=== PATIENT | female | born 1980 | race African-American/Black ===

== ENCOUNTER 2016-11-26 11:48 | Observation (INO) | payer MEDICARE, OTHER ==
[2016-11-26] VITALS (10 sets, daily range): BP systolic 144–174; BP diastolic 73–110; PULSE 78–94; RESP 15–18; TEMP 96.1–98.8; O2SAT 95–100
[~2016-11-26] VITALS: Ht 175.3 cm; Wt 90.0 kg
[~2016-11-26 11:48] MED LIST: AMLO10TA2 PO; BUTA1TAB30 PO; CARV12.52 PO; HYDR25TA35 PO; LISI40TA PO; ZOFR4TAB3 SL
--- NOTE | 2016-11-26 12:22 | PD ---
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 Patient's blood pressure was elevated in triage at 175 systolic. She does not appear to be in any significant distress currently. She is on a transplant list for renal transplant. She takes aspirin and took 1 baby aspirin this morning. [facility] Past Medical History Narrative Medical List of her past medical history as reviewed from the nursing note. Dialysis: Yes (PERITONEAL DIALYSIS) Headaches: Yes Hypertension: Yes Thyroid Disease: Yes (PARATHYROID REMOVAL) Influenza Vaccination: Yes ?: Not : 3 Para: 3 Miscarriage: 0 : 0 Past Surgical History Abdominal Surgery: Yes (PERITONEAL DIALYSIS) Hysterectomy: Yes (2009) Other Surgery: Yes (PARATHYROID REMOVAL APRIL 2016) Social History Alcohol Use: No Tobacco Use: No Substance Use: No Allergies-Medications (Allergen,Severity, Reaction): Coded Allergies: Ultram (Verified Allergy, Intermediate, itching, 11/09/16) Bactrim (Verified Adverse Reaction, Unknown, due to kidney failure, ) Contrast Media (Verified Adverse Reaction, Unknown, due to renal failure, 11/09/16) Comments List of her allergies reviewed from the nursing note. Reported Meds & Prescriptions Reported Meds & Active Scripts Active Zofran Odt (Ondansetron Odt) 4 Mg Tab 4 Mg SL Q8HR PRN Reported Omeprazole 40 Mg Cap 40 Mg PO DAILY Allopurinol 100 Mg Tab 100 Mg PO DAILY Aspirin 81 Mg Chew 81 Mg CHEW DAILY Hydralazine (Hydralazine HCl) 25 Mg Tab 25 Mg PO TID Take with a meal Carvedilol 12.5 Mg Tab 12.5 Mg PO BID Lisinopril 40 Mg Tab 40 Mg PO DAILY Amlodipine (Amlodipine Besylate) 10 Mg Tab 10 Mg PO DAILY Narrative Medication List of home medications reviewed from the nursing note. Review of Systems Except as stated in HPI: all other systems reviewed are Neg Physical Exam Narrative GENERAL: Awake, alert, anxious, no obvious distress SKIN: Warm and dry. HEAD: Atraumatic. Normocephalic. EYES: Pupils equal and round. No scleral icterus. No injection or drainage. ENT: No nasal bleeding or discharge. Mucous membranes pink and moist. NECK: Trachea midline. No JVD. CARDIOVASCULAR: Regular rate and rhythm. No murmur appreciated. RESPIRATORY: No accessory muscle use. Clear to auscultation. Breath sounds equal bilaterally. GASTROINTESTINAL: Abdomen soft, non-tender, nondistended. Hepatic and splenic margins not palpable. MUSCULOSKELETAL: No obvious deformities. No clubbing. No cyanosis. No edema. NEUROLOGICAL: Awake and alert. No obvious cranial nerve deficits. Motor grossly within normal limits. Normal speech. NIH stroke score of 0 PSYCHIATRIC: Appropriate mood and affect; insight and judgment normal. Data Data Last Documented VS Vital Signs Date Time Temp Pulse Resp B/P Pulse Ox O2 Delivery O2 Flow Rate FiO2 11/26/16 13:28 16 97 Nasal Cannula 2 11/26/16 13:00 88 144/73 11/26/16 11:52 97.9 Orders Electrocardiogram (11/26/16 ) Basic Metabolic Panel (Bmp) (11/26/16 12:22) Ckmb (Isoenzyme) Profile (11/26/16 12:22) Complete Blood Count With Diff (11/26/16 12:22) Magnesium (Mg) (11/26/16 12:22) Prothrombin Time / Inr (Pt) (11/26/16 12:22) Act Partial Throm Time (Ptt) (11/26/16 12:22) Troponin I (11/26/16 12:22) Chest, Single Ap (11/26/16 12:22) Ecg Monitoring (11/26/16 12:22) Bilateral Bp Monitoring (11/26/16 12:22) Iv Access Insert/Monitor (11/26/16 12:22) Oximetry (11/26/16 12:22) Oxygen Administration (11/26/16 12:22) Sodium Chloride 0.9% Flush (Ns Flush) (11/26/16 12:30) Nitroglycerin Sl (Nitrostat Sl) (11/26/16 12:30) Ct Brain W/O Iv Contrast(Rout) (11/26/16 ) CKMB (11/26/16 12:20) CKMB% (11/26/16 12:20) Protein Corrected Calcium(Pcc) (11/26/16 12:20) Potassium Chloride (Kcl) (11/26/16 13:45) Calcium Gluconate Inj (Calcium Gluconate (11/26/16 13:45) Calcium Gluconate (Calcium Gluconate) (11/26/16 13:45) Potassium Chloride (Kcl) (11/26/16 21:00) Epoetin Anmol Inj (Epogen Inj) (11/27/16 09:00) ^ Dialysis Permit (11/26/16 13:37) ^ Notify Dr: Other (11/26/16 13:37) ^ Dialysis Catheter Care (11/26/16 13:37) ^ Dialysis Dressing ASHANTI.Q2D (11/26/16 13:37) ^ Dialysis Orders (11/26/16 13:37) Heparin Inj (Heparin Inj) (11/26/16 13:45) Sodium Chloride 0.9% Flush (Ns Flush) (11/26/16 13:45) Admit Order (Ed Use Only) (11/26/16 14:06) Labs Laboratory Tests Test 11/26/16 12:20 White Blood Count 9.9 TH/MM3 Red Blood Count 3.54 MIL/MM3 Hemoglobin 9.2 GM/DL Hematocrit 28.0 % Mean Corpuscular Volume 79.2 FL Mean Corpuscular Hemoglobin 25.9 PG Mean Corpuscular Hemoglobin 32.7 % Concent Red Cell Distribution Width 15.8 % Platelet Count 202 TH/MM3 Mean Platelet Volume 8.6 FL Neutrophils (%) (Auto) 66.9 % Lymphocytes (%) (Auto) 23.7 % Monocytes (%) (Auto) 6.8 % Eosinophils (%) (Auto) 2.0 % Basophils (%) (Auto) 0.6 % Neutrophils # (Auto) 6.7 TH/MM3 Lymphocytes # (Auto) 2.4 TH/MM3 Monocytes # (Auto) 0.7 TH/MM3 Eosinophils # (Auto) 0.2 TH/MM3 Basophils # (Auto) 0.1 TH/MM3 CBC Comment DIFF FINAL Differential Comment Prothrombin Time 10.7 SEC Prothromb Time International 1.0 RATIO Ratio Activated Partial 29.6 SEC Thromboplast Time Sodium Level 141 MEQ/L Potassium Level 3.0 MEQ/L Chloride Level 103 MEQ/L Carbon Dioxide Level 25.7 MEQ/L Anion Gap 12 MEQ/L Blood Urea Nitrogen 38 MG/DL Creatinine 9.01 MG/DL Estimat Glomerular Filtration 6 ML/MIN Rate Random Glucose 90 MG/DL Calcium Level 5.5 MG/DL Protein Corrected Calcium 5.6 MG/DL Magnesium Level 1.5 MG/DL Total Creatine Kinase 617 U/L Creatine Kinase MB 1.0 NG/ML Creatine Kinase MB % 0.2 % Troponin I 0.02 NG/ML Total Protein 7.0 GM/DL MDM Medical Decision Making Medical Screen Exam Complete: Yes Emergency Medical Condition: Yes Medical Record Reviewed: Yes Interpretation(s) Twelve-lead EKG was reviewed by me. Normal sinus rhythm, normal axis, poor R- wave progression, nonspecific ST-T wave changes. Heart rate of 84 bpm. Differential Diagnosis ACS, non-STEMI, nonspecific chest pain Narrative Course 2 PM blood test results of back and the troponin is within normal limit. Patient has hypokalemia and hypocalcemia. I've ordered for placement. In my opinion her paresthesia is secondary to the hypocalcemia. I would like to admit this patient since she does have risk factors for acute coronary syndrome. I spoke with Dr. Francisco for arranging peritoneal dialysis for tonight for her. I spoke with the hospitalist as well as excepted for the observation. Patient was given nitroglycerin for her blood pressure and chest pain. Critical Care Narrative Aggregate critical care time was 30 minutes. Time to perform other separately billable procedures was not included in the critical care time. My time did not include minutes spent treating any other patients simultaneously or on activities that did not directly contribute to the patient's treatment. The services I provided to this patient were to treat and/or prevent clinically significant deterioration that could result in: severe hypocalcemia correction I provided critical care services requiring my management, as noted below: Chart data review, documentation time, medication orders and management, vital sign assessments/reviewing monitor data, ordering and reviewing lab tests, ordering and interpreting/reviewing x-rays and diagnostic studies, care of the patient and discussion of the patient with the admitting physicians. Procedures EKG Prior to Arrival: Yes Physician Communication Physician Communication Dr. Francisco Diagnosis Primary Impression: Chest pain Qualified Code: R07.9 - Chest pain, unspecified type Additional Impressions: ESRD (end stage renal disease) Dependence on peritoneal dialysis Hypocalcemia Hypokalemia Admitting Information Admitting Physician Requests: Observation Scripts Calcium Carbonate (Antacid) 500 Mg [id number] Mg CHEW Q12HR #60 EA Prov:Dionna Simon DO 11/28/16 Calcitriol (Rocaltrol)0.25 Mcg Cap1 Mcg PO DAILY #30 CAP Prov:Dionna Simon DO 11/28/16 Oyster Shell (Oyster Shell Calcium)500 Mg Tab1,500 Mg PO Q6HR 30 Days Prov:Dionna Simon DO 11/28/16 Gisela Kowalski MD Nov 26, 2016 12:22
[2016-11-26] MEDS ORDERED: SODIUM CHLORIDE 0.9% FLUSH 5 ML FLUSH IVF PRN ×2 (12:30→13:45)
[2016-11-26] MEDS ORDERED: OMEP40CA2 PO (12:32)
[2016-11-26] MEDS ORDERED: ASPI81CH CHEW (12:32)
[2016-11-26] MEDS ORDERED: ALLO100T PO (12:32)
[2016-11-26] MEDS: NITROGLYCERIN 0.4 MG SL 25 TABS/BTL SL SCH ×3 (12:35→12:41)
[2016-11-26 12:37] LABS: AUTOMATED NEUTROPHIL # 6.7 TH/MM3 (1.8-7.7); BASOPHIL # 0.1 TH/MM3 (0-0.2); BASOPHIL % 0.6 % (0.0-2.0); EOSINOPHIL # 0.2 TH/MM3 (0-0.4); HEMO FLAGS DIFF FINAL; LYMPH % 23.7 % (9.0-44.0); LYMPHOCYTE # 2.4 TH/MM3 (1.0-4.8); MEAN CELL VOLUME 79.2 FL (80.0-100.0); MEAN CORPUSCULAR HEMOGLOBIN 25.9 PG (27.0-34.0); MEAN CORPUSCULAR HGB CONC 32.7 % (32.0-36.0); MONO % 6.8 % (0.0-8.0); NEUT % 66.9 % (16.0-70.0); PLATELET COUNT 202 TH/MM3 (150-450); RED BLOOD COUNT 3.54 MIL/MM3 (4.00-5.30); RED CELL DISTRIBUTION WIDTH 15.8 % (11.6-17.2); WHITE BLOOD COUNT 9.9 TH/MM3 (4.0-11.0)
[2016-11-26 12:46] LABS: APTT (PATIENT) 29.6 SEC (24.3-30.1); PROTHROMBIN TIME - PATIENT 10.7 SEC (9.8-11.6)
--- NOTE | 2016-11-26 12:56 | RADRPT ---
EXAM DATE/TIME: 11/26/2016 12:43 [facility] COMPARISON: CHEST SINGLE AP, November 09, 2016, 11:39. INDICATIONS : Right sided chest pain with facial and bilateral arm numbness. MEDICAL HISTORY : None. SURGICAL HISTORY : None. ENCOUNTER: Initial ACUITY: 1 day PAIN SCORE: 5/10 LOCATION: Right chest FINDINGS: A single view of the chest demonstrates the lungs to be symmetrically aerated without evidence of mas s, infiltrate or effusion. The cardiomediastinal contours are unremarkable. Osseous structures are intact.CONCLUSION: Normal examination. Cruz Krishna MD on November 26, 2016 at 12:54 Board Certified Radiologist. This report was verified electronically.
[2016-11-26 12:58] LABS: BICARBONATE 25.7 MEQ/L (21.0-32.0); MAGNESIUM 1.5 MG/DL (1.5-2.5)
--- NOTE | 2016-11-26 13:13 | RADRPT ---
EXAM DATE/TIME: 11/26/2016 13:03 [facility] COMPARISON: CT BRAIN W/O CONTRAST, November 09, 2016, 12:08. INDICATIONS : Chest pain with numbness and tingling in face and bilateral upper and lower extremities. RADIATION DOSE: 56.35 CTDIvol (mGy) MEDICAL HISTORY : Hypertension. SURGICAL HISTORY : Hysterectomy. Parathyroid reoval. ENCOUNTER: Initial ACUITY: 2 days PAIN SCALE: 0/10 LOCATION: cranial TECHNIQUE: Multiple contiguous axial images were obtained of the head. Using automated exposure control and adj ustment of the mA and/or kV according to patient size, radiation dose was kept as low as reasonably a chievable to obtain optimal diagnostic quality images. FINDINGS: CEREBRUM: The ventricles are normal for age. No evidence of midline shift, mass lesion, hemorrhage or acute in farction. No extra-axial fluid collections are seen. POSTERIOR FOSSA: The cerebellum and brainstem are intact. The 4th ventricle is midline. The cerebellopontine angle i s unremarkable. EXTRACRANIAL: The visualized portion of the orbits is intact. SKULL: The calvaria is intact. No evidence of skull fracture. CONCLUSION: Normal examination. Cruz Krishna MD on November 26, 2016 at 13:12 Board Certified Radiologist. This report was verified electronically.
[2016-11-26 13:28] LABS: CALCIUM-PROTEIN CORRECTED 5.6 MG/DL (8.5-10.1)
[2016-11-26] MEDS ORDERED: CALCIUM GLUCONATE 500 MG TAB PO ONE (13:45)
[2016-11-26] MEDS ORDERED: HEPARIN SODIUM - IV 10,000 UNITS/10 ML VIAL XX PRN (13:45)
[2016-11-26] MEDS ORDERED: POTASSIUM CHLORIDE 20 MEQ CONTROLLED RELEASE TAB PO ONE (13:45)
[2016-11-26] MEDS ORDERED: CALCIUM GLUCONATE INJ 1 GM in SODIUM CHLORIDE 0.9% INJ 90 ML IV ONE (13:45)
[2016-11-26] MEDS ORDERED: ACETAMINOPHEN 325 MG TAB PO ONE (14:15)
[2016-11-26] MEDS ORDERED: NALOXONE HCL 0.4 MG/ML AMP IV PRN (14:45)
[2016-11-26] MEDS ORDERED: ONDANSETRON HCL 4 MG/2 ML VIAL IVP PRN (14:45)
[2016-11-26] MEDS ORDERED: SODIUM CHLORIDE 0.9% FLUSH 5 ML FLUSH FLUSH PRN (14:45)
[2016-11-26] MEDS ORDERED: ACETAMINOPHEN 325 MG TAB PO PRN (14:45)
--- NOTE | 2016-11-26 15:16 | PD.CONS ---
HPI Service Nephrology Consult Requested By Dr. Kowalski Reason for Consult ESRD on peritoneal dialysis Primary Care Physician Unknown History of Present Illness Patient is a 35-year-old Afro-[place] female with history of Alport syndrome, hypertension with end-stage renal disease on hemodialysis, she has a parathyroidectomy last year and since then she has hypocalcemia, she came in with increasing numbness over the chest shoulder back care and she has had some chest pain, she is doing better and received calcium while in the emergency she does peritoneal dialysis using 1.5% 4 cycles with 2 L fill volume and I last fill of 500 cc as well using 1.5% Review of Systems Constitutional: COMPLAINS OF: Fatigue Cardiovascular: COMPLAINS OF: Chest pain Neurologic: COMPLAINS OF: Paresthesias Psychiatric: COMPLAINS OF: Anxiety Past Family Social History Allergies: Coded Allergies: Ultram (Verified Allergy, Intermediate, itching, 11/09/16) Bactrim (Verified Adverse Reaction, Unknown, due to kidney failure, ) Contrast Media (Verified Adverse Reaction, Unknown, due to renal failure, 11/09/16) Past Medical History Alport syndrome Hypertension ESRD Anemia Hyperparathyroidism status post parathyroidectomy Past Surgical History Tenckhoff catheter Hysterectomy status post parathyroidectomy Reported Medications Reported Meds & Active Scripts Active Zofran Odt (Ondansetron Odt) 4 Mg Tab 4 Mg SL Q8HR PRN Reported Omeprazole 40 Mg Cap 40 Mg PO DAILY Allopurinol 100 Mg Tab 100 Mg PO DAILY Aspirin 81 Mg Chew 81 Mg CHEW DAILY Hydralazine (Hydralazine HCl) 25 Mg Tab 25 Mg PO TID Take with a meal Carvedilol 12.5 Mg Tab 12.5 Mg PO BID Lisinopril 40 Mg Tab 40 Mg PO DAILY Amlodipine (Amlodipine Besylate) 10 Mg Tab 10 Mg PO DAILY Family History Alport syndrome Social History Denies smoking or alcohol use Physical Exam Vital Signs Vital Signs Date Time Temp Pulse Resp B/P Pulse Ox O2 Delivery O2 Flow Rate FiO2 11/26/16 13:28 16 97 Nasal Cannula 2 11/26/16 13:28 97 Nasal Cannula 2 11/26/16 13:00 88 18 144/73 97 Nasal Cannula 2 11/26/16 12:30 90 16 165/85 97 Nasal Cannula 2 11/26/16 12:00 92 16 174/110 95 Room Air 11/26/16 11:52 97.9 94 15 161/110 98 Physical Exam GENERAL: Well-nourished, well-developed patient. SKIN: Warm and dry. HEAD: Normocephalic. EYES: No scleral icterus. No injection or drainage. NECK: Supple, trachea midline. No JVD or lymphadenopathy. CARDIOVASCULAR: Regular rate and rhythm without murmurs, gallops, or rubs. RESPIRATORY: Breath sounds equal bilaterally. No accessory muscle use. GASTROINTESTINAL: Abdomen soft, non-tender, nondistended. Tenckhoff catheter in place EXTREMITIES: No cyanosis, or edema. NEUROLOGICAL: Awake, alert, and oriented x 3. Non-focal. Laboratory Laboratory Tests Test 11/26/16 12:20 White Blood Count 9.9 Red Blood Count 3.54 Hemoglobin 9.2 Hematocrit 28.0 Mean Corpuscular Volume 79.2 Mean Corpuscular Hemoglobin 25.9 Mean Corpuscular Hemoglobin 32.7 Concent Red Cell Distribution Width 15.8 Platelet Count 202 Mean Platelet Volume 8.6 Neutrophils (%) (Auto) 66.9 Lymphocytes (%) (Auto) 23.7 Monocytes (%) (Auto) 6.8 Eosinophils (%) (Auto) 2.0 Basophils (%) (Auto) 0.6 Neutrophils # (Auto) 6.7 Lymphocytes # (Auto) 2.4 Monocytes # (Auto) 0.7 Eosinophils # (Auto) 0.2 Basophils # (Auto) 0.1 CBC Comment DIFF FINAL Differential Comment Prothrombin Time 10.7 Prothromb Time International 1.0 Ratio Activated Partial 29.6 Thromboplast Time Sodium Level 141 Potassium Level 3.0 Chloride Level 103 Carbon Dioxide Level 25.7 Anion Gap 12 Blood Urea Nitrogen 38 Creatinine 9.01 Estimat Glomerular Filtration 6 Rate Random Glucose 90 Calcium Level 5.5 Protein Corrected Calcium 5.6 Magnesium Level 1.5 Total Creatine Kinase 617 Creatine Kinase MB 1.0 Creatine Kinase MB % 0.2 Troponin I 0.02 Total Protein 7.0 Result Diagram: 11/26/16 1220 11/26/16 1220 Assessment and Plan Problem List: (1) ESRD (end stage renal disease) Plan: Patient is on peritoneal dialysis and she will be started. Tonight at the hospital continued supportive care monitor her progress her calcium is low and we will start her on calcium carbonate she was given calcium gluconate in the emergency as well (2) Hypocalcemia Plan: Continue calcium carbonate has been ordered (3) Hypokalemia Plan: Replace potassium (4) Chest pain Plan: Continue to observe (5) Hypertensive urgency Plan: Control blood pressure Problem Qualifiers (1) Chest pain: Qualified Code: R07.9 - Chest pain, unspecified type Vanessa Lee MD Nov 26, 2016 15:16
--- NOTE | 2016-11-26 16:18 | HHI.HP ---
[facility] Unknown Admission Diagnosis chest pain, rule out ACS, ESRD, PD dependent, hypocalcemia Diagnoses: Chief Complaint: Numbness and chest pain Travel History International Travel<30 Days: No Contact w/Intl Traveler <30 Da: No Traveled to Known Affected Are: No History of Present Illness This is a 35-year-old female with past medical history which includes Alport syndrome, end-stage renal disease on peritoneal dialysis, hypertension, gout and hyperparathyroidism status post parathyroidectomy April 2016. Patient reports that she has numbness on both sides of her face her back bilateral lower extremities and bilateral upper extremities which started yesterday and seems to be getting worse. Patient reports numbness and tingling getting worse with time. Patient denies weakness. Patient also complains of chest pain located on the left side of her chest does not radiate there with chest pain started this morning between 9 and 10 AM woke her up from sleep she reports the pain is aching in nature and is 7 out of 10 in severity. Patient denies radiation of pain or associated symptoms such as nausea vomiting diaphoresis. Patient also denies shortness of breath diarrhea constipation fevers or chills. Review of Systems Other All other systems reviewed and negative except as mentioned in history of present illness Past Family Social History Past Medical History Alport syndrome, end-stage renal disease on peritoneal dialysis, hypertension, gout and hyperparathyroidism status post parathyroidectomy April 2016 Past Surgical History Parathyroidectomy April 2016 Hysterectomy Tenckhoff catheter placed Reported Medications Zofran Odt (Ondansetron Odt) 4 Mg Tab 4 Mg SL Q8HR PRN Omeprazole 40 Mg Cap 40 Mg PO DAILY Allopurinol 100 Mg Tab 100 Mg PO DAILY Aspirin 81 Mg Chew 81 Mg CHEW DAILY Hydralazine (Hydralazine HCl) 25 Mg Tab 25 Mg PO TID Take with a meal Carvedilol 12.5 Mg Tab 12.5 Mg PO BID Lisinopril 40 Mg Tab 40 Mg PO DAILY Amlodipine (Amlodipine Besylate) 10 Mg Tab 10 Mg PO DAILY Allergies: Coded Allergies: Ultram (Verified Allergy, Intermediate, itching, 11/09/16) Bactrim (Verified Adverse Reaction, Unknown, due to kidney failure, ) Contrast Media (Verified Adverse Reaction, Unknown, due to renal failure, 11/09/16) Active Ordered Medications Current Medications Medications (Trade) Dose Ordered Sig/Catherine Route Start Time Stop Time Status Last Admin (KCl) 20 meq Q12HR PO 11/26/16 21:00 (Epogen Inj) 20,000 units ONCE ONCE SQ 11/27/16 09:00 11/27/16 09:01 (Zyloprim) 100 mg DAILY PO 11/27/16 09:00 (Norvasc) 10 mg DAILY PO 11/27/16 09:00 (Aspirin Chew) 81 mg DAILY CHEW 11/27/16 09:00 (Coreg) 12.5 mg BID PO 11/26/16 21:00 (Apresoline) 25 mg Q12H PO 11/26/16 18:00 (Prinivil) 40 mg DAILY PO 11/27/16 09:00 (Protonix) 40 mg DAILY PO 11/27/16 09:00 (NS Flush) 2 ml UNSCH PRN FLUSH 11/26/16 14:45 (NS Flush) 2 ml BID FLUSH 11/26/16 21:00 (Tylenol) 650 mg Q4H PRN PO 11/26/16 14:45 (Zofran Inj) 4 mg Q6H PRN IVP 11/26/16 14:45 (Narcan Inj) 0.4 mg UNSCH PRN IV 11/26/16 14:45 (Oscal) 1,500 mg Q6HR PO 11/26/16 18:00 Family History Mother and father both have hypertension, mother had history of CVA and father has history of, "kidney problems" Social History Patient denies tobacco use illicit drug use or EtOH use Physical Exam Vital Signs Vital Signs Date Time Temp Pulse Resp B/P Pulse Ox O2 Delivery O2 Flow Rate FiO2 11/26/16 13:28 16 97 Nasal Cannula 2 11/26/16 13:28 97 Nasal Cannula 2 11/26/16 13:00 88 18 144/73 97 Nasal Cannula 2 11/26/16 12:30 90 16 165/85 97 Nasal Cannula 2 11/26/16 12:00 92 16 174/110 95 Room Air 11/26/16 11:52 97.9 94 15 161/110 98 Physical Exam GENERAL: This is an obese, well-developed patient, in no apparent distress. HEAD: Atraumatic. Normocephalic. No temporal or scalp tenderness. EYES: Extraocular motions intact. No scleral icterus. No injection or drainage. ENT: Nose without bleeding, purulent drainage or septal hematoma. Throat without erythema, tonsillar hypertrophy or exudate. Uvula midline. Airway patent. NECK: Trachea midline. No JVD or lymphadenopathy. Supple, nontender, no meningeal signs. CARDIOVASCULAR: Regular rate and rhythm without murmurs, gallops, or rubs. RESPIRATORY: Clear to auscultation. Breath sounds equal bilaterally. No wheezes , rales, or rhonchi. GASTROINTESTINAL: Abdomen soft, non-tender, nondistended. No guarding. MUSCULOSKELETAL: Trace bilateral lower extremity edema No calf tenderness. Negative Homans sign bilaterally. NEUROLOGICAL: Awake and alert. No focal deficits appreciated. Motor grossly within normal limits. Five out of 5 muscle strength in all muscle groups. Normal speech. Laboratory Laboratory Tests Test 11/26/16 12:20 White Blood Count 9.9 Red Blood Count 3.54 Hemoglobin 9.2 Hematocrit 28.0 Mean Corpuscular Volume 79.2 Mean Corpuscular Hemoglobin 25.9 Mean Corpuscular Hemoglobin 32.7 Concent Red Cell Distribution Width 15.8 Platelet Count 202 Mean Platelet Volume 8.6 Neutrophils (%) (Auto) 66.9 Lymphocytes (%) (Auto) 23.7 Monocytes (%) (Auto) 6.8 Eosinophils (%) (Auto) 2.0 Basophils (%) (Auto) 0.6 Neutrophils # (Auto) 6.7 Lymphocytes # (Auto) 2.4 Monocytes # (Auto) 0.7 Eosinophils # (Auto) 0.2 Basophils # (Auto) 0.1 CBC Comment DIFF FINAL Differential Comment Prothrombin Time 10.7 Prothromb Time International 1.0 Ratio Activated Partial 29.6 Thromboplast Time Sodium Level 141 Potassium Level 3.0 Chloride Level 103 Carbon Dioxide Level 25.7 Anion Gap 12 Blood Urea Nitrogen 38 Creatinine 9.01 Estimat Glomerular Filtration 6 Rate Random Glucose 90 Calcium Level 5.5 Protein Corrected Calcium 5.6 Magnesium Level 1.5 Total Creatine Kinase 617 Creatine Kinase MB 1.0 Creatine Kinase MB % 0.2 Troponin I 0.02 Total Protein 7.0 Result Diagram: 11/26/16 1220 11/26/16 1220 Assessment and Plan Assessment and Plan This is a 35-year-old female with past medical history which includes Alport syndrome, end-stage renal disease on peritoneal dialysis, hypertension, gout and hyperparathyroidism status post parathyroidectomy April 2016. Patient presents to the emergency department with complaints of paresthesia 2 days and chest pain 1 day. Chest pain, rule out acute coronary syndrome Serial troponin serial EKGs Morphine IV as needed for chest pain 8-10 Gardner as needed for pain 4-7 Paresthesia, likely related to hypocalcemia Hypocalcemia Calcium replaced Consultation to nephrology Dr. Lee, appreciate input End-stage renal dialysis on peritoneal dialysis Followed by Dr. Lee, plan peritoneal dialysis nightly Hypokalemia Replaced Also followed by Dr. Lee DVT prophylaxis with SCDs Plan of care discussed with ER provider, RN and patient Written by Sally Rojas, acting as scribe for Dr. Flores on 11/26/16 at 16:18. The documentation accurately reflects the work performed [id number] by me on 11/26/16 at 1618. Discussed Condition With Sally Mo Nov 26, 2016 16:18 Yosi Flores MD Nov 26, 2016 18:17
[2016-11-26] MEDS: hydrALAZINE HCL 25 MG TAB PO SCH (16:26)
[2016-11-26] MEDS: MORPHINE SULFATE 4 MG/ML INJ IV PUSH PRN ×2 (16:27→20:21)
[2016-11-26] MEDS: CALCIUM CARBONATE 1.25 GM (CA 500 MG) TAB PO SCH (16:27)
[2016-11-26 19:33] LABS: CREATINE KINASE 579 U/L (26-192)
[2016-11-26 19:45] LABS: CKMB 1.1 NG/ML (0.5-3.6)
[2016-11-26] MEDS: POTASSIUM CHLORIDE 20 MEQ CONTROLLED RELEASE TAB PO SCH (20:19)
[2016-11-26] MEDS: CARVEDILOL 12.5 MG TAB PO SCH (20:19)
[2016-11-26] MEDS: SODIUM CHLORIDE 0.9% FLUSH 5 ML FLUSH FLUSH SCH (20:20)
[2016-11-27] MEDS: CALCIUM CARBONATE 1.25 GM (CA 500 MG) TAB PO SCH ×4 (00:35→17:41)
[2016-11-27] MEDS: ACETAMINOPHEN/HYDROcodone 325 MG/5 MG TAB PO PRN ×3 (00:35→20:28)
[2016-11-27 00:55] LABS: CKMB 0.5 NG/ML (0.5-3.6)
[2016-11-27 04:48] VITALS: BP 137/81; PULSE 87; RESP 18; TEMP 97.8; O2SAT 97
[2016-11-27] MEDS: hydrALAZINE HCL 25 MG TAB PO SCH ×2 (05:24→17:41)
[2016-11-27 05:25] LABS: BASOPHIL # 0.1 TH/MM3 (0-0.2); EOSINOPHIL # 0.2 TH/MM3 (0-0.4); EOSINOPHIL % 3.4 % (0.0-4.0); HEMATOCRIT 27.6 % (35.0-46.0); HEMO FLAGS DIFF FINAL; LYMPH % 27.1 % (9.0-44.0); LYMPHOCYTE # 1.8 TH/MM3 (1.0-4.8); MEAN CELL VOLUME 79.7 FL (80.0-100.0); MEAN CORPUSCULAR HEMOGLOBIN 26.1 PG (27.0-34.0); MEAN CORPUSCULAR HGB CONC 32.8 % (32.0-36.0); NEUT % 59.5 % (16.0-70.0); PLATELET COUNT 190 TH/MM3 (150-450); RED BLOOD COUNT 3.47 MIL/MM3 (4.00-5.30); WHITE BLOOD COUNT 6.6 TH/MM3 (4.0-11.0)
[2016-11-27] MEDS: MORPHINE SULFATE 4 MG/ML INJ IV PUSH PRN ×3 (05:25→17:42)
[2016-11-27 05:39] LABS: BICARBONATE 26.8 MEQ/L (21.0-32.0)
[2016-11-27 06:20] LABS: CALCIUM-PROTEIN CORRECTED 6.3 MG/DL (8.5-10.1)
[2016-11-27 07:53] VITALS: BP 126/70; PULSE 84; RESP 18; TEMP 97.7; O2SAT 98
[2016-11-27] MEDS ORDERED: EPOETIN ALFA 20,000 UNITS/ML VIAL SQ ONE (09:00)
[2016-11-27] MEDS: SODIUM CHLORIDE 0.9% FLUSH 5 ML FLUSH FLUSH SCH ×2 (09:00→20:29)
[2016-11-27 09:28] VITALS: PULSE 89
--- NOTE | 2016-11-27 09:28 | HHI.PR ---
Subjective Remarks Patient seen in follow-up for chest pain, end-stage renal disease on peritoneal dialysis, hypocalcemia, paresthesia. She reports that she is feeling much better this morning. Chest pain resolved with the pain medication. Paresthesia also resolving. She feels good to go home. Objective Vitals Vital Signs Date Time Temp Pulse Resp B/P Pulse Ox O2 Delivery O2 Flow Rate FiO2 11/27/16 07:53 97.7 84 18 126/70 98 11/27/16 04:48 97.8 87 18 137/81 97 11/26/16 23:44 98.7 84 18 162/87 95 11/26/16 20:34 98.8 78 18 171/96 98 11/26/16 20:00 88 11/26/16 16:30 83 11/26/16 16:00 96.1 79 18 158/98 100 11/26/16 13:28 16 97 Nasal Cannula 2 11/26/16 13:28 97 Nasal Cannula 2 11/26/16 13:00 88 18 144/73 97 Nasal Cannula 2 11/26/16 12:30 90 16 165/85 97 Nasal Cannula 2 11/26/16 12:00 92 16 174/110 95 Room Air 11/26/16 11:52 97.9 94 15 161/110 98 I/O 11/26/16 11/26/16 11/26/16 11/27/16 11/27/16 11/27/16 06:59 14:59 22:59 06:59 14:59 22:59 Intake Total 360 ml 240 ml Output Total 378 ml Balance 360 ml -138 ml Intake Oral 360 ml 240 ml Output Peritoneal Fluid 378 ml # Voids 2 # Bowel Movements 0 Result Diagram: 11/27/16 0443 11/27/16 0443 Imaging Last Impressions Chest X-Ray 11/26/16 1222 Signed Impressions: Service Date/Time: Saturday, November 26, 2016 12:43 - CONCLUSION: Normal examination. Cruz Krishna MD Head CT 11/26/16 0000 Signed Impressions: Service Date/Time: Saturday, November 26, 2016 13:03 - CONCLUSION: Normal examination. Cruz Krishna MD Objective Remarks GENERAL: This is a well-nourished, well-developed patient, in no apparent distress. CARDIOVASCULAR: Normal rate and regular rhythm without murmurs, gallops, or rubs. RESPIRATORY: Good respiratory efforts. Breath sounds equal and clear to auscultation bilaterally. GASTROINTESTINAL: Abdomen soft, non-tender, non-distended. Normal active bowel sounds MUSCULOSKELETAL: Extremities without cyanosis, or edema. NEURO: Alert & Oriented x4 to person, place, time, situation. Moves all ext x4 PSYCH: Appropriate mood and affect. A/P Assessment and Plan 35-year-old female with past medical history which includes Alport syndrome, end-stage renal disease on peritoneal dialysis, hypertension, gout and hyperparathyroidism status post parathyroidectomy April 2016. Patient presents to the emergency department with complaints of paresthesia 2 days and chest pain 1 day. Chest pain, rule out acute coronary syndrome: Chest pain resolved. Serial EKGs and cardiac enzymes negative. Hypocalcemia - Appreciate nephrology following. Continue calcium replacement. - Check magnesium. Add calcitriol 1 g daily which the patient takes at home. Paresthesia, likely related to hypocalcemia: Resolving. End-stage renal dialysis on peritoneal dialysis Followed by Dr. Lee, peritoneal dialysis nightly Hypokalemia Replaced. Check mag DVT prophylaxis with SCDs Discharge Planning If okay with nephrology, can potentially be discharged later today or tomorrow Yosi Flores MD Nov 27, 2016 09:28
[2016-11-27] MEDS: ASPIRIN 81 MG CHEW TAB CHEW SCH (09:33)
[2016-11-27] MEDS: POTASSIUM CHLORIDE 20 MEQ CONTROLLED RELEASE TAB PO SCH ×2 (09:34→20:28)
[2016-11-27] MEDS: CARVEDILOL 12.5 MG TAB PO SCH ×2 (09:34→20:28)
[2016-11-27] MEDS: LISINOPRIL 20 MG TAB PO SCH (09:35)
[2016-11-27] MEDS: PANTOPRAZOLE SOD 40 MG DELAYED RELEASE TAB PO SCH (09:35)
[2016-11-27] MEDS: ALLOPURINOL 100 MG TAB PO SCH (09:35)
[2016-11-27] MEDS: CALCITRIOL 0.25 MCG CAP PO SCH (10:58)
[2016-11-27 11:38] VITALS: BP 120/75; PULSE 90; RESP 20; TEMP 97.8; O2SAT 96
[2016-11-27 15:55] VITALS: BP 120/64; PULSE 80; RESP 18; TEMP 97.9; O2SAT 96
--- NOTE | 2016-11-27 18:04 | HHI.NPPN ---
Subjective History of Present Illness 35 year old with Hypocalcemia s/p parathyroidectomy ESRD on PD Review of Systems General Constitutional: Fatigue Objective Data Data 11/26/16 11/27/16 19:00 07:00 Intake Total 360 ml Balance 360 ml Intake Oral 360 ml Vital Signs Date Time Temp Pulse Resp B/P Pulse Ox O2 Delivery O2 Flow Rate FiO2 11/27/16 15:55 97.9 80 18 120/64 96 11/27/16 11:38 97.8 90 20 120/75 96 11/27/16 09:28 89 11/27/16 07:53 97.7 84 18 126/70 98 11/27/16 04:48 97.8 87 18 137/81 97 11/26/16 23:44 98.7 84 18 162/87 95 11/26/16 20:34 98.8 78 18 171/96 98 11/26/16 20:00 88 -: 11/27/16 0443 11/27/16 0443 Physical Exam General Appearance: Well Developed, Well Nourished Neck Neck Exam: Neck Supple Pulmonary Resp Exam: Clear Bilaterally, Breath Sounds Equal Cardiology CV Exam: Regular, Normal Sinus Rhythm Gastrointestinal/Abdomen GI Exam: Soft, Non-Tender, Bowel Sounds Present Extremeties Extremities Exam: No Edema Assessment/Plan Problem List: (1) ESRD (end stage renal disease) Plan: Patient is on peritoneal dialysis on calcium replacement improving Rocaltrol added Tums added if improved by am then dc home fu with Dr. Montiel her Lead Mobile Developer (2) Hypocalcemia Plan: Continue calcium carbonate added Tums if continue to improve then dc (3) Hypokalemia Plan: Replace potassium (4) Chest pain Plan: Continue to observe (5) Hypertensive urgency Plan: improved Problem Qualifiers (1) Chest pain: Qualified Code: R07.9 - Chest pain, unspecified type Vanessa Lee MD Nov 27, 2016 18:04
--- NOTE | 2016-11-27 19:27 | EKG ---
Date Performed: 11/26/2016 Time Performed: 23:04:33 PTAGE: 35 years EKG: Sinus rhythm PROLONGED QT INTERVAL ABNORMAL ECG PREVIOUS TRACING : 11/26/2016 19.20 DOCTOR: John Hendrickson Interpretating Date/Time 11/27/2016 19:23:10
--- NOTE | 2016-11-27 19:33 | EKG ---
Date Performed: 11/26/2016 Time Performed: 19:20:54 PTAGE: 35 years EKG: Sinus rhythm PROLONGED QT INTERVAL ABNORMAL ECG NO PREVIOUS TRACING DOCTOR: John Hendrickson Interpretating Date/Time 11/27/2016 19:30:17
--- NOTE | 2016-11-27 19:43 | EKG ---
Date Performed: 11/26/2016 Time Performed: 12:11:04 PTAGE: 35 years EKG: Sinus rhythm PROLONGED QT INTERVAL ABNORMAL ECG PREVIOUS TRACING : 11/09/2016 11.44 DOCTOR: John Hendrickson Interpretating Date/Time 11/27/2016 19:36:57
[2016-11-27] MEDS: CALCIUM CARBONATE 500 MG CHEWABLE TAB CHEW SCH (20:28)
[2016-11-27] MEDS ORDERED: diphenhydrAMINE HCL 25 MG CAP PO PRN (21:00)
[2016-11-27 21:19] VITALS: BP 142/85; PULSE 87; RESP 18; TEMP 98.4; O2SAT 97
[2016-11-28 00:11] VITALS: BP 137/69; PULSE 87; RESP 18; TEMP 98.2; O2SAT 98
[2016-11-28] MEDS: CALCIUM CARBONATE 1.25 GM (CA 500 MG) TAB PO SCH ×3 (00:48→12:12)
[2016-11-28] MEDS: MORPHINE SULFATE 4 MG/ML INJ IV PUSH PRN ×2 (02:47→13:59)
[2016-11-28 04:46] VITALS: BP 140/78; PULSE 64; RESP 18; TEMP 98.9; O2SAT 98
[2016-11-28] MEDS: hydrALAZINE HCL 25 MG TAB PO SCH (06:34)
[2016-11-28 07:49] LABS: POTASSIUM 3.2 MEQ/L (3.5-5.1)
[2016-11-28 08:03] VITALS: BP 120/63; PULSE 90; RESP 18; TEMP 98.2; O2SAT 96
[2016-11-28] MEDS ORDERED: POTASSIUM CHLORIDE 20 MEQ CONTROLLED RELEASE TAB PO ONE (09:00)
--- NOTE | 2016-11-28 09:01 | HHI.PR ---
Subjective Remarks Follow-up for chest pain, ESRD, hypomagnesemia, hypocalcemia. Patient is currently doing well. Denies any chest pain, shortness of breath, fever or chills. Objective Vitals Vital Signs Date Time Temp Pulse Resp B/P Pulse Ox O2 Delivery O2 Flow Rate FiO2 11/28/16 08:03 98.2 90 18 120/63 96 11/28/16 04:46 98.9 64 18 140/78 98 11/28/16 02:52 18 11/28/16 00:11 98.2 87 18 137/69 98 11/27/16 21:28 18 11/27/16 21:19 98.4 87 18 142/85 97 11/27/16 15:55 97.9 80 18 120/64 96 11/27/16 11:38 97.8 90 20 120/75 96 11/27/16 09:28 89 I/O 11/27/16 11/27/16 11/27/16 11/28/16 11/28/16 11/28/16 07:00 15:00 23:00 07:00 15:00 23:00 Intake Total 360 ml 240 ml 240 ml Output Total 378 ml 446 ml Balance 360 ml -138 ml 240 ml -446 ml Intake Oral 360 ml 240 ml 240 ml Output Peritoneal Fluid 378 ml 446 ml # Voids 2 2 # Bowel Movements 0 Result Diagram: 11/27/16 0443 11/28/16 0642 Imaging Last Impressions Chest X-Ray 11/26/16 1222 Signed Impressions: Service Date/Time: Saturday, November 26, 2016 12:43 - CONCLUSION: Normal examination. Cruz Krishna MD Head CT 11/26/16 0000 Signed Impressions: Service Date/Time: Saturday, November 26, 2016 13:03 - CONCLUSION: Normal examination. Cruz Krishna MD Objective Remarks GENERAL: AOX3, NAD. SKIN: Warm and dry. HEAD: Normocephalic. EYES: No scleral icterus. No injection or drainage. NECK: Supple, trachea midline. No JVD or lymphadenopathy. CARDIOVASCULAR: Regular rate and rhythm without murmurs, gallops, or rubs. RESPIRATORY: Breath sounds equal bilaterally. No accessory muscle use. GASTROINTESTINAL: Abdomen soft, non-tender, nondistended. MUSCULOSKELETAL: No cyanosis, or edema. BACK: Nontender without obvious deformity. No CVA tenderness. Procedures None. A/P Problem List: (1) ESRD (end stage renal disease) ICD Code: N18.6 Status: Acute (2) Hypocalcemia ICD Code: E83.51 Status: Acute (3) Hypokalemia ICD Code: E87.6 Status: Acute (4) Hypomagnesemia ICD Code: E83.42 Status: Acute Assessment and Plan Ms. Patel is a pleasant 35-year-old female with past medical history which includes Alport syndrome, end-stage renal disease on peritoneal dialysis, hypertension, gout and hyperparathyroidism status post parathyroidectomy April 2016. Patient presents to the emergency department with complaints of paresthesia 2 days and chest pain 1 day. - Chest pain - resolved. Negative troponins. - ESRD - Dr. Lee (Nephrology) following with regards to Peritoneal dialysis. - Hypomagnesemia - Mg 1.5. - Hypocalcemia - Ca 6.3 --> 7.0 (Corrected). - Hypokalemia - K 3.2 - Will replace Mg with 2 g of Magnesium sulfate IV, 1 g of Calcium gluconate IV and 20meq of KCL PO. - Will repeat BMP stat after all these electrolytes are replaced. - If improved,we can discharge patient home today. Advised patient to follow up with her PCP. - Hypertension - continue hydralazine 25 mg by mouth every 12 hours, lisinopril 40 mg daily by mouth daily, amlodipine 10 mg by mouth daily. Full code. MANs. Dionna Simon DO Nov 28, 2016 9:01 am
[2016-11-28] MEDS: CALCIUM CARBONATE 500 MG CHEWABLE TAB CHEW SCH (09:34)
[2016-11-28] MEDS: POTASSIUM CHLORIDE 20 MEQ CONTROLLED RELEASE TAB PO SCH (09:34)
[2016-11-28] MEDS: ASPIRIN 81 MG CHEW TAB CHEW SCH (09:34)
[2016-11-28] MEDS: CARVEDILOL 12.5 MG TAB PO SCH (09:34)
[2016-11-28] MEDS: ALLOPURINOL 100 MG TAB PO SCH (09:35)
[2016-11-28] MEDS: PANTOPRAZOLE SOD 40 MG DELAYED RELEASE TAB PO SCH (09:35)
[2016-11-28] MEDS: LISINOPRIL 20 MG TAB PO SCH (09:35)
[2016-11-28] MEDS: SODIUM CHLORIDE 0.9% FLUSH 5 ML FLUSH FLUSH SCH (09:35)
[2016-11-28] MEDS: CALCITRIOL 0.25 MCG CAP PO SCH (09:35)
[2016-11-28] MEDS: MAGNESIUM SULFATE 1 GM PREMIX 100 ML IV SCH ×2 (09:36→10:36)
[2016-11-28 10:00] VITALS: PULSE 79
[2016-11-28] MEDS: ACETAMINOPHEN/HYDROcodone 325 MG/5 MG TAB PO PRN (10:36)
[2016-11-28] MEDS ORDERED: CALCIUM GLUCONATE INJ 1 GM in DEXTROSE 5% IN WATER 100ML INJ 100 ML IV ONE ×2 (11:00)
--- NOTE | 2016-11-28 11:56 | HHI.NPPN ---
Subjective History of Present Illness 35 year old with Hypocalcemia s/p parathyroidectomy ESRD on PD Review of Systems General Constitutional: Fatigue Objective Data Data 11/27/16 11/28/16 19:00 07:00 Intake Total 240 ml 240 ml Output Total 378 ml Balance -138 ml 240 ml Intake Oral 240 ml 240 ml Output Peritoneal Fluid 378 ml # Voids 2 2 # Bowel Movements 0 Vital Signs Date Time Temp Pulse Resp B/P Pulse Ox O2 Delivery O2 Flow Rate FiO2 11/28/16 08:03 98.2 90 18 120/63 96 11/28/16 04:46 98.9 64 18 140/78 98 11/28/16 02:52 18 11/28/16 00:11 98.2 87 18 137/69 98 11/27/16 21:28 18 11/27/16 21:19 98.4 87 18 142/85 97 11/27/16 15:55 97.9 80 18 120/64 96 -: 11/27/16 0443 11/28/16 0642 Physical Exam General Appearance: Well Developed, Well Nourished Neck Neck Exam: Neck Supple Pulmonary Resp Exam: Clear Bilaterally, Breath Sounds Equal Cardiology CV Exam: Regular, Normal Sinus Rhythm Gastrointestinal/Abdomen GI Exam: Soft, Non-Tender, Bowel Sounds Present Extremeties Extremities Exam: No Edema Assessment/Plan Problem List: (1) ESRD (end stage renal disease) Plan: Patient is on peritoneal dialysis Hypocalcemia has improved She can be discharged from nephrology point of view (2) Hypocalcemia Plan: Continue calcium carbonate it has been ordered (3) Hypokalemia Plan: Replace potassium (4) Chest pain Plan: Continue to observe (5) Hypertensive urgency Plan: Control blood pressure Problem Qualifiers (1) Chest pain: Qualified Code: R07.9 - Chest pain, unspecified type Vanessa Lee MD Nov 28, 2016 11:56
[2016-11-28 12:46] VITALS: BP 137/88; PULSE 80; RESP 18; TEMP 97.8; O2SAT 95
[2016-11-28] MEDS ORDERED: MAGNESIUM SULFATE 1 GM PREMIX 100 ML IV SCH (14:00)
[2016-11-28 16:10] LABS: BICARBONATE 27.6 MEQ/L (21.0-32.0); POTASSIUM 3.8 MEQ/L (3.5-5.1)
[2016-11-28 16:38] LABS: CALCIUM-PROTEIN CORRECTED 7.4 MG/DL (8.5-10.1)
[2016-11-28] MEDS ORDERED: OYST500T11 PO (17:08)
[2016-11-28] MEDS ORDERED: CALC.25 PO (17:08)
[2016-11-28] MEDS ORDERED: CALC500C16 CHEW (17:08)
--- NOTE | 2016-11-28 17:17 | HHI.DS ---
Discharge Summary Admission Date Nov 26, 2016 at 14:07 Discharge Date: Nov 28, 2016 Admitting Diagnosis chest pain, rule out ACS, ESRD, PD dependent, hypocalcemia (1) ESRD (end stage renal disease) ICD Code: N18.6 (2) Hypocalcemia ICD Code: E83.51 Diagnosis: Principal (3) Hypokalemia ICD Code: E87.6 Diagnosis: Principal (4) Hypomagnesemia ICD Code: E83.42 Diagnosis: Principal Procedures None. Brief History - From Admission This is a 35-year-old female with past medical history which includes Alport syndrome, end-stage renal disease on peritoneal dialysis, hypertension, gout and hyperparathyroidism status post parathyroidectomy April 2016. Patient reports that she has numbness on both sides of her face her back bilateral lower extremities and bilateral upper extremities which started yesterday and seems to be getting worse. Patient reports numbness and tingling getting worse with time. Patient denies weakness. Patient also complains of chest pain located on the left side of her chest does not radiate there with chest pain started this morning between 9 and 10 AM woke her up from sleep she reports the pain is aching in nature and is 7 out of 10 in severity. Patient denies radiation of pain or associated symptoms such as nausea vomiting diaphoresis. Patient also denies shortness of breath diarrhea constipation fevers or chills. CBC/BMP: 11/27/16 0443 11/28/16 1511 Significant Findings Laboratory Tests Test 11/26/16 11/26/16 11/27/16 11/27/16 12:20 18:29 00:12 04:43 Red Blood Count 3.54 MIL/MM3 3.47 MIL/MM3 (4.00-5.30) (4.00-5.30) Hemoglobin 9.2 GM/DL 9.1 GM/DL (11.6-15.3) (11.6-15.3) Hematocrit 28.0 % 27.6 % (35.0-46.0) (35.0-46.0) Mean Corpuscular Volume 79.2 FL 79.7 FL (80.0-100.0) (80.0-100.0) Mean Corpuscular Hemoglobin 25.9 PG 26.1 PG (27.0-34.0) (27.0-34.0) Potassium Level 3.0 MEQ/L 3.0 MEQ/L (3.5-5.1) (3.5-5.1) Blood Urea Nitrogen 38 MG/DL (7-18) 34 MG/DL (7-18) Creatinine 9.01 MG/DL 8.42 MG/DL (0.50-1.00) (0.50-1.00) Estimat Glomerular Filtration 6 ML/MIN (>89) 7 ML/MIN (>89) Rate Calcium Level 5.5 MG/DL 6.1 MG/DL (8.5-10.1) (8.5-10.1) Protein Corrected Calcium 5.6 MG/DL 6.3 MG/DL (8.5-10.1) (8.5-10.1) Total Creatine Kinase 617 U/L 579 U/L 512 U/L (26-192) (26-192) (26-192) Troponin I LESS THAN 0.02 NG/ML (0.02-0.05) Monocytes (%) (Auto) 9.0 % (0.0-8.0) Test 11/28/16 11/28/16 06:42 15:11 Potassium Level 3.2 MEQ/L (3.5-5.1) Blood Urea Nitrogen 31 MG/DL (7-18) 32 MG/DL (7-18) Creatinine 8.18 MG/DL 8.14 MG/DL (0.50-1.00) (0.50-1.00) Estimat Glomerular Filtration 7 ML/MIN (>89) 7 ML/MIN (>89) Rate Calcium Level 6.9 MG/DL 7.0 MG/DL (8.5-10.1) (8.5-10.1) Protein Corrected Calcium 7.0 MG/DL 7.4 MG/DL (8.5-10.1) (8.5-10.1) PE at Discharge GENERAL: AOX3, NAD. SKIN: Warm and dry. HEAD: Normocephalic. EYES: No scleral icterus. No injection or drainage. NECK: Supple, trachea midline. No JVD or lymphadenopathy. CARDIOVASCULAR: Regular rate and rhythm without murmurs, gallops, or rubs. RESPIRATORY: Breath sounds equal bilaterally. No accessory muscle use. GASTROINTESTINAL: Abdomen soft, non-tender, nondistended. MUSCULOSKELETAL: No cyanosis, or edema. BACK: Nontender without obvious deformity. No CVA tenderness. Hospital Course Ms. Patel is a pleasant 35-year-old female with past medical history which includes Alport syndrome, end-stage renal disease on peritoneal dialysis, hypertension, gout and hyperparathyroidism status post parathyroidectomy April 2016. Patient presents to the emergency department with complaints of paresthesia 2 days and chest pain 1 day. - Chest pain - resolved. Negative troponins. - ESRD - Dr. Lee (Nephrology) following with regards to Peritoneal dialysis. - Hypomagnesemia - Mg 1.5. - Hypocalcemia - Ca 6.3 --> 7.0 (Corrected). - Hypokalemia - K 3.2 - Will replace Mg with 2 g of Magnesium sulfate IV, 1 g of Calcium gluconate IV and 20meq of KCL PO. - Will repeat BMP stat after all these electrolytes are replaced. - If improved,we can discharge patient home today. Advised patient to follow up with her PCP. - Hypertension - continue hydralazine 25 mg by mouth every 12 hours, lisinopril 40 mg daily by mouth daily, amlodipine 10 mg by mouth daily. After replacing electrolytes, repeat BMP shows improvement. Nephrology cleared for discharge. Patient was subsequently discharged home. Pt Condition on Discharge: Good Discharge Disposition: Discharge Home Discharge Time: > 30 minutes Discharge Instructions DIET: Follow Instructions for: Renal Failure Diet Activities you can perform: Regular-No Restrictions Follow up Referrals: PCP Follow-up - 1 Week New Medications: Calcitriol (Rocaltrol) 0.25 Mcg Cap 1 MCG PO DAILY vitamin #30 CAP Calcium Carbonate (Antacid) (Calcium Carbonate (Antacid)) 500 Mg Chew 500 MG CHEW Q12HR calcium #60 EA Oyster Shell (Oyster Shell Calcium) 500 Mg Tab 1500 MG PO Q6HR calcium Days 30 TAB Continued Medications: Allopurinol (Allopurinol) 100 Mg Tab 100 MG PO DAILY Gout #30 Ref 0 TAB Amlodipine (Amlodipine) 10 Mg Tab 10 MG PO DAILY Blood Pressure Management #30 Ref 0 TAB Aspirin (Aspirin) 81 Mg Chew 81 MG CHEW DAILY Ref 0 TAB Carvedilol (Carvedilol) 12.5 Mg Tab 12.5 MG PO BID #60 Ref 0 TAB Hydralazine (Hydralazine) 25 Mg Tab 25 MG PO TID Take with a meal Blood Pressure Management #90 Ref 0 TAB Lisinopril (Lisinopril) 40 Mg Tab 40 MG PO DAILY Blood Pressure Management #30 Ref 0 TAB Omeprazole (Omeprazole) 40 Mg Cap 40 MG PO DAILY #30 Ref 0 CAP Ondansetron Odt (Zofran Odt) 4 Mg Tab 4 MG SL Q8HR PRN Nausea/Vomiting #12 TAB Dionna Simon DO Nov 28, 2016 17:17
[2017-04-16] MEDS ORDERED: HYDR-3799 PO (12:33)
[2017-04-16] MEDS ORDERED: MACR100C2 PO (14:16)
[2017-04-16] MEDS ORDERED: ZOFR4TAB3 SL (14:16)
== END 2016-11-28 18:31 | disposition home or self-care (01) ==
LOC: NEPE 11:48 → NEDA 14:07 → NEPGCP 15:38
PROVIDERS: ADMIT Internal Medicine; ATTEND Internal Medicine
DX: R07.9 Chest pain, unspecified (principal); N18.6 End stage renal disease; Z99.2 Dependence on renal dialysis; E83.51 Hypocalcemia; E87.6 Hypokalemia; R20.2 Paresthesia of skin; Q87.81 Alport syndrome; Z79.82 Long term (current) use of aspirin; R51 Headache; Z79.899 Other long term (current) drug therapy; R53.83 Other fatigue; I16.0 Hypertensive urgency; E21.3 Hyperparathyroidism, unspecified; E83.42 Hypomagnesemia
CPT/HCPCS: 70450; 71010; 80048; 82550; 82552; 83735; 84155; 84484; 85025; 85610; 85730; 93005; 99291; G0257; G0378; J0610; J2270; J3475; Q4081; 90945

== ENCOUNTER 2016-12-19 07:08 | Inpatient (IN) | payer MEDICARE, OTHER ==
[2016-12-19] VITALS (10 sets, daily range): BP systolic 150–211; BP diastolic 89–128; PULSE 77–108; RESP 16–20; TEMP 97.9–98.5; O2SAT 95–100
[~2016-12-19] VITALS: Ht 175.3 cm; Wt 96.9 kg
[~2016-12-19 07:08] MED LIST changes: +ALLO100T PO; +ASPI81CH CHEW; -BUTA1TAB30 PO; +CALC.25 PO; +CALC500C16 CHEW; +OMEP40CA2 PO; +OYST500T11 PO
[2016-12-19] MEDS ORDERED: SODIUM CHLORIDE 0.9% FLUSH 5 ML FLUSH IVF PRN ×2 (07:45→12:45)
--- NOTE | 2016-12-19 07:46 | PD ---
HPI Chief Complaint: Chest Pain Time Seen by Provider: 07:38 Travel History International Travel<30 days: No Contact w/Intl Traveler<30days: No Traveled to known affect area: No History of Present Illness HPI 36-year-old female with history of parathyroidectomy, chronic renal failure currently on peritoneal dialysis, presents to the ER today for 2 days history of 9 out of 10 substernal chest pains and paresthesias in her hands and lips. She denies any shortness of breath, abdominal pains, nausea, vomiting, or other symptoms. She states that the last time she had paresthesias in her hands and lips, she had problems with her calcium. However, she denies any previous history of chest pains. She does not know any exacerbating or alleviating factors. Modifying Factors: None Associated Signs & Symptoms: Paresthesias in the hand lips, chest pain Risk Factors: Parathyroidectomy PFSH Past Medical History Blood Disorders: No Heart Rhythm Problems: No Cancer: No Cardiovascular Problems: Yes High Cholesterol: No Chest Pain: Yes Congestive Heart Failure: No Diabetes: No Dialysis: Yes (PERITONEAL DIALYSIS) Diminished Hearing: No Endocrine: Yes Genitourinary: No Headaches: Yes Hypertension: Yes Immune Disorder: No Musculoskeletal: No Neurologic: No Psychiatric: No Respiratory: No Thyroid Disease: Yes Tetanus Vaccination: < 5 Years Influenza Vaccination: Yes ?: Not : 3 Para: 3 Miscarriage: 0 : 0 Past Surgical History Abdominal Surgery: Yes (PERITONEAL DIALYSIS) Hysterectomy: Yes Other Surgery: Yes (PARATHYROID REMOVAL APRIL 2016) Social History Alcohol Use: No Tobacco Use: No Substance Use: No Allergies-Medications (Allergen,Severity, Reaction): Coded Allergies: Gentamicin (Verified Allergy, Severe, RASH, 12/19/16) Levaquin (Verified Allergy, Severe, ITCHING, 12/19/16) Rocephin (Verified Allergy, Severe, RASH, 12/19/16) Ultram (Verified Allergy, Intermediate, itching, 12/19/16) Bactrim (Verified Adverse Reaction, Unknown, due to kidney failure, 12/19/16 ) Contrast Media (Verified Adverse Reaction, Unknown, due to renal failure, 12/19/16) Reported Meds & Prescriptions Reported Meds & Active Scripts Active Calcium Carbonate (Antacid) 500 Mg Chew 500 Mg CHEW Q12HR Rocaltrol (Calcitriol) 0.25 Mcg Cap 1 Mcg PO DAILY Oyster Shell Calcium (Oyster Shell) 500 Mg Tab 1,500 Mg PO Q6HR 30 Days Zofran Odt (Ondansetron Odt) 4 Mg Tab 4 Mg SL Q8HR PRN Reported Omeprazole 40 Mg Cap 40 Mg PO DAILY Allopurinol 100 Mg Tab 100 Mg PO DAILY Aspirin 81 Mg Chew 81 Mg CHEW DAILY Hydralazine (Hydralazine HCl) 25 Mg Tab 25 Mg PO TID Take with a meal Carvedilol 12.5 Mg Tab 12.5 Mg PO BID Lisinopril 40 Mg Tab 40 Mg PO DAILY Amlodipine (Amlodipine Besylate) 10 Mg Tab 10 Mg PO DAILY Review of Systems Except as stated in HPI: all other systems reviewed are Neg Physical Exam Narrative GENERAL: Well-nourished, well-developed young -[place] female patient in no acute distress. SKIN: Warm and dry. HEAD: Normocephalic. EYES: No scleral icterus. No injection or drainage. NECK: Supple, trachea midline. CARDIOVASCULAR: Regular rate and rhythm without murmurs, gallops, or rubs. Pulses are present and equal bilaterally. RESPIRATORY: Breath sounds equal bilaterally. No accessory muscle use. GASTROINTESTINAL: Abdomen soft, non-tender, nondistended. MUSCULOSKELETAL: No cyanosis, or edema. BACK: Nontender without obvious deformity. No CVA tenderness. NEUROLOGICAL: Awake and alert. Cranial nerves II through XII intact. Motor and sensory grossly within normal limits. Five out of 5 muscle strength in all muscle groups. Normal speech. Positive Chvostek sign. Data Data Last Documented VS Vital Signs Date Time Temp Pulse Resp B/P Pulse Ox O2 Delivery O2 Flow Rate FiO2 12/19/16 07:42 86 18 169/100 Room Air 162/100 12/19/16 07:40 98 12/19/16 07:09 98.5 Orders Electrocardiogram (12/19/16 ) Ckmb (Isoenzyme) Profile (12/19/16 07:38) Complete Blood Count With Diff (12/19/16 07:38) Comprehensive Metabolic Panel (12/19/16 07:38) Magnesium (Mg) (12/19/16 07:38) Prothrombin Time / Inr (Pt) (12/19/16 07:38) Act Partial Throm Time (Ptt) (12/19/16 07:38) Troponin I (12/19/16 07:38) Chest, Single Ap (12/19/16 07:38) Ecg Monitoring (12/19/16 07:38) Bilateral Bp Monitoring (12/19/16 07:38) Iv Access Insert/Monitor (12/19/16 07:38) Oximetry (12/19/16 07:38) Oxygen Administration (12/19/16 07:38) Sodium Chloride 0.9% Flush (Ns Flush) (12/19/16 07:45) Ed Urine Pregnancytest Poc (12/19/16 07:38) CKMB (12/19/16 07:41) CKMB% (12/19/16 07:41) Calcium Gluconate Inj (Calcium Gluconate (12/19/16 09:00) Potassium Chloride Eff (K-Lyte Cl Eff) (12/19/16 09:00) Labs Laboratory Tests Test 12/19/16 07:41 White Blood Count 7.5 TH/MM3 Red Blood Count 3.92 MIL/MM3 Hemoglobin 10.4 GM/DL Hematocrit 31.9 % Mean Corpuscular Volume 81.4 FL Mean Corpuscular Hemoglobin 26.6 PG Mean Corpuscular Hemoglobin 32.7 % Concent Red Cell Distribution Width 16.0 % Platelet Count 234 TH/MM3 Mean Platelet Volume 9.3 FL Neutrophils (%) (Auto) 63.8 % Lymphocytes (%) (Auto) 27.0 % Monocytes (%) (Auto) 5.7 % Eosinophils (%) (Auto) 2.8 % Basophils (%) (Auto) 0.7 % Neutrophils # (Auto) 4.8 TH/MM3 Lymphocytes # (Auto) 2.0 TH/MM3 Monocytes # (Auto) 0.4 TH/MM3 Eosinophils # (Auto) 0.2 TH/MM3 Basophils # (Auto) 0.1 TH/MM3 CBC Comment DIFF FINAL Differential Comment Prothrombin Time 10.5 SEC Prothromb Time International 1.0 RATIO Ratio Activated Partial 28.9 SEC Thromboplast Time Sodium Level 140 MEQ/L Potassium Level 3.3 MEQ/L Chloride Level 104 MEQ/L Carbon Dioxide Level 23.3 MEQ/L Anion Gap 13 MEQ/L Blood Urea Nitrogen 38 MG/DL Creatinine 9.02 MG/DL Estimat Glomerular Filtration 6 ML/MIN Rate Random Glucose 90 MG/DL Calcium Level 5.9 MG/DL Protein Corrected Calcium 5.8 MG/DL Magnesium Level 1.6 MG/DL Total Bilirubin 0.4 MG/DL Aspartate Amino Transf 15 U/L (AST/SGOT) Alanine Aminotransferase 16 U/L (ALT/SGPT) Alkaline Phosphatase 71 U/L Total Creatine Kinase 464 U/L Creatine Kinase MB LESS THAN 0.5 NG/ML Creatine Kinase MB % 0.1 % Troponin I LESS THAN 0.02 NG/ML Total Protein 7.6 GM/DL Albumin 3.2 GM/DL MDM Medical Decision Making Medical Screen Exam Complete: Yes Emergency Medical Condition: Yes Medical Record Reviewed: Yes Interpretation(s) EKG shows NSR, no ST elevation or depression, and no arrhythmias. No significant T-wave inversions. Laboratory Tests Test 12/19/16 07:41 Red Blood Count 3.92 MIL/MM3 (4.00-5.30) Hemoglobin 10.4 GM/DL (11.6-15.3) Hematocrit 31.9 % (35.0-46.0) Mean Corpuscular Hemoglobin 26.6 PG (27.0-34.0) Potassium Level 3.3 MEQ/L (3.5-5.1) Blood Urea Nitrogen 38 MG/DL (7-18) Creatinine 9.02 MG/DL (0.50-1.00) Estimat Glomerular Filtration 6 ML/MIN (>89) Rate Calcium Level 5.9 MG/DL (8.5-10.1) Protein Corrected Calcium 5.8 MG/DL (8.5-10.1) Total Creatine Kinase 464 U/L (26-192) Troponin I LESS THAN 0.02 NG/ML (0.02-0.05) Albumin 3.2 GM/DL (3.4-5.0) Differential Diagnosis Chest pains, lip and hand paresthesiaselectrolyte abnormalities versus hypocalcemia versus ACS versus dysrhythmias Narrative Course EKG did not show any signs of acute dysrhythmias. Chest x-ray is unremarkable for any signs of acute pulmonary processes. Vital signs are stable in the ER. Her lab work shows significant hypocalcemia and mild hypokalemia. IV calcium and by mouth potassium was given in the ER. Initial cardiac enzymes are negative. At this point, my plan would be to admit the patient for further blood to light replacement and evaluation for chest pain. Case is discussed with family practice resident service for admission. Diagnosis Primary Impression: Chest pain Additional Impressions: Hypocalcemia Hypokalemia Admitting Information Admitting Physician Requests: Admit SoonLobo jon MD Dec 19, 2016 07:46
[2016-12-19 07:55] LABS: AUTOMATED NEUTROPHIL # 4.8 TH/MM3 (1.8-7.7); BASOPHIL # 0.1 TH/MM3 (0-0.2); BASOPHIL % 0.7 % (0.0-2.0); EOSINOPHIL # 0.2 TH/MM3 (0-0.4); EOSINOPHIL % 2.8 % (0.0-4.0); HEMATOCRIT 31.9 % (35.0-46.0); HEMO FLAGS DIFF FINAL; MEAN CELL VOLUME 81.4 FL (80.0-100.0); MEAN CORPUSCULAR HEMOGLOBIN 26.6 PG (27.0-34.0); MEAN CORPUSCULAR HGB CONC 32.7 % (32.0-36.0); MONO % 5.7 % (0.0-8.0); NEUT % 63.8 % (16.0-70.0); PLATELET COUNT 234 TH/MM3 (150-450); RED BLOOD COUNT 3.92 MIL/MM3 (4.00-5.30); WHITE BLOOD COUNT 7.5 TH/MM3 (4.0-11.0)
[2016-12-19 08:03] LABS: APTT (PATIENT) 28.9 SEC (24.3-30.1); PROTHROMBIN TIME - PATIENT 10.5 SEC (9.8-11.6)
[2016-12-19 08:31] LABS: ALKALINE PHOSPHATASE 71 U/L (45-117); ALT (GPT) 16 U/L (10-53); ANION GAP 13 MEQ/L (5-15); AST (GOT) 15 U/L (15-37); BICARBONATE 23.3 MEQ/L (21.0-32.0); BLOOD UREA NITROGEN 38 MG/DL (7-18); CHLORIDE 104 MEQ/L (98-107); CREATINE KINASE 464 U/L (26-192); GLOMERULAR FILTRATION RATE 6 ML/MIN (>89); MAGNESIUM 1.6 MG/DL (1.5-2.5); POTASSIUM 3.3 MEQ/L (3.5-5.1); SODIUM (NA) 140 MEQ/L (136-145); TOTAL BILIRUBIN ADULT 0.4 MG/DL (0.2-1.0)
--- NOTE | 2016-12-19 08:31 | RADRPT ---
EXAM DATE/TIME: 12/19/2016 08:07 [facility] COMPARISON: CHEST SINGLE AP, November 26, 2016, 12:43. INDICATIONS: Chest pain. MEDICAL HISTORY: None. SURGICAL HISTORY: None. ENCOUNTER: Initial ACUITY: 2 days PAIN SCORE: 5/10 LOCATION: Bilateral chest FINDINGS: The heart is enlarged. The pulmonary vascularity pattern is normal. The lungs are clear. CONCLUSION: 1. Cardiomegaly. 2. No acute focal pulmonary infiltrate or pulmonary vascular congestion. Rudy Menjivar MD on December 19, 2016 at 8:16 Board Certified Radiologist. This report was verified electronically.
[2016-12-19 08:40] LABS: CALCIUM-PROTEIN CORRECTED 5.8 MG/DL (8.5-10.1)
[2016-12-19 08:55] LABS: CKMB LESS THAN 0.5 NG/ML (0.5-3.6)
[2016-12-19] MEDS ORDERED: CALCIUM GLUCONATE INJ 2 GM in DEXTROSE 5% IN WATER 100ML INJ 100 ML IV ONE ×4 (09:00→10:00)
[2016-12-19] MEDS ORDERED: POTASSIUM CHLORIDE 25 MEQ EFFERVESCENT TAB PO ONE (09:00)
--- NOTE | 2016-12-19 09:14 | HHI.HP ---
HPI Service Family Medicine Primary Care Physician Non-Staff Admission Diagnosis chest pains/severe hypocalcemia/hypokalemia Diagnoses: Chief Complaint: tingling International Travel<30 Days: No Contact w/Intl Traveler<30days: No Known Affected Area: No History of Present Illness 36 y/o -[place] female presents with tingling in hand and face, lips. Started yesterday evening. Woke up this morning, still having the tingling. She also woke up with the chest pain, describes as achy that shoots down left arm. No burning, pressure pain. Doesn't radiate to back or neck. Nothing makes it better or worse. Not exacerbated by movement or activity. No pain like this before. No history of heart disease, family history of heart disease. Endorses headache. Denies anxiety, sweating. No shortness of breath. Denies fever/chills , cough, GERD. Doesn't smoke or drink alcohol. The pain is the same at rest or when active. States the pain is 9/10. Has had tingling before. Has past medical history of ESRD, been on peritoneal dialysis for 3 years, diagnosed with Alport syndrome. Takes calcium at home. (Trae Leung MD R1) Review of Systems Constitutional: DENIES: Fever, Chills Eyes: DENIES: Blurred vision, Vision loss Ears, nose, mouth, throat: DENIES: Hearing loss, Throat pain, Epistaxis Respiratory: DENIES: Cough, Shortness of breath Cardiovascular: COMPLAINS OF: Chest pain, DENIES: Palpitations, Syncope, Lower Extremity Edema Gastrointestinal: COMPLAINS OF: Nausea, DENIES: Abdominal pain, Black stools, Bloody stools, Constipation, Diarrhea, Vomiting Genitourinary: DENIES: Urinary frequency, Dysuria Musculoskeletal: DENIES: Joint pain, Muscle aches, Back pain, Neck pain Integumentary: DENIES: Abnormal pigmentation, Rash Hematologic/lymphatic: DENIES: Bruising, Lymphadenopathy Immunologic/allergic: DENIES: Eczema, Urticaria Neurologic: COMPLAINS OF: Headache, Paresthesias Psychiatric: DENIES: Anxiety, Confusion Other as per HPI (Trae Leung MD R1) Past Family Social History Past Medical History ESRD, peritoneal dialysis HTN Network Architect Manager is Dr. Nicholson PCP is Dr. Castillo Past Surgical History Peritoneal dialysis Parathyroidectomy, April 2016 Hysterectomy Reported Medications Reported Meds & Active Scripts Active Calcium Carbonate (Antacid) 500 Mg Chew 500 Mg CHEW Q12HR Rocaltrol (Calcitriol) 0.25 Mcg Cap 1 Mcg PO DAILY Oyster Shell Calcium (Oyster Shell) 500 Mg Tab 1,500 Mg PO Q6HR 30 Days Zofran Odt (Ondansetron Odt) 4 Mg Tab 4 Mg SL Q8HR PRN Reported Omeprazole 40 Mg Cap 40 Mg PO DAILY Allopurinol 100 Mg Tab 100 Mg PO DAILY Aspirin 81 Mg Chew 81 Mg CHEW DAILY Hydralazine (Hydralazine HCl) 25 Mg Tab 25 Mg PO TID Take with a meal Carvedilol 12.5 Mg Tab 12.5 Mg PO BID Lisinopril 40 Mg Tab 40 Mg PO DAILY Amlodipine (Amlodipine Besylate) 10 Mg Tab 10 Mg PO DAILY (Trae Leung MD R1) Allergies: Coded Allergies: Gentamicin (Verified Allergy, Severe, RASH, 12/19/16) Levaquin (Verified Allergy, Severe, ITCHING, 12/19/16) Rocephin (Verified Allergy, Severe, RASH, 12/19/16) [place] (Verified Allergy, Intermediate, Nausea/Vomiting, 12/19/16) PT STATES ITCHINESS, NAUSEA, AND VOMITTING Ultram (Verified Allergy, Intermediate, itching, 12/19/16) Bactrim (Verified Adverse Reaction, Unknown, due to kidney failure, 12/19/16 ) Contrast Media (Verified Adverse Reaction, Unknown, due to renal failure, 12/19/16) Active Ordered Medications Active Medications Calcium Gluconate/ Dextrose (Calcium Gluconate Inj/D5W 100 ml Inj) 120 ml @ 120 mls/hr ONCE ONCE IV Last administered on 12/19/16 09:00; Admin Dose 120 MLS /HR; Start 12/19/16 at 09:00; Stop 12/19/16 at 09:59 IV Flush 2 ml 2 ml UNSCH PRN IVF Last administered on 12/19/16 07:40; Admin Dose 2 ML; Start 12/19/16 at 07:45 Potassium Bicarb/ Potassium Chloride (K-Lyte Cl Eff) 25 meq ONCE ONCE PO Last administered on 12/19/16 08:57; Admin Dose 25 MEQ; Start 12/19/16 at 09:00; Stop 12/19/16 at 09:01; Status DC Family History Non-contributory Social History 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 Negative Lavines sign. No acute distress. EYES: PERRLA. EOMI. Lids and conjunctivae reveal no gross abnormality. No scleral icterus. ENT: Hearing adequate. Head NCAT. MMM. OP/OC clear. No cervical or supraclavicular LAD. NECK: No JVD. No carotid bruits. Neck supple, no masses. Trachea midline. No thyromegaly. RESPIRATORY: No evidence of pulmonary edema. Lungs essentially CTAB, no wheezing , crackles, or increased WOB. CARDIOVASCULAR: Regular rate and rhythm, no murmurs or rubs. Radial and DP pulses 2+ and symmetric bilaterally. Brisk capillary refill. ABDOMEN: S/NT/ND. Bowel sounds x 4. No masses or pulsations present. No hepatosplenomegaly. EXTREMITIES: No remarkable dependent edema or varicosities. No clubbing, cyanosis, or erythema. MUSCULOSKELETAL: MAEW without significant joint pain or deformity. Strength 5/5 in upper and lower extremities. No calf tenderness. SKIN: Essentially clear with no significant rash or lesions. Adequate skin turgor. NEUROLOGICAL: NFND. Cranial nerves 2-12 grossly intact. Reflexes +2, symmetric bilaterally in upper and lower extremities. PSYCHIATRIC: Mental status normal for age. Laboratory Laboratory Tests Test 12/19/16 07:41 White Blood Count 7.5 Red Blood Count 3.92 Hemoglobin 10.4 Hematocrit 31.9 Mean Corpuscular Volume 81.4 Mean Corpuscular Hemoglobin 26.6 Mean Corpuscular Hemoglobin 32.7 Concent Red Cell Distribution Width 16.0 Platelet Count 234 Mean Platelet Volume 9.3 Neutrophils (%) (Auto) 63.8 Lymphocytes (%) (Auto) 27.0 Monocytes (%) (Auto) 5.7 Eosinophils (%) (Auto) 2.8 Basophils (%) (Auto) 0.7 Neutrophils # (Auto) 4.8 Lymphocytes # (Auto) 2.0 Monocytes # (Auto) 0.4 Eosinophils # (Auto) 0.2 Basophils # (Auto) 0.1 CBC Comment DIFF FINAL Differential Comment Prothrombin Time 10.5 Prothromb Time International 1.0 Ratio Activated Partial 28.9 Thromboplast Time Sodium Level 140 Potassium Level 3.3 Chloride Level 104 Carbon Dioxide Level 23.3 Anion Gap 13 Blood Urea Nitrogen 38 Creatinine 9.02 Estimat Glomerular Filtration 6 Rate Random Glucose 90 Calcium Level 5.9 Protein Corrected Calcium 5.8 Magnesium Level 1.6 Total Bilirubin 0.4 Aspartate Amino Transf 15 (AST/SGOT) Alanine Aminotransferase 16 (ALT/SGPT) Alkaline Phosphatase 71 Total Creatine Kinase 464 Creatine Kinase MB LESS THAN 0.5 Creatine Kinase MB % 0.1 Troponin I LESS THAN 0.02 Total Protein 7.6 Albumin 3.2 (Trae Leung MD R1) Result Diagram: 12/19/16 0741 12/19/16 0741 Assessment and Plan Assessment and Plan 36 -[place] female with past medical history of ESRD, on peritoneal dialysis presents with tingling and chest pain. Found to have hypocalcemia and hypokalemia. No EKG changes. We'll admit to observation for electrolyte replacement and ACS rule out. Code Status Full Discussed Condition With Dr. Oh (Trae Leung MD R1) Attending Attestation THIS CASE WAS DISCUSSED WITH THE RESIDENT PHYSICIAN. I HAVE REVIEWED THE RECORD AND AGREE WITH THE ABOVE NOTE AND PLAN OF CARE WAS DISCUSSED. I HAVE AUTHORIZED THE ORDER FOR PLACEMENT IN OUT-PATIENT OBSERVATION STATUS. (Enrike Davenport MD) Problem List: (1) Chest pain Status: Acute Plan: DDx includes electrolyte imbalance, ACS, GERD, panic attack, costochondritis No coronary risk factors EKG showed normal sinus rhythm without any dysrhythmias CXR showed negative for acute disease -Initial Trop less than 0.02. Trend Mitchell and EKGs x 2. -Supplemental O2 -Continue home BP meds, including amlodipine and coreg -Daily aspirin. Protonix -Tylenol for pain -Tele. -AM BMP + Mg (2) Hypocalcemia Status: Acute Plan: Protein corrected calcium of 5.8 on admission Takes 3000 mg of calcium daily Calcitriol 0.25 g daily Received 2 g of calcium gluconate IV in ED -Repeat BMP this afternoon -Calcium gluconate 2 g IV in D5 at 20 ml/h (3) Hypokalemia Status: Acute Plan: Potassium of 3.3 on admission Given 25 mEq of KCl in ED -Repeat BMP this afternoon -Monitor and replace as needed (4) Hypertension Status: Acute Plan: BP 211/128 on admission. 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 Her typewriter operator automatic is Dr. Montiel -Consult nephrology, appreciate recs -Continue daily dialysis while admitted (6) FEN Status: Acute Plan: Fluids: NS @ 75 ml/h Electrolytes: Hypokalemia and hypocalcemia, monitor and replace as above Nutrition: Renal diet DVT ppX: Heparin 5000 units SQ every 8 hours and SCDs (Trae Leung MD R1) Problem Qualifiers (1) Chest pain: Qualified Code: R07.9 - Chest pain, unspecified type (2) Hypertension: Qualified Code: I10 - Essential hypertension Trae Leung MD R1 Dec 19, 2016 09:14 Enrike Davenport MD Dec 21, 2016 08:09
[2016-12-19] MEDS ORDERED: BISACODYL 10 MG SUPP PR PRN (09:15)
[2016-12-19] MEDS ORDERED: NALOXONE HCL 0.4 MG/ML AMP IV PRN ×2 (09:15→13:30)
[2016-12-19] MEDS ORDERED: SODIUM CHLORIDE 0.9% FLUSH 5 ML FLUSH FLUSH PRN (09:15)
[2016-12-19] MEDS ORDERED: ACETAMINOPHEN 325 MG TAB PO PRN (09:15)
[2016-12-19] MEDS ORDERED: ONDANSETRON HCL 4 MG/2 ML VIAL IVP PRN (09:15)
[2016-12-19] MEDS ORDERED: SODIUM CHLOR 0.9% 1000 ML INJ 1,000 ML IV SCH (09:30)
[2016-12-19] MEDS: HEPARIN SODIUM - SQ 10,000 UNITS/ML VIAL SQ SCH ×2 (09:32→18:15)
[2016-12-19] MEDS ORDERED: hydrALAZINE HCL 20 MG/ML VIAL IV PUSH PRN (09:45)
[2016-12-19 11:01] LABS: CREATINE KINASE 484 U/L (26-192)
[2016-12-19 11:13] LABS: CKMB 0.6 NG/ML (0.5-3.6)
--- NOTE | 2016-12-19 12:33 | PD.CONS ---
HPI Service Nephrology Consult Requested By Reason for Consult ESRD on PD, hypocalcemia Primary Care Physician Non-Staff History of Present Illness This is a 36 y/o pt with ESRD who presented this am for symptoms of facial and left arm tingling, and later complains of chest pain. On admission her she was severely hypocalcemic with serum calcium 5.9, ionized calcium level 5.8. 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 She follows with Dr. Montiel in [place], [place]. Other PMH of GERD, HTN, anemia, and parathyroidectomy (1/2 of one gland was left in place). She is on daily 8 Tums/day and one dose of KCL daily at home. She is in no distress today , was given oral KCL and IV calcium gluconate in ER. We were consulted for management. (Lianet Squires) Review of Systems Constitutional: DENIES: Fatigue Cardiovascular: COMPLAINS OF: Chest pain, DENIES: Palpitations, Dyspnea on Exertion, Lower Extremity Edema Gastrointestinal: DENIES: Abdominal pain Neurologic: COMPLAINS OF: Headache, Paresthesias, DENIES: Abnormal gait, Localized weakness, Seizures, Speech Problems, Tremor (Lianet Squires) Past Family Social History Allergies: Coded Allergies: Gentamicin (Verified Allergy, Severe, RASH, 12/19/16) Levaquin (Verified Allergy, Severe, ITCHING, 12/19/16) Rocephin (Verified Allergy, Severe, RASH, 12/19/16) [place] (Verified Allergy, Intermediate, Nausea/Vomiting, 12/19/16) PT STATES ITCHINESS, NAUSEA, AND VOMITTING Ultram (Verified Allergy, Intermediate, itching, 12/19/16) Bactrim (Verified Adverse Reaction, Unknown, due to kidney failure, 12/19/16 ) Contrast Media (Verified Adverse Reaction, Unknown, due to renal failure, 12/19/16) Past Medical History ESRD on PD x 3 years for biopsy proven Alport syndrome HTN Anemia of chronic disease GERD Past Surgical History Peritoneal dialysis catheter Parathyroidectomy, April 2016 Hysterectomy Reported Medications Calcium Carbonate (Antacid) 500 Mg Chew 500 Mg CHEW Q12HR Rocaltrol (Calcitriol) 0.25 Mcg Cap 1 Mcg PO DAILY Oyster Shell Calcium (Oyster Shell) 500 Mg Tab 1,500 Mg PO Q6HR 30 Days Zofran Odt (Ondansetron Odt) 4 Mg Tab 4 Mg SL Q8HR PRN Omeprazole 40 Mg Cap 40 Mg PO DAILY Allopurinol 100 Mg Tab 100 Mg PO DAILY Aspirin 81 Mg Chew 81 Mg CHEW DAILY Hydralazine (Hydralazine HCl) 25 Mg Tab 25 Mg PO TID Take with a meal Carvedilol 12.5 Mg Tab 12.5 Mg PO BID Lisinopril 40 Mg Tab 40 Mg PO DAILY Amlodipine (Amlodipine Besylate) 10 Mg Tab 10 Mg PO DAILY Active Ordered Medications Last 72 hours Impressions Chest X-Ray 12/19/16 0738 Signed Impressions: Service Date/Time: Monday, December 19, 2016 08:07 - CONCLUSION: 1. Cardiomegaly. 2. No acute focal pulmonary infiltrate or pulmonary vascular congestion. 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 Montiel full code functionally independent (Lianet Squires) Physical Exam Vital Signs Vital Signs Date Time Temp Pulse Resp B/P Pulse Ox O2 Delivery O2 Flow Rate FiO2 12/19/16 12:08 82 16 167/95 97 Room Air 12/19/16 10:26 99 12/19/16 09:30 81 17 150/100 99 Room Air 12/19/16 07:42 86 18 169/100 Room Air 162/100 12/19/16 07:40 98 Room Air 12/19/16 07:40 18 98 Room Air 12/19/16 07:22 18 98 Room Air 12/19/16 07:09 98.5 97 20 211/128 100 Room Air Physical Exam Young appearing AAF lying right later position, sleeping but arouses to name awake, oriented x 3, complaining of headache and facial/left arm tingling CV: S1/S2 regular rhythm, rate 105 on exam, no murmurs Lungs; clear in all martino Abd: obese, soft, PD catheter mid abdomen, non tender, she has last fill retained at this time Ext: no edema, distal pulses adequate Laboratory Laboratory Tests Test 12/19/16 12/19/16 07:41 09:53 White Blood Count 7.5 Red Blood Count 3.92 Hemoglobin 10.4 Hematocrit 31.9 Mean Corpuscular Volume 81.4 Mean Corpuscular Hemoglobin 26.6 Mean Corpuscular Hemoglobin 32.7 Concent Red Cell Distribution Width 16.0 Platelet Count 234 Mean Platelet Volume 9.3 Neutrophils (%) (Auto) 63.8 Lymphocytes (%) (Auto) 27.0 Monocytes (%) (Auto) 5.7 Eosinophils (%) (Auto) 2.8 Basophils (%) (Auto) 0.7 Neutrophils # (Auto) 4.8 Lymphocytes # (Auto) 2.0 Monocytes # (Auto) 0.4 Eosinophils # (Auto) 0.2 Basophils # (Auto) 0.1 CBC Comment DIFF FINAL Differential Comment Prothrombin Time 10.5 Prothromb Time International 1.0 Ratio Activated Partial 28.9 Thromboplast Time Sodium Level 140 Potassium Level 3.3 Chloride Level 104 Carbon Dioxide Level 23.3 Anion Gap 13 Blood Urea Nitrogen 38 Creatinine 9.02 Estimat Glomerular Filtration 6 Rate Random Glucose 90 Calcium Level 5.9 Protein Corrected Calcium 5.8 Magnesium Level 1.6 Total Bilirubin 0.4 Aspartate Amino Transf 15 (AST/SGOT) Alanine Aminotransferase 16 (ALT/SGPT) Alkaline Phosphatase 71 Total Creatine Kinase 464 484 Creatine Kinase MB LESS THAN 0.5 0.6 Creatine Kinase MB % 0.1 0.1 Troponin I LESS THAN 0.02 LESS THAN 0.02 Total Protein 7.6 Albumin 3.2 (Lianet Squires) Result Diagram: 12/19/1641 12/19/1641 Imaging Last Impressions Chest X-Ray 12/19/16 0738 Signed Impressions: Service Date/Time: Monday, December 19, 2016 08:07 - CONCLUSION: 1. Cardiomegaly. 2. No acute focal pulmonary infiltrate or pulmonary vascular congestion. Rudy Menjivar MD (Lianet Squires) Assessment and Plan Problem List: (1) Hypocalcemia Plan: Likely iatrogenic; Hx of parathyroidectomy in 2016, 1/2 of one gland retained, she was previously hypercalcemic given IV calcium gluconate x 2 doses in ER continue 3 Tums TID between meals increase calcitriol to 2 mcg daily correct magnesium deficiency check PTH in am recheck calcium in am (2) ESRD (end stage renal disease) Plan: on PD, regimen consists of 4 cycles, 2 liter fill volume, 9 hours; she has last fill of 500 ml; uses 1.5% solution monitor electrolytes no IVF required, will discontinue current fluid order check phosphorus in am, she reportedly is not on binder therapy no protein diet restriction she receives Epogen monthly for anemia of chronic disease, was given last dose last week, hemoglobin acceptable, monitor for now (3) Hypokalemia Plan: replace, follow up labs tomorrow (4) Hypomagnesemia Plan: give 1 g magnesium sulfate, follow up metabolic profile tomorrow stop PPI/H2 blockers as this can cause magnesium deficiency and worsen hypocalcemia (5) Hypertension Plan: BP stable, continue medications as ordered (Lianet Squires) Assessment and Plan patient was seen and examined, appears to have iatrogenic hypocalcemia after parathyroidectomy. Increase calcitriol and calcium supplementation. Obtain phosphorus level. She still makes significant amount of urine, unclear if stopping PPI will help in avoiding hypomagnesemia, but will stop it and observe. Discussed with the patient. (Terence Peña MD) Problem Qualifiers (1) Hypertension: Qualified Code: I10 - Essential hypertension Lianet Squires Dec 19, 2016 12:33 Terence Peña MD Dec 19, 2016 19:30
[2016-12-19] MEDS ORDERED: HEPARIN SODIUM - IV 10,000 UNITS/10 ML VIAL XX PRN (12:45)
[2016-12-19] MEDS ORDERED: MAGNESIUM SULFATE 1 GM PREMIX 100 ML IV ONE (13:00)
[2016-12-19] MEDS ORDERED: ACETAMINOPHEN/HYDROcodone 325 MG/5 MG TAB PO PRN (13:30)
[2016-12-19] MEDS ORDERED: ACETAMINOPHEN/HYDROcodone 325 MG/10 MG TAB PO PRN (13:30)
[2016-12-19] MEDS: hydrALAZINE HCL 25 MG TAB PO SCH ×2 (13:34→18:14)
[2016-12-19] MEDS: CALCIUM CARBONATE 500 MG CHEWABLE TAB CHEW SCH ×2 (13:34→18:14)
[2016-12-19] MEDS: CALCITRIOL 0.25 MCG CAP PO SCH (13:34)
[2016-12-19] MEDS ORDERED: cloNIDine HCL 0.1 MG TAB PO PRN (15:00)
[2016-12-19] MEDS ORDERED: IBUPROFEN 400 MG TAB PO PRN (16:00)
[2016-12-19] MEDS: diphenhydrAMINE HCL 25 MG CAP PO PRN (16:17)
[2016-12-19 16:50] LABS: ANION GAP 11 MEQ/L (5-15); BICARBONATE 24.6 MEQ/L (21.0-32.0); BLOOD UREA NITROGEN 38 MG/DL (7-18); CHLORIDE 103 MEQ/L (98-107); CREATINE KINASE 396 U/L (26-192); GLOMERULAR FILTRATION RATE 6 ML/MIN (>89); POTASSIUM 3.3 MEQ/L (3.5-5.1); SODIUM (NA) 139 MEQ/L (136-145)
[2016-12-19] MEDS ORDERED: POTASSIUM CHLORIDE 10 MEQ CAP PO ONE (17:00)
[2016-12-19 17:45] LABS: CKMB LESS THAN 0.5 NG/ML (0.5-3.6)
[2016-12-19 18:05] LABS: CALCIUM-PROTEIN CORRECTED 6.7 MG/DL (8.5-10.1)
[2016-12-19] MEDS: CARVEDILOL 12.5 MG TAB PO SCH (20:44)
[2016-12-19] MEDS: SODIUM CHLORIDE 0.9% FLUSH 5 ML FLUSH FLUSH SCH (20:45)
[2016-12-19] MEDS: MORPHINE SULFATE 4 MG/ML INJ IV PRN (20:45)
[2016-12-19] MEDS ORDERED: CALCIUM CARBONATE 1.25 GM (CA 500 MG) TAB PO SCH (21:00)
[2016-12-20] VITALS (10 sets, daily range): BP systolic 128–166; BP diastolic 81–103; PULSE 82–100; RESP 16–22; TEMP 97.8–98.7; O2SAT 95–99
[2016-12-20] MEDS: diphenhydrAMINE HCL 25 MG CAP PO PRN ×2 (01:15→22:50)
[2016-12-20] MEDS: HEPARIN SODIUM - SQ 10,000 UNITS/ML VIAL SQ SCH ×3 (01:15→17:00)
[2016-12-20] MEDS: MORPHINE SULFATE 4 MG/ML INJ IV PRN ×4 (01:19→21:00)
[2016-12-20] MEDS: CARVEDILOL 12.5 MG TAB PO SCH ×2 (08:31→20:58)
[2016-12-20] MEDS: CALCITRIOL 0.25 MCG CAP PO SCH (08:32)
[2016-12-20] MEDS: CALCIUM CARBONATE 500 MG CHEWABLE TAB CHEW SCH ×3 (08:32→17:00)
[2016-12-20] MEDS: ALLOPURINOL 100 MG TAB PO SCH (08:33)
[2016-12-20] MEDS: hydrALAZINE HCL 25 MG TAB PO SCH ×3 (08:33→17:00)
[2016-12-20] MEDS: ASPIRIN 81 MG CHEW TAB CHEW SCH (08:33)
[2016-12-20] MEDS: SODIUM CHLORIDE 0.9% FLUSH 5 ML FLUSH FLUSH SCH ×2 (08:33→21:01)
[2016-12-20] MEDS ORDERED: PILL SPLITTER OTHER PRN (09:00)
[2016-12-20] MEDS ORDERED: POTASSIUM CHLORIDE 20 MEQ CONTROLLED RELEASE TAB PO ONE (09:00)
[2016-12-20] MEDS ORDERED: PANTOPRAZOLE SOD 40 MG DELAYED RELEASE TAB PO SCH (09:00)
[2016-12-20] MEDS ORDERED: LISINOPRIL 20 MG TAB PO SCH (09:00)
--- NOTE | 2016-12-20 09:24 | HHI.FPPN ---
Subjective Remarks FM Attending Note: Patient seen and examined. S: Chart and all resident physician notes reviewed. In summary this is a 36 year old female who was admitted with an admission diagnosis of Chest Pains, Severe Hypocalcemia,Hypokalemia. This patient has CKD and is on chronic peritoneal dialysis. She had hyperparathyroidism last year for which she underwent a partial parathyroidectomy. Since then she has had difficulty with hypocalcemia despite treatment with calcium supplementation and calcitriol. Noting tingling in arms and lips on admission. Now with pain in muscles primarily in legs. Objective Vitals Vital Signs Date Time Temp Pulse Resp B/P Pulse Ox O2 Delivery O2 Flow Rate FiO2 12/20/16 09:17 Room Air 12/20/16 08:11 98.4 90 22 160/93 99 12/20/16 06:29 90 12/20/16 04:00 98.4 87 18 166/96 95 12/20/16 00:00 97.8 92 18 143/90 96 12/19/16 20:45 Room Air 12/19/16 20:00 97.9 77 18 165/102 95 12/19/16 18:30 97.9 86 18 180/104 98 12/19/16 18:27 Room Air 12/19/16 15:40 18 12/19/16 15:20 89 18 153/89 99 Room Air 12/19/16 14:47 108 18 172/105 98 Room Air 12/19/16 12:08 82 16 167/95 97 Room Air 12/19/16 10:26 99 12/19/16 09:30 81 17 150/100 99 Room Air I/O 12/19/16 12/19/16 12/19/16 12/20/16 12/20/16 12/20/16 07:00 15:00 23:00 07:00 15:00 23:00 Intake Total 480 ml 480 ml Balance 480 ml 480 ml Intake Oral 480 ml 480 ml # Voids 1 2 2 # Bowel Movements 0 0 0 Result Diagram: 12/19/16 0741 12/19/16 1543 Other Results Item Value Date Time Total Creatine Kinase 396 U/L H 12/19/16 1543 Creatine Kinase MB LESS THAN 0.5 NG/ML L 12/19/16 1543 Creatine Kinase MB % 0.1 % 12/19/16 1543 Troponin I LESS THAN 0.02 NG/ML L 12/19/16 1543 Total Protein 6.9 GM/DL 12/20/16 1824 Albumin 2.8 GM/DL L 12/20/16 0900 Parathyroid Hormone (Intact) 1523.6 PG/ML H 12/20/16 0900 Imaging Last 48 hours Impressions Chest X-Ray 12/19/16 0738 Signed Impressions: Service Date/Time: Monday, December 19, 2016 08:07 - CONCLUSION: 1. Cardiomegaly. 2. No acute focal pulmonary infiltrate or pulmonary vascular congestion. Rudy Menjivar MD Objective Remarks O. CONSTITUTIONAL/GEN: normally nourished, in NAD. EYES: conjunctiva normal, PERRLA, EOMI. LUNGS: clear A-P, respiratory effort is normal. CARDIOVASCULAR: RR without murmur or gallop. No significant edema. GI/ABD: soft without masses, without organomegaly. NEURO: No focal deficits. SKIN: color normal, no rashes noted. MUSC: back is normal in appearance. Extremities are normal in appearance. PSYCH/MENTAL STATUS: Alert and oriented x 3. A/P Assessment and Plan 36 -[place] female with past medical history of ESRD, on peritoneal dialysis presents with tingling and chest pain. Found to have hypocalcemia and hypokalemia. No EKG changes. We'll admit to observation for electrolyte replacement and ACS rule out. Problem List: (1) Chest pain Status: Acute Plan: DDx includes electrolyte imbalance, ACS, GERD, panic attack, costochondritis No coronary risk factors EKG showed normal sinus rhythm without any dysrhythmias CXR showed negative for acute disease -Initial Trop less than 0.02. Trend Mitchell and EKGs x 2. -Supplemental O2 -Continue home BP meds, including amlodipine and coreg -Daily aspirin. Protonix -Tylenol for pain -Tele. -AM BMP + Mg 12/20/16 Etiology of chest pain appears to be secondary to hypocalcemia. Continue to replace deficit. Will start on a scheduled dose of diazepam to attempt to decrease muscle pain. (2) Hypocalcemia Status: Acute Plan: Protein corrected calcium of 5.8 on admission Takes 3000 mg of calcium daily Calcitriol 0.25 g daily Received 2 g of calcium gluconate IV in ED -Repeat BMP this afternoon -Calcium gluconate 2 g IV in D5 at 20 ml/h (3) Hypokalemia Status: Acute Plan: Potassium of 3.3 on admission Given 25 mEq of KCl in ED -Repeat BMP this afternoon -Monitor and replace as needed (4) Hypertension Status: Acute Plan: BP 211/128 on admission. 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 Her home economics expert is Dr. Montiel -Consult nephrology, appreciate recs -Continue daily dialysis while admitted (6) FEN Status: Acute Plan: Fluids: NS @ 75 ml/h Electrolytes: Hypokalemia and hypocalcemia, monitor and replace as above Nutrition: Renal diet DVT ppX: Heparin 5000 units SQ every 8 hours and SCDs Problem Qualifiers (1) Chest pain: Qualified Code: R07.9 - Chest pain, unspecified type (2) Hypertension: Qualified Code: I10 - Essential hypertension Enrike Davenport MD Dec 20, 2016 09:24
[2016-12-20 10:16] LABS: AUTOMATED NEUTROPHIL # 3.9 TH/MM3 (1.8-7.7); BASOPHIL # 0.1 TH/MM3 (0-0.2); BASOPHIL % 1.1 % (0.0-2.0); EOSINOPHIL # 0.2 TH/MM3 (0-0.4); HEMATOCRIT 30.1 % (35.0-46.0); HEMO FLAGS DIFF FINAL; LYMPH % 29.5 % (9.0-44.0); LYMPHOCYTE # 1.9 TH/MM3 (1.0-4.8); MEAN CELL VOLUME 80.8 FL (80.0-100.0); MEAN CORPUSCULAR HEMOGLOBIN 26.5 PG (27.0-34.0); MEAN CORPUSCULAR HGB CONC 32.8 % (32.0-36.0); MONO % 5.9 % (0.0-8.0); NEUT % 60.5 % (16.0-70.0); PLATELET COUNT 228 TH/MM3 (150-450); RED BLOOD COUNT 3.72 MIL/MM3 (4.00-5.30); RED CELL DISTRIBUTION WIDTH 16.1 % (11.6-17.2); WHITE BLOOD COUNT 6.5 TH/MM3 (4.0-11.0)
[2016-12-20 10:19] LABS: BICARBONATE 26.9 MEQ/L (21.0-32.0); MAGNESIUM 1.9 MG/DL (1.5-2.5); POTASSIUM 3.7 MEQ/L (3.5-5.1); TOTAL BILIRUBIN ADULT 0.6 MG/DL (0.2-1.0)
[2016-12-20 10:22] LABS: CALCIUM-PROTEIN CORRECTED 6.8 MG/DL (8.5-10.1)
--- NOTE | 2016-12-20 11:21 | HHI.NPPN ---
Subjective Renal Failure: End Stage Renal Disease Interval History PD going well. Calcium slightly improved. Complaining of leg pain, no cramping. Facial tingling improved. (Lianet Squires) Review of Systems Musculoskeletal MS Remarks leg pain (Lianet Squires) Neuro Neuro: Headache (Lianet Squires) Objective Data Data 12/19/16 12/20/16 19:00 07:00 Intake Total 960 ml Balance 960 ml Intake Oral 960 ml # Voids 1 4 # Bowel Movements 0 0 Vital Signs Date Time Temp Pulse Resp B/P Pulse Ox O2 Delivery O2 Flow Rate FiO2 12/20/16 09:17 Room Air 12/20/16 08:11 98.4 90 22 160/93 99 12/20/16 06:29 90 12/20/16 04:00 98.4 87 18 166/96 95 12/20/16 00:00 97.8 92 18 143/90 96 12/19/16 20:45 Room Air 12/19/16 20:00 97.9 77 18 165/102 95 12/19/16 18:30 97.9 86 18 180/104 98 12/19/16 18:27 Room Air 12/19/16 15:40 18 12/19/16 15:20 89 18 153/89 99 Room Air 12/19/16 14:47 108 18 172/105 98 Room Air 12/19/16 12:08 82 16 167/95 97 Room Air (Lianet Squires) -: 12/20/16 0900 12/20/16 0900 Imaging Last 72 hours Impressions Chest X-Ray 12/19/16 0738 Signed Impressions: Service Date/Time: Monday, December 19, 2016 08:07 - CONCLUSION: 1. Cardiomegaly. 2. No acute focal pulmonary infiltrate or pulmonary vascular congestion. Rudy Menjivar MD Tubes & Lines: Tenckhoff Catheter (Lianet Squires) Physical Exam General Appearance: Well Developed, Well Nourished, No Acute Distress (Lianet Squires) Throat Throat Exam: Oral Mucosa [place] & Moist (Lianet Squires) Pulmonary Resp Exam: Clear Bilaterally, Breath Sounds Equal (Lianet Squires) Cardiology CV Exam: Regular, Normal Sinus Rhythm (Lianet Squires) Gastrointestinal/Abdomen GI Exam: Soft, Non-Tender, Bowel Sounds Present (Lianet Squires) Musculoskeletal MS Exam: Joints Intact, Normal Gait, Normal Tone (Lianet Squires) Integumentary Skin Exam: Clear, Warm, Dry (Lianet Squires) Extremeties Extremities Exam: No Edema, Pedal Pulses Palpable (Lianet Squires) Neurologic Neuro Exam: Alert, Awake, Oriented, Speech Clear (Lianet Squires) Assessment/Plan Discussed Condition With: Patient Assessment Summary: Anemia of CKD, Hypertension, End Stage Renal Disease Problem List: (1) Hypocalcemia Plan: Hx of parathyroidectomy in 2015, 1/2 of one gland retained, she was previously hypercalcemic repeat calcium gluconate 1 g today continue 3 Tums TID between meals continue calcitriol at 2 mcg daily PTH pending recheck calcium in am (2) ESRD (end stage renal disease) Plan: on PD, regimen consists of 4 cycles, 2 liter fill volume, 9 hours; she has last fill of 500 ml; uses 1.5% solution monitor electrolytes and replace as needed no IVF required, will discontinue current fluid order phosphorus normal, she is not on binder therapy no protein diet restriction she receives Epogen monthly for anemia of chronic disease, was given last dose last week, hemoglobin acceptable, monitor for now (3) Hypokalemia Plan: replaced orally, may require daily replacement follow up labs tomorrow (4) Hypomagnesemia Plan: corrected with replacement stop PPI/H2 blockers as this can cause magnesium deficiency and worsen hypocalcemia (5) Hypertension Plan: BP stable, continue medications as ordered (Lianet Squires) Problem List: (1) Hypocalcemia Plan: Hx of parathyroidectomy in 2015, 1/2 of one gland retained, she was previously hypercalcemic repeat calcium gluconate 1 g today continue 3 Tums TID between meals continue calcitriol at 2 mcg daily PTH pending recheck calcium in am (2) ESRD (end stage renal disease) Plan: on PD, regimen consists of 4 cycles, 2 liter fill volume, 9 hours; she has last fill of 500 ml; uses 1.5% solution monitor electrolytes and replace as needed no IVF required, will discontinue current fluid order phosphorus normal, she is not on binder therapy no protein diet restriction she receives Epogen monthly for anemia of chronic disease, was given last dose last week, hemoglobin acceptable, monitor for now (3) Hypokalemia Plan: replaced orally, may require daily replacement follow up labs tomorrow (4) Hypomagnesemia Plan: corrected with replacement stop PPI/H2 blockers as this can cause magnesium deficiency and worsen hypocalcemia (5) Hypertension Plan: BP stable, continue medications as ordered Plan patient was seen and examined. Continue to replace Calcium. If improved, can be discharged soon from renal standpoint. (Terence Peña MD) Problem Qualifiers (1) Hypertension: Qualified Code: I10 - Essential hypertension Lianet Squires Dec 20, 2016 11:21 Terence Peña MD Dec 21, 2016 09:12
[2016-12-20] MEDS: DIAZEPAM 5 MG TAB PO SCH ×2 (11:32→20:58)
[2016-12-20] MEDS ORDERED: CALCIUM GLUCONATE INJ 1 GM in SODIUM CHLORIDE 0.9% INJ 100 ML IV ONE (13:00)
[2016-12-20 19:39] LABS: BICARBONATE 28.2 MEQ/L (21.0-32.0); POTASSIUM 4.3 MEQ/L (3.5-5.1)
[2016-12-20 20:01] LABS: CALCIUM-PROTEIN CORRECTED 6.9 MG/DL (8.5-10.1)
--- NOTE | 2016-12-20 22:10 | EKG ---
Date Performed: 12/19/2016 Time Performed: 21:35:42 PTAGE: 36 years EKG: Sinus rhythm Poor R wave progression, possible normal variant PREVIOUS TRACING : 12/19/2016 15.54 Compared to prior tracing no significant change DOCTOR: Celestino Burnette Interpretating Date/Time 12/20/2016 22:08:21
--- NOTE | 2016-12-20 22:43 | EKG ---
Date Performed: 12/19/2016 Time Performed: 15:54:16 PTAGE: 36 years EKG: Sinus rhythm PROLONGED QT INTERVAL ABNORMAL ECG PREVIOUS TRACING : 12/19/2016 07.20 Compared to prior tracing no significant change DOCTOR: Celestino Burnette Interpretating Date/Time 12/20/2016 22:42:18
--- NOTE | 2016-12-20 23:26 | EKG ---
Date Performed: 12/19/2016 Time Performed: 07:20:53 PTAGE: 36 years EKG: Sinus rhythm MINIMAL VOLTAGE CRITERIA FOR LVH, CONSIDER NORMAL VARIANT BORDERLINE ECG Compared to the PREVIOUS TRACING from 11/26/16, no significant changes noted DOCTOR: Celestino Burnette Interpretating Date/Time 12/20/2016 23:26:02
[2016-12-21] MEDS: HEPARIN SODIUM - SQ 10,000 UNITS/ML VIAL SQ SCH ×2 (02:00→09:29)
[2016-12-21 03:38] VITALS: BP 143/90; PULSE 96; RESP 16; TEMP 98.6; O2SAT 99
[2016-12-21] MEDS: MORPHINE SULFATE 4 MG/ML INJ IV PRN ×2 (03:49→09:32)
[2016-12-21 05:43] LABS: AUTOMATED NEUTROPHIL # 4.2 TH/MM3 (1.8-7.7); BASOPHIL # 0.1 TH/MM3 (0-0.2); BASOPHIL % 0.8 % (0.0-2.0); EOSINOPHIL # 0.2 TH/MM3 (0-0.4); EOSINOPHIL % 3.1 % (0.0-4.0); HEMATOCRIT 30.1 % (35.0-46.0); HEMO FLAGS DIFF FINAL; LYMPHOCYTE # 1.9 TH/MM3 (1.0-4.8); MEAN CELL VOLUME 80.7 FL (80.0-100.0); MEAN CORPUSCULAR HEMOGLOBIN 26.5 PG (27.0-34.0); MEAN CORPUSCULAR HGB CONC 32.8 % (32.0-36.0); MONO % 5.4 % (0.0-8.0); NEUT % 61.7 % (16.0-70.0); PLATELET COUNT 217 TH/MM3 (150-450); RED BLOOD COUNT 3.73 MIL/MM3 (4.00-5.30); RED CELL DISTRIBUTION WIDTH 16.1 % (11.6-17.2); WHITE BLOOD COUNT 6.7 TH/MM3 (4.0-11.0)
[2016-12-21 06:36] LABS: BICARBONATE 25.5 MEQ/L (21.0-32.0); POTASSIUM 3.8 MEQ/L (3.5-5.1)
[2016-12-21 06:48] LABS: CALCIUM-PROTEIN CORRECTED 7.5 MG/DL (8.5-10.1)
[2016-12-21 08:00] VITALS: BP 156/85; PULSE 88; RESP 12; TEMP 98.1; O2SAT 97
[2016-12-21 08:23] VITALS: PULSE 79
--- NOTE | 2016-12-21 09:01 | HHI.FPPN ---
Subjective Remarks Patient seen and examined this morning. No acute events overnight. Endorses some leg cramping, but is improved. Otherwise, feels much better. No nausea/ vomiting, chest pain, SOB, abdominal pain. (Trae Leung MD R1) Objective Vitals Vital Signs Date Time Temp Pulse Resp B/P Pulse Ox O2 Delivery O2 Flow Rate FiO2 12/21/16 08:23 79 12/21/16 08:00 98.1 88 12 156/85 97 12/21/16 03:38 98.6 96 16 143/90 99 12/20/16 23:58 98.4 98 16 128/88 97 12/20/16 21:05 98.7 91 16 159/103 99 12/20/16 21:04 Room Air 12/20/16 20:26 100 12/20/16 18:18 98 21 12/20/16 16:08 98.4 82 20 132/81 98 12/20/16 12:11 98.4 94 20 153/98 99 12/20/16 09:17 Room Air I/O 12/20/16 12/20/16 12/20/16 12/21/16 12/21/16 12/21/16 07:00 15:00 23:00 07:00 15:00 23:00 Intake Total 480 ml 360 ml 840 ml 480 ml Balance 480 ml 360 ml 840 ml 480 ml Intake Oral 480 ml 360 ml 840 ml 480 ml # Voids 2 3 1 4 # Bowel Movements 0 0 1 0 (Trae Leung MD R1) Result Diagram: 12/21/1651212/21/16 0513 Objective Remarks O. CONSTITUTIONAL/GEN: normally nourished, in NAD. EYES: conjunctiva normal, PERRLA, EOMI. LUNGS: clear A-P, respiratory effort is normal. CARDIOVASCULAR: RR without murmur or gallop. No significant edema. GI/ABD: soft without masses, without organomegaly. NEURO: No focal deficits. SKIN: color normal, no rashes noted. MUSC: back is normal in appearance. Extremities are normal in appearance. PSYCH/MENTAL STATUS: Alert and oriented x 3. (Trae Leung MD R1) A/P Assessment and Plan 36 -[place] female with past medical history of ESRD, on peritoneal dialysis presents with tingling and chest pain. Found to have hypocalcemia and hypokalemia. Replacing calcium with continued peritoneal dialysis daily. Discharge Planning Pending nephrology recs (Trae Leung MD R1) Attending Attestation Case reviewed and discussed with the resident team. Agree with plan of care as discussed with me and documented in the resident note. (Enrike Davenport MD) Problem List: (1) Chest pain Status: Resolved Plan: Likely due to hypocalcemia No coronary risk factors EKG showed normal sinus rhythm without any dysrhythmias CXR showed negative for acute disease Negative troponin -Supplemental O2 -Continue home BP meds, including amlodipine and coreg -Daily aspirin. Protonix -Tylenol for pain -Tele. (2) Hypocalcemia Status: Acute Plan: Protein corrected calcium of 5.8 on admission Takes 3000 mg of calcium daily Calcitriol 0.25 g daily Received 2 g of calcium gluconate IV in ED -Calcium 7.5 today. Clinically improved -Continue PO, received 1g IV Calcium yesterday (3) Hypokalemia Status: Acute Plan: Potassium of 3.3 on admission Given 25 mEq of KCl in ED -K 3.8 today -Monitor and replace as needed (4) Hypertension Status: Acute Plan: BP 211/128 on admission. 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 Her produce runner is Dr. Montiel -Consult nephrology, appreciate recs -Continue daily dialysis while admitted (6) FEN Status: Acute Plan: Fluids: tolerating PO Electrolytes: Hypokalemia and hypocalcemia, monitor and replace as above Nutrition: Renal diet DVT ppX: Heparin 5000 units SQ every 8 hours and SCDs (Trae Leung MD R1) Problem Qualifiers (1) Chest pain: Qualified Code: R07.9 - Chest pain, unspecified type (2) Hypertension: Qualified Code: I10 - Essential hypertension Trae Leung MD R1 Dec 21, 2016 09:01 Enrike Davenport MD Dec 21, 2016 14:08
[2016-12-21] MEDS ORDERED: CALC.25 PO (09:03)
[2016-12-21] MEDS: SODIUM CHLORIDE 0.9% FLUSH 5 ML FLUSH FLUSH SCH (09:31)
[2016-12-21] MEDS: hydrALAZINE HCL 25 MG TAB PO SCH (09:33)
[2016-12-21] MEDS: CARVEDILOL 12.5 MG TAB PO SCH (09:33)
[2016-12-21] MEDS: ASPIRIN 81 MG CHEW TAB CHEW SCH (09:33)
[2016-12-21] MEDS: CALCIUM CARBONATE 500 MG CHEWABLE TAB CHEW SCH (09:33)
[2016-12-21] MEDS: ALLOPURINOL 100 MG TAB PO SCH (09:33)
[2016-12-21] MEDS: DIAZEPAM 5 MG TAB PO SCH (09:33)
[2016-12-21] MEDS: CALCITRIOL 0.25 MCG CAP PO SCH (09:36)
[2016-12-21 09:40] VITALS: RESP 18
[2016-12-21] MEDS ORDERED: DIAZ5 PO (09:54)
[2016-12-21] MEDS ORDERED: CHOLECALCIFEROL (VIT D3) 1000 UNIT TAB PO SCH (10:00)
--- NOTE | 2016-12-21 10:46 | HHI.NPPN ---
Subjective Renal Failure: Chronic, End Stage Renal Disease Interval History She is sleeping, no acute concerns. Calcium has improved. (Lianet Squires) Review of Systems Musculoskeletal MS Remarks leg pain (Lianet Squires) Objective Data Data 12/20/16 12/21/16 19:00 07:00 Intake Total 360 ml 1320 ml Balance 360 ml 1320 ml Intake Oral 360 ml 1320 ml # Voids 3 5 # Bowel Movements 0 1 Vital Signs Date Time Temp Pulse Resp B/P Pulse Ox O2 Delivery O2 Flow Rate FiO2 12/21/16 09:40 18 12/21/16 08:23 79 12/21/16 08:00 98.1 88 12 156/85 97 12/21/16 03:38 98.6 96 16 143/90 99 12/20/16 23:58 98.4 98 16 128/88 97 12/20/16 21:05 98.7 91 16 159/103 99 12/20/16 21:04 Room Air 12/20/16 20:26 100 12/20/16 18:18 98 21 12/20/16 16:08 98.4 82 20 132/81 98 12/20/16 12:11 98.4 94 20 153/98 99 (Lianet Squires) -: 12/21/16 0513 12/21/16 0513 Tubes & Lines: Tenckhoff Catheter (Lianet Squires) Physical Exam General Appearance: Well Developed, Well Nourished, No Acute Distress, Comfortable, Sleeping (Lianet Squires) Throat Throat Exam: Oral Mucosa [place] & Moist (Lianet Squires) Pulmonary Resp Exam: Clear Bilaterally, Breath Sounds Equal (Lianet Squires) Cardiology CV Exam: Regular, Normal Sinus Rhythm (Lianet Squires) Gastrointestinal/Abdomen GI Exam: Soft, Non-Tender, Bowel Sounds Present (Lianet Squires) Musculoskeletal MS Exam: Joints Intact, Normal Gait, Normal Tone (Lianet Squires) Integumentary Skin Exam: Clear, Warm, Dry (Lianet Squires) Extremeties Extremities Exam: No Edema, Pedal Pulses Palpable (Lianet Squires) Neurologic Neuro Exam: Alert, Awake, Oriented, Speech Clear (Lianet Squires) Assessment/Plan Discussed Condition With: Patient Assessment Summary: Anemia of CKD, Hypertension, End Stage Renal Disease Problem List: (1) Hypocalcemia Plan: Hx of parathyroidectomy in 2016, 1/2 of one gland retained, she was previously hypercalcemic calcium has improved low albumin, ionized calcium level pending, may benefit from protein supplement continue 3 Tums TID between meals continue calcitriol at 2 mcg daily after discharge PTH elevated, ? etiology; one would expect a low PTH; her administrative office assistant has been attempting to determine cause, she denies use of Sensipar recently she does have vitamin D deficiency, suggest 1000 IU once daily at this time she is cleared for discharge, can continue PD regimen, will follow up with Dr. Montiel (2) ESRD (end stage renal disease) Plan: on PD, regimen consists of 4 cycles, 2 liter fill volume, 9 hours; she has last fill of 500 ml; uses 1.5% solution tolerating well electrolytes have improved no IVF required phosphorus normal, she is not on binder therapy no protein diet restriction she receives Epogen monthly for anemia of chronic disease, was given last dose last week, hemoglobin acceptable, monitor for now (3) Hypokalemia Plan: corrected with oral replacement (4) Hypomagnesemia Plan: corrected with replacement avoid PPI as this can cause magnesium deficiency and worsen hypocalcemia (5) Hypertension Plan: BP stable, continue medications as ordered Plan The plan of care was formulated with the assistance of Dr. Peña. (Lianet Squires) Problem List: (1) Hypocalcemia Plan: Hx of parathyroidectomy in 2016, 1/2 of one gland retained, she was previously hypercalcemic calcium has improved low albumin, ionized calcium level pending, may benefit from protein supplement continue 3 Tums TID between meals continue calcitriol at 2 mcg daily after discharge PTH elevated, ? etiology; one would expect a low PTH; her administrative office assistant has been attempting to determine cause, she denies use of Sensipar recently she does have vitamin D deficiency, suggest 1000 IU once daily at this time she is cleared for discharge, can continue PD regimen, will follow up with Dr. Montiel (2) ESRD (end stage renal disease) Plan: on PD, regimen consists of 4 cycles, 2 liter fill volume, 9 hours; she has last fill of 500 ml; uses 1.5% solution tolerating well electrolytes have improved no IVF required phosphorus normal, she is not on binder therapy no protein diet restriction she receives Epogen monthly for anemia of chronic disease, was given last dose last week, hemoglobin acceptable, monitor for now (3) Hypokalemia Plan: corrected with oral replacement (4) Hypomagnesemia Plan: corrected with replacement avoid PPI as this can cause magnesium deficiency and worsen hypocalcemia (5) Hypertension Plan: BP stable, continue medications as ordered Plan patient was seen and examined. Surprisingly PTH is elevated. Serum Calcium level was low on admission. Ionized calcium level is pending. May have severe secondary hyperparathyroidism. Phosphorus is not high. At this time, continue calcium supplements, Calcitriol. Avoid PPI. She can be discharged from renal standpoint. (Terence Peña MD) Problem Qualifiers (1) Hypertension: Qualified Code: I10 - Essential hypertension Lianet Squires Dec 21, 2016 10:46 Terence Peña MD Dec 21, 2016 20:04
[2016-12-21] MEDS ORDERED: VITA100018 PO (11:08)
--- NOTE | 2016-12-21 11:09 | HHI.DCPOC ---
Discharge Care Plan Diagnosis: (1) Alport syndrome (2) Hypertension (3) ESRD (end stage renal disease) (4) Hypocalcemia (5) Hypokalemia Goals to Promote Your Health * To prevent worsening of your condition and complications * To maintain your health at the optimal level Directions to Meet Your Goals Take your medications as prescribed Follow your dietary instruction Follow activity as directed Keep your appointments as scheduled Take your immunizations and boosters as scheduled If your symptoms worsen call your PCP, if no PCP go to Urgent Care Center or Emergency Room Smoking is Dangerous to Your Health. Avoid second hand smoke Call the 24-hour hour crisis hotline for domestic abuse at Trae Leung MD R1 Dec 21, 2016 11:09
--- NOTE | 2016-12-21 11:15 | HHI.DS ---
Discharge Summary Admission Date Dec 19, 2016 at 10:11 Discharge Date: Dec 21, 2016 Admitting Diagnosis chest pains/severe hypocalcemia/hypokalemia (1) Chest pain Diagnosis: Principal Plan: Likely due to hypocalcemia No coronary risk factors EKG showed normal sinus rhythm without any dysrhythmias CXR showed negative for acute disease Negative troponin -Supplemental O2 -Continue home BP meds, including amlodipine and coreg -Daily aspirin. Protonix -Tylenol for pain -Tele. (2) Hypocalcemia Diagnosis: Principal Plan: Protein corrected calcium of 5.8 on admission Takes 3000 mg of calcium daily Calcitriol 0.25 g daily Received 2 g of calcium gluconate IV in ED -Calcium 7.5 today. Clinically improved -Continue PO, received 1g IV Calcium yesterday (3) Hypokalemia Diagnosis: Principal Plan: Potassium of 3.3 on admission Given 25 mEq of KCl in ED -K 3.8 today -Monitor and replace as needed (4) Hypertension Diagnosis: Secondary Plan: BP 211/128 on admission. 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 Her tie in machine operator is Dr. Montiel -Consult nephrology, appreciate recs -Continue daily dialysis while admitted (6) FEN Diagnosis: Secondary Plan: Fluids: tolerating PO Electrolytes: Hypokalemia and hypocalcemia, monitor and replace as above Nutrition: Renal diet DVT ppX: Heparin 5000 units SQ every 8 hours and SCDs [facility] Brief History 36 y/o -[place] female presents with tingling in hand and face, lips. Started yesterday evening. Woke up this morning, still having the tingling. She also woke up with the chest pain, describes as achy that shoots down left arm. No burning, pressure pain. Doesn't radiate to back or neck. Nothing makes it better or worse. Not exacerbated by movement or activity. No pain like this before. No history of heart disease, family history of heart disease. Endorses headache. Denies anxiety, sweating. No shortness of breath. Denies fever/chills , cough, GERD. Doesn't smoke or drink alcohol. The pain is the same at rest or when active. States the pain is 9/10. Has had tingling before. Has past medical history of ESRD, been on peritoneal dialysis for 3 years, diagnosed with Alport syndrome. Takes calcium at home. CBC/BMP: 12/21/16 0513 12/21/16 0513 Significant Findings Laboratory Tests Test 12/19/16 12/19/16 12/19/16 12/20/16 07:41 09:53 15:43 09:00 Red Blood Count 3.92 MIL/MM3 3.72 MIL/MM3 (4.00-5.30) (4.00-5.30) Hemoglobin 10.4 GM/DL 9.9 GM/DL (11.6-15.3) (11.6-15.3) Hematocrit 31.9 % 30.1 % (35.0-46.0) (35.0-46.0) Mean Corpuscular Hemoglobin 26.6 PG 26.5 PG (27.0-34.0) (27.0-34.0) Potassium Level 3.3 MEQ/L 3.3 MEQ/L (3.5-5.1) (3.5-5.1) Blood Urea Nitrogen 38 MG/DL (7-18) 38 MG/DL (7-18) 37 MG/DL (7-18) Creatinine 9.02 MG/DL 8.59 MG/DL 8.94 MG/DL (0.50-1.00) (0.50-1.00) (0.50-1.00) Estimat Glomerular Filtration 6 ML/MIN (>89) 6 ML/MIN (>89) 6 ML/MIN (>89) Rate Calcium Level 5.9 MG/DL 6.7 MG/DL 6.6 MG/DL (8.5-10.1) (8.5-10.1) (8.5-10.1) Protein Corrected Calcium 5.8 MG/DL 6.7 MG/DL 6.8 MG/DL (8.5-10.1) (8.5-10.1) (8.5-10.1) Total Creatine Kinase 464 U/L 484 U/L 396 U/L (26-192) (26-192) (26-192) Creatine Kinase MB LESS THAN 0.5 LESS THAN 0.5 NG/ML (0.5-3.6) NG/ML (0.5-3.6) Troponin I LESS THAN 0.02 LESS THAN 0.02 LESS THAN 0.02 NG/ML NG/ML NG/ML (0.02-0.05) (0.02-0.05) (0.02-0.05) Albumin 3.2 GM/DL 2.8 GM/DL (3.4-5.0) (3.4-5.0) Random Glucose 108 MG/DL (74-106) Aspartate Amino Transf 10 U/L (15-37) (AST/SGOT) Parathyroid Hormone (Intact) 1523.6 PG/ML (12.4-76.8) Test 12/20/16 12/21/16 18:24 05:13 Blood Urea Nitrogen 38 MG/DL (7-18) 35 MG/DL (7-18) Creatinine 8.94 MG/DL 8.57 MG/DL (0.50-1.00) (0.50-1.00) Estimat Glomerular Filtration 6 ML/MIN (>89) 6 ML/MIN (>89) Rate Calcium Level 6.8 MG/DL 7.2 MG/DL (8.5-10.1) (8.5-10.1) Protein Corrected Calcium 6.9 MG/DL 7.5 MG/DL (8.5-10.1) (8.5-10.1) Red Blood Count 3.73 MIL/MM3 (4.00-5.30) Hemoglobin 9.9 GM/DL (11.6-15.3) Hematocrit 30.1 % (35.0-46.0) Mean Corpuscular Hemoglobin 26.5 PG (27.0-34.0) Random Glucose 108 MG/DL (74-106) 25-Hydroxy Vitamin D Total 15.1 ng/ML (30-100) PE at Discharge O. CONSTITUTIONAL/GEN: normally nourished, in NAD. EYES: conjunctiva normal, PERRLA, EOMI. LUNGS: clear A-P, respiratory effort is normal. CARDIOVASCULAR: RR without murmur or gallop. No significant edema. GI/ABD: soft without masses, without organomegaly. NEURO: No focal deficits. SKIN: color normal, no rashes noted. MUSC: back is normal in appearance. Extremities are normal in appearance. PSYCH/MENTAL STATUS: Alert and oriented x 3. Hospital Course 36 y/o female with history of ESRD on daily peritoneal dialysis, presents with headache and chest pain. Found to have hypocalcemia of 5.9 on admission. Pt received several IV doses of Calcium and her home regimen of PO Calcium was continued. Nephrology was consulted and continued her daily peritoneal dialysis while inpatient. Her electrolytes improved along with her pain and leg cramps. Was cleared by nephrology and sent home with PO calcium regimen, vitamin D and increased calcitriol dose. Pt is discharged in stable condition and to follow- up with her tie in machine operator Dr. Montiel. Pt Condition on Discharge: Stable Discharge Disposition: Discharge Home Discharge Instructions DIET: Follow Instructions for: Renal Failure Diet Activities you can perform: Regular-No Restrictions Follow up Referrals: Nephrology - [address] Montiel PCP Follow-up - 1 Week New Medications: Calcitriol (Rocaltrol) 0.25 Mcg Cap 2 MCG PO DAILY #30 CAP Cholecalciferol (Vitamin D3) 1,000 Unit Tab 1000 UNITS PO DAILY #30 TAB Diazepam (Valium) 5 Mg Tab 5 MG PO Q12HR #15 TAB Continued Medications: Allopurinol (Allopurinol) 100 Mg Tab 100 MG PO DAILY Gout #30 Ref 0 TAB Amlodipine (Amlodipine) 10 Mg Tab 10 MG PO DAILY Blood Pressure Management #30 Ref 0 TAB Aspirin (Aspirin) 81 Mg Chew 81 MG CHEW DAILY Ref 0 TAB Calcium Carbonate (Antacid) (Calcium Carbonate (Antacid)) 500 Mg Chew 500 MG CHEW Q12HR calcium #60 EA Carvedilol (Carvedilol) 12.5 Mg Tab 12.5 MG PO BID #60 Ref 0 TAB Hydralazine (Hydralazine) 25 Mg Tab 25 MG PO TID Take with a meal Blood Pressure Management #90 Ref 0 TAB Omeprazole (Omeprazole) 40 Mg Cap 40 MG PO DAILY #30 Ref 0 CAP Ondansetron Odt (Zofran Odt) 4 Mg Tab 4 MG SL Q8HR PRN Nausea/Vomiting #12 TAB Oyster Shell (Oyster Shell Calcium) 500 Mg Tab 1500 MG PO Q6HR calcium Days 30 TAB Discontinued Medications: Calcitriol (Rocaltrol) 0.25 Mcg Cap 1 MCG PO DAILY vitamin #30 CAP Lisinopril (Lisinopril) 40 Mg Tab 40 MG PO DAILY Blood Pressure Management #30 Ref 0 TAB Trae Leung MD R1 Dec 21, 2016 11:15
[2016-12-21 11:17] VITALS: O2SAT 97
[2017-04-16] MEDS ORDERED: HYDR-3799 PO (12:33)
[2017-04-16] MEDS ORDERED: MACR100C2 PO (14:16)
[2017-04-16] MEDS ORDERED: ZOFR4TAB3 SL (14:16)
== END 2016-12-21 11:50 | disposition home or self-care (01) | DRG 640 ==
LOC: NEPC 07:08 → NEDA 09:04 → OBSVTOIN 10:11 → NEDA 14:48 → N04A 17:53
PROVIDERS: ADMIT Family Medicine; ATTEND Family Medicine
PROC: 3E1M39Z Irrigation of Peritoneal Cavity using Dialysate, Percutaneous Approach (ICD-10-PCS; principal; 2016-12-19)
DX: E83.51 Hypocalcemia (principal); N18.6 End stage renal disease; I12.0 Hypertensive chronic kidney disease with stage 5 chronic kidney disease or end stage renal disease; Q87.81 Alport syndrome; E87.6 Hypokalemia; R07.9 Chest pain, unspecified; Z79.82 Long term (current) use of aspirin; K21.9 Gastro-esophageal reflux disease without esophagitis; E66.9 Obesity, unspecified; Z68.31 Body mass index [BMI] 31.0-31.9, adult; D63.1 Anemia in chronic kidney disease; E83.42 Hypomagnesemia; E55.9 Vitamin D deficiency, unspecified
CPT/HCPCS: 71010; 80048; 80053; 82306; 82330; 82550; 82552; 83735; 83970; 84100; 84155; 84484; 85025; 85610; 85730; 90935; 93005; 96374; J0360; J0610; J1644; J2270; J2405; J3475; J7030

== ENCOUNTER 2017-01-01 13:22 | Emergency (ER) | payer MEDICARE, OTHER ==
[~2017-01-01] VITALS: Ht 175.3 cm; Wt 90.0 kg
[~2017-01-01 13:22] MED LIST changes: +DIAZ5 PO; -LISI40TA PO; +VITA100018 PO
[2017-01-01 13:23] VITALS: BP 164/100; PULSE 96; RESP 20; TEMP 97.8; O2SAT 98
--- NOTE | 2017-01-01 14:54 | PD ---
HPI Chief Complaint: Abdominal Pain Time Seen by Provider: 14:47 Travel History International Travel<30 days: No Contact w/Intl Traveler<30days: No Traveled to known affect area: No History of Present Illness HPI Patient's 36-year-old female presenting to emergency department for evaluation of bloody peritoneal fluid. Patient is a PD patient, she states she woke up this morning noticing blood in the line. Patient also is stating her blood pressure was high last night even though she took her normal dose of blood pressure medications. She also reports feeling very dizzy at that time. She took her normal dose of medication and also took a clonidine 0.2 mg tablet. She states the clonidine makes her drowsy so she fell asleep when she woke this morning is when she found the blood in the line. Again her blood pressure was elevated this morning she has taken 2 clonidine 0.2 mg tablets today 1 at 10:00 and one just prior to arrival to the emergency department. Patient reports passing out this morning, she came to the emergency department when her cousin was available to bring her in. Patient denies any shortness of breath, chest pain, fever, chills she does endorse nausea and took Zofran prior to arrival [facility] Past Medical History Anemia: Yes Blood Disorders: No Heart Rhythm Problems: No Cancer: No Cardiovascular Problems: Yes High Cholesterol: No Chest Pain: Yes Congestive Heart Failure: No Diabetes: No Dialysis: Yes (PERITONEAL DIALYSIS) Diminished Hearing: No Genitourinary: No Headaches: Yes Hypertension: Yes Immune Disorder: No Musculoskeletal: No Neurologic: No Psychiatric: No Respiratory: No Thyroid Disease: Yes : 3 Para: 3 Miscarriage: 0 : 0 Past Surgical History Abdominal Surgery: Yes (PERITONEAL DIALYSIS) Hysterectomy: Yes Other Surgery: Yes (PARATHYROID REMOVAL APRIL 2016) Social History Alcohol Use: No Tobacco Use: No Substance Use: No Allergies-Medications (Allergen,Severity, Reaction): Coded Allergies: Gentamicin (Verified Allergy, Severe, RASH, 01/01/17) Levaquin (Verified Allergy, Severe, ITCHING, 01/01/17) Rocephin (Verified Allergy, Severe, RASH, 01/01/17) [place] (Verified Allergy, Intermediate, Nausea/Vomiting, 01/01/17) PT STATES ITCHINESS, NAUSEA, AND VOMITTING Ultram (Verified Allergy, Intermediate, itching, 01/01/17) Bactrim (Verified Adverse Reaction, Unknown, due to kidney failure, ) Contrast Media (Verified Adverse Reaction, Unknown, due to renal failure, 01/01/17) Reported Meds & Prescriptions Reported Meds & Active Scripts Active Vitamin D3 (Cholecalciferol) 1,000 Unit Tab 1,000 Units PO DAILY Valium (Diazepam) 5 Mg Tab 5 Mg PO Q12HR Rocaltrol (Calcitriol) 0.25 Mcg Cap 2 Mcg PO DAILY Calcium Carbonate (Antacid) 500 Mg Chew 500 Mg CHEW Q12HR Oyster Shell Calcium (Oyster Shell) 500 Mg Tab 1,500 Mg PO Q6HR 30 Days Zofran Odt (Ondansetron Odt) 4 Mg Tab 4 Mg SL Q8HR PRN Reported Omeprazole 40 Mg Cap 40 Mg PO DAILY Allopurinol 100 Mg Tab 100 Mg PO DAILY Aspirin 81 Mg Chew 81 Mg CHEW DAILY Hydralazine (Hydralazine HCl) 25 Mg Tab 25 Mg PO TID Take with a meal Carvedilol 12.5 Mg Tab 12.5 Mg PO BID Amlodipine (Amlodipine Besylate) 10 Mg Tab 10 Mg PO DAILY Review of Systems Except as stated in HPI: all other systems reviewed are Neg Cardiovascular: No: Chest Pain or Discomfort Respiratory: No: Shortness of Breath Gastrointestinal: Positive: Nausea, Abdominal Pain, No: Vomiting Genitourinary: No: Dysuria Musculoskeletal: No: Myalgias Neurologic: Positive: Dizziness Physical Exam Narrative GENERAL: Well-developed, well-nourished, alert female. Resting comfortably in no acute distress. SKIN: Warm and dry. HEAD: Atraumatic. Normocephalic. EYES: Pupils equal and round. No scleral icterus. No injection or drainage. ENT: No nasal bleeding or discharge. Mucous membranes pink and moist. NECK: Trachea midline. No JVD. CARDIOVASCULAR: Regular rate and rhythm. No murmur appreciated. RESPIRATORY: No accessory muscle use. Clear to auscultation. Breath sounds equal bilaterally. GASTROINTESTINAL: Abdomen soft, tender to palpation diffusely, positive bowel sounds. PD catheter in the left mid abdomen no erythema noted on her abdomen. MUSCULOSKELETAL: No obvious deformities. No clubbing. No cyanosis. No edema. NEUROLOGICAL: Awake and alert. No obvious cranial nerve deficits. Motor grossly within normal limits. Normal speech. PSYCHIATRIC: Appropriate mood and affect; insight and judgment normal. Data Data Last Documented VS Vital Signs Date Time Temp Pulse Resp B/P Pulse Ox O2 Delivery O2 Flow Rate FiO2 01/01/17 13:23 97.8 96 20 164/100 98 Room Air Orders Electrocardiogram (01/01/17 14:43) Complete Blood Count With Diff (01/01/17 14:43) Comprehensive Metabolic Panel (01/01/17 14:43) Magnesium (Mg) (01/01/17 14:43) Ckmb (Isoenzyme) Profile (01/01/17 14:43) Troponin I (01/01/17 14:43) Act Partial Throm Time (Ptt) (01/01/17 14:43) Prothrombin Time / Inr (Pt) (01/01/17 14:43) Urinalysis - C+S If Indicated (01/01/17 14:43) Lactic Acid (01/01/17 14:43) Labs Laboratory Tests Test 01/01/17 15:00 White Blood Count 8.4 TH/MM3 Red Blood Count 3.58 MIL/MM3 Hemoglobin 9.5 GM/DL Hematocrit 28.5 % Mean Corpuscular Volume 79.8 FL Mean Corpuscular Hemoglobin 26.5 PG Mean Corpuscular Hemoglobin 33.2 % Concent Red Cell Distribution Width 15.9 % Platelet Count 218 TH/MM3 Mean Platelet Volume 8.7 FL Neutrophils (%) (Auto) 69.9 % Lymphocytes (%) (Auto) 20.1 % Monocytes (%) (Auto) 7.0 % Eosinophils (%) (Auto) 2.3 % Basophils (%) (Auto) 0.7 % Neutrophils # (Auto) 5.8 TH/MM3 Lymphocytes # (Auto) 1.7 TH/MM3 Monocytes # (Auto) 0.6 TH/MM3 Eosinophils # (Auto) 0.2 TH/MM3 Basophils # (Auto) 0.1 TH/MM3 CBC Comment DIFF FINAL Differential Comment MDM Medical Decision Making Medical Screen Exam Complete: Yes Emergency Medical Condition: Yes Medical Record Reviewed: Yes Interpretation(s) Vital Signs Date Time Temp Pulse Resp B/P Pulse Ox O2 Delivery O2 Flow Rate FiO2 01/01/17 13:23 97.8 96 20 164/100 98 Room Air Differential Diagnosis Electrolyte abnormality versus peritonitis versus cardiac arrhythmia versus hypertensive urgency versus other Narrative Course 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 Patient's reports dizziness, syncopal episode, elevated blood pressure readings , and bloody appearing peritoneal fluid. Patient had been admitted recently for electrolyte abnormality with a calcium of 5.8 and potassium of 3.3. Labs ordered and pending. EKG ordered. Care of patient will be transferred to provider when medical bed is available. Sobia Liao Jan 01, 2017 14:54
[2017-01-01 15:20] VITALS: BP 149/90; PULSE 86; RESP 14; O2SAT 100
[2017-01-01 15:20] LABS: AUTOMATED NEUTROPHIL # 5.8 TH/MM3 (1.8-7.7); BASOPHIL # 0.1 TH/MM3 (0-0.2); BASOPHIL % 0.7 % (0.0-2.0); EOSINOPHIL # 0.2 TH/MM3 (0-0.4); EOSINOPHIL % 2.3 % (0.0-4.0); HEMATOCRIT 28.5 % (35.0-46.0); HEMO FLAGS DIFF FINAL; LYMPH % 20.1 % (9.0-44.0); LYMPHOCYTE # 1.7 TH/MM3 (1.0-4.8); MEAN CELL VOLUME 79.8 FL (80.0-100.0); MEAN CORPUSCULAR HEMOGLOBIN 26.5 PG (27.0-34.0); MEAN CORPUSCULAR HGB CONC 33.2 % (32.0-36.0); NEUT % 69.9 % (16.0-70.0); PLATELET COUNT 218 TH/MM3 (150-450); RED BLOOD COUNT 3.58 MIL/MM3 (4.00-5.30); RED CELL DISTRIBUTION WIDTH 15.9 % (11.6-17.2); WHITE BLOOD COUNT 8.4 TH/MM3 (4.0-11.0)
[2017-01-01] MEDS ORDERED: CLON0.2T PO (15:32)
[2017-01-01 15:41] LABS: APTT (PATIENT) 27.9 SEC (24.3-30.1); PROTHROMBIN TIME - PATIENT 10.7 SEC (9.8-11.6)
[2017-01-01 15:44] LABS: ALKALINE PHOSPHATASE 67 U/L (45-117); ALT (GPT) 13 U/L (10-53); ANION GAP 10 MEQ/L (5-15); AST (GOT) 11 U/L (15-37); BICARBONATE 25.9 MEQ/L (21.0-32.0); BLOOD UREA NITROGEN 47 MG/DL (7-18); CHLORIDE 104 MEQ/L (98-107); CREATINE KINASE 218 U/L (26-192); GLOMERULAR FILTRATION RATE 5 ML/MIN (>89); MAGNESIUM 1.9 MG/DL (1.5-2.5); POTASSIUM 3.4 MEQ/L (3.5-5.1); SODIUM (NA) 140 MEQ/L (136-145); TOTAL BILIRUBIN ADULT 0.5 MG/DL (0.2-1.0)
[2017-01-01 15:57] LABS: CALCIUM-PROTEIN CORRECTED 6.3 MG/DL (8.5-10.1)
--- NOTE | 2017-01-01 16:08 | PD ---
Physical Exam Time Seen by Provider: 16:01 Narrative Patient was initially seen and assessed in triage by SEEMA Ferreira. See her note for initial assessment. I reassessed the patient and I agree with initial evaluation and history of present illness. Data Data Last Documented VS Vital Signs Date Time Temp Pulse Resp B/P Pulse Ox O2 Delivery O2 Flow Rate FiO2 01/01/17 18:00 66 15 156/108 98 Room Air 01/01/17 13:23 97.8 Orders Electrocardiogram (01/01/17 14:43) Complete Blood Count With Diff (01/01/17 14:43) Comprehensive Metabolic Panel (01/01/17 14:43) Magnesium (Mg) (01/01/17 14:43) Ckmb (Isoenzyme) Profile (01/01/17 14:43) Troponin I (01/01/17 14:43) Act Partial Throm Time (Ptt) (01/01/17 14:43) Prothrombin Time / Inr (Pt) (01/01/17 14:43) Urinalysis - C+S If Indicated (01/01/17 14:43) Lactic Acid (01/01/17 14:43) CKMB (01/01/17 15:00) CKMB% (01/01/17 15:00) Ct Abd/Pel W/O Iv Contrast (01/01/17 16:08) Calcium Gluconate Inj (Calcium Gluconate (01/01/17 16:15) Labs Laboratory Tests Test 01/01/17 15:00 White Blood Count 8.4 TH/MM3 Red Blood Count 3.58 MIL/MM3 Hemoglobin 9.5 GM/DL Hematocrit 28.5 % Mean Corpuscular Volume 79.8 FL Mean Corpuscular Hemoglobin 26.5 PG Mean Corpuscular Hemoglobin 33.2 % Concent Red Cell Distribution Width 15.9 % Platelet Count 218 TH/MM3 Mean Platelet Volume 8.7 FL Neutrophils (%) (Auto) 69.9 % Lymphocytes (%) (Auto) 20.1 % Monocytes (%) (Auto) 7.0 % Eosinophils (%) (Auto) 2.3 % Basophils (%) (Auto) 0.7 % Neutrophils # (Auto) 5.8 TH/MM3 Lymphocytes # (Auto) 1.7 TH/MM3 Monocytes # (Auto) 0.6 TH/MM3 Eosinophils # (Auto) 0.2 TH/MM3 Basophils # (Auto) 0.1 TH/MM3 CBC Comment DIFF FINAL Differential Comment Prothrombin Time 10.7 SEC Prothromb Time International 1.0 RATIO Ratio Activated Partial 27.9 SEC Thromboplast Time Sodium Level 140 MEQ/L Potassium Level 3.4 MEQ/L Chloride Level 104 MEQ/L Carbon Dioxide Level 25.9 MEQ/L Anion Gap 10 MEQ/L Blood Urea Nitrogen 47 MG/DL Creatinine 10.06 MG/DL Estimat Glomerular Filtration 5 ML/MIN Rate Random Glucose 76 MG/DL Lactic Acid Level 0.7 mmol/L Calcium Level 6.3 MG/DL Protein Corrected Calcium 6.3 MG/DL Magnesium Level 1.9 MG/DL Total Bilirubin 0.5 MG/DL Aspartate Amino Transf 11 U/L (AST/SGOT) Alanine Aminotransferase 13 U/L (ALT/SGPT) Alkaline Phosphatase 67 U/L Total Creatine Kinase 218 U/L Creatine Kinase MB LESS THAN 0.5 NG/ML Creatine Kinase MB % 0.2 % Troponin I LESS THAN 0.02 NG/ML Total Protein 7.2 GM/DL Albumin 3.0 GM/DL [facility] Medical Record Reviewed: Yes Supervised Visit with JESSICA: Yes Differential Diagnosis Abdominal pain, GI bleed, gastritis Narrative Course Patient was initially assessed and evaluated in triage by SEEMA Ferreira. See her note for initial assessment. I reassessed the patient and I agree with initial evaluation and history of present illness. This is a 36-year-old female on daily peritoneal dialysis. Patient placed on cardiopulmonary monitor. IV site obtained. CBC unremarkable, other than signs of anemia which are consistent with past findings. Coags unremarkable. Lactic acid 0.7. Creatinine 10.06; patient on PD. Protein corrected calcium 6.3. 1610: Dr. Hughes evaluated the patient and recommended CT/abdomen without IV contrast and 1 g calcium gluconate. Orders entered. 1705: CT abdomen concludes: Abdomen/Pelvis CT 01/01/17 1608 Signed Impressions: Service Date/Time: Sunday, January 01, 2017 16:36 - CONCLUSION: Peritoneal dialysis catheter in place curling in the pelvis. Fluid is noted in the upper abdomen particularly on the right paracolic gutter and extending into the pelvis which may be part of the dialysis. Surgical absence of the gallbladder and uterus. A few scattered diverticuli of the colon No acute intra-abdominal or pelvic process. Tom Moses MD 3257: Patient discussed with Dr. Hughes and he recommended for the patient to follow up with outpatient. Patient provided a report of the CT scan. Patient verbalized understanding agreement with treatment plan. Instructed patient to follow up with portfolio accountant. Patient is medically cleared and stable for discharge. Discussed reasons to return to the emergency department. Instructed patient to follow up with primary care provider. Patient agrees with treatment plan. The patients vital signs are stable and the patient is stable for outpatient follow-up and treatment. Patient discharged home, stable and in no acute distress. Diagnosis Primary Impression: Abdominal pain Qualified Code: R10.30 - Lower abdominal pain Referrals: [employer] Primary Care Physician Patient Instructions: Abdominal Pain (ED), General Instructions Departure Forms: Tests/Procedures Additional Instruction: Follow-up with portfolio accountant Follow-up with primary care provider Return to the emergency department immediately with worsening of symptoms Med/Other Pt SpecificInfo: No Change to Meds, No Meds Exist/No RX given Disposition: DISCHARGE HOME Condition: Stable Aliza Amos Jan 01, 2017 16:08
[2017-01-01 16:11] LABS: CKMB LESS THAN 0.5 NG/ML (0.5-3.6)
[2017-01-01] MEDS ORDERED: CALCIUM GLUCONATE INJ 1 GM in DEXTROSE 5% IN WATER 100ML INJ 100 ML IV ONE ×2 (16:15)
--- NOTE | 2017-01-01 16:50 | RADRPT ---
EXAM DATE/TIME: 01/01/2017 16:36 [facility] COMPARISON: No previous studies available for comparison. INDICATIONS : Abdominal pain. ORAL CONTRAST: No oral contrast ingested. RADIATION DOSE: 13.20 CTDIvol (mGy) MEDICAL HISTORY : Cardiovascular disease. Hypertension. Renal failure, chronic. SURGICAL HISTORY : Hysterectomy. Cholecystectomy.Dialysis catheter. ENCOUNTER: Initial ACUITY: 1 day PAIN SCALE: 6/10 LOCATION: Bilateral lower quadrant TECHNIQUE: Volumetric scanning of the abdomen and pelvis was performed. Using automated exposure control and adjustment of the mA and/or kV according to patient size, radiation dose was kept as low as reasonably achievable to obtain optimal diagnostic quality images. FINDINGS: LOWER LUNGS: Lungs are clear LIVER: Homogeneous density without lesion. There is no dilation of the biliary tree. Clips in pl [facility]es[facility] prior cholecystectomy SPLEEN: Normal size without lesion. PANCREAS: Within normal limits. KIDNEYS: Normal in size and shape. There is no mass, stone, or hydronephrosis. ADRENAL GLANDS: Within normal limits. VASCULAR: There is no aortic aneurysm. BOWEL/MESENTERY: The stomach, small bowel, and colon demonstrate no acute abnormality. There is no free intraperitoneal air or fluid. There is a moderate amount of free fluid in the abdomen adjacen t to the liver and extending down the paracolic gutter as well as in the pelvis with peritoneal dialy sis catheter in place coiling in the pelvis . There are a few scattered uncomplicated diverticuli of the colon ABDOMINAL WALL: Within normal limits. RETROPERITONEUM: There is no lymphadenopathy. BLADDER: No wall thickening or mass. REPRODUCTIVE: Surgical absence of uterus. INGUINAL: There is no lymphadenopathy or hernia. MUSCULOSKELETAL: Within normal limits for patient age. CONCLUSION: Peritoneal dialysis catheter in place curling in the pelvis. Fluid is noted in the up per abdomen particularly on the right paracolic gutter and extending into the pelvis which may be par t of the dialysis. Surgical absence of the gallbladder and uterus. A few scatter ed diverticuli of the colon No acute intra-abdominal or pelvic process. Tom Moses MD on January 01, 2017 at 16:44 Board Certified Radiologist. This report was verified electronically.
[2017-01-01 17:02] VITALS: BP 145/92; PULSE 75; RESP 15; O2SAT 99
[2017-01-01 18:00] VITALS: BP 156/108; PULSE 66; RESP 15; O2SAT 98
--- NOTE | 2017-01-02 16:37 | EKG ---
Date Performed: 01/01/2017 Time Performed: 14:54:29 PTAGE: 36 years EKG: Sinus rhythm Since previous tracing, no significant change noted NORMAL ECG PREVIOUS TRACING : 12/19/2016 21.35 DOCTOR: Lenny Root Interpretating Date/Time 01/02/2017 16:37:30
[2017-04-16] MEDS ORDERED: HYDR-3799 PO (12:33)
[2017-04-16] MEDS ORDERED: MACR100C2 PO (14:16)
[2017-04-16] MEDS ORDERED: ZOFR4TAB3 SL (14:16)
== END 2017-01-01 19:23 | disposition home or self-care (01) ==
LOC: NEPE 13:22
DX: R10.30 Lower abdominal pain, unspecified (principal); I10 Essential (primary) hypertension; R55 Syncope and collapse; E07.9 Disorder of thyroid, unspecified; Z99.2 Dependence on renal dialysis; Z79.899 Other long term (current) drug therapy; Z86.2 Personal history of diseases of the blood and blood-forming organs and certain disorders involving the immune mechanism; Z86.79 Personal history of other diseases of the circulatory system
CPT/HCPCS: 74176; 80053; 82550; 82552; 83605; 83735; 84484; 85025; 85610; 85730; 93005; 96365; 99284; J0610

== ENCOUNTER 2017-01-21 17:29 | Inpatient (IN) | payer MEDICARE, OTHER ==
[~2017-01-21] VITALS: Ht 175.3 cm; Wt 98.5 kg
[~2017-01-21 17:29] MED LIST changes: +CLON0.2T PO; -OMEP40CA2 PO; -OYST500T11 PO
[2017-01-21 17:35] VITALS: BP 181/117; PULSE 80; RESP 20; TEMP 98; O2SAT 100
[2017-01-21 17:40] VITALS: BP 201/116; PULSE 91; RESP 18; O2SAT 99
--- NOTE | 2017-01-21 18:16 | PD ---
HPI Chief Complaint: Numbness/Tingling Time Seen by Provider: 17:57 Travel History International Travel<30 days: No Contact w/Intl Traveler<30days: No Traveled to known affect area: No History of Present Illness HPI 36-year-old female presents to the emergency department with complaint of numbness and tingling to the left side of her body and the left side of her body feeling heavier than the right that someone about 30 minutes ago. She also reports periorbital numbness and tingling. She was hospitalized for 2 days at [facility] and discharged 4 days ago for the same complaint. While she was hospitalized she had CT and an MRI which was normal with the neurologist told her that she could've had a possible TIA and if the symptoms developed again to go to the nearest hospital. The symptoms are still current. She also reports sudden onset of the headache to the posterior aspect of the head. Recent 07/22. Describes it as sharp ache, shooting, throbbing. The headache is constant. Reports blurry vision. Reports right eye is irritable. She denies slurred speech, change in mentation, confusion, disorientation. With ambulation that she can notice the left side feels different. Denies fever , chills, nausea, vomiting. He has not taken any medications other than her blood pressure medications today. History of peritoneal dialysis, Alport syndrome, hypertension. Primary care provider is Dr. Castillo . Dr. Montiel's photographer aerial. No other modifying factors or associated signs and symptoms PFSH Past Medical History Anemia: Yes Blood Disorders: No Heart Rhythm Problems: No Cancer: No Cardiovascular Problems: Yes High Cholesterol: No Chest Pain: Yes Congestive Heart Failure: No Diabetes: No Dialysis: Yes (PERITONEAL DIALYSIS) Diminished Hearing: No Gout: Yes Genitourinary: Yes Headaches: Yes Hypertension: Yes Immune Disorder: No Musculoskeletal: No Neurologic: No Psychiatric: No Respiratory: No Thyroid Disease: Yes : 4 Para: 3 Miscarriage: 1 : 0 Tubal Ligation: Yes Past Surgical History Abdominal Surgery: Yes (PERITONEAL DIALYSIS) Cholecystectomy: Yes Hysterectomy: Yes (2009) Other Surgery: Yes (PARATHYROID REMOVAL APRIL 2016, "VAGINAL ABLATION") Social History Alcohol Use: No Tobacco Use: No Substance Use: No Allergies-Medications (Allergen,Severity, Reaction): Coded Allergies: Gentamicin (Verified Allergy, Severe, RASH, 01/01/17) Levaquin (Verified Allergy, Severe, ITCHING, 01/01/17) Rocephin (Verified Allergy, Severe, RASH, 01/01/17) [place] (Verified Allergy, Intermediate, Nausea/Vomiting, 01/01/17) PT STATES ITCHINESS, NAUSEA, AND VOMITTING Ultram (Verified Allergy, Intermediate, itching, 01/01/17) Bactrim (Verified Adverse Reaction, Unknown, due to kidney failure, ) Contrast Media (Verified Adverse Reaction, Unknown, due to renal failure, 01/01/17) Reported Meds & Prescriptions Reported Meds & Active Scripts Active Vitamin D3 (Cholecalciferol) 1,000 Unit Tab 1,000 Units PO DAILY Valium (Diazepam) 5 Mg Tab 5 Mg PO Q12HR Zofran Odt (Ondansetron Odt) 4 Mg Tab 4 Mg SL Q8HR PRN Reported Zolpidem (Zolpidem Tartrate) 10 Mg Tab 10 Mg PO HS PRN Calcium Carbonate (Antacid) 500 Mg Chew 500 Mg CHEW Q4HR Calcitriol 0.5 Mcg Cap 0.5 Mcg PO BID Carvedilol 25 Mg Tab 25 Mg PO BID Clonidine (Clonidine HCl) 0.2 Mg Tab 0.2 Mg PO BID PRN Allopurinol 100 Mg Tab 100 Mg PO DAILY Aspirin 81 Mg Chew 81 Mg CHEW DAILY Hydralazine (Hydralazine HCl) 25 Mg Tab 25 Mg PO TID Take with a meal Amlodipine (Amlodipine Besylate) 10 Mg Tab 10 Mg PO DAILY Review of Systems Except as stated in HPI: all other systems reviewed are Neg Physical Exam Narrative GENERAL: Well-nourished, well-developed female patient, in no acute distress SKIN: Warm and dry. Patient reports decreased sensation to left-sided light. HEAD: Atraumatic. Normocephalic. No facial droop noted. Tongue midline. EYES: Pupils equal and round at 3 mm with brisk reaction. No scleral icterus. No injection or drainage. PERRLA. EOMI. No horizontal gaze. No Visual loss. ENT: Mucosa pink and moist. Airway patent. NECK: Trachea midline. No lymphadenopathy. CARDIOVASCULAR: Regular rate and rhythm. No murmur appreciated. RESPIRATORY: No accessory muscle use. Clear to auscultation. Breath sounds equal bilaterally. GASTROINTESTINAL: Abdomen soft, non-tender, nondistended. Hepatic and splenic margins not palpable. Bowel sounds are active 4 quadrants. Peritoneal dialysis port noted. MUSCULOSKELETAL: Left-sided upper extremity with decreased unit controller strength as compared to the right; left-sided lower extremity with decreased strength as compared to the right. No obvious deformities. No clubbing. No cyanosis. No edema. NEUROLOGICAL: Awake and alert. Oriented 4. No obvious cranial nerve deficits. Motor grossly within normal limits. Normal speech. No ataxia. No mid -line drift; left upper extremity with downward drift. Normal nose to finger tip. Moves all extremities. 5/5 strength to all extremities. PSYCHIATRIC: Appropriate mood and affect; insight and judgment normal. Data Data Last Documented VS Vital Signs Date Time Temp Pulse Resp B/P Pulse Ox O2 Delivery O2 Flow Rate FiO2 01/21/17 19:11 100 Room Air 01/21/17 17:40 91 18 201/116 01/21/17 17:[address] Brain W/O Iv Contrast(Rout) (01/21/17 ) Iv Access Insert/Monitor (01/21/17 17:55) Ecg Monitoring (01/21/17 17:55) Oximetry (01/21/17 17:55) Basic Metabolic Panel (Bmp) (01/21/17 18:49) Complete Blood Count With Diff (01/21/17 18:49) Prothrombin Time / Inr (Pt) (01/21/17 18:49) Act Partial Throm Time (Ptt) (01/21/17 18:49) Sodium Chloride 0.9% Flush (Ns Flush) (01/21/17 19:00) Ketorolac Inj (Toradol Inj) (01/21/17 19:00) Protein Corrected Calcium(Pcc) (01/21/17 18:50) Admit Order (Ed Use Only) (01/21/17 20:21) Consult Neurology (01/21/17 ) Labs Laboratory Tests Test 01/21/17 18:50 White Blood Count 8.6 TH/MM3 Red Blood Count 3.49 MIL/MM3 Hemoglobin 9.3 GM/DL Hematocrit 28.4 % Mean Corpuscular Volume 81.3 FL Mean Corpuscular Hemoglobin 26.6 PG Mean Corpuscular Hemoglobin 32.7 % Concent Red Cell Distribution Width 16.2 % Platelet Count 257 TH/MM3 Mean Platelet Volume 8.4 FL Neutrophils (%) (Auto) 70.1 % Lymphocytes (%) (Auto) 19.6 % Monocytes (%) (Auto) 6.9 % Eosinophils (%) (Auto) 2.8 % Basophils (%) (Auto) 0.6 % Neutrophils # (Auto) 6.0 TH/MM3 Lymphocytes # (Auto) 1.7 TH/MM3 Monocytes # (Auto) 0.6 TH/MM3 Eosinophils # (Auto) 0.2 TH/MM3 Basophils # (Auto) 0.1 TH/MM3 CBC Comment DIFF FINAL Differential Comment Prothrombin Time 10.6 SEC Prothromb Time International 1.0 RATIO Ratio Activated Partial 30.3 SEC Thromboplast Time Sodium Level 138 MEQ/L Potassium Level 3.4 MEQ/L Chloride Level 100 MEQ/L Carbon Dioxide Level 25.3 MEQ/L Anion Gap 13 MEQ/L Blood Urea Nitrogen 55 MG/DL Creatinine 11.25 MG/DL Estimat Glomerular Filtration 5 ML/MIN Rate Random Glucose 77 MG/DL Calcium Level 6.1 MG/DL MDM Medical Decision Making Medical Screen Exam Complete: Yes Emergency Medical Condition: Yes Medical Record Reviewed: Yes Differential Diagnosis TIA, stroke, anxiety, paresthesias Narrative Course 36-year-old female who was previously hospitalized 4 days ago in [place] for possible TIA with left-sided paresthesias and weakness. She presents today with the same symptoms. Patient has history of Alport syndrome and is on peritoneal dialysis daily. Patient placed on cardiopulmonary monitor. IV set obtained. 1749: Dr. Alvarez, my attending physician, evaluate the patient and recommended stat CT head and the patient will be admitted for TIA observation. Stat CT head ordered. CBC, BMP, coags ordered. 1844: CT head with no acute findings. Toradol ordered. 1935: CBC with anemia that is consistent with a passed levels. Coags unremarkable. 2005: Call from lab with critical value creatinine 11.25. 2021: I spoke with COLUMBA Cutler. Report given and patient will be admitted for 24-hour observation. Neurology consult entered. Physician Communication Physician Communication COLUMBA Cutler Diagnosis Primary Impression: Left-sided weakness Additional Impressions: Paresthesia of left arm and leg Facial paresthesia Admitting Information Admitting Physician Requests: Observation Aliza Amos Jan 21, 2017 18:16
--- NOTE | 2017-01-21 18:38 | RADRPT ---
EXAM DATE/TIME: 01/21/2017 18:08 [facility] COMPARISON: CT BRAIN W/O CONTRAST, November 26, 2016, 13:03. INDICATIONS : Left sided numbness and weakness in left hand and left side of face today. RADIATION DOSE: 56.35 CTDIvol (mGy) MEDICAL HISTORY : Hypertension. Cardiovascular disease SURGICAL HISTORY : Hysterectomy. ENCOUNTER: Initial ACUITY: 1 day PAIN SCALE: 7/10 LOCATION: Bilateral occipital head TECHNIQUE: Multiple contiguous axial images were obtained of the head. Using automated exposure control and adj ustment of the mA and/or kV according to patient size, radiation dose was kept as low as reasonably a chievable to obtain optimal diagnostic quality images. FINDINGS: CEREBRUM: The ventricles are normal for age. No evidence of midline shift, mass lesion, hemorrhage or acute in farction. No extra-axial fluid collections are seen. POSTERIOR FOSSA: The cerebellum and brainstem are intact. The 4th ventricle is midline. The cerebellopontine angle i s unremarkable. EXTRACRANIAL: The visualized portion of the orbits is intact. SKULL: The calvaria is intact. No evidence of skull fracture. CONCLUSION: Normal examination for a patient of this age. No significant change has occurred. David Rivera MD on January 21, 2017 at 18:34 Board Certified Radiologist. This report was verified electronically.
[2017-01-21] MEDS ORDERED: KETOROLAC TROMETHAMINE 30 MG/ML (IVP) VIAL IV PUSH ONE (19:00)
[2017-01-21] MEDS ORDERED: SODIUM CHLORIDE 0.9% FLUSH 5 ML FLUSH IVF PRN (19:00)
[2017-01-21 19:06] LABS: BASOPHIL # 0.1 TH/MM3 (0-0.2); BASOPHIL % 0.6 % (0.0-2.0); EOSINOPHIL # 0.2 TH/MM3 (0-0.4); EOSINOPHIL % 2.8 % (0.0-4.0); HEMATOCRIT 28.4 % (35.0-46.0); HEMO FLAGS DIFF FINAL; LYMPH % 19.6 % (9.0-44.0); LYMPHOCYTE # 1.7 TH/MM3 (1.0-4.8); MEAN CELL VOLUME 81.3 FL (80.0-100.0); MEAN CORPUSCULAR HEMOGLOBIN 26.6 PG (27.0-34.0); MEAN CORPUSCULAR HGB CONC 32.7 % (32.0-36.0); MONO % 6.9 % (0.0-8.0); NEUT % 70.1 % (16.0-70.0); PLATELET COUNT 257 TH/MM3 (150-450); RED BLOOD COUNT 3.49 MIL/MM3 (4.00-5.30); RED CELL DISTRIBUTION WIDTH 16.2 % (11.6-17.2); WHITE BLOOD COUNT 8.6 TH/MM3 (4.0-11.0)
[2017-01-21 19:11] VITALS: O2SAT 100
[2017-01-21 19:22] LABS: APTT (PATIENT) 30.3 SEC (24.3-30.1); PROTHROMBIN TIME - PATIENT 10.6 SEC (9.8-11.6)
[2017-01-21 20:02] LABS: BICARBONATE 25.3 MEQ/L (21.0-32.0); POTASSIUM 3.4 MEQ/L (3.5-5.1)
[2017-01-21] MEDS ORDERED: CARV25TA PO (20:12)
[2017-01-21] MEDS ORDERED: ZOLP10TA3 PO (20:12)
[2017-01-21] MEDS ORDERED: CALC0.5C6 PO (20:12)
[2017-01-21] MEDS ORDERED: CALC500C16 CHEW (20:12)
[2017-01-21 20:34] LABS: CALCIUM-PROTEIN CORRECTED 5.9 MG/DL (8.5-10.1)
[2017-01-21] MEDS ORDERED: DEXTROSE 50% IN WATER 50 ML VIAL(D50) IV PUSH PRN (21:00)
[2017-01-21] MEDS ORDERED: GLUCAGON 1 MG/ML VIAL OTHER PRN (21:00)
[2017-01-21] MEDS: INSULIN ASPART SUPPLEMENTAL SCALE SQ SCH (21:00)
[2017-01-21 21:20] VITALS: BP 162/99; PULSE 104; RESP 18; O2SAT 100
[2017-01-21] MEDS: SODIUM CHLORIDE 0.9% FLUSH 5 ML FLUSH IVF SCH (21:26)
--- NOTE | 2017-01-21 22:11 | PD ---
Physical Exam Narrative I, Dr. Alvarez, have reviewed the advance practice practitioner's documentation and am in agreement, met with the patient face to face, made the diagnosis, and the medical decision making was done by me. *My assessment and Findings: CVA vs. hypertensive emergency vs. ICH vs. anxiety 36yo F with HTN, recent TIA work up 4 days ago, peritoneal dialysis presents to the ED with c/o decreased sensation in left face, arm and leg 30 min prior to arrival. Pt also with elevated blood pressure. NIH stroke scale is only 1. Pt also feels heaviness on left side but able to maintain her upper and lower extremity without drift on my exam. Labs reviewed, H/H low at 9.3/28.4 which is baseline for her. Creatinine is elevated but also baseline. Corrected calcium is low at 5.9, will give calcium gluconate 1gm IV. CT brain negative. Pt to be admitted to medicine for TIA. Discussed with Dr. Carter and accepted to his service. Data Data Last Documented VS Vital Signs Date Time Temp Pulse Resp B/P Pulse Ox O2 Delivery O2 Flow Rate FiO2 01/21/17 19:11 100 Room Air 01/21/17 17:40 91 18 201/116 01/21/17 17:[address] Brain W/O Iv Contrast(Rout) (01/21/17 ) Iv Access Insert/Monitor (01/21/17 17:55) Ecg Monitoring (01/21/17 17:55) Oximetry (01/21/17 17:55) Basic Metabolic Panel (Bmp) (01/21/17 18:49) Complete Blood Count With Diff (01/21/17 18:49) Prothrombin Time / Inr (Pt) (01/21/17 18:49) Act Partial Throm Time (Ptt) (01/21/17 18:49) Sodium Chloride 0.9% Flush (Ns Flush) (01/21/17 19:00) Ketorolac Inj (Toradol Inj) (01/21/17 19:00) Protein Corrected Calcium(Pcc) (01/21/17 18:50) Admit Order (Ed Use Only) (01/21/17 20:21) Consult Neurology (01/21/17 ) Labs Laboratory Tests Test 01/21/17 18:50 White Blood Count 8.6 TH/MM3 Red Blood Count 3.49 MIL/MM3 Hemoglobin 9.3 GM/DL Hematocrit 28.4 % Mean Corpuscular Volume 81.3 FL Mean Corpuscular Hemoglobin 26.6 PG Mean Corpuscular Hemoglobin 32.7 % Concent Red Cell Distribution Width 16.2 % Platelet Count 257 TH/MM3 Mean Platelet Volume 8.4 FL Neutrophils (%) (Auto) 70.1 % Lymphocytes (%) (Auto) 19.6 % Monocytes (%) (Auto) 6.9 % Eosinophils (%) (Auto) 2.8 % Basophils (%) (Auto) 0.6 % Neutrophils # (Auto) 6.0 TH/MM3 Lymphocytes # (Auto) 1.7 TH/MM3 Monocytes # (Auto) 0.6 TH/MM3 Eosinophils # (Auto) 0.2 TH/MM3 Basophils # (Auto) 0.1 TH/MM3 CBC Comment DIFF FINAL Differential Comment Prothrombin Time 10.6 SEC Prothromb Time International 1.0 RATIO Ratio Activated Partial 30.3 SEC Thromboplast Time Sodium Level 138 MEQ/L Potassium Level 3.4 MEQ/L Chloride Level 100 MEQ/L Carbon Dioxide Level 25.3 MEQ/L Anion Gap 13 MEQ/L Blood Urea Nitrogen 55 MG/DL Creatinine 11.25 MG/DL Estimat Glomerular Filtration 5 ML/MIN Rate Random Glucose 77 MG/DL Calcium Level 6.1 MG/DL Protein Corrected Calcium 5.9 MG/DL Total Protein 7.8 GM/DL [facility] [place] Supervised Visit with JESSICA: Yes Diagnosis Primary Impression: Left-sided weakness Additional Impressions: Paresthesia of left arm and leg Facial paresthesia Admitting Information Admitting Physician Requests: Admit Lizeth Alvarez DO Jan 21, 2017 22:11
[2017-01-21] MEDS ORDERED: CALCIUM GLUCONATE INJ 1 GM in DEXTROSE 5% IN WATER 100ML INJ 100 ML IV ONE ×2 (22:15)
[2017-01-21 22:49] VITALS: BP 176/103; PULSE 75; RESP 16; TEMP 98; O2SAT 98
[2017-01-21] MEDS ORDERED: diphenhydrAMINE HCL 25 MG CAP PO ONE (23:30)
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
[2017-01-22] VITALS (8 sets, daily range): BP systolic 119–154; BP diastolic 62–100; PULSE 83–94; RESP 16–21; TEMP 97.6–98.8; O2SAT 98–100
[2017-01-22] MEDS ORDERED: NITROGLYCERIN 0.4 MG SL 25 TABS/BTL SL PRN (00:15)
[2017-01-22] MEDS ORDERED: LORazepam 0.5 MG TAB PO PRN (00:15)
[2017-01-22] MEDS: MORPHINE SULFATE 4 MG/ML INJ IV PRN ×6 (01:02→22:15)
[2017-01-22 02:22] LABS: CREATINE KINASE 339 U/L (26-192)
[2017-01-22 02:35] LABS: CKMB 0.8 NG/ML (0.5-3.6)
[2017-01-22] MEDS: INSULIN ASPART SUPPLEMENTAL SCALE SQ SCH ×4 (06:06→21:00)
[2017-01-22 06:24] LABS: AUTOMATED NEUTROPHIL # 4.1 TH/MM3 (1.8-7.7); BASOPHIL # 0.1 TH/MM3 (0-0.2); EOSINOPHIL # 0.2 TH/MM3 (0-0.4); HEMATOCRIT 27.7 % (35.0-46.0); HEMO FLAGS DIFF FINAL; LYMPH % 26.3 % (9.0-44.0); LYMPHOCYTE # 1.8 TH/MM3 (1.0-4.8); MEAN CELL VOLUME 80.4 FL (80.0-100.0); MEAN CORPUSCULAR HEMOGLOBIN 26.2 PG (27.0-34.0); MEAN CORPUSCULAR HGB CONC 32.6 % (32.0-36.0); MONO % 8.2 % (0.0-8.0); NEUT % 61.5 % (16.0-70.0); PLATELET COUNT 235 TH/MM3 (150-450); RED BLOOD COUNT 3.44 MIL/MM3 (4.00-5.30); RED CELL DISTRIBUTION WIDTH 16.1 % (11.6-17.2); WHITE BLOOD COUNT 6.7 TH/MM3 (4.0-11.0)
[2017-01-22 06:48] LABS: CREATINE KINASE 308 U/L (26-192); HDL CHOLESTEROL 29.5 MG/DL (40.0-60.0); LDL CHOLESTEROL 78 MG/DL (0-99)
[2017-01-22 07:15] LABS: CKMB LESS THAN 0.5 NG/ML (0.5-3.6)
[2017-01-22] MEDS ORDERED: ZOLPIDEM TARTRATE 10 MG TAB PO PRN (07:45)
[2017-01-22] MEDS ORDERED: HEPARIN SODIUM - IV 10,000 UNITS/10 ML VIAL XX PRN (08:45)
[2017-01-22] MEDS ORDERED: SODIUM CHLORIDE 0.9% FLUSH 5 ML FLUSH IVF PRN (08:45)
[2017-01-22] MEDS ORDERED: LISI40TA PO (08:53)
[2017-01-22] MEDS ORDERED: ALLOPURINOL 100 MG TAB PO SCH (09:00)
[2017-01-22] MEDS ORDERED: SENNOSIDES 8.6 MG TAB PO PRN (09:00)
[2017-01-22] MEDS ORDERED: NALOXONE HCL 0.4 MG/ML AMP IV PRN (09:00)
[2017-01-22] MEDS ORDERED: cloNIDine HCL 0.1 MG TAB PO PRN (09:00)
[2017-01-22] MEDS: CALCITRIOL 0.25 MCG CAP PO SCH ×3 (09:00→22:16)
[2017-01-22] MEDS ORDERED: BISACODYL 10 MG SUPP PR PRN (09:00)
[2017-01-22] MEDS ORDERED: ASPIRIN 81 MG CHEW TAB CHEW SCH (09:00)
[2017-01-22] MEDS: CHOLECALCIFEROL (VIT D3) 1000 UNIT TAB PO SCH (09:05)
[2017-01-22] MEDS: SODIUM CHLORIDE 0.9% FLUSH 5 ML FLUSH IVF SCH ×2 (09:06→22:16)
[2017-01-22] MEDS: PANTOPRAZOLE SOD 40 MG DELAYED RELEASE TAB PO SCH (09:06)
[2017-01-22] MEDS: ASPIRIN 81 MG CHEW TAB PO SCH (09:06)
[2017-01-22] MEDS: CALCIUM CARBONATE 500 MG CHEWABLE TAB CHEW SCH ×5 (09:06→22:23)
[2017-01-22] MEDS: CARVEDILOL 12.5 MG TAB PO SCH ×2 (09:11→22:16)
[2017-01-22] MEDS: hydrALAZINE HCL 25 MG TAB PO SCH ×3 (09:11→17:39)
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
[2017-01-22] MEDS: DOCUSATE SODIUM 100 MG CAP PO SCH ×2 (10:22→22:15)
[2017-01-22 10:23] LABS: BICARBONATE 24.2 MEQ/L (21.0-32.0); POTASSIUM 3.9 MEQ/L (3.5-5.1)
[2017-01-22] MEDS: ACETAMINOPHEN 325 MG TAB PO PRN (10:23)
[2017-01-22 10:47] LABS: CALCIUM-PROTEIN CORRECTED 6.2 MG/DL (8.5-10.1)
[2017-01-22 11:18] LABS: HEMOGLOBIN A1b 1.7 %; HEMOGLOBIN Ao 84.9 %; HEMOGLOBIN F 0.2 %; HEMOGLOBIN P3 5.6 %
--- NOTE | 2017-01-22 11:55 | EC ---
Study Study Date:01/22/2017 STUDY CONCLUSIONS SUMMARY - Left ventricle: The cavity size was normal. Wall thickness was normal. Systolic function was normal. The estimated ejection fraction was in the range of 55% to 60%. Wall motion was normal; there were no regional wall motion abnormalities. - Mitral valve: Mild regurgitation. - Tricuspid valve: Mild regurgitation. - Pulmonary arteries: PA peak pressure: 37mm Hg (S). Impressions: No cardiac source of emboli was indentified. If LV function is below 40, please consider prescribing an ACEI or ARB or document rationale for non-use. PROCEDURE DATA STUDY STATUS: Elective. Procedure: Transthoracic echocardiography. Image quality was good. Scanning was performed from the parasternal, apical, and subcostal acoustic windows. Study completion: The patient tolerated the procedure well. Transthoracic echocardiography. M-mode, complete 2D, complete spectral Doppler, and color Doppler. Patient status: Inpatient. CARDIAC ANATOMY LEFT VENTRICLE: The cavity size was normal. Wall thickness was normal. Systolic function was normal. The estimated ejection fraction was in the range of 55% to 60%. Wall motion was normal; there were no regional wall motion abnormalities. AORTIC VALVE: Trileaflet; normal thickness leaflets. Doppler: Transvalvular velocity was within the normal range. There was no stenosis. No regurgitation. AORTA: Aortic root: The aortic root was normal in size. MITRAL VALVE: Structurally normal valve. Doppler: Transvalvular velocity was within the normal range. There was no evidence for stenosis. Mild regurgitation. Peak gradient: 2mm Hg (D). LEFT ATRIUM: The atrium was normal in size. RIGHT VENTRICLE: The cavity size was normal. Wall thickness was normal. PULMONIC VALVE: Doppler: Transvalvular velocity was within the normal range. There was no evidence for stenosis. No regurgitation. TRICUSPID VALVE: Structurally normal valve. Doppler: Transvalvular velocity was within the normal range. Mild regurgitation. PULMONARY ARTERY: The main pulmonary artery was normal-sized. Systolic pressure was within the normal range. RIGHT ATRIUM: The atrium was normal in size. PERICARDIUM: There was no pericardial effusion. SYSTEMIC VEINS: Inferior vena cava: The vessel was normal in size. BASIC MEASUREMENTS ADULT Normal Left ventricle LV internal dimension, ED, chordal level, 50.2 mm 43-52 PLAX LV internal dimension, ES, chordal level, *38.7 mm 23-38 PLAX Fractional shortening, chordal level, PLAX *23 % >29 LV posterior wall thickness, ED 14.9 mm IVS/LVPW ratio, ED 1.09 <1.3 Ventricular septum Septal thickness, ED 16.2 mm Aortic valve Leaflet separation 26 mm 15-26 Right ventricle RV internal dimension, ED, PLAX 31.4 mm 19-38 BASIC MEASUREMENTS ADULT Normal Aortic valve Leaflet separation 26 mm 15-26 Aorta Root diameter, ED *40 mm 20-37 Left atrium Anterior-posterior dimension, ES 35 mm 19-40 LA/aortic root ratio 0.88 DOPPLER MEASUREMENTS ADULT Normal Main pulmonary artery Pressure, S *37 mm Hg =30 Mitral valve Peak E-wave velocity 74.5 cm/s Peak A-wave velocity 73.1 cm/s Peak gradient, D 2 mm Hg Peak E/A ratio 1 Tricuspid valve Regurgitant peak velocity 259 cm/s Peak RV-RA gradient, S 27 mm Hg Maximal regurgitant velocity 259 cm/s Systemic veins Estimated CVP 10 mm Hg Right ventricle RV pressure, S *37 mm Hg <30 LEGEND: Mean values are shown as u=mean value. Asterisk (*) shahid values outside specified normal range. Prepared and signed by John Hendrickson [id number]
[2017-01-22 12:16] LABS: ALKALINE PHOSPHATASE 65 U/L (45-117); ALT (GPT) 20 U/L (10-53); ANION GAP 12 MEQ/L (5-15); AST (GOT) 17 U/L (15-37); BICARBONATE 26.2 MEQ/L (21.0-32.0); BLOOD UREA NITROGEN 59 MG/DL (7-18); CALCIUM-PROTEIN CORRECTED 6.1 MG/DL (8.5-10.1); CHLORIDE 101 MEQ/L (98-107); CREATINE KINASE 296 U/L (26-192); GLOMERULAR FILTRATION RATE 4 ML/MIN (>89); POTASSIUM 3.6 MEQ/L (3.5-5.1); SODIUM (NA) 139 MEQ/L (136-145); TOTAL BILIRUBIN ADULT 0.4 MG/DL (0.2-1.0)
[2017-01-22 12:35] LABS: CKMB LESS THAN 0.5 NG/ML (0.5-3.6)
[2017-01-22] MEDS ORDERED: CALCIUM GLUCONATE INJ 1 GM in SODIUM CHLORIDE 0.9% INJ 100 ML IV ONE (14:00)
--- NOTE | 2017-01-22 14:57 | EKG ---
Date Performed: 01/21/2017 Time Performed: 15:48:28 PTAGE: 36 years EKG: Sinus rhythm MINIMAL VOLTAGE CRITERIA FOR LVH, CONSIDER NORMAL VARIANT BORDERLINE ECG Compared to prior tracing n o significant change PREVIOUS TRACING : 01/01/2017 14.54 DOCTOR: Lily Schaeffer Interpretating Date/Time 01/22/2017 14:50:45
--- NOTE | 2017-01-22 14:57 | EKG ---
Date Performed: 01/22/2017 Time Performed: 06:07:09 PTAGE: 36 years EKG: Sinus rhythm NORMAL ECG Compared to prior tracing no significant change PREVIOUS TRACING : 01/22/2017 01.44 DOCTOR: Lily Schaeffer Interpretating Date/Time 01/22/2017 14:51:06
--- NOTE | 2017-01-22 14:57 | EKG ---
Date Performed: 01/22/2017 Time Performed: 01:44:20 PTAGE: 36 years EKG: Sinus rhythm NORMAL ECG Compared to prior tracing no significant change PREVIOUS TRACING : 01/21/2017 15.48 DOCTOR: Lily Schaeffer Interpretating Date/Time 01/22/2017 14:50:56
--- NOTE | 2017-01-22 15:18 | PD.CONS ---
HPI Service Nephrology Consult Requested By Reason for Consult ESRD on PD Primary Care Physician Non-Staff History of Present Illness This is a 36 y/o pt with ESRD who presented to ER for symptoms of facial and left arm tingling and headache On admission her she was severely hypocalcemic with serum calcium 5.9, ionized calcium level 6.1. She had similar admission in December this year. 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 She follows with Dr. Montiel in [place], [place] but has been coming to this hospital for treatment. Other PMH of GERD, HTN, anemia, and parathyroidectomy (1/2 of one gland was left in place). She is on daily 8 Tums/day and calcitriol. She is in no distress today, was IV calcium gluconate in ER. We were consulted for management. (Lianet Squires) Review of Systems Constitutional: COMPLAINS OF: Fatigue Neurologic: COMPLAINS OF: Headache, Localized weakness, Paresthesias, DENIES: Seizures (Lianet Squires) Past Family Social History Allergies: Coded Allergies: Gentamicin (Verified Allergy, Severe, RASH, 01/01/17) Levaquin (Verified Allergy, Severe, ITCHING, 01/01/17) Rocephin (Verified Allergy, Severe, RASH, 01/01/17) [place] (Verified Allergy, Intermediate, Nausea/Vomiting, 01/01/17) PT STATES ITCHINESS, NAUSEA, AND VOMITTING Ultram (Verified Allergy, Intermediate, itching, 01/01/17) Bactrim (Verified Adverse Reaction, Unknown, due to kidney failure, ) Contrast Media (Verified Adverse Reaction, Unknown, due to renal failure, 01/01/17) Past Medical History ESRD on PD x 3 years for biopsy proven Alport syndrome HTN Anemia of chronic disease GERD Past Surgical History Peritoneal dialysis catheter Parathyroidectomy, April 2016 Hysterectomy Reported Medications Vitamin D3 (Cholecalciferol) 1,000 Unit Tab 1,000 Units PO DAILY Valium (Diazepam) 5 Mg Tab 5 Mg PO Q12HR Zofran Odt (Ondansetron Odt) 4 Mg Tab 4 Mg SL Q8HR PRN Zolpidem (Zolpidem Tartrate) 10 Mg Tab 10 Mg PO HS PRN Calcium Carbonate (Antacid) 500 Mg Chew 500 Mg CHEW Q4HR Calcitriol 0.5 Mcg Cap 1 Mcg PO BID Carvedilol 25 Mg Tab 25 Mg PO BID Clonidine (Clonidine HCl) 0.2 Mg Tab 0.2 Mg PO BID PRN Allopurinol 100 Mg Tab 100 Mg PO DAILY Aspirin 81 Mg Chew 81 Mg CHEW DAILY Hydralazine (Hydralazine HCl) 25 Mg Tab 25 Mg PO TID Take with a meal Amlodipine (Amlodipine Besylate) 10 Mg Tab 10 Mg PO DAILY Active Ordered Medications Current Medications Medications (Trade) Dose Ordered Sig/Catherine Route Start Time Stop Time Status Last Admin (NS Flush) 2 ml BID IVF 01/21/17 21:00 01/22/17 09:06 (NS Flush) 2 ml UNSCH PRN IVF 01/21/17 21:00 (Aspirin Chew) 81 mg DAILY PO 01/22/17 09:00 01/22/17 09:06 (D50w (Vial) Inj) 25 ml UNSCH PRN IV PUSH 01/21/17 21:00 (Glucagon Inj) 1 mg UNSCH PRN OTHER 01/21/17 21:00 (Ativan) 0.5 mg Q8H PRN PO 01/22/17 00:15 01/22/17 01:01 (Nitrostat Sl) 0.4 mg Q5M PRN SL 01/22/17 00:15 (Morphine Inj) 2 mg Q3H PRN IV 01/22/17 00:15 01/22/17 13:44 (Protonix) 40 mg DAILY PO 01/22/17 09:00 01/22/17 09:06 (Norvasc) 10 mg DAILY PO 01/22/17 09:00 01/22/17 09:11 (Tums Chew) 500 mg Q4HR CHEW 01/22/17 08:00 01/22/17 13:40 (Coreg) 25 mg BID PO 01/22/17 09:00 01/22/17 09:11 (Vitamin D3) 1,000 units DAILY PO 01/22/17 09:00 01/22/17 09:05 (Apresoline) 25 mg TID PO 01/22/17 09:00 01/22/17 13:40 (Ambien) 10 mg HS PRN PO 01/22/17 07:45 (NS Flush) 10 ml UNSCH PRN IVF 01/22/17 08:45 (Zofran Inj) 4 mg Q6H PRN IVP 01/22/17 09:00 (Dulcolax Supp) 10 mg DAILY PRN [place] 01/22/17 09:00 (Colace) 100 mg Q12H PO 01/22/17 09:00 01/22/17 10:22 (Senokot) 17.2 mg Q12H PRN PO 01/22/17 09:00 (Narcan Inj) 0.4 mg UNSCH PRN IV 01/22/17 09:00 (Catapres) 0.1 mg Q6H PRN PO 01/22/17 09:00 (Tylenol) 650 mg Q4H PRN PO 01/22/17 10:00 01/22/17 10:23 (Rocaltrol) 1 mcg BID PO 01/22/17 21:00 Family History Father has "kidney problems", he did not test positive for Alport syndrome, is not on dialysis no other members with renal dysfunction Social History no smoking or ETOH use/history single, lives with children unemployed lives in [place], [place], 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; has family in [facility] full code functionally independent (Lianet Squires) Physical Exam Vital Signs Vital Signs Date Time Temp Pulse Resp B/P Pulse Ox O2 Delivery O2 Flow Rate FiO2 01/22/17 13:51 18 01/22/17 12:48 100 21 01/22/17 12:05 97.8 94 18 123/70 99 152/100 146/88 01/22/17 10:44 87 01/22/17 07:31 98.1 90 18 154/95 100 01/22/17 04:14 98.8 87 21 135/90 98 01/21/17 22:49 98.0 75 16 176/103 98 01/21/17 21:20 104 18 162/99 100 Room Air 01/21/17 19:11 100 Room Air 01/21/17 17:40 91 18 201/116 99 01/21/17 17:35 98.0 80 20 181/117 100 Room Air Physical Exam Young appearing AAF lying supine, sleeping but arouses to name awake, oriented x 3, complaining of headache and facial/left arm tingling CV: S1/S2 regular rhythm, rate normal on exam, no murmurs Lungs; clear in all martino Abd: obese, soft, PD catheter mid abdomen, non tender Ext: no edema, distal pulses adequate Laboratory Laboratory Tests Test 01/21/17 01/22/17 01/22/17 01/22/17 18:50 01:45 06:06 08:50 White Blood Count 8.6 6.7 Red Blood Count 3.49 3.44 Hemoglobin 9.3 9.0 Hematocrit 28.4 27.7 Mean Corpuscular Volume 81.3 80.4 Mean Corpuscular Hemoglobin 26.6 26.2 Mean Corpuscular Hemoglobin 32.7 32.6 Concent Red Cell Distribution Width 16.2 16.1 Platelet Count 257 235 Mean Platelet Volume 8.4 8.1 Neutrophils (%) (Auto) 70.1 61.5 Lymphocytes (%) (Auto) 19.6 26.3 Monocytes (%) (Auto) 6.9 8.2 Eosinophils (%) (Auto) 2.8 3.0 Basophils (%) (Auto) 0.6 1.0 Neutrophils # (Auto) 6.0 4.1 Lymphocytes # (Auto) 1.7 1.8 Monocytes # (Auto) 0.6 0.5 Eosinophils # (Auto) 0.2 0.2 Basophils # (Auto) 0.1 0.1 CBC Comment DIFF FINAL DIFF FINAL Differential Comment Prothrombin Time 10.6 Prothromb Time International 1.0 Ratio Activated Partial 30.3 Thromboplast Time Sodium Level 138 139 Potassium Level 3.4 3.9 Chloride Level 100 102 Carbon Dioxide Level 25.3 24.2 Anion Gap 13 13 Blood Urea Nitrogen 55 59 Creatinine 11.25 11.64 Estimat Glomerular Filtration 5 4 Rate Random Glucose 77 81 Calcium Level 6.1 6.0 Protein Corrected Calcium 5.9 6.2 Total Protein 7.8 6.8 Hemoglobin A1c 5.2 Total Creatine Kinase 339 308 Creatine Kinase MB 0.8 LESS THAN 0.5 Creatine Kinase MB % 0.2 0.2 Troponin I LESS THAN 0.02 LESS THAN 0.02 Triglycerides Level 107 Cholesterol Level 129 LDL Cholesterol 78 HDL Cholesterol 29.5 Cholesterol/HDL Ratio 4.37 Magnesium Level 1.8 Test 01/22/17 11:37 Sodium Level 139 Potassium Level 3.6 Chloride Level 101 Carbon Dioxide Level 26.2 Anion Gap 12 Blood Urea Nitrogen 59 Creatinine 11.89 Estimat Glomerular Filtration 4 Rate Random Glucose 132 Calcium Level 5.9 Protein Corrected Calcium 6.1 Total Bilirubin 0.4 Aspartate Amino Transf 17 (AST/SGOT) Alanine Aminotransferase 20 (ALT/SGPT) Alkaline Phosphatase 65 Total Creatine Kinase 296 Creatine Kinase MB LESS THAN 0.5 Creatine Kinase MB % 0.2 Troponin I LESS THAN 0.02 Total Protein 6.8 Albumin 2.8 (Lianet Squires) Result Diagram: 01/22/17 0606 01/22/17 1137 Assessment and Plan Problem List: (1) ESRD (end stage renal disease) Plan: on nightly PD, regimen consists of 4 cycles, 2 liter fill volume, 9 hours ; she has last fill of 500 ml; uses 1.5% solution monitor electrolytes no IVF required check phosphorus in am, she is not on binders at home no protein diet restriction she receives Epogen monthly for anemia of chronic disease, was given last dose last week, hemoglobin acceptable, monitor for now (2) Hypocalcemia Plan: Likely iatrogenic; Hx of parathyroidectomy in 2015, 1/2 of one gland retained, she was previously hypercalcemic receiving IV calcium gluconate continue Tums Q4h on calcitriol 1mcg po BID monitor for magnesium deficiency check PTH in am recheck calcium in am (3) Hypertension Plan: continue home medications (4) Hypomagnesemia Plan: her magnesium is in normal range PPI can cause hypomagnesemia (5) Anemia Plan: will give a dose of epogen (6) Facial paresthesia Plan: rule out TIA, migraines may be due to hypocalcemia (Lianet Squires) Assessment and Plan patient was seen and examined. Agree with above assessment and plan. Repeat PTH. Avoid PPI which can cause hypomagnesemia. Continue Calcitriol and Calcium supplements. (Terence Peña MD) Lianet Squires Jan 22, 2017 15:18 Terence Peña MD Jan 22, 2017 21:15
[2017-01-22] MEDS ORDERED: EPOETIN ALFA 20,000 UNITS/ML VIAL SQ ONE (16:00)
[2017-01-22] MEDS: CLOPIDOGREL 75 MG TAB PO SCH (16:43)
[2017-01-22] MEDS: SODIUM CHLORIDE 0.9% FLUSH 5 ML FLUSH IVF PRN ×2 (16:48→17:39)
--- NOTE | 2017-01-22 16:54 | MB ---
cc: KHRIS CHAMPAGNE DATE OF CONSULTATION 01/22/2017 HISTORY A 36-year-old right-handed woman with a history of hypertension, Alport syndrome, hemodialysis, baby aspirin she takes everyday. About a week ago she had an episode of left arm numbness and tingling and left face and forehead and both sides of her lips that lasted about two days and went away. She evidently had an MRI at [facility] in [place] which she said was negative and then yesterday again she had a headache, this time on the back of her head. Her left hand and then face became tingling and numb. She felt heavy on the left side, still feels a little bit of residual symptoms. She has had a little bit of chest discomfort. No shortness of breath. She had a headache after the first episode and before the last episode, none now. Does not usually have headaches or migraine although she has a family history for that. REVIEW OF SYSTEMS Denies any diabetes, hypercholesterolemia, [place], stent, angioplasty A fib, Coumadin. Renal disease she does have, on dialysis. No history of hepatic, pulmonary disease, thyroid disease, lupus, ulcer, cancer, seizure, prior stroke. SOCIAL HISTORY Not a smoker or a drinker. Lives with her kids. FAMILY HISTORY Negative for cancer, seizure. Positive for stroke in her mother in her 40s. ALLERGIES GENTAMICIN, LEVAQUIN, ROCEPHIN, NORCO, ULTRAM, BACTRIM, CONTRAST MEDIA. MEDICATIONS She is on: 1. Amlodipine. 2. Hydralazine. 3. 81 of aspirin. 4. Allopurinol. 5. Clonidine. 6. Carvedilol. 7. Calcium. 8. Ambien. 9. Zofran. 10. Valium 5 mg q.12h. PHYSICAL EXAMINATION On exam she has been in sinus rhythm. Afebrile, 90, 18, up to 201/116 is the highest blood pressure. Now 119/62. NECK: There were no carotid or vertebral bruits. HEART: Regular rhythm. I did not detect a murmur. NEUROLOGICAL: Pupils are equal. Visual martino are full. Extraocular intact without nystagmus. Face symmetric. Decreased sensation on the left compared to the right. There is no drift. She had normal strength in the upper and lower extremities bilaterally. Fast finger movements are symmetrical and normal including the left hand. DTRs are 2-3+ symmetrical at the knees. Toes are downgoing bilaterally. Pinprick was diminished in the left face, arm and leg compared to the right. Speech is fluent. She is not aphasic. LABORATORY DATA CBC shows a hematocrit of 28, otherwise normal. Basic metabolic profile, creatinine 12, calcium corrected is low at 6.1, glucose 132, GFR is 4. LFTs normal. CPK 296. Troponin negative. Albumin 2.8. LDL cholesterol is low at 78. Coags were normal. Her RPR has been negative in the past as was hepatitis screen. UA 64 red cells, otherwise normal. IMAGING CT scan of the brain was read as normal. Review of those films, I do agree the CT appears to be normal for her age. IMPRESSION Looks like she has had a stroke possibly small vessel with the risk factors. We do want to check an MRI of the brain, MRA [place] and carotid ultrasound and echocardiogram, a hyper coag screen on her. Some additional blood work. Renal is on the case to correct her calcium. I will be following her with you in the hospital. For now I will put her on Plavix. MD DARIN Rondon/LETICIA /3:14 PM /3:32 PM
[2017-01-22] MEDS: SODIUM CHLOR 0.9% 1000 ML INJ 1,000 ML IV SCH (17:00)
[2017-01-22] MEDS: ONDANSETRON HCL 4 MG/2 ML VIAL IVP PRN (17:39)
[2017-01-22 22:22] LABS: ALT (GPT) 22 U/L (10-53); AST (GOT) 17 U/L (15-37); FREE T4 1.28 NG/DL (0.76-1.46)
[2017-01-22] MEDS ORDERED: LORazepam 2 MG/ML VIAL IV SCH (22:30)
--- NOTE | 2017-01-22 22:45 | RADRPT ---
EXAM DATE/TIME: 01/22/2017 20:11 [facility] COMPARISON: No previous studies available for comparison. INDICATIONS : Cerebrovascular accident. MEDICAL HISTORY : Hypertension. . Thyroid disease. Headaches. Alport's syndrome. peritoneal dialysis. renal failure. gout. paresthesia. anxiety. SURGICAL HISTORY : Tubal ligation. Cholecystectomy. Hysterectomy. Tenckhoff catheter. Parathyroidectomy. Vaginal ablatio n. ENCOUNTER: Initial ACUITY: 2 days PAIN SCORE: 0/10 LOCATION: Bilateral neck PEAK SYSTOLIC VELOCITIES (cm/sec): ICA/CCA RATIO: Right: 1.2 Left: 1.0 ICA: Right: 121 Left: 107 CCA: Right: 100 Left: 102 ECA: Right: 71 Left: 71 VERTEBRAL: Right: 43 antegrade Left: 59 antegrade Elevated flow velocities and ICA/CCA ratios have been found to correlate with increased degrees of vessel stenosis, calculated as percentage of diameter relative to a normal segment of distal ICA/CCA FINDINGS: RIGHT CAROTID: No significant stenosis is visualized. The waveforms are within normal limits. LEFT CAROTID: No significant stenosis is visualized. The waveforms are within normal limits. VERTEBRAL ARTERIES: Antegrade flow is seen in both vertebral arteries. MISCELLANEOUS: None. CONCLUSION: Unremarkable bilateral carotid ultrasound. Rodney Freeman MD on January 22, 2017 at 22:43 Board Certified Radiologist. This report was verified electronically.
[2017-01-23] VITALS (8 sets, daily range): BP systolic 128–162; BP diastolic 76–100; PULSE 80–95; RESP 16–19; TEMP 96.6–98; O2SAT 92–100
[2017-01-23] MEDS: CALCIUM CARBONATE 500 MG CHEWABLE TAB CHEW SCH ×5 (04:08→20:16)
[2017-01-23] MEDS: MORPHINE SULFATE 4 MG/ML INJ IV PRN ×5 (04:08→20:19)
[2017-01-23] MEDS: SODIUM CHLOR 0.9% 1000 ML INJ 1,000 ML IV SCH (04:08)
[2017-01-23 04:13] LABS: AMPHETAMINE, URINE NEG (NEG); BARBITURATES, URINE POS (NEG); COCAINE, URINE NEG (NEG)
[2017-01-23] MEDS: INSULIN ASPART SUPPLEMENTAL SCALE SQ SCH ×2 (06:21→11:00)
--- NOTE | 2017-01-23 07:57 | HHI.PR ---
Subjective Remarks sr Objective Vital Signs Date Time Temp Pulse Resp B/P Pulse Ox O2 Delivery O2 Flow Rate FiO2 01/23/17 04:55 98.0 80 16 130/79 99 01/23/17 00:18 97.5 83 18 162/100 100 01/22/17 20:14 97.6 83 16 132/86 100 01/22/17 20:00 89 01/22/17 15:39 98.1 90 18 119/62 100 01/22/17 13:51 18 01/22/17 12:48 100 21 01/22/17 12:05 97.8 94 18 123/70 99 152/100 146/88 01/22/17 10:44 87 Result Diagram: 01/22/17 0606 01/22/17 1137 Objective Remarks no exam Assessment and Plan Assessment and Plan imp plavix await mri hypercoag screen echo holter us neg sr Boogie Vieira MD Jan 23, 2017 07:57
[2017-01-23] MEDS: CHOLECALCIFEROL (VIT D3) 1000 UNIT TAB PO SCH (08:23)
[2017-01-23] MEDS: hydrALAZINE HCL 25 MG TAB PO SCH ×3 (08:23→17:07)
[2017-01-23] MEDS: ASPIRIN 81 MG CHEW TAB PO SCH (08:23)
[2017-01-23] MEDS: CLOPIDOGREL 75 MG TAB PO SCH (08:24)
[2017-01-23] MEDS: CARVEDILOL 12.5 MG TAB PO SCH ×2 (08:24→20:16)
[2017-01-23] MEDS: PANTOPRAZOLE SOD 40 MG DELAYED RELEASE TAB PO SCH (08:24)
[2017-01-23] MEDS: DOCUSATE SODIUM 100 MG CAP PO SCH ×2 (08:24→20:15)
[2017-01-23] MEDS: CALCITRIOL 0.25 MCG CAP PO SCH ×2 (08:25→20:16)
[2017-01-23] MEDS: SODIUM CHLORIDE 0.9% FLUSH 5 ML FLUSH IVF SCH ×2 (08:37→20:24)
[2017-01-23] MEDS ORDERED: LORazepam 2 MG/ML VIAL IV SCH (09:15)
[2017-01-23 09:55] LABS: BICARBONATE 24.7 MEQ/L (21.0-32.0); POTASSIUM 3.7 MEQ/L (3.5-5.1)
--- NOTE | 2017-01-23 10:31 | RADRPT ---
EXAM DATE/TIME: 01/23/2017 09:35 [facility] COMPARISON: No previous studies available for comparison. INDICATIONS : Left sided weakness. MEDICAL HISTORY : Hypertension. Renal failure, chronic. SURGICAL HISTORY : Hysterectomy. Cholecystectomy. parathyroidectomy ENCOUNTER: Subsequent ACUITY: 2 day PAIN SCORE: 0/10 LOCATION: cranial TECHNIQUE: Multiplanar, multisequence MRI of the brain was performed without contrast. FINDINGS: CEREBRUM: The ventricles are normal for age. No evidence of midline shift, mass lesion, hemorrhage or acute in farction. No extraaxial fluid collections are seen. The pituitary gland and suprasellar cistern are normal in configuration. WHITE MATTER: There are a few faint focal areas of increased signal within the cerebral white matter. POSTERIOR FOSSA: The cerebellum and brainstem are intact. The 4th ventricle is midline. The cerebellopontine angle is unremarkable. The cerebellar tonsils are normal in position. DIFFUSION IMAGING: No focal areas of restricted diffusion are seen. No evidence of acute infarction. EXTRACRANIAL: The visualized portions of the orbits and paranasal sinuses are unremarkable. CONCLUSION: Few scattered focal areas of demyelination which could be from underlying conditions such as multiple sclerosis. No hemorrhage or mass effect seen. Bogdan Echols MD on January 23, 2017 at 10:27 Board Certified Radiologist. This report was verified electronically.
--- NOTE | 2017-01-23 10:32 | RADRPT ---
EXAM DATE/TIME: 01/23/2017 09:35 [facility] COMPARISON: No previous studies available for comparison. INDICATIONS : Left sided weakness. MEDICAL HISTORY : Hypertension. Renal failure, chronic. SURGICAL HISTORY : Cholecystectomy. Hysterectomy. parathyroidectomy ENCOUNTER: Subsequent ACUITY: 2 day PAIN SCORE: 0/10 LOCATION: cranial Please note a normal MRA of the brain does not entirely exclude the possibility of a small aneurysm, nor the possibility of distal intracranial vessel disease. TECHNIQUE: 3D time of flight MRA was performed. Source images, multiplanar STS MIP, and 3D volume MIP reconstru ctions were reviewed. FINDINGS: There is excellent visualization of the major intracranial arteries out to the second-order branch ve ssels. There is no evidence for aneurysm, vessel truncation or stenosis, and no evidence for vascula r malformation. CONCLUSION: Normal examination. Bogdan Echols MD on January 23, 2017 at 10:29 Board Certified Radiologist. This report was verified electronically.
--- NOTE | 2017-01-23 12:16 | HHI.NPPN ---
Subjective General Problems: Anemia Renal Failure: Chronic, End Stage Renal Disease Interval History PD going well. Had MRI this morning. (Lianet Squires) Review of Systems Neuro Neuro: Headache, Tingling (Lianet Squires) Objective Data Data Vital Signs Date Time Temp Pulse Resp B/P Pulse Ox O2 Delivery O2 Flow Rate FiO2 01/23/17 08:36 18 01/23/17 08:21 97.0 95 17 140/76 98 01/23/17 04:55 98.0 80 16 130/79 99 01/23/17 00:18 97.5 83 18 162/100 100 01/22/17 20:14 97.6 83 16 132/86 100 01/22/17 20:00 89 01/22/17 15:39 98.1 90 18 119/62 100 01/22/17 12:48 100 21 (Lianet Squires) -: 01/22/17 0606 01/23/17 0826 Imaging Last [address] 01/21/17 0000 Signed Impressions: Service Date/Time: Saturday, January 21, 2017 18:08 - CONCLUSION: Normal examination for a patient of this age. No significant change has occurred. David Rivera MD Tubes & Lines: Tenckhoff Catheter (Lianet Squires) Physical Exam General Appearance: Well Developed, Well Nourished, Comfortable, Sleeping (Lianet Squires) Throat Throat Exam: Oral Mucosa [place] & Moist (Lianet Squires) Pulmonary Resp Exam: Clear Bilaterally, Breath Sounds Equal (Lianet Squires) Cardiology CV Exam: Regular, Normal Sinus Rhythm (Lianet Squires) Gastrointestinal/Abdomen GI Exam: Soft, Non-Tender, Bowel Sounds Present (Lianet Squires) Musculoskeletal MS Exam: Joints Intact, Normal Tone (Lianet Squires) Integumentary Skin Exam: Warm, Dry (Lianet Squires) Extremeties Extremities Exam: Pedal Pulses Palpable (Lianet Squires) Neurologic Neuro Exam: Alert, Awake, Oriented, Speech Clear, Moving All Extremities ( Lianet Squires) Assessment/Plan Discussed Condition With: Patient Assessment Summary: Anemia of CKD, Hypertension, End Stage Renal Disease Electrolyte Assessment: Hypocalcemia Problem List: (1) ESRD (end stage renal disease) Plan: on nightly PD, regimen consists of 4 cycles, 2 liter fill volume, 9 hours ; she has last fill of 500 ml; uses 1.5% solution it is going well monitor electrolytes no IVF required phos elevated, begin phoslo no protein diet restriction (2) Hypocalcemia Plan: chronic issue Likely iatrogenic; Hx of parathyroidectomy in 2016, 1/2 of one gland retained receiving IV calcium gluconate continue Tums Q4h on calcitriol 1mcg po BID monitor for magnesium deficiency PTH pending recheck calcium in am (3) Hypertension Plan: continue home medications (4) Hypomagnesemia Plan: her magnesium is in normal range PPI can cause hypomagnesemia (5) Anemia Plan: given epogen (6) Facial paresthesia Plan: neurology following, suspected TIA MRI taken, on Plavix and ASA Plan hypocalcemia is a chronic issues; if stable she can be discharged to follow up with fresh foods clerk in [place] who is aware and managing the hypocalcemia and PD ( Lianet Squires) Plan patient was seen and examined. Continue Tums, and Calcitriol. Intact PTH ordered. Neurology workup is in progress. (Terence Peña MD) Lianet Squires Jan 23, 2017 12:16 Terence Peña MD Jan 23, 2017 21:10
[2017-01-23] MEDS: ONDANSETRON HCL 4 MG/2 ML VIAL IVP PRN ×2 (13:19→20:18)
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
[2017-01-23] MEDS: ZOLPIDEM TARTRATE 10 MG TAB PO PRN (20:15)
[2017-01-24] VITALS (9 sets, daily range): BP systolic 131–140; BP diastolic 71–90; PULSE 83–97; RESP 16–20; TEMP 97.3–98.1; O2SAT 97–99
[2017-01-24] MEDS: ACETAMINOPHEN 325 MG TAB PO PRN (01:03)
[2017-01-24] MEDS: CALCIUM CARBONATE 500 MG CHEWABLE TAB CHEW SCH ×6 (01:03→21:56)
[2017-01-24] MEDS: MORPHINE SULFATE 4 MG/ML INJ IV PRN ×6 (02:25→23:15)
--- NOTE | 2017-01-24 07:51 | EKG ---
Date Performed: 01/22/2017 Time Performed: 12:18:24 PTAGE: 36 years EKG: Sinus rhythm PROLONGED QT INTERVAL Compared to the previous tracing QT interval is longer ABNORMAL ECG PREVIOUS TRACING : 01/22/2017 06.07 DOCTOR: Trell Cortés Interpretating Date/Time 01/24/2017 07:48:53
[2017-01-24] MEDS: DOCUSATE SODIUM 100 MG CAP PO SCH ×2 (08:10→21:56)
[2017-01-24] MEDS: CARVEDILOL 12.5 MG TAB PO SCH ×2 (08:10→21:58)
[2017-01-24] MEDS: PANTOPRAZOLE SOD 40 MG DELAYED RELEASE TAB PO SCH (08:10)
[2017-01-24] MEDS: ASPIRIN 81 MG CHEW TAB PO SCH (08:10)
[2017-01-24] MEDS: CHOLECALCIFEROL (VIT D3) 1000 UNIT TAB PO SCH (08:10)
[2017-01-24] MEDS: hydrALAZINE HCL 25 MG TAB PO SCH ×3 (08:10→17:19)
[2017-01-24] MEDS: CALCITRIOL 0.25 MCG CAP PO SCH ×2 (08:10→21:56)
[2017-01-24] MEDS: SODIUM CHLORIDE 0.9% FLUSH 5 ML FLUSH IVF SCH ×2 (08:11→21:56)
[2017-01-24] MEDS: CLOPIDOGREL 75 MG TAB PO SCH (08:11)
[2017-01-24] MEDS: ONDANSETRON HCL 4 MG/2 ML VIAL IVP PRN (08:11)
--- NOTE | 2017-01-24 09:37 | HHI.PR ---
Subjective Remarks sr still Objective Vital Signs Date Time Temp Pulse Resp B/P Pulse Ox O2 Delivery O2 Flow Rate FiO2 01/24/17 08:22 18 01/24/17 08:00 97.3 84 18 131/80 98 01/24/17 04:02 98.1 83 16 139/77 98 01/24/17 00:26 97.5 97 16 134/79 99 01/23/17 21:00 88 01/23/17 19:54 97.0 83 18 136/86 92 01/23/17 18:47 99 21 01/23/17 16:18 96.6 95 18 133/76 99 01/23/17 12:19 97.0 83 19 128/83 98 I/O 01/23/17 01/23/17 01/23/17 01/24/17 01/24/17 01/24/17 07:00 15:00 23:00 07:00 15:00 23:00 Output Total 695 ml 637 ml Balance -695 ml -637 ml Output Peritoneal Fluid 695 ml 637 ml # Voids 2 5 # Bowel Movements 0 1 Result Diagram: 01/22/17 0606 01/23/17 0826 Objective Remarks nl exam walking ok some nv this am Assessment and Plan Assessment and Plan imp plavix await mri neg as is mra cow hypercoag screen pend echo nl holter pend us neg sr overnoc ok dc neurowise by me and fu office she has had some nv unclear why no vertigo i doubt it is plavix will defer to med team there is no cva and no ms may have been htn encephalopathy? vs complicated migraine Boogie Angela MD Jan 24, 2017 09:37
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
[2017-01-24] MEDS ORDERED: SODIUM CHLOR 0.9% 1000 ML INJ 1,000 ML IV PRN (13:30)
[2017-01-24 14:46] LABS: BICARBONATE 27.2 MEQ/L (21.0-32.0); MAGNESIUM 1.9 MG/DL (1.5-2.5); POTASSIUM 4.1 MEQ/L (3.5-5.1)
[2017-01-24 15:08] LABS: CALCIUM-PROTEIN CORRECTED 7.1 MG/DL (8.5-10.1)
--- NOTE | 2017-01-24 16:05 | HHI.NPPN ---
Subjective General Problems: Anemia Renal Failure: Chronic, End Stage Renal Disease Interval History PD has been going well. She began vomiting after each time she eats, no pain, feels fine afterwards. No acute renal concerns. (Lianet Squires) Review of Systems Gastrointestinal Gastrointestinal: Nausea & Vomiting (Lianet Squires) Neuro Neuro: Headache, Tingling (Lianet Squires) Objective Data Data 01/23/17 01/24/17 19:00 07:00 Output Total 695 ml Balance -695 ml Output Peritoneal Fluid 695 ml # Voids 1 4 # Bowel Movements 1 Vital Signs Date Time Temp Pulse Resp B/P Pulse Ox O2 Delivery O2 Flow Rate FiO2 01/24/17 12:43 18 01/24/17 12:00 97.5 90 18 139/71 98 01/24/17 09:17 98 21 01/24/17 08:00 97.3 84 18 131/80 98 01/24/17 04:02 98.1 83 16 139/77 98 01/24/17 00:26 97.5 97 16 134/79 99 01/23/17 21:00 88 01/23/17 19:54 97.0 83 18 136/86 92 01/23/17 18:47 99 21 01/23/17 16:18 96.6 95 18 133/76 99 (Lianet Squires) -: 01/22/17 0606 01/24/17 1415 Imaging Last Impressions Head Magnetic Resonance Angiography 01/23/171616 Signed Impressions: Service Date/Time: Monday, January 23, 2017 09:35 - CONCLUSION: Normal examination. Bogdan Echols MD Brain MRI 01/23/171616 Signed Impressions: Service Date/Time: Monday, January 23, 2017 09:35 - CONCLUSION: Few scattered focal areas of demyelination which could be from underlying conditions such as multiple sclerosis. No hemorrhage or mass effect seen. Bogdan Echols MD Carotid Artery Ultrasound 01/22/171616 Signed Impressions: Service Date/Time: Sunday, January 22, 2017 20:11 - CONCLUSION: Unremarkable bilateral carotid ultrasound. Rodney Freeman MD Head CT 01/21/17 0000 Signed Impressions: Service Date/Time: Saturday, January 21, 2017 18:08 - CONCLUSION: Normal examination for a patient of this age. No significant change has occurred. David Rivera MD Tubes & Lines: Tenckhoff Catheter (Lianet Squires B. FILM PAINTER) Physical Exam General Appearance: Well Developed, Well Nourished, Comfortable, Sleeping (Tavia, Lianet B. FILM PAINTER) Throat Throat Exam: Oral Mucosa [place] & Moist (Tavia,Lianet B. FILM PAINTER) Pulmonary Resp Exam: Clear Bilaterally, Breath Sounds Equal (Tavia,Lianet B. FILM PAINTER) Cardiology CV Exam: Regular, Normal Sinus Rhythm (Tavia,Lianet B. FILM PAINTER) Gastrointestinal/Abdomen GI Exam: Soft, Non-Tender, Bowel Sounds Present (Tavia,Lianet B. FILM PAINTER) Musculoskeletal MS Exam: Joints Intact, Normal Tone (Tavia,Lianet B. FILM PAINTER) Integumentary Skin Exam: Warm, Dry (Tavia,Lianet B. FILM PAINTER) Extremeties Extremities Exam: Pedal Pulses Palpable (TaviaLianet B. FILM PAINTER) Neurologic Neuro Exam: Alert, Awake, Oriented, Speech Clear, Moving All Extremities ( TaviaLianet B. FILM PAINTER) Assessment/Plan Discussed Condition With: Patient Assessment Summary: Anemia of CKD, Hypertension, End Stage Renal Disease Electrolyte Assessment: Hypocalcemia Problem List: (1) ESRD (end stage renal disease) Plan: on nightly PD, regimen consists of 4 cycles, 2 liter fill volume, 9 hours ; she has last fill of 500 ml; uses 1.5% solution it is going well monitor electrolytes no IVF required phos elevated, begin phoslo no protein diet restriction (2) Hypocalcemia Plan: chronic Likely iatrogenic; Hx of parathyroidectomy in 2016, 1/2 of one gland retained receiving IV calcium gluconate continue Tums Q4h on calcitriol 1mcg po BID monitor for magnesium deficiency PTH elevated, which is unusual for hypocalcemia (3) Hypertension Plan: continue home medications (4) Hypomagnesemia Plan: her magnesium is in normal range PPI can cause hypomagnesemia (5) Anemia Plan: given epogen (6) Facial paresthesia Plan: neurology following, suspected TIA vs migraine vs. hypocalcemia on Plavix and ASA to have MARIE, cardiology has been consulted on zofran for nausea/vomiting consider Reglan to promote GI motility (Lianet Squires) Plan patient was seen and examined. Has some symptoms of nausea and vomiting. Serum Calcium has improved. PTH is high, she has secondary hyperparathyroidism. Avoid PPI if at all possible , as it may worsen hypomagnesemia and cause hypocalcemia. She may have some urine output. (Terence Peña MD) Lianet Squires Jan 24, 2017 16:05 Terence Peña MD Jan 24, 2017 20:17
--- NOTE | 2017-01-24 16:50 | MB ---
cc: [facility] DATE OF CONSULTATION 01/24/2017 REASON FOR CONSULTATION Ms. Patel is a 36-year-old black female with a history of hypertension, Alport syndrome, end-stage renal disease on hemodialysis. She recently had an episode of numbness and paresthesia of her left arm and left face. She presented with left hand and face numbness, paresthesias and headache. She was diagnosed with stroke. MARIE is now requested. PAST MEDICAL HISTORY Positive for: 1. Hypertension. 2. Alport syndrome. 3. End-stage renal disease on hemodialysis. No history of coronary artery disease, diabetes mellitus or cerebrovascular accident. MEDICATIONS 1. Calcitriol. 2. Plavix. 3. Aspirin. 4. Pantoprazole. 5. Amlodipine. 6. Carvedilol. 7. Vitamin D3. 8. Hydralazine. ALLERGIES BACTRIM, CONTRAST, GENTAMICIN, LEVAQUIN, NORCO, ROCEPHIN AND ULTRAM. SOCIAL HISTORY The patient does not smoke. She does not drink alcohol. FAMILY HISTORY Positive for stroke. REVIEW OF SYSTEMS Otherwise negative. PHYSICAL EXAMINATION VITAL SIGNS: Blood pressure 139/71, pulse 90 and regular. HEENT: Negative. 2+ carotid upstroke. No bruits. LUNGS: Clear. HEART: Regular with no murmur, gallop or rub. ABDOMEN: Soft. No bruits. EXTREMITIES: Without edema. 2+ distal pulses. NEUROLOGICAL: Grossly nonfocal. EKG was reviewed and showed normal sinus rhythm with normal axis and intervals, mild left ventricular hypertrophy. LABORATORY DATA Hemoglobin 9.0. Potassium 4.1. Creatinine 11.1. Troponin negative times four. DIAGNOSES 1. Suspected cerebrovascular accident. 2. Hypertension. 3. End-stage renal disease on hemodialysis. DISPOSITION Ms. Patel will be scheduled for transesophageal echocardiogram to evaluate for cardiac source of emboli and PFO. She understands the risks and benefits, and wishes to proceed. MD RASHEL Perez/KK /4:18 PM /4:31 PM ASHLEY
[2017-01-24] MEDS: ZOLPIDEM TARTRATE 10 MG TAB PO PRN (21:56)
[2017-01-25] VITALS (8 sets, daily range): BP systolic 127–165; BP diastolic 74–100; PULSE 89–102; RESP 17–24; TEMP 97.2–98.1; O2SAT 95–100
[2017-01-25] MEDS: MORPHINE SULFATE 4 MG/ML INJ IV PRN ×4 (04:35→21:16)
[2017-01-25] MEDS: CALCIUM CARBONATE 500 MG CHEWABLE TAB CHEW SCH ×5 (04:37→21:15)
--- NOTE | 2017-01-25 08:47 | HHI.NPPN ---
Subjective General Problems: Anemia Renal Failure: Chronic, End Stage Renal Disease Interval History patient was seen and examined. Today she will have MARIE. GI symptoms have improved. Some nausea, but no vomiting. Review of Systems Neuro Neuro: Headache, Tingling Objective Data Data 01/24/17 01/25/17 19:00 07:00 Intake Total 280 ml 720 ml Output Total 637 ml 326 ml Balance -357 ml 394 ml Intake Oral 280 ml 720 ml Output Peritoneal Fluid 637 ml 326 ml # Voids 2 2 # Bowel Movements 0 Vital Signs Date Time Temp Pulse Resp B/P Pulse Ox O2 Delivery O2 Flow Rate FiO2 01/25/17 08:00 98.1 89 17 133/76 97 01/25/17 04:00 97.7 93 18 127/79 95 01/25/17 00:00 97.9 92 24 145/82 100 01/24/17 21:00 88 01/24/17 20:53 97.6 88 20 140/90 99 01/24/17 18:31 97 21 01/24/17 16:00 97.5 93 18 131/78 97 01/24/17 12:43 18 01/24/17 12:00 97.5 90 18 139/71 98 01/24/17 09:17 98 21 -: 01/22/17 0606 01/24/17 1415 Tubes & Lines: Tenckhoff Catheter Physical Exam General Appearance: Well Developed, Well Nourished, Comfortable, Sleeping Throat Throat Exam: Oral Mucosa [place] & Moist Pulmonary Resp Exam: Clear Bilaterally, Breath Sounds Equal Cardiology CV Exam: Regular, Normal Sinus Rhythm Gastrointestinal/Abdomen GI Exam: Soft, Non-Tender, Bowel Sounds Present Musculoskeletal MS Exam: Joints Intact, Normal Tone Integumentary Skin Exam: Warm, Dry Extremeties Extremities Exam: Pedal Pulses Palpable Neurologic Neuro Exam: Alert, Awake, Oriented, Speech Clear, Moving All Extremities Assessment/Plan Discussed Condition With: Patient Assessment Summary: Anemia of CKD, Hypertension, End Stage Renal Disease Electrolyte Assessment: Hypocalcemia Problem List: (1) ESRD (end stage renal disease) Plan: on nightly PD, regimen consists of 4 cycles, 2 liter fill volume, 9 hours ; she has last fill of 500 ml; uses 1.5% solution it is going well, UF about 250 ml. monitor electrolytes (2) Hypocalcemia Plan: Chronic, related to renal disease, although unusually severe. PTH is high, and so she does not have iatrogenic hypoparathyroidism. Continue Rocaltrol, Tums and add PhosLo with meals. Hypocalcemia has improved. Patient probably should not be on PPI which can potentially decrease serum Magnesium level and secondarily Calcium level. (3) Hypertension Plan: continue home medications (4) Hypomagnesemia Plan: her magnesium is in normal range PPI can cause hypomagnesemia (5) Anemia Plan: given epogen (6) Facial paresthesia Plan: neurology following, suspected TIA vs migraine vs. hypocalcemia on Plavix and ASA to have MARIE, cardiology has been consulted Plan Patient can be discharged if cleared by cardiology/neurology. Terence Peña MD Jan 25, 2017 08:47
[2017-01-25] MEDS: CALCIUM ACETATE 667 MG CAP PO SCH ×2 (09:00→17:05)
[2017-01-25] MEDS: hydrALAZINE HCL 25 MG TAB PO SCH ×2 (09:07→17:05)
[2017-01-25] MEDS: DOCUSATE SODIUM 100 MG CAP PO SCH ×2 (09:07→21:16)
[2017-01-25] MEDS: CARVEDILOL 12.5 MG TAB PO SCH ×2 (09:07→21:15)
[2017-01-25] MEDS: CHOLECALCIFEROL (VIT D3) 1000 UNIT TAB PO SCH (09:08)
[2017-01-25] MEDS: CALCITRIOL 0.25 MCG CAP PO SCH ×2 (09:08→21:23)
[2017-01-25] MEDS: CLOPIDOGREL 75 MG TAB PO SCH (09:08)
[2017-01-25 10:08] LABS: BICARBONATE 27.2 MEQ/L (21.0-32.0); POTASSIUM 4.1 MEQ/L (3.5-5.1)
[2017-01-25 10:28] LABS: CALCIUM-PROTEIN CORRECTED 7.1 MG/DL (8.5-10.1)
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
[2017-01-25] MEDS ORDERED: PLAV75TA29 PO (11:28)
--- NOTE | 2017-01-25 11:29 | HHI.DCPOC ---
Discharge Care Plan Diagnosis: (1) Facial paresthesia (2) Paresthesia of left arm and leg (3) Left-sided weakness Your Health Problems Are: Difficulty with ADL Exercise Tolerance Goals to Promote Your Health * To prevent worsening of your condition and complications * To maintain your health at the optimal level Directions to Meet Your Goals Take your medications as prescribed Follow your dietary instruction Follow activity as directed Keep your appointments as scheduled Take your immunizations and boosters as scheduled If your symptoms worsen call your PCP, if no PCP go to Urgent Care Center or Emergency Room Smoking is Dangerous to Your Health. Avoid second hand smoke Call the 24-hour hour crisis hotline for domestic abuse at Casper Mccain MD Jan 25, 2017 11:29
[2017-01-25] MEDS ORDERED: SODIUM CHLORID 0.9% 500 ML IV SCH (12:15)
[2017-01-25] MEDS ORDERED: INSULIN HUMAN REGULAR 1,000 UNITS/10 ML VIAL SQ PRN (12:15)
[2017-01-25] MEDS ORDERED: METOPROLOL TARTRATE 25 MG TAB PO PRN (12:15)
[2017-01-25] MEDS ORDERED: LACTATED RINGER'S 1000 ML IV SCH (12:15)
[2017-01-25] MEDS: ONDANSETRON HCL 4 MG/2 ML VIAL IVP PRN (12:44)
[2017-01-25 13:40] LABS: PTH RELATED PEPTIDE 1.4 pmol/L (<2.0)
[2017-01-25] MEDS ORDERED: *RESP: ALBUTEROL 2.5 MG/3 ML NEB (PRN) PERIprocedural Use ONLY NEB ONE (13:46)
[2017-01-25] MEDS ORDERED: *morphine SULFATE 8 MG/ML PERIprocedure ONLY ONE (14:16)
--- NOTE | 2017-01-25 14:16 | HM ---
Date Performed: 01/23/2017 Time Performed: 15:57:00 HOOKUP DATE: 01/23/17 03:57:00 PM Tue ANALYSIS START TIME: 01/23/2017 4:02:00 PM ANALYSIS END TIME: 01/24/2017 4:06:00 PM PATIENT AGE: 36 PATIENT HEIGHT PATIENT WEIGHT DRUG LIST PATIENT DIAGNOSIS: left sided weakness TEST NARRATIVE: The patient's average heart rate was 88 BPM. No episodes of tachycardia wer e noted. No episodes of bradycardia were noted. No pauses exceeding 2.0 seconds were noted. No ventricular ectopics were noted. No supraventricular ectopics were noted. No episodes of S T depression (defined as -1.0 mm or more) were noted in channel 1. No episodes of ST depression (def ined as -1.0 mm or more) were noted in channel 2. No episodes of ST depression (defined as -1.0 mm o r more) were noted in channel 3. TEST INTERPRETATION: Benign Holter Signed by : John Hendrickson
[2017-01-25] MEDS ORDERED: DO NOT ADM ANY ANTICOAGULANT DRUGS XX PRN (14:45)
--- NOTE | 2017-01-25 15:15 | PD.CARD.PN ---
Subjective Subjective Remarks No CP or SOB Objective Medications Current Medications Medications (Trade) Dose Ordered Sig/Catherine Route Start Time Stop Time Status Last Admin (NS Flush) 2 ml BID IVF 01/21/17 21:00 01/24/17 21:56 (NS Flush) 2 ml UNSCH PRN IVF 01/21/17 21:00 01/22/17 17:39 (D50w (Vial) Inj) 25 ml UNSCH PRN IV PUSH 01/21/17 21:00 (Glucagon Inj) 1 mg UNSCH PRN OTHER 01/21/17 21:00 (Ativan) 0.5 mg Q8H PRN PO 01/22/17 00:15 01/22/17 01:01 (Nitrostat Sl) 0.4 mg Q5M PRN SL 01/22/17 00:15 (Morphine Inj) 2 mg Q3H PRN IV 01/22/17 00:15 01/25/17 09:15 (Norvasc) 10 mg DAILY PO 01/22/17 09:00 01/25/17 09:07 (Tums Chew) 500 mg Q4HR CHEW 01/22/17 08:00 01/25/17 09:07 (Coreg) 25 mg BID PO 01/22/17 09:00 01/25/17 09:07 (Vitamin D3) 1,000 units DAILY PO 01/22/17 09:00 01/25/17 09:08 (Apresoline) 25 mg TID PO 01/22/17 09:00 01/25/17 09:07 (NS Flush) 10 ml UNSCH PRN IVF 01/22/17 08:45 (Zofran Inj) 4 mg Q6H PRN IVP 01/22/17 09:00 01/25/17 12:44 (Dulcolax Supp) 10 mg DAILY PRN PA 01/22/17 09:00 (Colace) 100 mg Q12H PO 01/22/17 09:00 01/25/17 09:07 (Senokot) 17.2 mg Q12H PRN PO 01/22/17 09:00 (Narcan Inj) 0.4 mg UNSCH PRN IV 01/22/17 09:00 (Catapres) 0.1 mg Q6H PRN PO 01/22/17 09:00 (Tylenol) 650 mg Q4H PRN PO 01/22/17 10:00 01/24/17 01:03 (Rocaltrol) 1 mcg BID PO 01/22/17 21:00 01/25/17 09:08 (Plavix) 75 mg DAILY PO 01/22/17 16:30 01/25/17 09:08 Zolpidem Tartrate 10 mg 10 mg HS PRN PO 01/23/17 21:00 01/24/17 21:56 (NS 1000 ml Inj) 1,000 ml @ 30 mls/hr Q24H PRN IV 01/24/17 13:30 Calcium Acetate 667 mg 667 mg TID PO 01/25/17 09:00 Lactated Ringer's 1,000 ml @ 30 mls/hr Q24H IV 01/25/17 12:15 (NS 500 ml Inj) 500 ml @ 30 mls/hr [id number] IV 01/25/17 12:15 01/26/17 12:14 01/25/17 12:15 Miscellaneous Information ALL NURSING DEPARTME... UNSCH PRN XX 01/25/17 14:45 01/26/17 14:44 Vital Signs / I&O Vital Signs Date Time Temp Pulse Resp B/P Pulse Ox O2 Delivery O2 Flow Rate FiO2 01/25/17 14:15 97.9 84 16 150/96 98 Room Air 01/25/17 14:00 86 16 151/97 98 Room Air 01/25/17 13:45 87 15 151/97 94 Nasal Cannula 2 01/25/17 13:35 98.0 90 15 155/99 97 Nasal Cannula 2 01/25/17 12:00 97.4 89 17 165/100 95 01/25/17 08:00 98.1 89 17 133/76 97 01/25/17 07:00 102 01/25/17 04:00 97.7 93 18 127/79 95 01/25/17 00:00 97.9 92 24 145/82 100 01/24/17 21:00 88 01/24/17 20:53 97.6 88 20 140/90 99 01/24/17 18:31 97 21 01/24/17 16:00 97.5 93 18 131/78 97 I/O 01/24/17 01/24/17 01/24/17 01/25/17 3/16/17 3/16/17 06:59 14:59 22:59 06:59 14:59 22:59 Intake Total 280 ml 720 ml 350 ml Output Total 637 ml 326 ml 50 ml Balance -357 ml 394 ml 300 ml Intake Oral 280 ml 720 ml IV Total 0 ml Other 350 ml Output Urine Total 0 ml Peritoneal Fluid 637 ml 326 ml Estimated Blood Loss 50 ml # Voids 2 2 # Bowel Movements 0 Physical Exam GENERAL: SKIN: Warm and dry. HEAD: Normocephalic. EYES: No scleral icterus. No injection or drainage. NECK: Supple, trachea midline. No JVD or lymphadenopathy. CARDIOVASCULAR: Regular rate and rhythm without murmurs, gallops, or rubs. RESPIRATORY: Breath sounds equal bilaterally. No accessory muscle use. GASTROINTESTINAL: Abdomen soft, non-tender, nondistended. MUSCULOSKELETAL: No cyanosis, or edema. BACK: Nontender without obvious deformity. No CVA tenderness. Laboratory Laboratory Tests Test 01/25/17 09:21 Sodium Level 136 MEQ/L Potassium Level 4.1 MEQ/L Chloride Level 96 MEQ/L Carbon Dioxide Level 27.2 MEQ/L Anion Gap 13 MEQ/L Blood Urea Nitrogen 46 MG/DL Creatinine 11.43 MG/DL Estimat Glomerular Filtration 5 ML/MIN Rate Random Glucose 92 MG/DL Calcium Level 7.0 MG/DL Protein Corrected Calcium 7.1 MG/DL Magnesium Level 2.0 MG/DL Total Protein 7.0 GM/DL Imaging Last Impressions Head Magnetic Resonance Angiography 01/23/171616 Signed Impressions: Service Date/Time: Monday, January 23, 2017 09:35 - CONCLUSION: Normal examination. Bogdan Echols MD Brain MRI 01/23/171616 Signed Impressions: Service Date/Time: Monday, January 23, 2017 09:35 - CONCLUSION: Few scattered focal areas of demyelination which could be from underlying conditions such as multiple sclerosis. No hemorrhage or mass effect seen. Bogdan Echols MD Carotid Artery Ultrasound 01/22/171616 Signed Impressions: Service Date/Time: Sunday, January 22, 2017 20:11 - CONCLUSION: Unremarkable bilateral carotid ultrasound. Rodney Freeman MD Head CT 01/21/17 0000 Signed Impressions: Service Date/Time: Saturday, January 21, 2017 18:08 - CONCLUSION: Normal examination for a patient of this age. No significant change has occurred. David Rivera MD Assessment and Plan Problem List: (1) CVA (cerebral vascular accident) (2) HTN (hypertension) (3) ESRD (end stage renal disease) on dialysis Assessment and Plan No cardiac complaints. Proceed with MARIE today. Manfred Henriquez MD Jan 25, 2017 15:15
[2017-01-25] MEDS: SODIUM CHLORIDE 0.9% FLUSH 5 ML FLUSH IVF SCH (21:14)
[2017-01-25] MEDS: ZOLPIDEM TARTRATE 10 MG TAB PO PRN (21:16)
[2017-01-26] VITALS (7 sets, daily range): BP systolic 120–147; BP diastolic 68–98; PULSE 82–103; RESP 18; TEMP 97.9–98.9; O2SAT 94–100
[2017-01-26] MEDS: MORPHINE SULFATE 4 MG/ML INJ IV PRN ×3 (02:32→15:25)
[2017-01-26] MEDS: CALCIUM CARBONATE 500 MG CHEWABLE TAB CHEW SCH ×4 (04:00→14:19)
[2017-01-26 07:51] LABS: THROMBIN TIME FOR LA ND sec (13-19)
[2017-01-26] MEDS: SODIUM CHLORIDE 0.9% FLUSH 5 ML FLUSH IVF SCH (09:00)
[2017-01-26] MEDS: ONDANSETRON HCL 4 MG/2 ML VIAL IVP PRN (09:39)
[2017-01-26] MEDS: CALCIUM ACETATE 667 MG CAP PO SCH ×3 (09:43→14:19)
[2017-01-26] MEDS: CALCITRIOL 0.25 MCG CAP PO SCH (09:43)
[2017-01-26] MEDS: hydrALAZINE HCL 25 MG TAB PO SCH ×2 (09:44→14:19)
[2017-01-26] MEDS: DOCUSATE SODIUM 100 MG CAP PO SCH (09:45)
[2017-01-26] MEDS: CLOPIDOGREL 75 MG TAB PO SCH (09:45)
[2017-01-26] MEDS: CARVEDILOL 12.5 MG TAB PO SCH (09:45)
[2017-01-26] MEDS: CHOLECALCIFEROL (VIT D3) 1000 UNIT TAB PO SCH (09:46)
--- NOTE | 2017-01-26 13:38 | HHI.NPPN ---
Subjective General Problems: Anemia Renal Failure: Chronic, End Stage Renal Disease Interval History Vomiting has subsided. She is wanting to go. (Lianet Squires) Review of Systems Neuro Neuro: Headache, Tingling (Lianet Squires) Objective Data Data 01/25/17 01/26/17 19:00 07:00 Intake Total 350 ml 360 ml Output Total 50 ml Balance 300 ml 360 ml Intake Oral 360 ml IV Total 0 ml Other 350 ml Output Urine Total 0 ml Estimated Blood Loss 50 ml # Voids 2 6 # Bowel Movements 0 0 Vital Signs Date Time Temp Pulse Resp B/P Pulse Ox O2 Delivery O2 Flow Rate FiO2 01/26/17 12:00 98.0 92 18 138/78 96 01/26/17 10:08 98 21 01/26/17 08:00 98.0 93 18 147/76 94 01/26/17 07:00 89 01/26/17 04:00 98.9 100 18 129/81 98 01/26/17 00:00 98.4 103 18 120/68 96 01/25/17 20:01 97.2 97 18 144/84 98 01/25/17 20:00 98 01/25/17 16:00 97.5 90 17 132/74 96 01/25/17 14:15 97.9 84 16 150/96 98 Room Air 01/25/17 14:00 86 16 151/97 98 Room Air 01/25/17 13:45 87 15 151/97 94 Nasal Cannula 2 01/25/17 13:35 98.0 90 15 155/99 97 Nasal Cannula 2 (Lianet Squires) -: 01/22/17 0606 01/25/17 0921 Imaging Last Impressions Head Magnetic Resonance Angiography 01/23/171616 Signed Impressions: Service Date/Time: Monday, January 23, 2017 09:35 - CONCLUSION: Normal examination. Bogdan Echols MD Brain MRI 01/23/171616 Signed Impressions: Service Date/Time: Monday, January 23, 2017 09:35 - CONCLUSION: Few scattered focal areas of demyelination which could be from underlying conditions such as multiple sclerosis. No hemorrhage or mass effect seen. Bogdan Echols MD Carotid Artery Ultrasound 01/22/171616 Signed Impressions: Service Date/Time: Sunday, January 22, 2017 20:11 - CONCLUSION: Unremarkable bilateral carotid ultrasound. Rodney Freeman MD Head CT 01/21/17 0000 Signed Impressions: Service Date/Time: Saturday, January 21, 2017 18:08 - CONCLUSION: Normal examination for a patient of this age. No significant change has occurred. David Rivera MD Tubes & Lines: Tenckhoff Catheter (Lianet Squires B. LINING CEMENTER) Physical Exam General Appearance: Well Developed, Well Nourished, Comfortable, Sleeping (Tavia, Lianet B. LINING CEMENTER) Throat Throat Exam: Oral Mucosa [place] & Moist (Tavia,Ilanet B. LINING CEMENTER) Pulmonary Resp Exam: Clear Bilaterally, Breath Sounds Equal (Tavia,Lianet B. LINING CEMENTER) Cardiology CV Exam: Regular, Normal Sinus Rhythm (Tavia,Lianet B. LINING CEMENTER) Gastrointestinal/Abdomen GI Exam: Soft, Non-Tender, Bowel Sounds Present (Tavia,Lianet B. LINING CEMENTER) Musculoskeletal MS Exam: Joints Intact, Normal Tone (Tavia,Lianet B. LINING CEMENTER) Integumentary Skin Exam: Warm, Dry (Tavia,Lianet B. LINING CEMENTER) Extremeties Extremities Exam: Pedal Pulses Palpable (Tavia,Lianet B. LINING CEMENTER) Neurologic Neuro Exam: Alert, Awake, Oriented, Speech Clear, Moving All Extremities ( Tavia,Lianet B. LINING CEMENTER) Psychiatric Psych Exam: Appropriate Responses (TaviaLianet B. LINING CEMENTER) Assessment/Plan Discussed Condition With: Patient Assessment Summary: Anemia of CKD, Hypertension, End Stage Renal Disease Electrolyte Assessment: Hypocalcemia Problem List: (1) ESRD (end stage renal disease) Plan: on nightly PD, regimen consists of 4 cycles, 2 liter fill volume, 9 hours ; she has last fill of 500 ml; uses 1.5% solution PD going well no edema, potassium is normal calcium replacement as below stable from renal perspective (2) Hypocalcemia Plan: Chronic, related to renal disease, although unusually severe. PTH is high, and so she does not have iatrogenic hypoparathyroidism. Continue Rocaltrol, Tums and add PhosLo with meals. Hypocalcemia is stable Patient probably should not be on PPI which can potentially decrease serum Magnesium level and secondarily Calcium level. 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 hypocalcemia on Plavix and ASA MARIE reportedly negative per pt, cardiology is following Plan Patient can be discharged if cleared by cardiology/neurology. (Lianet Squires) Plan patient was seen and examined. Agree with above assessment and plan. She can be discharged from renal standpoint. (Terence Peña MD) Lianet Squires Jan 26, 2017 13:38 Terence Peña MD Jan 26, 2017 17:39
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
--- NOTE | 2017-01-26 15:49 | EKG ---
Date Performed: 01/25/2017 Time Performed: 14:06:27 PTAGE: 36 years EKG: Sinus rhythm MINIMAL VOLTAGE CRITERIA FOR LVH, CONSIDER NORMAL VARIANT INFERIOR MYOCARDIAL INFARCTION , PROBABLY OLD ABNORMAL ECG PREVIOUS TRACING : 01/22/2017 12.18 Compared to prior tracing no significant change DOCTOR: Dinora Faulkner Interpretating Date/Time 01/26/2017 15:47:42
--- NOTE | 2017-01-26 16:39 | PD.CARD.PN ---
Subjective Subjective Remarks No CP or SOB, still mild throat irritation, eating without difficulty Objective Medications Current Medications Medications (Trade) Dose Ordered Sig/Catherine Route Start Time Stop Time Status Last Admin (NS Flush) 2 ml BID IVF 01/21/17 21:00 01/26/17 09:00 (NS Flush) 2 ml UNSCH PRN IVF 01/21/17 21:00 01/22/17 17:39 (D50w (Vial) Inj) 25 ml UNSCH PRN IV PUSH 01/21/17 21:00 (Glucagon Inj) 1 mg UNSCH PRN OTHER 01/21/17 21:00 (Ativan) 0.5 mg Q8H PRN PO 01/22/17 00:15 01/22/17 01:01 (Nitrostat Sl) 0.4 mg Q5M PRN SL 01/22/17 00:15 (Morphine Inj) 2 mg Q3H PRN IV 01/22/17 00:15 01/26/17 15:25 (Norvasc) 10 mg DAILY PO 01/22/17 09:00 01/26/17 09:45 (Tums Chew) 500 mg Q4HR CHEW 01/22/17 08:00 01/26/17 14:19 (Coreg) 25 mg BID PO 01/22/17 09:00 01/26/17 09:45 (Vitamin D3) 1,000 units DAILY PO 01/22/17 09:00 01/26/17 09:46 (Apresoline) 25 mg TID PO 01/22/17 09:00 01/26/17 14:19 (NS Flush) 10 ml UNSCH PRN IVF 01/22/17 08:45 (Zofran Inj) 4 mg Q6H PRN IVP 01/22/17 09:00 01/26/17 09:39 (Dulcolax Supp) 10 mg DAILY PRN PA 01/22/17 09:00 (Colace) 100 mg Q12H PO 01/22/17 09:00 01/26/17 09:45 (Senokot) 17.2 mg Q12H PRN PO 01/22/17 09:00 (Narcan Inj) 0.4 mg UNSCH PRN IV 01/22/17 09:00 (Catapres) 0.1 mg Q6H PRN PO 01/22/17 09:00 (Tylenol) 650 mg Q4H PRN PO 01/22/17 10:00 01/24/17 01:03 (Rocaltrol) 1 mcg BID PO 01/22/17 21:00 01/26/17 09:43 (Plavix) 75 mg DAILY PO 01/22/17 16:30 01/26/17 09:45 Zolpidem Tartrate 10 mg 10 mg HS PRN PO 01/23/17 21:00 01/25/17 21:16 (NS 1000 ml Inj) 1,000 ml @ 30 mls/hr Q24H PRN IV 01/24/17 13:30 Calcium Acetate 667 mg 667 mg TID PO 01/25/17 09:00 01/26/17 14:19 (Lr 1000 ml Inj) 1,000 ml @ 30 mls/hr Q24H IV 01/25/17 12:15 Vital Signs / I&O Vital Signs Date Time Temp Pulse Resp B/P Pulse Ox O2 Delivery O2 Flow Rate FiO2 01/26/17 16:00 97.9 82 18 145/98 100 01/26/17 12:00 98.0 92 18 138/78 96 01/26/17 10:08 98 21 01/26/17 08:00 98.0 93 18 147/76 94 01/26/17 07:00 89 01/26/17 04:00 98.9 100 18 129/81 98 01/26/17 00:00 98.4 103 18 120/68 96 01/25/17 20:01 97.2 97 18 144/84 98 01/25/17 20:00 98 I/O 01/25/17 01/25/17 01/25/17 01/26/17 01/26/17 01/26/17 07:00 15:00 23:00 07:00 15:00 23:00 Intake Total 720 ml 350 ml 360 ml 480 ml Output Total 326 ml 50 ml 298 ml Balance 394 ml 300 ml 360 ml 182 ml Intake Oral 720 ml 360 ml 480 ml IV Total 0 ml Other 350 ml Output Urine Total 0 ml Peritoneal Fluid 326 ml Hemodialysis 298 ml Estimated Blood Loss 50 ml # Voids 2 2 6 2 # Bowel Movements 0 0 Physical Exam GENERAL: In NAD SKIN: Warm and dry. HEAD: Normocephalic. EYES: No scleral icterus. No injection or drainage. NECK: Supple, trachea midline. No JVD or lymphadenopathy. CARDIOVASCULAR: Regular rate and rhythm without murmurs, gallops, or rubs. RESPIRATORY: Breath sounds equal bilaterally. No accessory muscle use. GASTROINTESTINAL: Abdomen soft, non-tender, nondistended. MUSCULOSKELETAL: No cyanosis, or edema. Laboratory Laboratory Tests Test 01/21/17 01/22/17 01/22/17 01/22/17 18:50 06:06 11:37 20:52 Hemoglobin A1c 5.2 % White Blood Count 6.7 TH/MM3 Red Blood Count 3.44 MIL/MM3 Hemoglobin 9.0 GM/DL Hematocrit 27.7 % Mean Corpuscular Volume 80.4 FL Mean Corpuscular Hemoglobin 26.2 PG Mean Corpuscular Hemoglobin 32.6 % Concent Red Cell Distribution Width 16.1 % Platelet Count 235 TH/MM3 Mean Platelet Volume 8.1 FL Neutrophils (%) (Auto) 61.5 % Lymphocytes (%) (Auto) 26.3 % Monocytes (%) (Auto) 8.2 % Eosinophils (%) (Auto) 3.0 % Basophils (%) (Auto) 1.0 % Neutrophils # (Auto) 4.1 TH/MM3 Lymphocytes # (Auto) 1.8 TH/MM3 Monocytes # (Auto) 0.5 TH/MM3 Eosinophils # (Auto) 0.2 TH/MM3 Basophils # (Auto) 0.1 TH/MM3 CBC Comment DIFF FINAL Differential Comment Triglycerides Level 107 MG/DL Cholesterol Level 129 MG/DL LDL Cholesterol 78 MG/DL HDL Cholesterol 29.5 MG/DL Cholesterol/HDL Ratio 4.37 RATIO Total Bilirubin 0.4 MG/DL Alkaline Phosphatase 65 U/L Total Creatine Kinase 296 U/L Creatine Kinase MB LESS THAN 0.5 NG/ML Creatine Kinase MB % 0.2 % Erythrocyte Sedimentation Rate 69 mm/hr Aspartate Amino Transf 17 U/L (AST/SGOT) Alanine Aminotransferase 22 U/L (ALT/SGPT) Troponin I LESS THAN 0.02 NG/ML Vitamin B12 Level 547 PG/ML Folate 12.1 NG/ML Free Thyroxine 1.28 NG/DL Thyroid Stimulating Hormone 2.070 uIU/ML 3rd Gen Anti-Nuclear Antibody Screen NEG Phospholipid IgG Antibody <9.4 GPL Phospholipid IgM Antibody 9.7 MPL Thiamine Level 102 nmol/L Thrombin Time sec Lupus Anticoagulant Lupus Anticoagulant PTT Screen 37 seconds Dil Doyle Viper Venom Time 51 seconds Screen Dil Doyle Viper Venom Conf NEGATIVE (Lupus Dil Doyle Viper Venom Time Mix Hexagonal Phase Confirmation Protein C Activity 90 % Protein S Activity 97 % Anti-Thrombin III Activity 125 Factor V Leiden Mutation Negative Factor V Leiden Interpretation . Factor V Leiden Reviewed By Malou Gomez M.D. Coagulation Factor VIII 244 Activity Prothrombin Gene Mutation Test 01/23/17 01/23/17 01/24/17 01/25/17 04:00 08:26 07:41 09:21 Urine Opiates Screen NEG Urine Barbiturates Screen POS Urine Amphetamines Screen NEG Urine Benzodiazepines Screen NEG Urine Cocaine Screen NEG Urine Cannabinoids Screen NEG Phosphorus Level 5.1 MG/DL Albumin 3.0 GM/DL Ionized Calcium 3.7 mg/dL Parathyroid Hormone Related 1.4 pmol/L Peptide Parathyroid Hormone (Intact) 1200.1 PG/ML Sodium Level 136 MEQ/L Potassium Level 4.1 MEQ/L Chloride Level 96 MEQ/L Carbon Dioxide Level 27.2 MEQ/L Anion Gap 13 MEQ/L Blood Urea Nitrogen 46 MG/DL Creatinine 11.43 MG/DL Estimat Glomerular Filtration 5 ML/MIN Rate Random Glucose 92 MG/DL Calcium Level 7.0 MG/DL Protein Corrected Calcium 7.1 MG/DL Magnesium Level 2.0 MG/DL Total Protein 7.0 GM/DL Imaging Last Impressions Head Magnetic Resonance Angiography 01/23/171616 Signed Impressions: Service Date/Time: Monday, January 23, 2017 09:35 - CONCLUSION: Normal examination. Bogdan Echols MD Brain MRI 01/23/171616 Signed Impressions: Service Date/Time: Monday, January 23, 2017 09:35 - CONCLUSION: Few scattered focal areas of demyelination which could be from underlying conditions such as multiple sclerosis. No hemorrhage or mass effect seen. Bogdan Echols MD Carotid Artery Ultrasound 01/22/171616 Signed Impressions: Service Date/Time: Sunday, January 22, 2017 20:11 - CONCLUSION: Unremarkable bilateral carotid ultrasound. Rodney Freeman MD Head CT 01/21/17 0000 Signed Impressions: Service Date/Time: Saturday, January 21, 2017 18:08 - CONCLUSION: Normal examination for a patient of this age. No significant change has occurred. David Rivera MD Assessment and Plan Problem List: (1) CVA (cerebral vascular accident) (2) HTN (hypertension) (3) ESRD (end stage renal disease) on dialysis Assessment and Plan No cardiac complaints. MARIE with no evidence of cardiac source emboli or PFO. Continue post CVA management. Anticipate discharge home. Manfred Henriquez MD Jan 26, 2017 16:39
--- NOTE | 2017-01-30 13:30 | CF ---
cc: CLAKR GAY INDICATIONS CVA, evaluation for cardiac source of emboli and PFO. PROCEDURE PERFORMED Transesophageal echocardiogram PROCEDURE After the patient was sedated by anesthesia, a transesophageal probe was placed without difficulty. Tomographic images were obtained. Left ventricular function was preserved with an estimated ejection fraction of 55% with no wall motion abnormalities. Aortic valve was structurally normal. There was no evidence of aortic stenosis or regurgitation. The mitral valve was structurally normal. There was no evidence of mitral stenosis. There was evidence of mild mitral regurgitation. There was evidence of mild tricuspid regurgitation. The left atrial appendage was visualized and there was no evidence of left atrial thrombus. Bubble study was performed and there was no evidence of right to left shunt. DIAGNOSIS 1. No evidence of left atrial thrombus. 2. No evidence of patent foramen ovale. 3. Preserved left ventricular systolic function. 4. Mild mitral regurgitation. 5. Mild tricuspid regurgitation. IMPRESSION No evidence of cardiac source of emboli. MD RASHEL Perez/PAUL /3:19 PM /1:16 PM ASHLEY
[2017-04-16] MEDS ORDERED: HYDR-3799 PO (12:33)
[2017-04-16] MEDS ORDERED: MACR100C2 PO (14:16)
[2017-04-16] MEDS ORDERED: ZOFR4TAB3 SL (14:16)
== END 2017-01-26 17:27 | disposition home or self-care (01) | DRG 56 ==
LOC: NEPA 17:29 → NEDA 20:23 → NEPFCDU 22:23 → OBSVTOIN 01-22 12:50 → N05B 01-22 16:47
PROVIDERS: ADMIT Hospitalist; ATTEND Hospitalist
PROC: 3E1M39Z Irrigation of Peritoneal Cavity using Dialysate, Percutaneous Approach (ICD-10-PCS; principal; 2017-01-22)
DX: G81.94 Hemiplegia, unspecified affecting left nondominant side (principal); N18.6 End stage renal disease; Z76.82 Awaiting organ transplant status; Q87.81 Alport syndrome; I12.0 Hypertensive chronic kidney disease with stage 5 chronic kidney disease or end stage renal disease; R20.9 Unspecified disturbances of skin sensation; E83.51 Hypocalcemia; K21.9 Gastro-esophageal reflux disease without esophagitis; Z99.2 Dependence on renal dialysis; D63.1 Anemia in chronic kidney disease; E83.42 Hypomagnesemia; L29.9 Pruritus, unspecified; F41.9 Anxiety disorder, unspecified; I16.0 Hypertensive urgency; R07.89 Other chest pain; E87.6 Hypokalemia; R11.2 Nausea with vomiting, unspecified; R51 Headache
CPT/HCPCS: 70450; 70544; 70551; 80048; 80053; 80061; 80069; 80307; 81240; 81241; 82330; 82397; 82550; 82552; 82607; 82746; 82948; 83036; 83735; 83970; 84155; 84425; 84439; 84443; 84450; 84460; 84484; 85025; 85240; 85300; 85303; 85306; 85597; 85610; 85613; 85652; 85730; 86038; 86147; 90935; 93005; 93225; 93226; 93306; 93312; 93320; 93325; 93880; 96374; G0378; G8987-GO; G8988-GO; G8996-GN; G8997-GN; G8998-GN; J0610; J1885; J2060; J2270; J2405; J7040; J7613; Q4081

== ENCOUNTER 2017-01-28 18:45 | Emergency (ER) | payer MEDICARE, OTHER ==
[~2017-01-28] VITALS: Ht 175.3 cm; Wt 89.0 kg
[~2017-01-28 18:45] MED LIST changes: -CALC.25 PO; +CALC0.5C6 PO; -CARV12.52 PO; +CARV25TA PO; +LISI40TA PO; +PLAV75TA29 PO; +ZOLP10TA3 PO
[2017-01-28 18:47] VITALS: BP 181/118; PULSE 91; RESP 18; TEMP 98.2; O2SAT 100
[2017-01-28 19:08] VITALS: BP 193/124; PULSE 82; RESP 20; TEMP 97.9; O2SAT 100
[2017-01-28 19:27] VITALS: O2SAT 100
[2017-01-28] MEDS ORDERED: SODIUM CHLOR 0.9% 250 ML INJ 250 ML IV ONE (19:30)
[2017-01-28] MEDS ORDERED: PROCHLORPERAZINE INJ 10 MG/2 ML VIAL IVS ONE (19:30)
--- NOTE | 2017-01-28 19:31 | PD ---
HPI Chief Complaint: GI Complaint Time Seen by Provider: 19:07 Travel History International Travel<30 days: No Contact w/Intl Traveler<30days: No Traveled to known affect area: No History of Present Illness HPI The patient is a 36 year old female who presents to the [facility] emergency department with a history of nausea and vomiting that she reports began on Sunday, 5 days ago. The patient at that time was in the hospital related to a stroke with residual weakness of her left upper and left lower extremity that she reports is mild. She reports that she is in outpatient rehabilitation at this point for this. While in the hospital she developed the nausea and vomiting and reports that this seemed to be exacerbated by a MARIE that she had done on . She reports that she actually vomited during the procedure and had to be suctioned. The patient reports that she has been taking Zofran at home without any improvement of the nausea. She reports that she has not been able to keep down any food, liquids, or her medications. 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 The patient is on peritoneal dialysis and has been on peritoneal dialysis for the last 3-1/2 years. She is also on the transplant list. She denies ever having problems previously with acid reflux or vomiting. She denies having any associated diarrhea. She denies having any urinary symptoms. She reports that she does produce urine daily. She denies having any abdominal pain currently. She reports that she did have some abdominal cramping last night around 3 AM this spontaneously resolved. She reports that she's had nausea and vomiting 3 today. She reports that she has not had a bowel movement for the last 4 days. She reports that she normally moves her bowels daily. She denies having any fevers. She did do her usual peritoneal dialysis last night and there was no change in the color of the fluid. She denies having any redness or drainage around her peritoneal dialysis site. The patient's only new medication is related to her recent stroke, and is Plavix. The patient denies any recent fevers, cough, congestion, neck pain, chest pain, shortness of breath, diarrhea, urinary symptoms, or new or worsening neurologic symptoms. [facility] Past Medical History Narrative Medical The patient's past medical history is significant for a recent stroke affecting the left upper and left lower extremity with residual weakness, history of Alport syndrome causing chronic renal failure on peritoneal dialysis for the last 3-1/2 years, history of hypertension. According to the patient she was on Protonix, however this was discontinued related to its effects on her electrolytes. The patient reports that she did have endoscopy and colonoscopy 5 years ago in preparation for placement on the kidney transplant list. She denies any problems identified during panendoscopy. Anemia: Yes Blood Disorders: No Anxiety: Yes Heart Rhythm Problems: No Cancer: No Cardiovascular Problems: Yes High Cholesterol: No Chest Pain: Yes Congestive Heart Failure: No Cerebrovascular Accident: Yes Diabetes: No Dialysis: Yes (PERITONEAL DIALYSIS) Diminished Hearing: No Endocrine: Yes Gastrointestinal Disorders: No Gout: Yes Genitourinary: Yes (Alport's Syndrome) Headaches: Yes Hypertension: Yes Immune Disorder: No Implanted Vascular Access Dvce: No Musculoskeletal: No Neurologic: No Psychiatric: Yes Reproductive: No Respiratory: No Renal Failure: Yes (Dialysis patient) Thyroid Disease: Yes ?: Not : 4 Para: 3 Miscarriage: 1 : 0 Tubal Ligation: Yes Past Surgical History Narrative Surgical The patient's past surgical history is significant for cholecystectomy, peritoneal dialysis catheter placement, hysterectomy, parathyroidectomy. Abdominal Surgery: Yes (PERITONEAL DIALYSIS) Body Medical Devices: Peritoneal dialysis Cholecystectomy: Yes Hysterectomy: Yes (2009) Other Surgery: Yes (PARATHYROID REMOVAL APRIL 2016, "VAGINAL ABLATION") Social History Alcohol Use: No Tobacco Use: No Substance Use: No Allergies-Medications (Allergen,Severity, Reaction): Coded Allergies: Gentamicin (Verified Allergy, Severe, RASH, 01/28/17) Levaquin (Verified Allergy, Severe, ITCHING, 01/28/17) Rocephin (Verified Allergy, Severe, RASH, 01/28/17) Cottonwood (Verified Allergy, Intermediate, Nausea/Vomiting, 01/28/17) PT STATES ITCHINESS, NAUSEA, AND VOMITTING Ultram (Verified Allergy, Intermediate, itching, 01/28/17) Bactrim (Verified Adverse Reaction, Unknown, due to kidney failure, ) Contrast Media (Verified Adverse Reaction, Unknown, due to renal failure, 01/28/17) Reported Meds & Prescriptions Reported Meds & Active Scripts Active Prochlorperazine Supp (Prochlorperazine) 25 Mg Supp 0.5 Supp RECTAL Q12H PRN Plavix (Clopidogrel Bisulfate) 75 Mg Tab 75 Mg PO DAILY Vitamin D3 (Cholecalciferol) 1,000 Unit Tab 1,000 Units PO DAILY Valium (Diazepam) 5 Mg Tab 5 Mg PO Q12HR Zofran Odt (Ondansetron Odt) 4 Mg Tab 4 Mg SL Q8HR PRN Reported Lisinopril 40 Mg Tab 40 Mg PO DAILY Zolpidem (Zolpidem Tartrate) 10 Mg Tab 10 Mg PO HS PRN Calcium Carbonate (Antacid) 500 Mg Chew 500 Mg CHEW Q4HR Calcitriol 0.5 Mcg Cap 0.5 Mcg PO BID Carvedilol 25 Mg Tab 25 Mg PO BID Clonidine (Clonidine HCl) 0.2 Mg Tab 0.2 Mg PO BID PRN Allopurinol 100 Mg Tab 100 Mg PO DAILY Aspirin 81 Mg Chew 81 Mg CHEW DAILY Hydralazine (Hydralazine HCl) 25 Mg Tab 25 Mg PO TID Take with a meal Amlodipine (Amlodipine Besylate) 10 Mg Tab 10 Mg PO DAILY Review of Systems Except as stated in HPI: all other systems reviewed are Neg General / Constitutional: No: Fever Eyes: No: Visual changes HENT: No: Headaches Cardiovascular: No: Chest Pain or Discomfort Respiratory: No: Shortness of Breath Gastrointestinal: Positive: Nausea, Vomiting, Abdominal Pain, Constipation, Changes in Bowel Habits, No: Diarrhea, Hematemesis, Hematochezia, Indigestion, Dysphagia, Loss of Appetite Genitourinary: No: Dysuria Musculoskeletal: No: Pain Skin: No Rash Neurologic: No: Weakness Psychiatric: No: Depression Endocrine: No: Polydipsia Hematologic/Lymphatic: No: Easy Bruising Physical Exam Narrative General: The patient is a well-developed well-nourished female in no acute distress. Head and Neck exam: Head is normocephalic atraumatic. Eyes: EOMI, pupils are equal round and reactive to light. Nose: Midline septum with pink mucous membranes Mouth: Dentition unremarkable. Tacky mucus membranes. Posterior oropharynx is not erythematous. No tonsillar hypertrophy. Uvula midline. Airway patent. Neck: No palpable lymphadenopathy. No nuchal rigidity. No thyromegaly. Cardiovascular: Regular rate and rhythm without murmurs, gallops, or rubs. Lungs: Clear to auscultation bilaterally. No wheezes, rhonchi, or rales. Abdomen: Soft, without tenderness to palpation in all 4 quadrants of the abdomen. No guarding, rebound, or rigidity. Normal bowel sounds are audible. No tenderness on palpation of McBurney's point. Negative Abernathy's sign. The patient has a peritoneal dialysis catheter in place that appears to be in good repair without any surrounding erythema, edema, or drainage on her dressing. Extremities: No clubbing, cyanosis, or edema. 2+ pulses in all 4 extremities. No calf tenderness on palpation. Back: No spinous process tenderness to palpation. No costovertebral angle tenderness to palpation. Skin Exam: No rash noted. Intact skin that is warm and dry. Data Data Last Documented VS Vital Signs Date Time Temp Pulse Resp B/P Pulse Ox O2 Delivery O2 Flow Rate FiO2 01/28/17 19:27 100 Room Air 01/28/17 19:08 97.9 82 20 193/124 Orders Complete Blood Count With Diff (01/28/17 19:20) Comprehensive Metabolic Panel (01/28/17 19:20) C-Reactive Protein (Crp) (01/28/17 19:20) Lipase (01/28/17 19:20) Urinalysis - C+S If Indicated (01/28/17 19:20) Abdomen, Flat & Upright (01/28/17 19:20) Iv Access Insert/Monitor (01/28/17 19:20) Ecg Monitoring (01/28/17 19:20) Oximetry (01/28/17 19:20) Prochlorperazine Inj (Compazine Inj) (01/28/17 19:30) Sodium Chlor 0.9% 250 Ml Inj (Ns 250 Ml (01/28/17 19:30) Oral Rehydration (01/28/17 20:49) Calcium Gluconate Inj (Calcium Gluconate (01/28/17 21:00) Labs Laboratory Tests Test 01/28/17 19:29 White Blood Count 8.0 TH/MM3 Red Blood Count 4.33 MIL/MM3 Hemoglobin 11.6 GM/DL Hematocrit 35.8 % Mean Corpuscular Volume 82.7 FL Mean Corpuscular Hemoglobin 26.7 PG Mean Corpuscular Hemoglobin 32.4 % Concent Red Cell Distribution Width 18.2 % Platelet Count 235 TH/MM3 Mean Platelet Volume 8.1 FL Neutrophils (%) (Auto) 70.8 % Lymphocytes (%) (Auto) 16.4 % Monocytes (%) (Auto) 9.3 % Eosinophils (%) (Auto) 2.6 % Basophils (%) (Auto) 0.9 % Neutrophils # (Auto) 5.7 TH/MM3 Lymphocytes # (Auto) 1.3 TH/MM3 Monocytes # (Auto) 0.7 TH/MM3 Eosinophils # (Auto) 0.2 TH/MM3 Basophils # (Auto) 0.1 TH/MM3 CBC Comment DIFF FINAL Differential Comment Sodium Level 136 MEQ/L Potassium Level 3.9 MEQ/L Chloride Level 95 MEQ/L Carbon Dioxide Level 30.7 MEQ/L Anion Gap 10 MEQ/L Blood Urea Nitrogen 48 MG/DL Creatinine 11.97 MG/DL Estimat Glomerular Filtration 4 ML/MIN Rate Random Glucose 91 MG/DL Calcium Level 7.1 MG/DL Protein Corrected Calcium 6.8 MG/DL Total Bilirubin 0.5 MG/DL Aspartate Amino Transf 13 U/L (AST/SGOT) Alanine Aminotransferase 18 U/L (ALT/SGPT) Alkaline Phosphatase 77 U/L C-Reactive Protein 0.68 MG/DL Total Protein 7.9 GM/DL Albumin 3.4 GM/DL Lipase 224 U/L [facility] Medical Decision Making Medical Screen Exam Complete: Yes Emergency Medical Condition: Yes Medical Record Reviewed: Yes Interpretation(s) Last Impressions Abdomen X-Ray 01/28/171919 Signed Impressions: Service Date/Time: Saturday, January 28, 2017 19:34 - CONCLUSION: 1. No dilated bowel loops. 2. Peritoneal dialysis catheter. 3. Cholecystectomy clips. Angel Lizarraga MD Differential Diagnosis Dehydration, versus electrolyte abnormality, versus vomiting related to viral syndrome, versus obstruction Narrative Course During the course of the patients emergency department visit, the patients history, examination, and differential diagnosis were reviewed with the patient. The patient had IV access obtained and blood work sent for analysis. The patient was placed on a clinical research monitor with oximetry and blood pressure monitoring. An abdominal flat and upright x-ray was ordered to evaluate for possible signs of obstruction. The patient was provided Compazine 5 mg IV, normal saline at 250 mL IV fluid bolus times one. The patient will be started on oral rehydration therapy. The patients laboratory studies were reviewed and remarkable for white count 8 , hemoglobin 11.6, platelets 235 with 70.8 neutrophils, lymphocytes 16.4, monocytes 9.3. CMP is remarkable for chloride of 95, BUN 48, creatinine 11.97, protein corrected calcium is 6.8 is somewhat similar to her recent admission, AST 13, C-reactive protein 0.68, lipase 224 Radiology studies were reviewed and remarkable for an abdominal flat and upright that shows no dilated bowel loops, peritoneal dialysis catheter is in place, cholecystectomy clips are noted. The patient was able to tolerate by mouth liquids. The patient received calcium gluconate 1 g IV over one hour. The patient was instructed to follow- up with her police detention attendant for further discussion in the morning regarding increasing her supplementation of PhosLo and Rocaltrol. The patient is resting comfortably and feels better, is alert and in no distress. The patients results and examination findings were discussed The repeat examination is unremarkable and benign. The history, exam, diagnostic testing, and current condition do not suggest any significant pathology to warrant further testing, continued ED treatment, admission, or surgical evaluation at this point. The vital signs have been stable. The patient does not have uncontrollable pain, intractable vomiting, or other significant symptoms. The patient's condition is stable and appropriate for discharge. The patient will pursue further outpatient evaluation with a primary care physician or other designated or consulting physician as indicated in the discharge instructions. The patient expressed understanding and was agreeable with this plan. Diagnosis Primary Impression: Nausea & vomiting Qualified Code: R11.2 - Non-intractable vomiting with nausea, unspecified vomiting type Additional Impression: Hypocalcemia Referrals: Plaster Machine Operator 1 day Primary Care Physician 2 days Patient Instructions: Acute Nausea and Vomiting (ED), General Instructions, Hypocalcemia (ED) Additional Instructions: The patient was instructed to follow-up with her police detention attendant for further discussion in the morning regarding increasing her supplementation of PhosLo and Rocaltrol. Med/Other Pt SpecificInfo: Prescription(s) given Scripts Prochlorperazine Supp 25 Mg Supp0.5 Supp RECTAL Q12H PRN (NAUSEA OR VOMITING) # 3 SUPP Ref 0 Prov:Stephanie Stuart MD 01/28/17 Disposition: 01 DISCHARGE HOME Condition: Stable Stephanie Stuart MD Jan 28, 2017 19:31
--- NOTE | 2017-01-28 19:53 | RADRPT ---
EXAM DATE/TIME: 01/28/2017 19:34 [facility] COMPARISON: No previous studies available for comparison. INDICATIONS : Vomiting for six days. MEDICAL HISTORY : Hypertension. Renal failure, chronic. SURGICAL HISTORY : Cholecystectomy. Hysterectomy. ENCOUNTER: Initial ACUITY: 4 - 6 days PAIN SCORE: 0/10 LOCATION: Bilateral Abdomen FINDINGS: Supine and upright views of the abdomen were performed. The abdominal bowel gas pattern is normal. No air fluid levels are seen. No abnormal masses, calcifications, or organomegaly is seen. The visu alized lower lungs are clear. No evidence of free intraperitoneal gas. The osseous structures are u nremarkable. Cholecystectomy clips. Peritoneal dialysis catheter with tip in the pelvis. Phleboliths in the pelvis. CONCLUSION: 1. No dilated bowel loops. 2. Peritoneal dialysis catheter. 3. Cholecystectomy clips. Angel Lizarraga MD on January 28, 2017 at 19:50 Board Certified Radiologist. This report was verified electronically.
[2017-01-28 19:54] LABS: AUTOMATED NEUTROPHIL # 5.7 TH/MM3 (1.8-7.7); BASOPHIL # 0.1 TH/MM3 (0-0.2); BASOPHIL % 0.9 % (0.0-2.0); EOSINOPHIL # 0.2 TH/MM3 (0-0.4); EOSINOPHIL % 2.6 % (0.0-4.0); HEMATOCRIT 35.8 % (35.0-46.0); HEMO FLAGS DIFF FINAL; LYMPH % 16.4 % (9.0-44.0); LYMPHOCYTE # 1.3 TH/MM3 (1.0-4.8); MEAN CELL VOLUME 82.7 FL (80.0-100.0); MEAN CORPUSCULAR HEMOGLOBIN 26.7 PG (27.0-34.0); MEAN CORPUSCULAR HGB CONC 32.4 % (32.0-36.0); MONO % 9.3 % (0.0-8.0); NEUT % 70.8 % (16.0-70.0); PLATELET COUNT 235 TH/MM3 (150-450); RED BLOOD COUNT 4.33 MIL/MM3 (4.00-5.30); RED CELL DISTRIBUTION WIDTH 18.2 % (11.6-17.2)
[2017-01-28 20:19] LABS: BICARBONATE 30.7 MEQ/L (21.0-32.0); POTASSIUM 3.9 MEQ/L (3.5-5.1); TOTAL BILIRUBIN ADULT 0.5 MG/DL (0.2-1.0)
[2017-01-28 20:45] LABS: CALCIUM-PROTEIN CORRECTED 6.8 MG/DL (8.5-10.1)
[2017-01-28] MEDS ORDERED: CALCIUM GLUCONATE INJ 1 GM in DEXTROSE 5% IN WATER 100ML INJ 100 ML IV ONE ×2 (21:00)
[2017-01-28] MEDS ORDERED: PROC25SU22 RECTAL ×2 (21:47→21:48)
[2017-04-16] MEDS ORDERED: HYDR-3799 PO (12:33)
[2017-04-16] MEDS ORDERED: ZOFR4TAB3 SL (14:16)
[2017-04-16] MEDS ORDERED: MACR100C2 PO (14:16)
== END 2017-01-28 22:51 | disposition home or self-care (01) ==
LOC: NEPE 18:45
DX: R11.2 Nausea with vomiting, unspecified (principal); E83.51 Hypocalcemia
CPT/HCPCS: 74020; 80053; 83690; 85025; 86140; 96361; 96374; 99283; J0610; J0780; J7050

== ENCOUNTER 2017-05-09 12:07 | Inpatient (IN) | payer MEDICARE, OTHER ==
[2017-05-09] VITALS (9 sets, daily range): BP systolic 137–197; BP diastolic 88–124; PULSE 78–106; RESP 17–20; TEMP 97.8–98.5; O2SAT 98–99
[~2017-05-09] VITALS: Ht 175.3 cm; Wt 86.9 kg
[~2017-05-09 12:07] MED LIST changes: -DIAZ5 PO; +HYDR-3799 PO; -HYDR25TA35 PO; -VITA100018 PO; -ZOFR4TAB3 SL
--- NOTE | 2017-05-09 12:13 | PD ---
Physical Exam Date Seen by Provider: May 09, 2017 Time Seen by Provider: 12:12 Narrative 36 yo female that presents to the ED for evaluation of numbnes and tingling on the left arm and head. Was seen at [facility] recently. Was told calcium low. Does peritoneal dialysis. Chest pain started today. Pain is 6/10. Vitals are stable in triage. Awaiting bed placement. [facility] Medical Record Reviewed: Yes Supervised Visit with JESSICA: No Joseph Zhong May 09, 2017 12:13
[2017-05-09] MEDS ORDERED: SODIUM CHLORIDE 0.9% FLUSH 10 ML FLUSH IVF PRN (12:30)
--- NOTE | 2017-05-09 12:32 | PD ---
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 The patient states that she came to the emergency department today because about 45 minutes ago she began to experience midsternal chest pressure radiating to her back. States this is associated with shortness of breath and nausea. Denies any aggravating or alleviating factors. States that for the last 2 weeks she has had facial paresthesias, states it is located on the left side of her face and around her mouth. States she was told this is secondary to hypocalcemia. She states that she does her peritoneal dialysis every night. She denies any history of heart disease or PA. She last had a stress test one year ago. Her technical applications scientist is Dr. Montiel. [place] No other complaints. PFSH Past Medical History Anemia: Yes Blood Disorders: No Anxiety: Yes Heart Rhythm Problems: No Cancer: No Cardiovascular Problems: Yes (HTN) High Cholesterol: No Chest Pain: Yes Congestive Heart Failure: No Cerebrovascular Accident: Yes Diabetes: No Dialysis: Yes (PERITONEAL DIALYSIS) Diminished Hearing: No Endocrine: Yes Gastrointestinal Disorders: No Gout: Yes Genitourinary: Yes (Alport's Syndrome) Headaches: Yes Hypertension: Yes Immune Disorder: No Implanted Vascular Access Dvce: No Musculoskeletal: No Neurologic: No Psychiatric: Yes Reproductive: No Respiratory: No Renal Failure: Yes (Dialysis patient) Thyroid Disease: Yes ?: Not : 4 Para: 3 Miscarriage: 1 : 0 Tubal Ligation: Yes Past Surgical History Abdominal Surgery: Yes (PERITONEAL DIALYSIS) Body Medical Devices: Peritoneal dialysis Cholecystectomy: Yes Hysterectomy: Yes Other Surgery: Yes (PARATHYROID REMOVAL APRIL 2016, "VAGINAL ABLATION") Social History Alcohol Use: No Tobacco Use: No Substance Use: No Allergies-Medications (Allergen,Severity, Reaction): Coded Allergies: Gentamicin (Verified Allergy, Severe, RASH, 05/09/17) Levaquin (Verified Allergy, Severe, ITCHING, 05/09/17) Rocephin (Verified Allergy, Severe, RASH, 05/09/17) [place] (Verified Allergy, Intermediate, Nausea/Vomiting, 05/09/17) PT STATES ITCHINESS, NAUSEA, AND VOMITTING Ultram (Verified Allergy, Intermediate, itching, 05/09/17) Bactrim (Verified Adverse Reaction, Unknown, due to kidney failure, ) Contrast Media (Verified Adverse Reaction, Unknown, due to renal failure, 05/09/17) Reported Meds & Prescriptions Reported Meds & Active Scripts Active Reported Hydralazine HCl 25 Mg Tablet 25 Mg PO TID Lisinopril 40 Mg Tab 40 Mg PO DAILY Zolpidem (Zolpidem Tartrate) 10 Mg Tab 10 Mg PO HS PRN Calcium Carbonate (Antacid) 500 Mg Chew 500 Mg CHEW Q4HR Calcitriol 0.5 Mcg Cap 0.5 Mcg PO BID Carvedilol 25 Mg Tab 25 Mg PO BID Clonidine (Clonidine HCl) 0.2 Mg Tab 0.2 Mg PO BID PRN Allopurinol 100 Mg Tab 100 Mg PO DAILY Aspirin 81 Mg Chew 81 Mg CHEW DAILY Amlodipine (Amlodipine Besylate) 10 Mg Tab 10 Mg PO DAILY Review of Systems Except as stated in HPI: all other systems reviewed are Neg Physical Exam Narrative GENERAL: Well-nourished and well-developed pleasant female patient in no acute distress who is nontoxic appearing. SKIN: Warm and dry. HEAD: Normocephalic and atraumatic. EYES: No injection, drainage, or hyphema noted. PERRLA. EOMI. ENT: No nasal drainage noted. Oropharynx is clear. NECK: Supple and the trachea is midline. CARDIOVASCULAR: Regular rate and rhythm. RESPIRATORY: Breath sounds are equal bilaterally with no accessory muscle use, wheezing, rhonchi, or crackles. GASTROINTESTINAL: Abdomen is soft, non-tender, and nondistended. MUSCULOSKELETAL: No obvious deformities, swelling, cyanosis, or ecchymosis is present throughout the upper and lower extremities. Patient has full range of motion without any signs of neurovascular compromise. Strength 5/5 upper and lower extremities equal bilaterally. NEUROLOGICAL: Awake, alert, and oriented. Normal speech and gait. No facial droop. Patient reporting paresthesias on the left side of face. Cranial nerves are grossly intact. Data Data Last Documented VS Vital Signs Date Time Temp Pulse Resp B/P Pulse Ox O2 Delivery O2 Flow Rate FiO2 05/09/17 15:01 80 20 157/94 05/09/17 12:43 98 05/09/17 12:08 98.5 Room Air Orders Electrocardiogram (05/09/17 ) Electrocardiogram (05/09/17 12:30) Ckmb (Isoenzyme) Profile (05/09/17 12:30) Complete Blood Count With Diff (05/09/17 12:30) Comprehensive Metabolic Panel (05/09/17 12:30) Magnesium (Mg) (05/09/17 12:30) Prothrombin Time / Inr (Pt) (05/09/17 12:30) Act Partial Throm Time (Ptt) (05/09/17 12:30) Troponin I (05/09/17 12:30) Chest, Single Ap (05/09/17 12:30) Ecg Monitoring (05/09/17 12:30) Bilateral Bp Monitoring (05/09/17 12:30) Iv Access Insert/Monitor (05/09/17 12:30) Oximetry (05/09/17 12:30) Sodium Chloride 0.9% Flush (Ns Flush) (05/09/17 12:30) Ct Brain W/O Iv Contrast(Rout) (05/09/17 12:30) CKMB (05/09/17 12:36) CKMB% (05/09/17 12:36) Calcium Gluconate Inj (Calcium Gluconate (05/09/17 14:15) Aspirin Chew (Aspirin Chew) (05/09/17 14:15) Nitroglycerin Sl (Nitrostat Sl) (05/09/17 14:15) Troponin I (05/09/17 15:27) Oxycodone-Acetamin 5-325 Mg (Percocet (05/09/17 15:30) Admit Order (Ed Use Only) (05/09/17 15:41) Place In Observation (05/09/17 ) Vital Signs (Adult) Q4H (05/09/17 15:41) Activity Oob With Assistance (05/09/17 15:41) Digital Tech / Telemetry .CONTINUOUS (05/09/17 15:41) Diet Heart Healthy (05/09/17 Dinner) Sodium Chloride 0.9% Flush (Ns Flush) (05/09/17 15:45) Sodium Chloride 0.9% Flush (Ns Flush) (05/09/17 21:00) Ondansetron Inj (Zofran Inj) (05/09/17 15:45) Basic Metabolic Panel (Bmp) (05/10/17 06:00) Complete Blood Count With Diff (05/10/17 06:00) Scd Bilateral/Knee High ASHANTI.BID (05/09/17 15:41) Naloxone Inj (Narcan Inj) (05/09/17 15:45) Docusate Sodium-Senna (Cecilia-Colace) (05/09/17 21:00) Magnesium Hydroxide Liq (Milk Of Magnesi (05/09/17 15:45) Sennosides (Senokot) (05/09/17 15:45) Bisacodyl Supp (Dulcolax Supp) (05/09/17 15:45) Lactulose Liq (Lactulose Liq) (05/09/17 15:45) Labs Laboratory Tests Test 05/09/17 05/09/17 12:36 12:39 Prothrombin Time 10.3 SEC Prothromb Time International 0.9 RATIO Ratio Activated Partial 24.7 SEC Thromboplast Time Sodium Level 136 MEQ/L Potassium Level 3.7 MEQ/L Chloride Level 97 MEQ/L Carbon Dioxide Level 25.9 MEQ/L Anion Gap 13 MEQ/L Blood Urea Nitrogen 47 MG/DL Creatinine 14.09 MG/DL Estimat Glomerular Filtration 4 ML/MIN Rate Random Glucose 95 MG/DL Calcium Level 7.0 MG/DL Protein Corrected Calcium 6.7 MG/DL Magnesium Level 2.1 MG/DL Total Bilirubin 0.4 MG/DL Aspartate Amino Transf 16 U/L (AST/SGOT) Alanine Aminotransferase 20 U/L (ALT/SGPT) Alkaline Phosphatase 57 U/L Total Creatine Kinase 196 U/L Creatine Kinase MB 0.6 NG/ML Creatine Kinase MB % 0.3 % Troponin I LESS THAN 0.02 NG/ML Total Protein 7.8 GM/DL Albumin 3.4 GM/DL White Blood Count 7.6 TH/MM3 Red Blood Count 4.29 MIL/MM3 Hemoglobin 11.2 GM/DL Hematocrit 34.5 % Mean Corpuscular Volume 80.3 FL Mean Corpuscular Hemoglobin 26.1 PG Mean Corpuscular Hemoglobin 32.5 % Concent Red Cell Distribution Width 16.6 % Platelet Count 267 TH/MM3 Mean Platelet Volume 9.1 FL Neutrophils (%) (Auto) 70.7 % Lymphocytes (%) (Auto) 19.4 % Monocytes (%) (Auto) 7.3 % Eosinophils (%) (Auto) 1.8 % Basophils (%) (Auto) 0.8 % Neutrophils # (Auto) 5.4 TH/MM3 Lymphocytes # (Auto) 1.5 TH/MM3 Monocytes # (Auto) 0.6 TH/MM3 Eosinophils # (Auto) 0.1 TH/MM3 Basophils # (Auto) 0.1 TH/MM3 CBC Comment DIFF FINAL Differential Comment MDM Medical Decision Making Medical Screen Exam Complete: Yes Emergency Medical Condition: Yes Differential Diagnosis Electrolyte abnormality versus ACS versus pleurisy versus TIA versus other Narrative Course 36-year-old female presents to the emergency department for evaluation of chest pressure that began 45 minutes ago and facial paresthesias for 2 weeks. Patient is afebrile. She is tachycardic with a heart rate of 106 bpm. She is slightly hypertensive with a blood pressure 165/110. Otherwise vital signs within normal limits. Physical examination is essentially unremarkable. No focal neurologic deficits. She is reporting paresthesias on left side of her face. IV access is obtained, labs have been drawn and sent. Patient is placed on cardiac telemetry and pulse oximetry monitoring. EKG shows sinus rhythm with no acute ST elevations or depressions. CBC shows mild anemia with hemoglobin 11.2, hematocrit 34.5. CMP shows creatinine of 14.09 consistent with end-stage renal disease. Hypocalcemia with a protein corrected calcium of 6.7. Cardiac enzymes are negative. Coags were unremarkable. Chest x-ray is unremarkable. Patient has remained stable while here in the emergency department. Her blood pressure remained hypertensive at 176/114. She still complaining of chest pressure. Patient is administered nitroglycerin sublingual tablets. States that her chest pressure was alleviated with nitroglycerin. Her blood pressure is now 157/94. Patient is administered 1 g of IV calcium gluconate. She'll be admitted to medicine service for chest pain, hypocalcemia and facial paresthesias. I discussed the case with my attending physician Dr. Robledo who is aware of the patients history, physical examination findings, and treatment plan. Physician Communication Physician Communication I spoke with Dr. March [facility] who agrees to admit the patient to his service. Diagnosis Primary Impression: Chest pain Qualified Code: R07.9 - Chest pain, unspecified type Additional Impressions: Hypocalcemia Facial paresthesia ESRD (end stage renal disease) on dialysis Admitting Information Admitting Physician Requests: Observation Aliza March May 09, 2017 12:32
--- NOTE | 2017-05-09 13:08 | RADRPT ---
EXAM DATE/TIME: 05/09/2017 12:38 [facility] COMPARISON: CHEST SINGLE AP, December 19, 2016, 8:07. INDICATIONS : Chest pain. MEDICAL HISTORY : None. SURGICAL HISTORY : None. ENCOUNTER: Initial ACUITY: 1 day PAIN SCORE: 7/10 LOCATION: Left upper chest FINDINGS: The heart is enlarged. The pulmonary vascular pattern is normal. The lungs are clear. CONCLUSION: 1. Cardiomegaly. 2. No acute focal pulmonary infiltrate or pulmonary vascular congestion. Rudy Menjivar MD on May 09, 2017 at 12:58 Board Certified Radiologist. This report was verified electronically.
[2017-05-09 13:11] LABS: AUTOMATED NEUTROPHIL # 5.4 TH/MM3 (1.8-7.7); BASOPHIL # 0.1 TH/MM3 (0-0.2); BASOPHIL % 0.8 % (0.0-2.0); EOSINOPHIL # 0.1 TH/MM3 (0-0.4); EOSINOPHIL % 1.8 % (0.0-4.0); HEMATOCRIT 34.5 % (35.0-46.0); HEMO FLAGS DIFF FINAL; LYMPH % 19.4 % (9.0-44.0); LYMPHOCYTE # 1.5 TH/MM3 (1.0-4.8); MEAN CELL VOLUME 80.3 FL (80.0-100.0); MEAN CORPUSCULAR HEMOGLOBIN 26.1 PG (27.0-34.0); MEAN CORPUSCULAR HGB CONC 32.5 % (32.0-36.0); MONO % 7.3 % (0.0-8.0); NEUT % 70.7 % (16.0-70.0); PLATELET COUNT 267 TH/MM3 (150-450); RED BLOOD COUNT 4.29 MIL/MM3 (4.00-5.30); RED CELL DISTRIBUTION WIDTH 16.6 % (11.6-17.2); WHITE BLOOD COUNT 7.6 TH/MM3 (4.0-11.0)
--- NOTE | 2017-05-09 13:11 | RADRPT ---
EXAM DATE/TIME: 05/09/2017 13:00 [facility] COMPARISON: CT BRAIN W/O CONTRAST, April 30, 2017, 10:04. INDICATIONS : Left sided facial paresthesias with nausea RADIATION DOSE: 40.13 CTDIvol (mGy) MEDICAL HISTORY : Hypertension. Renal failure, chronic. Alport's syndrome. SURGICAL HISTORY : Laparoscopy ENCOUNTER: Initial ACUITY: 2 weeks PAIN SCALE: 4/10 LOCATION: Bilateral cranial TECHNIQUE: Multiple contiguous axial images were obtained of the head. Using automated exposure control and adj ustment of the mA and/or kV according to patient size, radiation dose was kept as low as reasonably a chievable to obtain optimal diagnostic quality images. DICOM format image data is available electro nically for review and comparison. FINDINGS: CEREBRUM: The ventricles are normal for age. No evidence of midline shift, mass lesion, hemorrhage or acute in farction. No extra-axial fluid collections are seen. POSTERIOR FOSSA: The cerebellum and brainstem are intact. The 4th ventricle is midline. The cerebellopontine angle i s unremarkable. EXTRACRANIAL: The visualized portion of the orbits is intact. SKULL: The calvaria is intact. No evidence of skull fracture. CONCLUSION: No acute disease. Rduy Menjivar MD on May 09, 2017 at 13:08 Board Certified Radiologist. This report was verified electronically.
[2017-05-09 13:16] LABS: APTT (PATIENT) 24.7 SEC (24.3-30.1); INTERNATIONAL NORMALIZED RATIO 0.9 RATIO; PROTHROMBIN TIME - PATIENT 10.3 SEC (9.8-11.6)
[2017-05-09 13:30] LABS: ANION GAP 13 MEQ/L (5-15); BICARBONATE 25.9 MEQ/L (21.0-32.0); BLOOD UREA NITROGEN 47 MG/DL (7-18); CHLORIDE 97 MEQ/L (98-107); GLOMERULAR FILTRATION RATE 4 ML/MIN (>89); MAGNESIUM 2.1 MG/DL (1.5-2.5); POTASSIUM 3.7 MEQ/L (3.5-5.1); SODIUM (NA) 136 MEQ/L (136-145)
[2017-05-09 13:35] LABS: ALKALINE PHOSPHATASE 57 U/L (45-117); ALT (GPT) 20 U/L (10-53); AST (GOT) 16 U/L (15-37); CREATINE KINASE 196 U/L (26-192); TOTAL BILIRUBIN ADULT 0.4 MG/DL (0.2-1.0)
[2017-05-09 13:37] LABS: CALCIUM-PROTEIN CORRECTED 6.7 MG/DL (8.5-10.1)
[2017-05-09 13:59] LABS: CKMB 0.6 NG/ML (0.5-3.6)
[2017-05-09] MEDS ORDERED: CALCIUM GLUCONATE INJ 1 GM in SODIUM CHLORIDE 0.9% INJ 100 ML IV ONE (14:15)
[2017-05-09] MEDS ORDERED: ASPIRIN 81 MG CHEW TAB PO ONE (14:15)
[2017-05-09] MEDS: NITROGLYCERIN 0.4 MG SL 25 TABS/BTL SL SCH ×3 (14:49→15:03)
[2017-05-09] MEDS ORDERED: oxyCODONE/ACETAMINOPHEN 5 MG/325 MG TAB PO ONE (15:30)
[2017-05-09] MEDS ORDERED: NALOXONE HCL 0.4 MG/ML AMP IV PRN (15:45)
[2017-05-09] MEDS ORDERED: LACTULOSE SYRUP 20 GM/30 ML CUP PO PRN (15:45)
[2017-05-09] MEDS ORDERED: MAGNESIUM HYDROXIDE SUSP 30 ML CUP PO PRN (15:45)
[2017-05-09] MEDS ORDERED: SODIUM CHLORIDE 0.9% FLUSH 10 ML FLUSH IV FLUSH PRN ×2 (15:45→19:30)
[2017-05-09] MEDS ORDERED: SENNOSIDES 8.6 MG TAB PO PRN (15:45)
[2017-05-09] MEDS ORDERED: BISACODYL 10 MG SUPP RECTAL PRN (15:45)
[2017-05-09] MEDS ORDERED: NITROGLYCERIN 0.4 MG SL 25 TABS/BTL SL PRN (15:45)
[2017-05-09] MEDS ORDERED: diphenhydrAMINE HCL 50 MG/ML VIAL IM ONE (17:15)
[2017-05-09] MEDS ORDERED: LORazepam 2 MG/ML VIAL IV PUSH PRN (17:15)
[2017-05-09] MEDS: CALCIUM CARBONATE 1.25 GM (CA 500 MG) TAB PO SCH ×2 (18:14→23:27)
[2017-05-09] MEDS: MORPHINE SULFATE 4 MG/ML INJ IV PUSH PRN ×2 (18:26→23:27)
[2017-05-09] MEDS ORDERED: cloNIDine HCL 0.2 MG TAB PO PRN (18:45)
--- NOTE | 2017-05-09 18:49 | HHI.HP ---
[facility] No Primary Care Physician Admission Diagnosis Chest Pain, Hypocalcemia, Facial Paresthesias, ESRD on PD Diagnoses: (1) Alport syndrome Diagnosis: Principal (2) Facial paresthesia Diagnosis: Principal (3) ESRD (end stage renal disease) on dialysis Diagnosis: Principal (4) Chest pain Diagnosis: Principal (5) Hypocalcemia Diagnosis: Principal (6) Paresthesia of left arm and leg Diagnosis: Principal Travel History International Travel<30 Days: No Contact w/Intl Traveler <30 Da: No Traveled to Known Affected Are: No History of Present Illness Mrs. Patel is a 36 year old female. She is here today due to an acute onset of left upper chest pain and cramping pains at her right lateral chest and back. The chest pain was tight in nature and relieved with a nitroglycerin. It has not returned. At baseline she has a history of TIA and a recent history of hypocalcemia. At evaluation today, hypocalcemia is present and may be contributory to her symptoms. No acute complaints of diaphoresis, nausea, syncope, or dyspnea. She also has complaints of mouth parasthesias and bilateral arm paraesthesias. This has been a problem preceding her chest pains today. There is a history of TIA in her, CVA in her mother and CVA in about 7 of her cousins on her mother's side of the family. She has ESRD at baseline related to Alport's Syndrome. Hyperparathyroidism with Hypercalcemia has been present in the past. She had a parathyroidectomy and has since had hypocalcemia , but still has evidence of hyperparathyroidism when last evaluated. Secondary hyperparathyroidism may be present. Review of Systems Constitutional: DENIES: Fever, Weight loss, Change in appetite Eyes: DENIES: Blurred vision, Diplopia Ears, nose, mouth, throat: DENIES: Hearing loss, Vertigo Respiratory: DENIES: Apneas, Cough, Wheezing, Shortness of breath Cardiovascular: COMPLAINS OF: Chest pain, DENIES: Palpitations, Syncope Gastrointestinal: DENIES: Abdominal pain, Black stools, Bloody stools Musculoskeletal: DENIES: Joint pain, Muscle aches Integumentary: DENIES: Abnormal pigmentation Hematologic/lymphatic: DENIES: Bruising Immunologic/allergic: DENIES: Eczema Neurologic: DENIES: Abnormal gait Psychiatric: DENIES: Anxiety, Confusion Past Family Social History Past Medical History Alport's Syndrome ESRD (peritoneal dialysis) HTN Hypocalcemia TIA Hx Past Surgical History Hysterectomy Tubal Ligation Cholecystectomy Parathyroidectomy Abdominal Port Placement (peritoneal dialysis) Reported Medications Reported Meds & Active Scripts Active Reported Hydralazine HCl 25 Mg Tablet 25 Mg PO TID Lisinopril 40 Mg Tab 40 Mg PO DAILY Zolpidem (Zolpidem Tartrate) 10 Mg Tab 10 Mg PO HS PRN Calcium Carbonate (Antacid) 500 Mg Chew 500 Mg CHEW Q4HR Calcitriol 0.5 Mcg Cap 0.5 Mcg PO BID Carvedilol 25 Mg Tab 25 Mg PO BID Clonidine (Clonidine HCl) 0.2 Mg Tab 0.2 Mg PO BID PRN Allopurinol 100 Mg Tab 100 Mg PO DAILY Aspirin 81 Mg Chew 81 Mg CHEW DAILY Amlodipine (Amlodipine Besylate) 10 Mg Tab 10 Mg PO DAILY Allergies: Coded Allergies: Gentamicin (Verified Allergy, Severe, RASH, 05/09/17) Levaquin (Verified Allergy, Severe, ITCHING, 05/09/17) Rocephin (Verified Allergy, Severe, RASH, 05/09/17) [place] (Verified Allergy, Intermediate, Nausea/Vomiting, 05/09/17) PT STATES ITCHINESS, NAUSEA, AND VOMITTING Ultram (Verified Allergy, Intermediate, itching, 05/09/17) Bactrim (Verified Adverse Reaction, Unknown, due to kidney failure, ) Contrast Media (Verified Adverse Reaction, Unknown, due to renal failure, 05/09/17) Family History Renal Disease in Father CVA in mother (in her 40's), 7-8 CVAs in 7-8 maternal cousins Social History No alcohol No tobacco No drug abuse Physical Exam Vital Signs Vital Signs Date Time Temp Pulse Resp B/P Pulse Ox O2 Delivery O2 Flow Rate FiO2 05/09/17 16:30 98.5 78 18 175/107 99 05/09/17 15:01 80 20 157/94 05/09/17 13:56 82 20 176/114 05/09/17 12:43 98 05/09/17 12:43 90 20 166/117 05/09/17 12:08 98.5 106 20 165/110 99 Room Air Physical Exam GENERAL: NAD, A&Ox3 SKIN: Warm and dry. HEAD: Normocephalic. EYES: No scleral icterus. No injection or drainage. NECK: Supple, trachea midline. No JVD or lymphadenopathy. CARDIOVASCULAR: Regular rate and rhythm without murmurs, gallops, or rubs. RESPIRATORY: Breath sounds equal bilaterally. No accessory muscle use. GASTROINTESTINAL: Abdomen soft, non-tender, nondistended. MUSCULOSKELETAL: No cyanosis, or edema. BACK: Nontender without obvious deformity. No CVA tenderness. NEURO: Sensory deficit at left face and left arm Laboratory Laboratory Tests Test 05/09/17 05/09/17 05/09/17 12:36 12:39 15:20 Prothrombin Time 10.3 Prothromb Time International 0.9 Ratio Activated Partial 24.7 Thromboplast Time Sodium Level 136 Potassium Level 3.7 Chloride Level 97 Carbon Dioxide Level 25.9 Anion Gap 13 Blood Urea Nitrogen 47 Creatinine 14.09 Estimat Glomerular Filtration 4 Rate Random Glucose 95 Calcium Level 7.0 Protein Corrected Calcium 6.7 Magnesium Level 2.1 Total Bilirubin 0.4 Aspartate Amino Transf 16 (AST/SGOT) Alanine Aminotransferase 20 (ALT/SGPT) Alkaline Phosphatase 57 Total Creatine Kinase 196 Creatine Kinase MB 0.6 Creatine Kinase MB % 0.3 Troponin I LESS THAN 0.02 LESS THAN 0.02 Total Protein 7.8 Albumin 3.4 White Blood Count 7.6 Red Blood Count 4.29 Hemoglobin 11.2 Hematocrit 34.5 Mean Corpuscular Volume 80.3 Mean Corpuscular Hemoglobin 26.1 Mean Corpuscular Hemoglobin 32.5 Concent Red Cell Distribution Width 16.6 Platelet Count 267 Mean Platelet Volume 9.1 Neutrophils (%) (Auto) 70.7 Lymphocytes (%) (Auto) 19.4 Monocytes (%) (Auto) 7.3 Eosinophils (%) (Auto) 1.8 Basophils (%) (Auto) 0.8 Neutrophils # (Auto) 5.4 Lymphocytes # (Auto) 1.5 Monocytes # (Auto) 0.6 Eosinophils # (Auto) 0.1 Basophils # (Auto) 0.1 CBC Comment DIFF FINAL Differential Comment Result Diagram: 05/09/17 1239 05/09/17 1236 Imaging Last Impressions Head CT 05/09/17 1230 Signed Impressions: Service Date/Time: Tuesday, May 09, 2017 13:00 - CONCLUSION: No acute disease. Rudy Menjivar MD Chest X-Ray 05/09/17 1230 Signed Impressions: Service Date/Time: Tuesday, May 09, 2017 12:38 - CONCLUSION: 1. Cardiomegaly. 2. No acute focal pulmonary infiltrate or pulmonary vascular congestion. Rudy Menjivar MD Assessment and Plan Problem List: (1) Alport syndrome ICD Code: Q87.81 Status: Chronic (2) Facial paresthesia ICD Code: R20.9 Status: Acute (3) ESRD (end stage renal disease) on dialysis ICD Code: N18.6 Status: Acute (4) Chest pain ICD Code: R07.9 Status: Resolved (5) Paresthesia of left arm and leg ICD Code: R20.2 Status: Acute (6) Hypocalcemia ICD Code: E83.51 Status: Acute (7) Peritoneal dialysis status ICD Code: Z99.2 Status: Acute Assessment and Plan Assessment and Plan 36 year old female admitted with chest pain and left face/arm paraesthesias. Chest Pain PRN NTG Aspirin PRN IV Morphine for pain ACS evaluation Follow cardiac enzymes Follow serial EKGs Cardiac etiology vs. Hypercalcemia related symptoms Left Face Paraesthesias Left Arm Paraesthesias Hx of TIA Risk for CVA based on symptoms and strong family history MRI Brain Could be related to hypocalcemia Hypocalcemia Hx of Primary Hyperparathyroidism Hx of Parathyroidectomy Possible secondary hyperparathyroidism, post parathyroidectomy Evaluate with serum Vitamin D panel Repeat evaluation of PTH level Calcium Carbonate supplementation Follow calcium levels Alport's Syndrome ESRD (peritoneal dialysis) Nephrology consult Follow renal function Increases risk for secondary or tertiary hyperparathyroidism HTN Continue baseline BP treatments Follow BP DVT Prophylaxis SCDs Problem Qualifiers (1) Chest pain: Qualified Code: R07.9 - Chest pain, unspecified type Sergey March MD May 09, 2017 18:49
[2017-05-09] MEDS ORDERED: cloNIDine HCL 0.1 MG TAB PO PRN (19:00)
[2017-05-09] MEDS ORDERED: ENALAPRILAT 1.25 MG/ML VIAL IV PUSH PRN (19:00)
--- NOTE | 2017-05-09 19:18 | PD.CONS ---
HPI Service Nephrology Consult Requested By Dr. March Reason for Consult ESRD Primary Care Physician No Primary Care Physician History of Present Illness Patient is 36-year-old black female with history of Alport syndrome, parathyroidectomy, hypocalcemia, who developed the paresthesia around the face and felt weak and had muscle cramps including Chest pain and came with the sudden symptoms her serum calcium was noted to be 7, she did receive calcium gluconate and has been placed on calcitriol and calcium supplements, she does home peritoneal dialysis she is using 2.5% solutions into 4 cycles and with the last fill. She did her last dialysis yesterday night. Review of Systems Constitutional: COMPLAINS OF: Fatigue Musculoskeletal: COMPLAINS OF: Muscle aches Neurologic: COMPLAINS OF: Paresthesias Psychiatric: COMPLAINS OF: Anxiety Past Family Social History Allergies: Coded Allergies: Gentamicin (Verified Allergy, Severe, RASH, 05/09/17) Levaquin (Verified Allergy, Severe, ITCHING, 05/09/17) Rocephin (Verified Allergy, Severe, RASH, 05/09/17) [place] (Verified Allergy, Intermediate, Nausea/Vomiting, 05/09/17) PT STATES ITCHINESS, NAUSEA, AND VOMITTING Ultram (Verified Allergy, Intermediate, itching, 05/09/17) Bactrim (Verified Adverse Reaction, Unknown, due to kidney failure, ) Contrast Media (Verified Adverse Reaction, Unknown, due to renal failure, 05/09/17) Past Medical History Alport syndrome Parathyroidectomy Hypocalcemia Hypertension TIA Past Surgical History Parathyroidectomy Tenckhoff catheters Hysterectomy Tubal Ligation Cholecystectomy Reported Medications Reported Meds & Active Scripts Active Reported Hydralazine HCl 25 Mg Tablet 25 Mg PO TID Lisinopril 40 Mg Tab 40 Mg PO DAILY Zolpidem (Zolpidem Tartrate) 10 Mg Tab 10 Mg PO HS PRN Calcium Carbonate (Antacid) 500 Mg Chew 500 Mg CHEW Q4HR Calcitriol 0.5 Mcg Cap 0.5 Mcg PO BID Carvedilol 25 Mg Tab 25 Mg PO BID Clonidine (Clonidine HCl) 0.2 Mg Tab 0.2 Mg PO BID PRN Allopurinol 100 Mg Tab 100 Mg PO DAILY Aspirin 81 Mg Chew 81 Mg CHEW DAILY Amlodipine (Amlodipine Besylate) 10 Mg Tab 10 Mg PO DAILY Active Ordered Medications Current Medications Medications (Trade) Dose Ordered Sig/Catherine Route Start Time Stop Time Status Last Admin (NS Flush) 2 ml UNSCH PRN IV FLUSH 05/09/17 15:45 (NS Flush) 2 ml BID IV FLUSH 05/09/17 21:00 (Zofran Inj) 4 mg Q6H PRN IVP 05/09/17 15:45 (Narcan Inj) 0.4 mg UNSCH PRN IV 05/09/17 15:45 (Cecilia-Colace) 1 tab BID PO 05/09/17 21:00 (Milk Of Magnesia Liq) 30 ml Q12H PRN PO 05/09/17 15:45 (Senokot) 17.2 mg Q12H PRN PO 05/09/17 15:45 (Dulcolax Supp) 10 mg DAILY PRN RECTAL 05/09/17 15:45 (Lactulose Liq) 30 ml DAILY PRN PO 05/09/17 15:45 (Aspirin) 325 mg DAILY PO 05/10/17 09:00 (Nitrostat Sl) 0.4 mg Q5M PRN SL 05/09/17 15:45 (Morphine Inj) 2 mg Q3H PRN IV PUSH 05/09/17 15:45 05/09/17 18:26 (Oscal) 2,000 mg Q6HR PO 05/09/17 18:00 05/09/17 18:14 (Ativan Inj) 1 mg ONCE PRN IV PUSH 05/09/17 17:15 05/10/17 17:14 (Zyloprim) 100 mg DAILY PO 05/10/17 09:00 UNV (Norvasc) 10 mg DAILY PO 05/10/17 09:00 UNV (Aspirin Chew) 81 mg DAILY CHEW 05/10/17 09:00 UNV (Rocaltrol) 0.5 mcg BID PO 05/09/17 21:00 UNV (Coreg) 25 mg BID PO 05/09/17 21:00 UNV (Catapres) 0.2 mg BID PRN PO 05/09/17 18:45 UNV (Apresoline) 25 mg TID PO 05/10/17 09:00 UNV (Ambien) 10 mg HS PRN PO 05/09/17 18:45 UNV Non-Formulary Medication 40 mg DAILY PO 05/10/17 09:00 UNV (Catapres) 0.1 mg Q6H PRN PO 05/09/17 19:00 UNV (Vasotec Inj) 1.25 mg Q6H PRN IV PUSH 05/09/17 19:00 UNV Family History Kidney failure Social History Denies smoking or alcohol use Physical Exam Vital Signs Vital Signs Date Time Temp Pulse Resp B/P Pulse Ox O2 Delivery O2 Flow Rate FiO2 05/09/17 16:30 98.5 78 18 175/107 99 05/09/17 15:01 80 20 157/94 05/09/17 13:56 82 20 176/114 05/09/17 12:43 98 05/09/17 12:43 90 20 166/117 05/09/17 12:08 98.5 106 20 165/110 99 Room Air Physical Exam GENERAL: Well-nourished, well-developed patient. SKIN: Warm and dry. HEAD: Normocephalic. EYES: No scleral icterus. No injection or drainage. NECK: Supple, trachea midline. No JVD or lymphadenopathy. CARDIOVASCULAR: Regular rate and rhythm without murmurs, gallops, or rubs. RESPIRATORY: Breath sounds equal bilaterally. No accessory muscle use. GASTROINTESTINAL: Abdomen soft, non-tender, nondistended. Tenckhoff catheter in place EXTREMITIES: No cyanosis, or edema. NEUROLOGICAL: Awake, alert, and oriented x 3. Non-focal. Laboratory Laboratory Tests Test 05/09/17 05/09/17 05/09/17 12:36 12:39 15:20 Prothrombin Time 10.3 Prothromb Time International 0.9 Ratio Activated Partial 24.7 Thromboplast Time Sodium Level 136 Potassium Level 3.7 Chloride Level 97 Carbon Dioxide Level 25.9 Anion Gap 13 Blood Urea Nitrogen 47 Creatinine 14.09 Estimat Glomerular Filtration 4 Rate Random Glucose 95 Calcium Level 7.0 Protein Corrected Calcium 6.7 Magnesium Level 2.1 Total Bilirubin 0.4 Aspartate Amino Transf 16 (AST/SGOT) Alanine Aminotransferase 20 (ALT/SGPT) Alkaline Phosphatase 57 Total Creatine Kinase 196 Creatine Kinase MB 0.6 Creatine Kinase MB % 0.3 Troponin I LESS THAN 0.02 LESS THAN 0.02 Total Protein 7.8 Albumin 3.4 White Blood Count 7.6 Red Blood Count 4.29 Hemoglobin 11.2 Hematocrit 34.5 Mean Corpuscular Volume 80.3 Mean Corpuscular Hemoglobin 26.1 Mean Corpuscular Hemoglobin 32.5 Concent Red Cell Distribution Width 16.6 Platelet Count 267 Mean Platelet Volume 9.1 Neutrophils (%) (Auto) 70.7 Lymphocytes (%) (Auto) 19.4 Monocytes (%) (Auto) 7.3 Eosinophils (%) (Auto) 1.8 Basophils (%) (Auto) 0.8 Neutrophils # (Auto) 5.4 Lymphocytes # (Auto) 1.5 Monocytes # (Auto) 0.6 Eosinophils # (Auto) 0.1 Basophils # (Auto) 0.1 CBC Comment DIFF FINAL Differential Comment Result Diagram: 05/09/17 1239 05/09/17 1236 Imaging Last Impressions Head CT 05/09/17 1230 Signed Impressions: Service Date/Time: Tuesday, May 09, 2017 13:00 - CONCLUSION: No acute disease. Rudy Menjivar MD Chest X-Ray 05/09/17 1230 Signed Impressions: Service Date/Time: Tuesday, May 09, 2017 12:38 - CONCLUSION: 1. Cardiomegaly. 2. No acute focal pulmonary infiltrate or pulmonary vascular congestion. Rudy Menjivar MD Assessment and Plan Problem List: (1) ESRD (end stage renal disease) Plan: Patient is seen and peritoneal dialysis will be resumed tonight continue supportive care (2) Facial paresthesia Plan: Likely due to hypocalcemia (3) Hypocalcemia Plan: This is being corrected (4) HTN (hypertension) Plan: Continue to monitor Vanessa Lee MD May 09, 2017 19:18
[2017-05-09] MEDS ORDERED: HEPARIN SODIUM - IV 10,000 UNITS/10 ML VIAL XX PRN (19:30)
[2017-05-09] MEDS: DOCUSATE SODIUM 50 MG/SENNA 8.6 MG TAB PO SCH (20:42)
[2017-05-09] MEDS: SODIUM CHLORIDE 0.9% FLUSH 10 ML FLUSH IV FLUSH SCH (20:42)
[2017-05-09] MEDS: CALCITRIOL 0.25 MCG CAP PO SCH (20:42)
[2017-05-09] MEDS: CARVEDILOL 12.5 MG TAB PO SCH (20:42)
[2017-05-09] MEDS: ZOLPIDEM TARTRATE 10 MG TAB PO PRN (21:03)
[2017-05-09 22:23] LABS: BICARBONATE 25.7 MEQ/L (21.0-32.0); POTASSIUM 3.2 MEQ/L (3.5-5.1)
--- NOTE | 2017-05-09 23:15 | RADRPT ---
EXAM DATE/TIME: 05/09/2017 22:43 [facility] COMPARISON: MRI BRAIN W/O CONTRAST, January 23, 2017, 9:35. INDICATIONS : Facial paresthesias. MEDICAL HISTORY : Hypertension. Renal insufficiency. ESRD, TIA SURGICAL HISTORY : Hysterectomy. Tubal ligation. Cholecystectomy. Peritoneal port. ENCOUNTER: Initial ACUITY: 1 day PAIN SCORE: 2/10 LOCATION: Bilateral cranial TECHNIQUE: Multiplanar, multisequence MRI of the brain was performed without contrast. FINDINGS: CEREBRUM: The ventricles are normal for age. No evidence of midline shift, mass lesion, hemorrhage or acute in farction. No extraaxial fluid collections are seen. The pituitary gland and suprasellar cistern are normal in configuration. WHITE MATTER: A few small scattered areas of T2 prolongation in the supratentorial white matter similar to prior ex amination. POSTERIOR FOSSA: The cerebellum and brainstem are intact. The 4th ventricle is midline. The cerebellopontine angle is unremarkable. The cerebellar tonsils are normal in position. DIFFUSION IMAGING: No focal areas of restricted diffusion are seen. No evidence of acute infarction. EXTRACRANIAL: The visualized portions of the orbits and paranasal sinuses are unremarkable. CONCLUSION: No acute findings. No evidence of acute stroke or hemorrhage. Jorge Hendricks MD on May 09, 2017 at 23:12 Board Certified Radiologist. This report was verified electronically.
[2017-05-10] VITALS (9 sets, daily range): BP systolic 111–146; BP diastolic 62–88; PULSE 74–94; RESP 18–22; TEMP 97.7–98.6; O2SAT 98–100
[2017-05-10 04:55] LABS: AUTOMATED NEUTROPHIL # 3.6 TH/MM3 (1.8-7.7); BASOPHIL # 0.1 TH/MM3 (0-0.2); BASOPHIL % 0.9 % (0.0-2.0); EOSINOPHIL # 0.2 TH/MM3 (0-0.4); EOSINOPHIL % 2.9 % (0.0-4.0); HEMO FLAGS DIFF FINAL; LYMPH % 25.8 % (9.0-44.0); LYMPHOCYTE # 1.5 TH/MM3 (1.0-4.8); MEAN CELL VOLUME 80.4 FL (80.0-100.0); MEAN CORPUSCULAR HGB CONC 32.4 % (32.0-36.0); MONO % 8.7 % (0.0-8.0); NEUT % 61.7 % (16.0-70.0); PLATELET COUNT 246 TH/MM3 (150-450); RED BLOOD COUNT 4.11 MIL/MM3 (4.00-5.30); RED CELL DISTRIBUTION WIDTH 16.3 % (11.6-17.2); WHITE BLOOD COUNT 5.8 TH/MM3 (4.0-11.0)
[2017-05-10 05:20] LABS: BICARBONATE 28.6 MEQ/L (21.0-32.0); POTASSIUM 3.6 MEQ/L (3.5-5.1)
[2017-05-10] MEDS: CALCIUM CARBONATE 1.25 GM (CA 500 MG) TAB PO SCH ×4 (05:58→22:33)
[2017-05-10 06:20] LABS: CALCIUM-PROTEIN CORRECTED 7.4 MG/DL (8.5-10.1)
--- NOTE | 2017-05-10 08:03 | EKG ---
Date Performed: 05/09/2017 Time Performed: 15:22:49 PTAGE: 36 years EKG: Sinus rhythm PROLONGED QT INTERVAL ABNORMAL ECG PREVIOUS TRACING : 05/09/2017 12.23 DOCTOR: John Hendrickson Interpretating Date/Time 05/10/2017 07:58:01
--- NOTE | 2017-05-10 08:10 | EKG ---
Date Performed: 05/09/2017 Time Performed: 12:23:40 PTAGE: 36 years EKG: Sinus rhythm MINIMAL VOLTAGE CRITERIA FOR LVH, CONSIDER NORMAL VARIANT BORDERLINE ECG NO PREVIOUS TRACING DOCTOR: John Hendrickson Interpretating Date/Time 05/10/2017 08:04:01
[2017-05-10] MEDS ORDERED: CALCIUM GLUCONATE INJ 1 GM in SODIUM CHLORIDE 0.9% INJ 100 ML IV ONE (09:00)
[2017-05-10] MEDS ORDERED: ASPIRIN 325 MG TAB PO SCH (09:00)
[2017-05-10] MEDS: DOCUSATE SODIUM 50 MG/SENNA 8.6 MG TAB PO SCH ×2 (09:00→20:53)
[2017-05-10] MEDS ORDERED: REGADENOSON INJ 0.4 MG/5 ML SYR ONE (09:31)
[2017-05-10] MEDS: MORPHINE SULFATE 4 MG/ML INJ IV PUSH PRN ×3 (11:05→20:53)
[2017-05-10] MEDS: SODIUM CHLORIDE 0.9% FLUSH 10 ML FLUSH IV FLUSH SCH ×2 (11:05→20:53)
[2017-05-10] MEDS: ASPIRIN 81 MG CHEW TAB CHEW SCH (11:05)
[2017-05-10] MEDS: CARVEDILOL 12.5 MG TAB PO SCH ×2 (11:06→20:53)
[2017-05-10] MEDS: CALCITRIOL 0.25 MCG CAP PO SCH ×2 (11:06→20:53)
[2017-05-10] MEDS: hydrALAZINE HCL 25 MG TAB PO SCH ×3 (11:06→17:33)
[2017-05-10] MEDS: ALLOPURINOL 100 MG TAB PO SCH (11:06)
[2017-05-10] MEDS: LISINOPRIL 20 MG TAB PO SCH (11:07)
--- NOTE | 2017-05-10 11:09 | RADRPT ---
EXAM DATE/TIME: 05/10/2017 09:11 [facility] COMPARISON: No previous studies available for comparison. INDICATIONS : Left upper chest pain. Angina. DOSE: 26.4 mCi Tc99m Myoview at stress. 8.1 mCi Tc99m Myoview at rest. 0.4 mg Lexiscan STRESS SYMPTOMS: Shortness of breath. EJECTION FRACTION: 34% MEDICAL HISTORY : Hypertension. Stroke Alport syndrome. SURGICAL HISTORY : Tubal ligation. Hysterectomy. Cholecystectomy. Parathyroidectomy. ENCOUNTER: Initial ACUITY: 2 days PAIN SCALE: 2/10 LOCATION: Left chest TECHNIQUE: The patient underwent pharmacologic stress with infusion of prescribed dose. Continuous ECG tracing was monitored during stress. Gated SPECT imaging was performed after stress and conventional SPECT i maging was performed at rest. The examination was performed on a SPECT/CT scanner, both attenuation and non-corrected datasets were reviewed. FINDINGS: DISTRIBUTION: The maximum perfused segment at stress is in the septum. PERFUSION STUDY: There is mildly diminished relative perfusion involving the cardiac apex. No definite redistribution. GATED STUDY: Mild left ventricular chamber enlargement with global moderate hypokinesis. CONCLUSION: No reversible perfusion abnormalities. Significant LV dysfunction RISK CATEGORY: High (>3% Annual Mortality Rate) Bogdan Henley MD on May 10, 2017 at 11:02 Board Certified Radiologist. This report was verified electronically.
--- NOTE | 2017-05-10 13:30 | HHI.NPPN ---
Subjective History of Present Illness 36 year old with facial paresthesia, CP Objective Data Data Vital Signs Date Time Temp Pulse Resp B/P Pulse Ox O2 Delivery O2 Flow Rate FiO2 05/10/17 11:44 98.1 88 20 134/88 99 05/10/17 08:10 97.7 74 20 146/77 98 05/10/17 08:00 84 05/10/17 03:29 98.6 87 18 118/73 99 05/10/17 00:28 89 05/09/17 23:34 98.0 96 17 137/88 99 05/09/17 20:59 97.8 85 20 197/124 98 05/09/17 19:50 87 05/09/17 17:26 86 05/09/17 16:30 98.5 78 18 175/107 99 05/09/17 15:01 80 20 157/94 05/09/17 13:56 82 20 176/114 -: 05/10/17 0349 05/10/17 0349 Physical Exam General Appearance: Well Developed, Well Nourished Eyes Eye Exam: Pupils Equal Neck Neck Exam: Neck Supple Pulmonary Resp Exam: Clear Bilaterally, No Distress Cardiology CV Exam: Regular, Normal Sinus Rhythm Gastrointestinal/Abdomen GI Exam: Soft, Non-Tender, Positive Bowel Movement Extremeties Extremities Exam: No Edema Assessment/Plan Problem List: (1) ESRD (end stage renal disease) Plan: Patient is on peritoneal dialysis UF 1345 tolerated it well Calcium improved s/p Parathyroidectomy PTH still high 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
--- NOTE | 2017-05-10 14:57 | HHI.PR ---
Subjective Remarks Cardiac workup negative including EKGs and troponins. Stress test is negative for any perfusion defects, but displays evidence of left ventricular dysfunction. Patient has not had an echocardiogram. Calcium is improving but not yet to appropriate baseline levels. She has had improvement in overall pain including chest pain, right-sided pain, back pain, and she has improvement in facial and left arm paresthesias. MRI of brain was negative. Objective Vital Signs Date Time Temp Pulse Resp B/P Pulse Ox O2 Delivery O2 Flow Rate FiO2 05/10/17 11:44 98.1 88 20 134/88 99 05/10/17 08:10 97.7 74 20 146/77 98 05/10/17 08:00 84 05/10/17 03:29 98.6 87 18 118/73 99 05/10/17 00:28 89 05/09/17 23:34 98.0 96 17 137/88 99 05/09/17 20:59 97.8 85 20 197/124 98 05/09/17 19:50 87 05/09/17 17:26 86 05/09/17 16:30 98.5 78 18 175/107 99 05/09/17 15:01 80 20 157/94 I/O 05/09/17 05/09/17 05/09/17 05/10/17 05/10/17 05/10/17 07:00 15:00 23:00 07:00 15:00 23:00 Intake Total 700 ml Output Total 1345 ml Balance -645 ml Intake Oral 600 ml IV Total 100 ml Output Peritoneal Fluid 1345 ml # Voids 1 Result Diagram: 05/10/17 0349 05/10/17 0349 Imaging Last Impressions Myocardial Perfusion Scan Nuc Med 05/10/17 0000 Signed Impressions: Service Date/Time: April 09:11 - CONCLUSION: No reversible perfusion abnormalities. Significant LV dysfunction RISK CATEGORY: High (>3%% Annual Mortality Rate) Bogdan Henley MD Head CT 05/09/17 1230 Signed Impressions: Service Date/Time: Tuesday, May 09, 2017 13:00 - CONCLUSION: No acute disease. Rudy Menjivar MD Chest X-Ray 05/09/17 1230 Signed Impressions: Service Date/Time: Tuesday, May 09, 2017 12:38 - CONCLUSION: 1. Cardiomegaly. 2. No acute focal pulmonary infiltrate or pulmonary vascular congestion. Rudy Menjivar MD Brain MRI 05/09/17 0000 Signed Impressions: Service Date/Time: Tuesday, May 09, 2017 22:43 - CONCLUSION: No acute findings. No evidence of acute stroke or hemorrhage. Jorge Hendricks MD Objective Remarks GENERAL: NAD, A&Ox3 HEAD: Normocephalic. NECK: Supple, trachea midline. No lymphadenopathy. EYES: No scleral icterus. No injection or drainage. CARDIOVASCULAR: Regular rate and rhythm without murmurs, gallops, or rubs. RESPIRATORY: Breath sounds equal bilaterally. No accessory muscle use. GASTROINTESTINAL: Abdomen soft, non-tender, nondistended. MUSCULOSKELETAL: No cyanosis, or edema. SKIN: Warm and dry. NEURO: No focal neurological deficitis. Medications and IVs Administered Medications Medications (Trade) Dose Ordered Sig/Catherine Route PRN Reason Start Time Stop Time Status Last Admin Dose Admin Sodium Chloride (NS Flush) 2 ml BID IV FLUSH 05/09/17 21:00 05/10/17 11:05 Morphine Sulfate (Morphine Inj) 2 mg Q3H PRN IV PUSH PAIN SCALE 4 TO 10 05/09/17 15:45 05/10/17 11:05 Calcium Carbonate (Oscal) 2,000 mg Q6HR PO 05/09/17 18:00 05/10/17 11:06 Lorazepam (Ativan Inj) 1 mg ONCE PRN IV PUSH Prior to MRI 05/09/17 17:15 05/10/17 17:14 05/09/17 22:20 Allopurinol (Zyloprim) 100 mg DAILY PO 05/10/17 09:00 05/10/17 11:06 Amlodipine Besylate (Norvasc) 10 mg DAILY PO 05/10/17 09:00 05/10/17 11:06 Aspirin (Aspirin Chew) 81 mg DAILY CHEW 05/10/17 09:00 05/10/17 11:05 Calcitriol (Rocaltrol) 0.5 mcg BID PO 05/09/17 21:00 05/10/17 11:06 Carvedilol (Coreg) 25 mg BID PO 05/09/17 21:00 05/10/17 11:06 Clonidine (Catapres) 0.2 mg BID PRN PO DBP>100 05/09/17 18:45 05/09/17 21:03 Hydralazine HCl (Apresoline) 25 mg TID PO 05/10/17 09:00 05/10/17 13:53 Zolpidem Tartrate (Ambien) 10 mg HS PRN PO INSOMNIA 05/09/17 18:45 05/09/17 21:03 Lisinopril (Prinivil) 40 mg DAILY PO 05/10/17 09:00 05/10/17 11:07 A/P Problem List: (1) Alport syndrome ICD Code: Q87.81 (2) HTN (hypertension) ICD Code: I10 (3) ESRD (end stage renal disease) ICD Code: N18.6 (4) Facial paresthesia ICD Code: R20.9 (5) Paresthesia of left arm and leg ICD Code: R20.2 (6) Hypocalcemia ICD Code: E83.51 (7) Chest pain ICD Code: R07.9 Assessment and Plan Assessment and Plan 36 year old female admitted with chest pain and left face/arm paraesthesias. Symptoms improving with correction calcium. MRI of brain is negative. Stress test shows no perfusion defect but does suggest possible cardiomyopathy with left ventricular dysfunction. Echocardiogram ordered today. Continue treatment of hypocalcemia. Continue to monitor calcium levels. Chest Pain Negative workup No evidence of [place] or coronary artery disease Aspirin PRN IV Morphine for pain Suspected Hypercalcemia related symptoms Left Face Paraesthesias Left Arm Paraesthesias Hx of TIA MRI Brain negative May be related to hypocalcemia Hypocalcemia Hx of Primary Hyperparathyroidism Hx of Parathyroidectomy Possible secondary hyperparathyroidism, post parathyroidectomy Pending serum Vitamin D panel Repeat evaluation of PTH level is elevated Calcium Carbonate supplementation Follow calcium levels Alport's Syndrome ESRD (peritoneal dialysis) Nephrology consult Follow renal function Increases risk for secondary or tertiary hyperparathyroidism HTN Continue baseline BP treatments Follow BP DVT Prophylaxis SCDs Problem Qualifiers (1) Chest pain: Qualified Code: R07.9 - Chest pain, unspecified type Sergey March MD May 10, 2017 14:57
--- NOTE | 2017-05-10 18:05 | ECHRPT ---
Indication: Cardiomyopathy, unspecified CONCLUSIONS Limited echo for cardiomyopathy The left ventricular systolic function is probably normal with an estimated ejection fraction in the range of 55-60%. Extra cardiac in the subcostal view looks to show the liver with some ascitis, clinical correlation. BP: 134 / 88 HR: 88 Rhythm: Sinus Technical Quality:Fair FINDINGS LEFT VENTRICLE The left ventricular systolic function is normal with an estimated ejection fraction in the range of 55-60%. Wall thickness is measured at the upper limits of normal. Normal left ventricular size. There was limited left ventricular wall motion assessment due to poor endocardial visualization in a ll views. MITRAL VALVE Grossly normal. AORTIC VALVE The aortic valve is not well visualized. TRICUSPID VALVE Grossly normal PULMONARY VALVE The pulmonary valve is not well visualized. OTHER FINDINGS Extra cardiac in the subcostal view looks to show the liver with some ascitis, clinical correlation. Celestino Burnette DO (Electronically Signed) Final Date:10 May 2017 18:03 Amended: 10 May 2017 18:06
[2017-05-10] MEDS: ZOLPIDEM TARTRATE 10 MG TAB PO PRN (22:31)
[2017-05-11] VITALS (7 sets, daily range): BP systolic 119–148; BP diastolic 63–90; PULSE 75–86; RESP 16–20; TEMP 98.4–98.9; O2SAT 98–99
[2017-05-11] MEDS: MORPHINE SULFATE 4 MG/ML INJ IV PUSH PRN ×6 (05:04→21:49)
[2017-05-11] MEDS: CALCIUM CARBONATE 1.25 GM (CA 500 MG) TAB PO SCH ×3 (05:04→20:53)
[2017-05-11] MEDS: ONDANSETRON HCL 4 MG/2 ML VIAL IVP PRN ×2 (05:36→17:54)
[2017-05-11] MEDS: CARVEDILOL 12.5 MG TAB PO SCH ×2 (09:15→20:54)
[2017-05-11] MEDS: CALCITRIOL 0.25 MCG CAP PO SCH ×2 (09:15→20:54)
[2017-05-11] MEDS: DOCUSATE SODIUM 50 MG/SENNA 8.6 MG TAB PO SCH ×2 (09:15→20:54)
[2017-05-11] MEDS: SODIUM CHLORIDE 0.9% FLUSH 10 ML FLUSH IV FLUSH SCH ×2 (09:16→20:55)
[2017-05-11] MEDS: LISINOPRIL 20 MG TAB PO SCH (09:16)
[2017-05-11] MEDS: hydrALAZINE HCL 25 MG TAB PO SCH ×3 (09:16→17:03)
[2017-05-11] MEDS: ASPIRIN 81 MG CHEW TAB CHEW SCH (09:16)
[2017-05-11] MEDS: ALLOPURINOL 100 MG TAB PO SCH (09:16)
[2017-05-11 10:20] LABS: BICARBONATE 30.1 MEQ/L (21.0-32.0); POTASSIUM 4.3 MEQ/L (3.5-5.1)
[2017-05-11] MEDS ORDERED: diphenhydrAMINE HCL 50 MG/ML VIAL IV PUSH ONE (17:30)
--- NOTE | 2017-05-11 18:37 | HHI.NPPN ---
Subjective History of Present Illness 36 year old with facial paresthesia, CP Objective Data Data 05/10/17 05/11/17 19:00 07:00 Intake Total 700 ml 240 ml Output Total 1345 ml Balance -645 ml 240 ml Intake Oral 600 ml 240 ml IV Total 100 ml Output Peritoneal Fluid 1345 ml # Voids 1 Vital Signs Date Time Temp Pulse Resp B/P Pulse Ox O2 Delivery O2 Flow Rate FiO2 05/11/17 16:45 98.7 75 20 143/90 98 05/11/17 15:48 18 05/11/17 15:47 98.9 78 18 120/68 98 05/11/17 11:13 78 05/11/17 11:00 98.9 84 16 130/72 99 05/11/17 07:15 98.6 86 16 126/75 99 05/11/17 04:45 98.4 85 18 119/63 99 05/10/17 23:54 98.5 94 18 120/65 98 05/10/17 21:52 79 05/10/17 19:48 98.1 78 22 142/86 100 -: 05/10/17 0349 05/11/17 0902 Physical Exam General Appearance: Well Developed, Well Nourished Eyes Eye Exam: Pupils Equal Neck Neck Exam: Neck Supple Pulmonary Resp Exam: Clear Bilaterally, No Distress Cardiology CV Exam: Regular, Normal Sinus Rhythm Gastrointestinal/Abdomen GI Exam: Soft, Non-Tender, Positive Bowel Movement Extremeties Extremities Exam: No Edema Assessment/Plan Problem List: (1) ESRD (end stage renal disease) Plan: Patient is on peritoneal dialysis UF 1378 tolerated it well Calcium improved add PhosLo as po4 high s/p Parathyroidectomy PTH still high 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
[2017-05-11] MEDS ORDERED: CALCIUM ACETATE 667 MG CAP PO ONE (20:00)
[2017-05-11] MEDS ORDERED: hydrOXYzine HCL 25 MG TAB PO ONE (21:00)
[2017-05-11] MEDS: ZOLPIDEM TARTRATE 10 MG TAB PO PRN (21:49)
[2017-05-12] VITALS: BP 109/71; PULSE 102; RESP 16; TEMP 98.1; O2SAT 98
[2017-05-12] MEDS: CALCIUM CARBONATE 1.25 GM (CA 500 MG) TAB PO SCH ×2 (04:06→11:53)
[2017-05-12] MEDS: MORPHINE SULFATE 4 MG/ML INJ IV PUSH PRN ×3 (04:07→13:56)
[2017-05-12 04:45] VITALS: BP 111/71; PULSE 96; RESP 16; TEMP 97.9; O2SAT 98
[2017-05-12 06:28] LABS: ALT (GPT) 14 U/L (10-53); ANION GAP 10 MEQ/L (5-15); AST (GOT) 10 U/L (15-37); BICARBONATE 28.3 MEQ/L (21.0-32.0); BLOOD UREA NITROGEN 45 MG/DL (7-18); CHLORIDE 98 MEQ/L (98-107); GLOMERULAR FILTRATION RATE 4 ML/MIN (>89); MAGNESIUM 2.1 MG/DL (1.5-2.5); POTASSIUM 3.8 MEQ/L (3.5-5.1); SODIUM (NA) 136 MEQ/L (136-145)
[2017-05-12 06:31] LABS: ALKALINE PHOSPHATASE 57 U/L (45-117); TOTAL BILIRUBIN ADULT 0.3 MG/DL (0.2-1.0)
[2017-05-12 08:00] VITALS: BP 114/65; PULSE 85; RESP 20; TEMP 98.2; O2SAT 94
[2017-05-12] MEDS: CALCIUM ACETATE 667 MG CAP PO SCH ×2 (08:00→11:53)
[2017-05-12] MEDS: DOCUSATE SODIUM 50 MG/SENNA 8.6 MG TAB PO SCH (09:00)
[2017-05-12] MEDS: SODIUM CHLORIDE 0.9% FLUSH 10 ML FLUSH IV FLUSH SCH (09:00)
[2017-05-12] MEDS ORDERED: CALCIUM ACETATE 667 MG CAP PO SCH (09:00)
[2017-05-12] MEDS: ASPIRIN 81 MG CHEW TAB CHEW SCH (09:07)
[2017-05-12] MEDS: CARVEDILOL 12.5 MG TAB PO SCH (09:07)
[2017-05-12] MEDS: hydrALAZINE HCL 25 MG TAB PO SCH ×2 (09:07→11:53)
[2017-05-12] MEDS: ALLOPURINOL 100 MG TAB PO SCH (09:07)
[2017-05-12] MEDS: CALCITRIOL 0.25 MCG CAP PO SCH (09:07)
[2017-05-12] MEDS: LISINOPRIL 20 MG TAB PO SCH (09:08)
--- NOTE | 2017-05-12 11:41 | HHI.PR ---
Subjective Remarks This note is for the date of 05/11/17 Calcium level has corrected. Patient feels better. Phosphorus levels elevated. PhosLo started as a treatment and monitoring of phosphorus level will occur to ensure control. Objective Vital Signs Date Time Temp Pulse Resp B/P Pulse Ox O2 Delivery O2 Flow Rate FiO2 05/12/17 08:00 98.2 85 20 114/65 94 05/12/17 04:45 97.9 96 16 111/71 98 05/12/17 00:00 98.1 102 16 109/71 98 05/11/17 20:00 98.4 84 16 148/89 98 05/11/17 20:00 84 05/11/17 16:45 98.7 75 20 143/90 98 05/11/17 15:48 18 05/11/17 15:47 98.9 78 18 120/68 98 I/O 05/11/17 05/11/17 05/11/17 05/12/17 05/12/17 05/12/17 07:00 15:00 23:00 07:00 15:00 23:00 Intake Total 600 ml Output Total 1378 ml 746 ml Balance -1378 ml 600 ml -746 ml Intake Oral 600 ml Output Peritoneal Fluid 1378 ml 746 ml # Voids 0 # Bowel Movements 0 Result Diagram: 05/10/17 0349 05/12/17 0531 Objective Remarks GENERAL: NAD, A&Ox3 HEAD: Normocephalic. NECK: Supple, trachea midline. No lymphadenopathy. EYES: No scleral icterus. No injection or drainage. CARDIOVASCULAR: Regular rate and rhythm without murmurs, gallops, or rubs. RESPIRATORY: Breath sounds equal bilaterally. No accessory muscle use. GASTROINTESTINAL: Abdomen soft, non-tender, nondistended. MUSCULOSKELETAL: No cyanosis, or edema. SKIN: Warm and dry. NEURO: No focal neurological deficitis. 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 Symptoms improving with correction calcium. MRI of brain is negative. Stress test shows no perfusion defect but does suggest possible cardiomyopathy with left ventricular dysfunction. Echocardiogram shows no hypokinesis, ejection fraction 55-60%. Hyperphosphatemia present and PhosLo started as a treatment. Recheck phosphorus level in a.m. Consider discharge when phosphorus level is stable or normalized. Chest Pain Negative workup No evidence of [place] or coronary artery disease Aspirin PRN IV Morphine for pain Suspected Hypercalcemia related symptoms Left Face Paraesthesias Left Arm Paraesthesias Hx of TIA MRI Brain negative May be related to hypocalcemia Hypocalcemia Hx of Primary Hyperparathyroidism Hx of Parathyroidectomy Possible secondary hyperparathyroidism, post parathyroidectomy Pending serum Vitamin D panel Repeat evaluation of PTH level is elevated Calcium Carbonate supplementation Follow calcium levels Alport's Syndrome ESRD (peritoneal dialysis) Nephrology consult Follow renal function Increases risk for secondary or tertiary hyperparathyroidism HTN Continue baseline BP treatments Follow BP DVT Prophylaxis SCDs Problem Qualifiers (1) Chest pain: Qualified Code: R07.9 - Chest pain, unspecified type Sergey March MD May 12, 2017 11:41
--- NOTE | 2017-05-12 11:43 | HHI.PR ---
Subjective Remarks This note is for the date of 05/12/17 Phosphorus level increased overnight. PhosLo is present as treatment. Patient does not have any symptoms. Objective Vital Signs Date Time Temp Pulse Resp B/P Pulse Ox O2 Delivery O2 Flow Rate FiO2 05/12/17 08:00 98.2 85 20 114/65 94 05/12/17 04:45 97.9 96 16 111/71 98 05/12/17 00:00 98.1 102 16 109/71 98 05/11/17 20:00 98.4 84 16 148/89 98 05/11/17 20:00 84 05/11/17 16:45 98.7 75 20 143/90 98 05/11/17 15:48 18 05/11/17 15:47 98.9 78 18 120/68 98 I/O 05/11/17 05/11/17 05/11/17 05/12/17 05/12/17 05/12/17 07:00 15:00 23:00 07:00 15:00 23:00 Intake Total 600 ml Output Total 1378 ml 746 ml Balance -1378 ml 600 ml -746 ml Intake Oral 600 ml Output Peritoneal Fluid 1378 ml 746 ml # Voids 0 # Bowel Movements 0 Result Diagram: 05/10/17 0349 05/12/17 0531 Objective Remarks GENERAL: NAD, A&Ox3 HEAD: Normocephalic. NECK: Supple, trachea midline. No lymphadenopathy. EYES: No scleral icterus. No injection or drainage. CARDIOVASCULAR: Regular rate and rhythm without murmurs, gallops, or rubs. RESPIRATORY: Breath sounds equal bilaterally. No accessory muscle use. GASTROINTESTINAL: Abdomen soft, non-tender, nondistended. MUSCULOSKELETAL: No cyanosis, or edema. SKIN: Warm and dry. NEURO: No focal neurological deficitis. 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 Monitoring phosphorus level to determine stability prior to discharge. Continue PhosLo. Recheck phosphorus was afternoon. If trend continues to be upward PhosLo be increased. If trend his stabilizer downward she'll be discharged at present level of PhosLo. Calcium levels appear stable. Chest Pain Negative workup No evidence of [place] or coronary artery disease Aspirin PRN IV Morphine for pain Suspected Hypercalcemia related symptoms Left Face Paraesthesias Left Arm Paraesthesias Hx of TIA MRI Brain negative May be related to hypocalcemia Hypocalcemia Hx of Primary Hyperparathyroidism Hx of Parathyroidectomy Possible secondary hyperparathyroidism, post parathyroidectomy Pending serum Vitamin D panel Repeat evaluation of PTH level is elevated Calcium Carbonate supplementation Follow calcium levels Alport's Syndrome ESRD (peritoneal dialysis) Nephrology consult Follow renal function Increases risk for secondary or tertiary hyperparathyroidism HTN Continue baseline BP treatments Follow BP DVT Prophylaxis SCDs Problem Qualifiers (1) Chest pain: Qualified Code: R07.9 - Chest pain, unspecified type Sergey March MD May 12, 2017 11:43
[2017-05-12] MEDS ORDERED: diphenhydrAMINE HCL 50 MG/ML VIAL IV PUSH PRN (11:45)
[2017-05-12 12:00] VITALS: BP 151/83; PULSE 95; RESP 20; TEMP 97.8; O2SAT 96
[2017-05-12] MEDS ORDERED: CALC667C PO (13:08)
[2017-05-12] MEDS ORDERED: CHOL5000 PO (13:23)
[2017-05-12] MEDS ORDERED: CALC500T30 PO (13:23)
--- NOTE | 2017-05-12 13:28 | HHI.DS ---
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 Patel is a 36 year old female. She is here today due to an acute onset of left upper chest pain and cramping pains at her right lateral chest and back. The chest pain was tight in nature and relieved with a nitroglycerin. It has not returned. At baseline she has a history of TIA and a recent history of hypocalcemia. At evaluation today, hypocalcemia is present and may be contributory to her symptoms. No acute complaints of diaphoresis, nausea, syncope, or dyspnea. She also has complaints of mouth parasthesias and bilateral arm paraesthesias. This has been a problem preceding her chest pains today. There is a history of TIA in her, CVA in her mother and CVA in about 7 of her cousins on her mother's side of the family. She has ESRD at baseline related to Alport's Syndrome. Hyperparathyroidism with Hypercalcemia has been present in the past. She had a parathyroidectomy and has since had hypocalcemia , but still has evidence of hyperparathyroidism when last evaluated. Secondary hyperparathyroidism may be present. CBC/BMP: 05/10/17 0349 05/12/17 0531 Significant Findings Laboratory Tests Test 05/09/17 05/09/17 05/10/17 05/11/17 15:20 21:11 03:49 09:02 Troponin I LESS THAN 0.02 LESS THAN 0.02 NG/ML NG/ML (0.02-0.05) (0.02-0.05) Sodium Level 135 MEQ/L (136-145) Potassium Level 3.2 MEQ/L (3.5-5.1) Chloride Level 97 MEQ/L 96 MEQ/L (98-107) (98-107) Blood Urea Nitrogen 47 MG/DL (7-18) 46 MG/DL (7-18) 51 MG/DL (7-18) Creatinine 14.20 MG/DL 13.73 MG/DL 13.15 MG/DL (0.50-1.00) (0.50-1.00) (0.50-1.00) Estimat Glomerular Filtration 4 ML/MIN (>89) 4 ML/MIN (>89) 4 ML/MIN (>89) Rate Random Glucose 115 MG/DL (74-106) Calcium Level 7.2 MG/DL 7.4 MG/DL (8.5-10.1) (8.5-10.1) Protein Corrected Calcium 7.0 MG/DL 7.4 MG/DL (8.5-10.1) (8.5-10.1) 25-Hydroxy Vitamin D Total 20.9 ng/ML (30-100) Parathyroid Hormone (Intact) 1217.9 PG/ML (12.4-76.8) Hemoglobin 10.7 GM/DL (11.6-15.3) Hematocrit 33.0 % (35.0-46.0) Mean Corpuscular Hemoglobin 26.0 PG (27.0-34.0) Monocytes (%) (Auto) 8.7 % (0.0-8.0) Phosphorus Level 6.0 MG/DL (2.5-4.9) Test 05/12/17 05/12/17 05:31 11:23 Blood Urea Nitrogen 45 MG/DL (7-18) Creatinine 12.65 MG/DL (0.50-1.00) Estimat Glomerular Filtration 4 ML/MIN (>89) Rate Phosphorus Level 6.7 MG/DL 5.5 MG/DL (2.5-4.9) (2.5-4.9) Aspartate Amino Transf 10 U/L (15-37) (AST/SGOT) Albumin 3.1 GM/DL (3.4-5.0) Hospital Course Mrs. Patel is a 36-year-old female. She was admitted secondary to chest pain and paresthesias of the left face and arm. She had a cardiac workup for the chest pain which was negative. This included an echocardiogram which showed ejection fraction of 55-60%. Additionally she had a negative workup for CVA. Etiology appears to be related to hypocalcemia which was present admitted. She is started on supplementation of calcium with oyster shell calcium and this has benefited her. She has normalization of her calcium levels. She also had low vitamin D levels and she reports in the past and vitamin D levels have been low and when she starts supplementation and high so for now resume supplementation every other day to see if this will maintain her at a steady state. Phosphorus levels were found to be elevated and increase through today. However with a start of the treatment of PhosLo patient has had improvement in her phosphorus level by this afternoon and is stable for discharge on PhosLo as an added needed treatment. She is medically stable for discharge home today with continuation of peritoneal dialysis monitoring of electrolytes as an outpatient. Pt Condition on Discharge: Stable Discharge Disposition: Discharge Home Discharge Time: <= 30 minutes Discharge Instructions DIET: Follow Instructions for: As Tolerated, No Restrictions Activities you can perform: Regular-No Restrictions Follow up Referrals: Nephrology - 2 Weeks with Rosa PCP Follow-up - 1 Week New Medications: Cholecalciferol (Vitamin D3) 5,000 Unit Cap 5000 UNITS PO EVERY OTHER DAY Nutritional Supplement #30 Ref 0 BOTTLE Calcium Acetate (Phosphate Bin (Calcium Acetate) 667 Mg Cap 1334 MG PO TIDAC electrolyte disturbance #90 CAP Oyster Shell (Calcium Oyster Shell) 500 Mg Tab 2000 MG PO Q8H electrolyte disturbances #360 TAB Continued Medications: Allopurinol (Allopurinol) 100 Mg Tab 100 MG PO DAILY Gout #30 Ref 0 TAB Amlodipine (Amlodipine) 10 Mg Tab 10 MG PO DAILY Blood Pressure Management #30 Ref 0 TAB Aspirin (Aspirin) 81 Mg Chew 81 MG CHEW DAILY Ref 0 TAB Carvedilol (Carvedilol) 25 Mg Tab 25 MG PO BID #60 Ref 0 TAB Clonidine (Clonidine) 0.2 Mg Tab 0.2 MG PO BID PRN DBP>100 #60 Ref 0 TAB Hydralazine HCl (Hydralazine HCl) 25 Mg Tablet 25 MG PO TID Blood Pressure Management #90 Ref 0 TAB Lisinopril (Lisinopril) 40 Mg Tab 40 MG PO DAILY Blood Pressure Management #30 Ref 0 TAB Zolpidem (Zolpidem) 10 Mg Tab 10 MG PO HS PRN INSOMNIA Ref 0 TAB Discontinued Medications: Calcitriol (Calcitriol) 0.5 Mcg Cap 0.5 MCG PO BID Calcium Supplement #30 Ref 0 CAP Calcium Carbonate (Antacid) (Calcium Carbonate (Antacid)) 500 Mg Chew 500 MG CHEW Q4HR Calcium Supplement Ref 0 TAB Sergey March MD May 12, 2017 13:27
== END 2017-05-12 15:08 | disposition home or self-care (01) | DRG 564 ==
LOC: NEPE 12:07 → NEDA 15:43 → NEPGCP 16:42 → OBSVTOIN 05-10 16:45 → N04B 05-11 16:30
PROVIDERS: ADMIT Hospitalist; ATTEND Hospitalist
PROC: 3E1M39Z Irrigation of Peritoneal Cavity using Dialysate, Percutaneous Approach (ICD-10-PCS; principal; 2017-05-12)
DX: Q87.81 Alport syndrome (principal); N18.6 End stage renal disease; N25.81 Secondary hyperparathyroidism of renal origin; I13.11 Hypertensive heart and chronic kidney disease without heart failure, with stage 5 chronic kidney disease, or end stage renal disease; R20.2 Paresthesia of skin; Z99.2 Dependence on renal dialysis; R07.89 Other chest pain; E21.0 Primary hyperparathyroidism; D64.9 Anemia, unspecified; M10.9 Gout, unspecified; Z86.73 Personal history of transient ischemic attack (TIA), and cerebral infarction without residual deficits; Z82.3 Family history of stroke
CPT/HCPCS: 70450; 70551; 71010; 76937; 78452; 80048; 80053; 82306; 82550; 82552; 82652; 83735; 83970; 84100; 84155; 84484; 85025; 85610; 85730; 90945; 93005; 93017; 93308; 96365; A9502; G0257; G0378; J0610; J1200; J2060; J2270; J2405; J2785

== ENCOUNTER 2017-06-21 13:40 | Emergency (ER) | payer MEDICARE, OTHER ==
[~2017-06-21] VITALS: Ht 175.3 cm; Wt 85.0 kg
[~2017-06-21 13:40] MED LIST changes: -CALC0.5C6 PO; -CALC500C16 CHEW; +CALC500T30 PO; +CALC667C PO; +CHOL5000 PO; -PLAV75TA29 PO
[2017-06-21 13:41] VITALS: BP 150/95; PULSE 100; RESP 20; TEMP 99.2; O2SAT 100
[2017-06-21] MEDS ORDERED: SODIUM CHLOR 0.9% 1000 ML INJ 1,000 ML IV ONE (14:25)
[2017-06-21] MEDS ORDERED: SODIUM CHLORIDE 0.9% FLUSH 10 ML FLUSH IVF PRN (14:30)
[2017-06-21 14:31] VITALS: BP 140/83; PULSE 88; O2SAT 98
[2017-06-21 14:47] LABS: AUTOMATED NEUTROPHIL # 5.8 TH/MM3 (1.8-7.7); BASOPHIL # 0.1 TH/MM3 (0-0.2); BASOPHIL % 0.7 % (0.0-2.0); EOSINOPHIL # 0.1 TH/MM3 (0-0.4); EOSINOPHIL % 1.6 % (0.0-4.0); HEMATOCRIT 30.5 % (35.0-46.0); HEMO FLAGS DIFF FINAL; LYMPH % 14.8 % (9.0-44.0); LYMPHOCYTE # 1.1 TH/MM3 (1.0-4.8); MEAN CELL VOLUME 79.9 FL (80.0-100.0); MEAN CORPUSCULAR HEMOGLOBIN 25.7 PG (27.0-34.0); MEAN CORPUSCULAR HGB CONC 32.2 % (32.0-36.0); MONO % 6.3 % (0.0-8.0); NEUT % 76.6 % (16.0-70.0); PLATELET COUNT 174 TH/MM3 (150-450); RED BLOOD COUNT 3.82 MIL/MM3 (4.00-5.30); WHITE BLOOD COUNT 7.6 TH/MM3 (4.0-11.0)
[2017-06-21] MEDS ORDERED: ONDANSETRON HCL 4 MG/2 ML VIAL IV PUSH ONE (15:00)
[2017-06-21] MEDS ORDERED: SODIUM CHLOR 0.9% 250 ML INJ 250 ML IV ONE (15:00)
--- NOTE | 2017-06-21 15:03 | PD ---
HPI Chief Complaint: Dizziness Time Seen by Provider: 14:14 Travel History International Travel<30 days: No Contact w/Intl Traveler<30days: No Traveled to known affect area: No History of Present Illness HPI Patient is a 36-year-old female with history of Alport's syndrome with end- stage renal disease on hemodialysis and hypertension, presents to ER with c/o of feeling dizzy and nauseous for the past 3 days. Reports that she has had a posterior headache for the past 3 days. Reports that she has been feeling weak and dizzy with her symptoms. Denies fever/chills. Denies chest pain/abdominal pain. Denies sob. Denies cough/congestion. Reports that she does give herself peritoneal dialysis every night as she was ESRD due to Alport's Syndrome. Reports that Dr. Montiel is her anesthesia tech. Patient does make urine - reports that she thinks that she has been drinking plenty of fluids. Patient with no other c/o. PFSH Past Medical History Anemia: Yes Blood Disorders: No Anxiety: Yes Heart Rhythm Problems: No Cancer: No Cardiovascular Problems: Yes (HTN) High Cholesterol: No Chest Pain: Yes Congestive Heart Failure: No Cerebrovascular Accident: Yes (tia) Diabetes: No Dialysis: Yes (PERITONEAL DIALYSIS) Diminished Hearing: No Endocrine: Yes Gastrointestinal Disorders: No Gout: Yes Genitourinary: Yes (Alport's Syndrome) Headaches: Yes Hypertension: Yes Immune Disorder: No Implanted Vascular Access Dvce: No Musculoskeletal: No Neurologic: No Psychiatric: Yes Reproductive: No Respiratory: No Renal Failure: Yes (Dialysis patient) Thyroid Disease: Yes ?: Not : 4 Para: 3 Miscarriage: 1 : 0 Tubal Ligation: Yes Past Surgical History Abdominal Surgery: Yes (PERITONEAL DIALYSIS) Body Medical Devices: Peritoneal dialysis Cholecystectomy: Yes Hysterectomy: Yes Other Surgery: Yes (PARATHYROID REMOVAL APRIL 2016, "VAGINAL ABLATION") Social History Alcohol Use: No Tobacco Use: No Substance Use: No Allergies-Medications (Allergen,Severity, Reaction): Coded Allergies: Gentamicin (Verified Allergy, Severe, RASH, 05/09/17) Levaquin (Verified Allergy, Severe, ITCHING, 05/09/17) Rocephin (Verified Allergy, Severe, RASH, 05/09/17) [place] (Verified Allergy, Intermediate, Nausea/Vomiting, 05/09/17) PT STATES ITCHINESS, NAUSEA, AND VOMITTING Ultram (Verified Allergy, Intermediate, itching, 05/09/17) Bactrim (Verified Adverse Reaction, Unknown, due to kidney failure, ) Contrast Media (Verified Adverse Reaction, Unknown, due to renal failure, 05/09/17) Reported Meds & Prescriptions Reported Meds & Active Scripts Active Vitamin D3 (Cholecalciferol) 5,000 Unit Cap 5,000 Units PO EVERY OTHER DAY Calcium Oyster Shell (Oyster Shell) 500 Mg Tab 2,000 Mg PO Q8H Calcium Acetate (Calcium Acetate (Phosphate Bin) 667 Mg Cap 1,334 Mg PO TIDAC Reported Hydralazine HCl 25 Mg Tablet 25 Mg PO TID Lisinopril 40 Mg Tab 40 Mg PO DAILY Zolpidem (Zolpidem Tartrate) 10 Mg Tab 10 Mg PO HS PRN Carvedilol 25 Mg Tab 25 Mg PO BID Clonidine (Clonidine HCl) 0.2 Mg Tab 0.2 Mg PO BID PRN Allopurinol 100 Mg Tab 100 Mg PO DAILY Aspirin 81 Mg Chew 81 Mg CHEW DAILY Amlodipine (Amlodipine Besylate) 10 Mg Tab 10 Mg PO DAILY Review of Systems General / Constitutional: No: Fever, Chills Eyes: No: Visual changes HENT: Positive: Headaches, Lightheadedness, No: Neck Pain Cardiovascular: No: Chest Pain or Discomfort Respiratory: No: Shortness of Breath Gastrointestinal: Positive: Nausea, No: Vomiting, Abdominal Pain Genitourinary: No: Urgency, Frequency, Dysuria Musculoskeletal: No: Pain Skin: No Rash Neurologic: Positive: Weakness, Dizziness, Headache Psychiatric: No: Depression Endocrine: No: Polydipsia Hematologic/Lymphatic: No: Easy Bruising Physical Exam Narrative GENERAL: Mild distress SKIN: Focused skin assessment warm/dry. HEAD: Atraumatic. Normocephalic. EYES: Pupils equal and round. No scleral icterus. No injection or drainage. ENT: No nasal bleeding or discharge. Mucous membranes pink and moist. NECK: Trachea midline. No JVD. CARDIOVASCULAR: Regular rate and rhythm. No murmur appreciated. RESPIRATORY: No accessory muscle use. Clear to auscultation. Breath sounds equal bilaterally. GASTROINTESTINAL: Abdomen soft, non-tender, nondistended. Hepatic and splenic margins not palpable. Port in abdomen with no signs of infection/drainage MUSCULOSKELETAL: No obvious deformities. No clubbing. No cyanosis. No edema. NEUROLOGICAL: Awake and alert. No obvious cranial nerve deficits. Motor grossly within normal limits. Normal speech. CN 2-12 grossly intact with no neurological deficits PSYCHIATRIC: Appropriate mood and affect; insight and judgment normal. Data Data Last Documented VS Vital Signs Date Time Temp Pulse Resp B/P Pulse Ox O2 Delivery O2 Flow Rate FiO2 06/21/17 16:12 90 16 140/83 100 Room Air 06/21/17 13:41 99.2 Orders Electrocardiogram (06/21/17 ) Complete Blood Count With Diff (06/21/17 14:25) Comprehensive Metabolic Panel (06/21/17 14:25) Prothrombin Time / Inr (Pt) (06/21/17 14:25) Act Partial Throm Time (Ptt) (06/21/17 14:25) Ct Brain W/O Iv Contrast(Rout) (06/21/17 14:25) Ecg Monitoring (06/21/17 14:25) Iv Access Insert/Monitor (06/21/17 14:25) Oximetry (06/21/17 14:25) Sodium Chloride 0.9% Flush (Ns Flush) (06/21/17 14:30) Sodium Chlor 0.9% 1000 Ml Inj (Ns 1000 M (06/21/17 14:25) Ondansetron Inj (Zofran Inj) (06/21/17 15:00) Sodium Chlor 0.9% 250 Ml Inj (Ns 250 Ml (06/21/17 15:00) Meclizine (Antivert) (06/21/17 15:15) Potassium Chloride (Kcl) (06/21/17 16:30) Calcium Gluconate Inj (Calcium Gluconate (06/21/17 16:30) Labs Laboratory Tests Test 06/21/17 14:30 White Blood Count 7.6 TH/MM3 Red Blood Count 3.82 MIL/MM3 Hemoglobin 9.8 GM/DL Hematocrit 30.5 % Mean Corpuscular Volume 79.9 FL Mean Corpuscular Hemoglobin 25.7 PG Mean Corpuscular Hemoglobin 32.2 % Concent Red Cell Distribution Width 17.0 % Platelet Count 174 TH/MM3 Mean Platelet Volume 8.3 FL Neutrophils (%) (Auto) 76.6 % Lymphocytes (%) (Auto) 14.8 % Monocytes (%) (Auto) 6.3 % Eosinophils (%) (Auto) 1.6 % Basophils (%) (Auto) 0.7 % Neutrophils # (Auto) 5.8 TH/MM3 Lymphocytes # (Auto) 1.1 TH/MM3 Monocytes # (Auto) 0.5 TH/MM3 Eosinophils # (Auto) 0.1 TH/MM3 Basophils # (Auto) 0.1 TH/MM3 CBC Comment DIFF FINAL Differential Comment Prothrombin Time 10.6 SEC Prothromb Time International 1.0 RATIO Ratio Activated Partial 28.8 SEC Thromboplast Time Sodium Level 137 MEQ/L Potassium Level 3.3 MEQ/L Chloride Level 101 MEQ/L Carbon Dioxide Level 25.8 MEQ/L Anion Gap 10 MEQ/L Blood Urea Nitrogen 46 MG/DL Creatinine 13.24 MG/DL Estimat Glomerular Filtration 4 ML/MIN Rate Random Glucose 110 MG/DL Calcium Level 7.1 MG/DL Protein Corrected Calcium 7.3 MG/DL Total Bilirubin 0.4 MG/DL Aspartate Amino Transf 10 U/L (AST/SGOT) Alanine Aminotransferase 14 U/L (ALT/SGPT) Alkaline Phosphatase 45 U/L Total Protein 6.8 GM/DL Albumin 2.9 GM/DL MDM Medical Decision Making Medical Screen Exam Complete: Yes Emergency Medical Condition: Yes Interpretation(s) EKG at 1352: NSR at 89bpm, qt/qtc: 394/440, no acute st or t wave changes Vital Signs Date Time Temp Pulse Resp B/P Pulse Ox O2 Delivery O2 Flow Rate FiO2 06/21/17 14:31 88 140/83 98 Room Air 06/21/17 13:41 99.2 100 20 150/95 100 Room Air Differential Diagnosis Differential includes migraine headache, cephalgia, electrolyte abnormality, UTI , ICH Narrative Course Patient is a 36-year-old female who presents to emergency room for evaluation of posterior headache with nausea and dizziness for the past few days. Reports no sick contacts, no fever/chills. Reports that she tried taking zofran and acetaminophen with no relief of symptoms. On evaluation, patient appears nontoxic. Plan to obtain CT of head, cbc, cmp and ua. Will give iv zofran and 250ml bolus of fluid and observe patient Vital Signs Date Time Temp Pulse Resp B/P Pulse Ox O2 Delivery O2 Flow Rate FiO2 06/21/17 16:12 90 16 140/83 100 Room Air 06/21/17 14:31 88 140/83 98 Room Air 06/21/17 14:31 97 Room Air 06/21/17 13:41 99.2 100 20 150/95 100 Room Air Laboratory Tests Test 06/21/17 14:30 White Blood Count 7.6 TH/MM3 (4.0-11.0) Red Blood Count 3.82 MIL/MM3 (4.00-5.30) Hemoglobin 9.8 GM/DL (11.6-15.3) Hematocrit 30.5 % (35.0-46.0) Mean Corpuscular Volume 79.9 FL (80.0-100.0) Mean Corpuscular Hemoglobin 25.7 PG (27.0-34.0) Mean Corpuscular Hemoglobin 32.2 % Concent (32.0-36.0) Red Cell Distribution Width 17.0 % (11.6-17.2) Platelet Count 174 TH/MM3 (150-450) Mean Platelet Volume 8.3 FL (7.0-11.0) Neutrophils (%) (Auto) 76.6 % (16.0-70.0) Lymphocytes (%) (Auto) 14.8 % (9.0-44.0) Monocytes (%) (Auto) 6.3 % (0.0-8.0) Eosinophils (%) (Auto) 1.6 % (0.0-4.0) Basophils (%) (Auto) 0.7 % (0.0-2.0) Neutrophils # (Auto) 5.8 TH/MM3 (1.8-7.7) Lymphocytes # (Auto) 1.1 TH/MM3 (1.0-4.8) Monocytes # (Auto) 0.5 TH/MM3 (0-0.9) Eosinophils # (Auto) 0.1 TH/MM3 (0-0.4) Basophils # (Auto) 0.1 TH/MM3 (0-0.2) CBC Comment DIFF FINAL Differential Comment Prothrombin Time 10.6 SEC (9.8-11.6) Prothromb Time International 1.0 RATIO Ratio Activated Partial 28.8 SEC Thromboplast Time (24.3-30.1) Sodium Level 137 MEQ/L (136-145) Potassium Level 3.3 MEQ/L (3.5-5.1) Chloride Level 101 MEQ/L (98-107) Carbon Dioxide Level 25.8 MEQ/L (21.0-32.0) Anion Gap 10 MEQ/L (5-15) Blood Urea Nitrogen 46 MG/DL (7-18) Creatinine 13.24 MG/DL (0.50-1.00) Estimat Glomerular Filtration 4 ML/MIN (>89) Rate Random Glucose 110 MG/DL (74-106) Calcium Level 7.1 MG/DL (8.5-10.1) Protein Corrected Calcium 7.3 MG/DL (8.5-10.1) Total Bilirubin 0.4 MG/DL (0.2-1.0) Aspartate Amino Transf 10 U/L (15-37) (AST/SGOT) Alanine Aminotransferase 14 U/L (10-53) (ALT/SGPT) Alkaline Phosphatase 45 U/L (45-117) Total Protein 6.8 GM/DL (6.4-8.2) Albumin 2.9 GM/DL (3.4-5.0) Last Impressions Head CT 06/21/17 1425 Signed Impressions: Service Date/Time: June 15:31 - CONCLUSION: No acute disease. No significant change has occurred. Erik John MD Patient reevaluated, patient feeling much better this time. Patient with complete resolution of symptoms. All labs and all studies reviewed patient in detail. She will follow with her primary care doctor as well as anesthesia tech and will return to emergency room as needed. Diagnosis Primary Impression: Dizziness Additional Impressions: Hypokalemia Hypocalcemia Anemia Patient Instructions: General Instructions Additional Instructions: Please follow up with your primary care doctor as well as anesthesia tech Return to ER if symptoms return Return to ER as needed Disposition: 01 DISCHARGE HOME Condition: Stable Samantha Fair DO Jun 21, 2017 15:03 Samantha Fair DO Jun 21, 2017 15:03
[2017-06-21 15:06] LABS: PROTHROMBIN TIME - PATIENT 10.6 SEC (9.8-11.6)
[2017-06-21 15:07] LABS: APTT (PATIENT) 28.8 SEC (24.3-30.1)
[2017-06-21 15:10] LABS: BICARBONATE 25.8 MEQ/L (21.0-32.0); POTASSIUM 3.3 MEQ/L (3.5-5.1); TOTAL BILIRUBIN ADULT 0.4 MG/DL (0.2-1.0)
[2017-06-21] MEDS ORDERED: MECLIZINE HCL 25 MG TAB PO ONE (15:15)
[2017-06-21 15:19] LABS: CALCIUM-PROTEIN CORRECTED 7.3 MG/DL (8.5-10.1)
--- NOTE | 2017-06-21 15:52 | RADRPT ---
EXAM DATE/TIME: 06/21/2017 15:31 [facility] COMPARISON: CT BRAIN W/O CONTRAST, May 09, 2017, 13:00. INDICATIONS : Cephalgia for three days. RADIATION DOSE: 56.35 CTDIvol (mGy) MEDICAL HISTORY : Hypertension. Alports Syndrome, Peritoneal dialysis, TIA SURGICAL HISTORY : Hysterectomy. Tubal ligation. ENCOUNTER: Initial ACUITY: 3 days PAIN SCALE: 6/10 LOCATION: Bilateral cranial TECHNIQUE: Multiple contiguous axial images were obtained of the head. Using automated exposure control and adj ustment of the mA and/or kV according to patient size, radiation dose was kept as low as reasonably a chievable to obtain optimal diagnostic quality images. DICOM format image data is available electro nically for review and comparison. FINDINGS: CEREBRUM: The ventricles are normal for age. No evidence of midline shift, mass lesion, hemorrhage or acute in farction. No extra-axial fluid collections are seen. POSTERIOR FOSSA: The cerebellum and brainstem are intact. The 4th ventricle is midline. The cerebellopontine angle i s unremarkable. EXTRACRANIAL: The visualized portion of the orbits is intact. SKULL: The calvaria is intact. No evidence of skull fracture. CONCLUSION: No acute disease. No significant change has occurred. Erik John MD on June 21, 2017 at 15:50 Board Certified Radiologist. This report was verified electronically.
[2017-06-21 16:12] VITALS: BP 140/83; PULSE 90; RESP 16; O2SAT 100
[2017-06-21] MEDS ORDERED: POTASSIUM CHLORIDE 10 MEQ CONTROLLED RELEASE TAB PO ONE (16:30)
[2017-06-21] MEDS ORDERED: CALCIUM GLUCONATE INJ 1 GM in DEXTROSE 5% IN WATER 100ML INJ 100 ML IV ONE ×2 (16:30)
[2017-06-21 18:05] VITALS: BP 181/92
--- NOTE | 2017-06-22 17:14 | EKG ---
Date Performed: 06/21/2017 Time Performed: 13:53:52 PTAGE: 36 years EKG: Sinus rhythm When compared to previous tracing, QT interval no longer Prolonged. NORMAL ECG PREVIOUS TRACING : 05/09/2017 15.22 DOCTOR: Francisco Aldana Interpretating Date/Time 06/22/2017 17:13:09
[2017-08-30] MEDS ORDERED: CHOL5000 PO (11:35)
[2017-08-30] MEDS ORDERED: SEVEL800 PO (11:36)
[2017-08-30] MEDS ORDERED: LOTR1CRE TOPICAL (12:09)
== END 2017-06-21 18:11 | disposition home or self-care (01) ==
LOC: NEPC 13:40
DX: R42 Dizziness and giddiness (principal); E87.6 Hypokalemia; E83.51 Hypocalcemia; D64.9 Anemia, unspecified; R11.0 Nausea; R51 Headache; R53.1 Weakness; Q87.81 Alport syndrome; I12.0 Hypertensive chronic kidney disease with stage 5 chronic kidney disease or end stage renal disease; N18.6 End stage renal disease; E07.9 Disorder of thyroid, unspecified; Z99.2 Dependence on renal dialysis; Z86.2 Personal history of diseases of the blood and blood-forming organs and certain disorders involving the immune mechanism; Z86.59 Personal history of other mental and behavioral disorders; Z86.79 Personal history of other diseases of the circulatory system; Z87.39 Personal history of other diseases of the musculoskeletal system and connective tissue
CPT/HCPCS: 70450; 80053; 85025; 85610; 85730; 93005; 96374; 96375; 99285; J0610; J2405; J7030

== ENCOUNTER 2017-09-22 21:53 | Inpatient (IN) | payer MEDICARE, MEDICAID ==
[~2017-09-22] VITALS: Ht 175.3 cm; Wt 84.5 kg
[2017-09-22 21:38] VITALS: BP 139/85; PULSE 89; RESP 16; TEMP 97.8; O2SAT 98
[~2017-09-22 21:53] MED LIST changes: +ASPI-516 CHEW; -ASPI81CH CHEW; -CALC500T30 PO; -CALC667C PO; +DOXY1CAP74 PO; +LOTR1CRE TOPICAL; +SEVEL800 PO
[2017-09-22] MEDS ORDERED: SODIUM CHLOR 0.9% 1000 ML INJ 1,000 ML IV SCH (22:10)
[2017-09-22] MEDS ORDERED: ENALAPRILAT 1.25 MG/ML VIAL IV PUSH PRN (22:15)
[2017-09-22] MEDS ORDERED: NALOXONE HCL 0.4 MG/ML AMP IV PUSH PRN (22:15)
[2017-09-22] MEDS ORDERED: SODIUM CHLORIDE 0.9% FLUSH 10 ML FLUSH IV FLUSH PRN (22:15)
[2017-09-22] MEDS ORDERED: ONDANSETRON HCL 4 MG/2 ML VIAL IVP PRN (22:15)
[2017-09-22] MEDS ORDERED: LACTULOSE SYRUP 20 GM/30 ML CUP PO PRN (22:15)
[2017-09-22] MEDS ORDERED: MAGNESIUM HYDROXIDE SUSP 30 ML CUP PO PRN (22:15)
--- NOTE | 2017-09-22 22:20 | HHI.HP ---
[facility] No Primary Care Physician Admission Diagnosis Diagnoses: Chief Complaint: left sided weakness Travel History International Travel<30 Days: No Contact w/Intl Traveler <30 Da: No History of Present Illness 36 y/o female with a history of CKD on peritoneal dialysis, HTN and TIAs presented to the ED with complaints of left sided weakness. Patient states 3 days ago she developed left sided weakness with associated numbness and tingling that lasted 30 mins and it resolved. Today the weakness came back again. She states her blood pressure has been high the past few days because she has not been feeling well. She has been taking her BP meds are prescribed. She has been on doxycycline BID for a sinus infection and has taken 2 out of the 7 days. She went to the dialysis clinic and Dr. Montiel said to come to the ED if she experienced increased weakness. She denies any chest pain, sob, fever or chills. She complains of 8/10 sore neck pain with no radiation and states the morphine helped her in the [facility]. Review of Systems Except as stated in HPI: all other systems reviewed are Neg Past Family Social History Past Medical History Alport's Syndrome ESRD (peritoneal dialysis) HTN Hypocalcemia TIA Hx Past Surgical History Hysterectomy Tubal Ligation Cholecystectomy Parathyroidectomy Abdominal Port Placement (peritoneal dialysis) Reported Medications Reported Meds & Active Scripts Active Reported Doxycycline 40 Mg Cap 100 Mg PO BID Renvela (Sevelamer Carbonate) 800 Mg Tab 800 Mg PO TID Vitamin D3 (Cholecalciferol) 5,000 Unit Cap 5,000 Units PO WEEKLY Hydralazine HCl 25 Mg Tablet 25 Mg PO BID Lisinopril 40 Mg Tab 40 Mg PO DAILY Zolpidem (Zolpidem Tartrate) 10 Mg Tab 10 Mg PO HS PRN Carvedilol 25 Mg Tab 25 Mg PO BID Clonidine (Clonidine HCl) 0.2 Mg Tab 0.2 Mg PO BID PRN Allopurinol 100 Mg Tab 100 Mg PO DAILY Aspirin 81 Mg Chew 81 Mg CHEW DAILY Amlodipine (Amlodipine Besylate) 10 Mg Tab 10 Mg PO DAILY Allergies: Coded Allergies: ceftriaxone (Unverified Allergy, Severe, RASH, 09/22/17) gentamicin (Unverified Allergy, Severe, RASH, 09/22/17) levofloxacin (Unverified Allergy, Severe, ITCHING, 09/22/17) acetaminophen (Unverified Allergy, Intermediate, Nausea/Vomiting, 09/22/17 ) PT STATES ITCHINESS, NAUSEA, AND VOMITTING hydrocodone (Unverified Allergy, Intermediate, Nausea/Vomiting, 09/22/17) PT STATES ITCHINESS, NAUSEA, AND VOMITTING tramadol (Unverified Allergy, Intermediate, itching, 09/22/17) diatrizoate meglumine (Unverified Adverse Reaction, Unknown, due to renal failure, 09/22/17) gadobenic acid (Unverified Adverse Reaction, Unknown, due to renal failure , 09/22/17) gadodiamide (Unverified Adverse Reaction, Unknown, due to renal failure, 09/22/17) gadoteridol (Unverified Adverse Reaction, Unknown, due to renal failure, 09/22/17) iodixanol (Unverified Adverse Reaction, Unknown, due to renal failure, 09/28) iohexol (Unverified Adverse Reaction, Unknown, due to renal failure, 09/22) sulfamethoxazole (Unverified Adverse Reaction, Unknown, due to kidney failure, 09/22/17) trimethoprim (Unverified Adverse Reaction, Unknown, due to kidney failure , 09/22/17) Active Ordered Medications Current Medications Medications (Trade) Dose Ordered Sig/Catherine Route Start Time Stop Time Status Last Admin (NS Flush) 2 ml UNSCH PRN IV FLUSH 09/22/17 22:15 UNV (NS Flush) 2 ml BID IV FLUSH 09/23/17 09:00 UNV (Zofran Inj) 4 mg Q6H PRN IVP 09/22/17 22:15 UNV (Narcan Inj) 0.4 mg UNSCH PRN IV PUSH 09/22/17 22:15 UNV (Milk Of Magnesia Liq) 30 ml Q12H PRN PO 09/22/17 22:15 UNV (Lactulose Liq) 30 ml DAILY PRN PO 09/22/17 22:15 UNV Sodium Chloride 1,000 ml @ 70 mls/hr [id number] IV 09/22/17 22:10 UNV (Vasotec Inj) 1.25 mg Q4H PRN IV PUSH 09/22/17 22:15 UNV Family History Dad: Kidney disease Mom: CVA Social History Patient denies any tobacco, alcohol or illicit drug use. Physical Exam Physical Exam GENERAL: This is a well-nourished, well-developed patient, in no apparent distress. SKIN: No rashes, ecchymoses or lesions. Cool and dry. HEAD: Atraumatic. Normocephalic. EYES: Pupils equal round and reactive. Extraocular motions intact. No scleral icterus. ENT: Nose without bleeding, purulent drainage or septal hematoma. Airway patent. NECK: Trachea midline. No JVD or lymphadenopathy. Supple, nontender, no meningeal signs. CARDIOVASCULAR: Regular rate and rhythm without murmurs, gallops, or rubs. RESPIRATORY: Clear to auscultation. Breath sounds equal bilaterally. No wheezes , rales, or rhonchi. GASTROINTESTINAL: Abdomen soft, non-tender, nondistended. Peritoneal dialysis abdominal port MUSCULOSKELETAL: Extremities without clubbing, cyanosis, or edema. No joint tenderness, effusion, or edema noted. No calf tenderness. NEUROLOGICAL: Awake and alert. Motor and sensory grossly within normal limits. 4/5 Left sided weakness. Normal speech. Caprini VTE Risk Assessment Caprini VTE Risk Assessment: Mod/High Risk (score >= 2) Caprini Risk Assessment Model Point Value = 1 Point Value = 2 Point Value = 3 Point Value = 5 Age 41-60 Minor surgery BMI > 25 kg/m2 Swollen legs Varicose veins or History of unexplained or recurrent spontaneous Oral contraceptives or hormone replacement Sepsis (< 1 month) Serious lung disease, including pneumonia (< 1 month) Abnormal pulmonary function Acute myocardial infarction Congestive heart failure (< 1 month) History of inflammatory bowel disease Medical patient at bed rest Age 61-74 Arthroscopic surgery Major open surgery (> 45 min) Laparoscopic surgery (> 45 min) Malignancy Confined to bed (> 72 hours) Immobilizing plaster cast Central venous access Age >= 75 History of VTE Family history of VTE Factor V Leiden Prothrombin [id number] Lupus anticoagulant Anticardiolipin antibodies Elevated serum homocysteine Heparin-induced thrombocytopenia Other congenital or acquired thrombophilia Stroke (< 1 month) Elective arthroplasty Hip, pelvis, or leg fracture Acute spinal cord injury (< 1 month) Prophylaxis Regimen Total Risk Factor Score Risk Level Prophylaxis Regimen 0-1 Low Early ambulation 2 Moderate Order ONE of the following: *Sequential Compression Device (SCD) *Heparin 5000 units SQ BID 3-4 Higher Order ONE of the following medications: *Heparin 5000 units SQ TID *Enoxaparin/Lovenox 40 mg SQ daily (WT < 150 kg, CrCl > 30 mL/min) *Enoxaparin/Lovenox 30 mg SQ daily (WT < 150 kg, CrCl > 10-29 mL/min) *Enoxaparin/Lovenox 30 mg SQ BID (WT < 150 kg, CrCl > 30 mL/min) AND/OR *Sequential Compression Device (SCD) 5 or more Highest Order ONE of the following medications: *Heparin 5000 units SQ TID (Preferred with Epidurals) *Enoxaparin/Lovenox 40 mg SQ daily (WT < 150 kg, CrCl > 30 mL/min) *Enoxaparin/Lovenox 30 mg SQ daily (WT < 150 kg, CrCl > 10-29 mL/min) *Enoxaparin/Lovenox 30 mg SQ BID (WT < 150 kg, CrCl > 30 mL/min) AND *Sequential Compression Device (SCD) Assessment and Plan Problem List: (1) TIA (transient ischemic attack) ICD Code: G45.9 - Transient cerebral ischemic attack, unspecified (2) Peritoneal dialysis status ICD Code: Z99.2 - Dependence on renal dialysis Status: Acute (3) ESRD (end stage renal disease) ICD Code: N18.6 - End stage renal disease Status: Acute (4) Hypertensive urgency ICD Code: I16.0 - Hypertensive urgency Status: Acute Assessment and Plan 36 y/o female with a history of CKD on peritoneal dialysis, HTN and TIAs presented to the ED with complaints of left sided weakness. Left sided weakness, suspected TIA due to Hypertensive emergency, r/o stroke Head CT reviewed and shows no acute abnormalities -MRI/MRA ordered -Consult neurology -ST/PT/OT -Morphine IV for pain management -2D echo ordered ESRD on peritoneal dialysis -Consult nephrology -Renal diet HTN, chronic -Resume home medications -Monitor vitals Sinus infection, chronic -Resume doxycycline PO 100mg for 5 days DVT prophylaxis: SCDs Discussed Condition With Patient and RN Susie Scott Sep 22, 2017 22:20
[2017-09-22 23:37] VITALS: PULSE 83
[2017-09-22] MEDS: MORPHINE SULFATE 4 MG/ML INJ IV PUSH PRN (23:46)
[2017-09-23] VITALS (7 sets, daily range): BP systolic 113–157; BP diastolic 70–100; PULSE 81–93; RESP 16–20; TEMP 97.5–98.7; O2SAT 97–100
[2017-09-23 08:15] LABS: AUTOMATED NEUTROPHIL # 3.9 TH/MM3 (1.8-7.7); BASOPHIL # 0.1 TH/MM3 (0-0.2); BASOPHIL % 1.1 % (0.0-2.0); EOSINOPHIL # 0.3 TH/MM3 (0-0.4); EOSINOPHIL % 4.2 % (0.0-4.0); HEMATOCRIT 24.6 % (35.0-46.0); HEMO FLAGS DIFF FINAL; LYMPH % 27.7 % (9.0-44.0); LYMPHOCYTE # 1.8 TH/MM3 (1.0-4.8); MEAN CELL VOLUME 82.6 FL (80.0-100.0); MEAN CORPUSCULAR HEMOGLOBIN 27.6 PG (27.0-34.0); MEAN CORPUSCULAR HGB CONC 33.4 % (32.0-36.0); MONO % 5.7 % (0.0-8.0); NEUT % 61.3 % (16.0-70.0); PLATELET COUNT 168 TH/MM3 (150-450); RED BLOOD COUNT 2.97 MIL/MM3 (4.00-5.30); RED CELL DISTRIBUTION WIDTH 17.2 % (11.6-17.2); WHITE BLOOD COUNT 6.4 TH/MM3 (4.0-11.0)
[2017-09-23] MEDS: MORPHINE SULFATE 4 MG/ML INJ IV PUSH PRN ×4 (08:24→19:38)
[2017-09-23 08:32] LABS: ALKALINE PHOSPHATASE 34 U/L (45-117); ALT (GPT) 14 U/L (10-53); ANION GAP 11 MEQ/L (5-15); AST (GOT) 12 U/L (15-37); BICARBONATE 25.5 MEQ/L (21.0-32.0); BLOOD UREA NITROGEN 44 MG/DL (7-18); CALCIUM-PROTEIN CORRECTED 7.6 MG/DL (8.5-10.1); CHLORIDE 103 MEQ/L (98-107); GLOMERULAR FILTRATION RATE 4 ML/MIN (>89); HDL CHOLESTEROL 35.3 MG/DL (40.0-60.0); LDL CHOLESTEROL 72 MG/DL (0-99); POTASSIUM 3.3 MEQ/L (3.5-5.1); SODIUM (NA) 139 MEQ/L (136-145); TOTAL BILIRUBIN ADULT 0.4 MG/DL (0.2-1.0)
[2017-09-23] MEDS: ALLOPURINOL 100 MG TAB PO SCH (08:33)
[2017-09-23] MEDS: hydrALAZINE HCL 25 MG TAB PO SCH ×2 (08:33→20:42)
[2017-09-23] MEDS: CARVEDILOL 12.5 MG TAB PO SCH ×2 (08:33→20:42)
[2017-09-23] MEDS: LISINOPRIL 20 MG TAB PO SCH (08:34)
[2017-09-23] MEDS: SODIUM CHLORIDE 0.9% FLUSH 10 ML FLUSH IV FLUSH SCH ×2 (08:34→20:41)
[2017-09-23] MEDS: DOXYCYCLINE HYCLATE 100 MG CAP PO SCH ×2 (08:34→20:42)
[2017-09-23] MEDS: ASPIRIN 81 MG CHEW TAB CHEW SCH (08:34)
[2017-09-23] MEDS: SEVELAMER CARBONATE 800 MG TAB PO SCH ×3 (08:34→17:55)
[2017-09-23] MEDS ORDERED: SODIUM CHLORIDE 0.9% FLUSH 10 ML FLUSH IV FLUSH PRN (09:00)
[2017-09-23] MEDS ORDERED: HEPARIN SODIUM - IV 10,000 UNITS/10 ML VIAL XX PRN (09:00)
[2017-09-23 10:36] LABS: HEMOGLOBIN A1a 1.2 %; HEMOGLOBIN LA1C 2.4 %; HEMOGLOBIN P3 5.9 %
[2017-09-23] MEDS ORDERED: CALCIUM CARBONATE 1.25 GM (CA 500 MG) TAB PO ONE (11:15)
--- NOTE | 2017-09-23 11:43 | PD.CONS ---
HPI Service Nephrology Consult Requested By Dr. March Reason for Consult End-stage renal disease on peritoneal dialysis Primary Care Physician No Primary Care Physician History of Present Illness Patient is a 36-year-old female with history of Alport syndrome , ESRD, hypertension, TIA, she developed left-sided the headaches and stated that she had numbness in her fingers on the left hand as well and came with these complaints, she is on peritoneal dialysis and follows with Dr. Montiel. Blood pressure was elevated at one point it was 198/121 and this was controlled overnight symptoms have improved. Review of Systems Constitutional: COMPLAINS OF: Fatigue Neurologic: COMPLAINS OF: Headache, Paresthesias Past Family Social History Allergies: Coded Allergies: ceftriaxone (Unverified Allergy, Severe, RASH, 09/22/17) gentamicin (Unverified Allergy, Severe, RASH, 09/22/17) levofloxacin (Unverified Allergy, Severe, ITCHING, 09/22/17) acetaminophen (Unverified Allergy, Intermediate, Nausea/Vomiting, 09/22/17 ) PT STATES ITCHINESS, NAUSEA, AND VOMITTING hydrocodone (Unverified Allergy, Intermediate, Nausea/Vomiting, 09/22/17) PT STATES ITCHINESS, NAUSEA, AND VOMITTING tramadol (Unverified Allergy, Intermediate, itching, 09/22/17) diatrizoate meglumine (Unverified Adverse Reaction, Unknown, due to renal failure, 09/22/17) gadobenic acid (Unverified Adverse Reaction, Unknown, due to renal failure , 09/22/17) gadodiamide (Unverified Adverse Reaction, Unknown, due to renal failure, 09/22/17) gadoteridol (Unverified Adverse Reaction, Unknown, due to renal failure, 09/22/17) iodixanol (Unverified Adverse Reaction, Unknown, due to renal failure, 09/28) iohexol (Unverified Adverse Reaction, Unknown, due to renal failure, 09/22) sulfamethoxazole (Unverified Adverse Reaction, Unknown, due to kidney failure, 09/22/17) trimethoprim (Unverified Adverse Reaction, Unknown, due to kidney failure , 09/22/17) Past Medical History Alport syndrome TIA ESRD History of hypocalcemia after parathyroidectomy Hypertension Past Surgical History Parathyroidectomy Tenckhoff catheter Ablation procedure Hysterectomy Tubal Ligation Cholecystectomy Reported Medications Reported Meds & Active Scripts Active Reported Doxycycline 40 Mg Cap 100 Mg PO BID Renvela (Sevelamer Carbonate) 800 Mg Tab 800 Mg PO TID Vitamin D3 (Cholecalciferol) 5,000 Unit Cap 5,000 Units PO WEEKLY Hydralazine HCl 25 Mg Tablet 25 Mg PO BID Lisinopril 40 Mg Tab 40 Mg PO DAILY Zolpidem (Zolpidem Tartrate) 10 Mg Tab 10 Mg PO HS PRN Carvedilol 25 Mg Tab 25 Mg PO BID Clonidine (Clonidine HCl) 0.2 Mg Tab 0.2 Mg PO BID PRN Allopurinol 100 Mg Tab 100 Mg PO DAILY Aspirin 81 Mg Chew 81 Mg CHEW DAILY Amlodipine (Amlodipine Besylate) 10 Mg Tab 10 Mg PO DAILY Active Ordered Medications Current Medications Medications (Trade) Dose Ordered Sig/Catherine Route Start Time Stop Time Status Last Admin (NS Flush) 2 ml UNSCH PRN IV FLUSH 09/22/17 22:15 (NS Flush) 2 ml BID IV FLUSH 09/23/17 09:00 09/23/17 08:34 (Zofran Inj) 4 mg Q6H PRN IVP 09/22/17 22:15 (Narcan Inj) 0.4 mg UNSCH PRN IV PUSH 09/22/17 22:15 (Milk Of Magnesia Liq) 30 ml Q12H PRN PO 09/22/17 22:15 (Lactulose Liq) 30 ml DAILY PRN PO 09/22/17 22:15 (Zyloprim) 100 mg DAILY PO 09/23/17 09:00 09/23/17 08:33 (Norvasc) 10 mg DAILY PO 09/23/17 09:00 09/23/17 08:34 (Aspirin Chew) 81 mg DAILY CHEW 09/23/17 09:00 09/23/17 08:34 (Coreg) 25 mg BID PO 09/23/17 09:00 09/23/17 08:33 (Apresoline) 25 mg BID PO 09/23/17 09:00 09/23/17 08:33 (Renvela) 800 mg TID PO 09/23/17 09:00 09/23/17 08:34 (Prinivil) 40 mg DAILY PO 09/23/17 09:00 09/23/17 08:34 (Vibramycin) 100 mg BID PO 09/23/17 09:00 09/23/17 08:34 (Morphine Inj) 2 mg Q3H PRN IV PUSH 09/22/17 23:30 09/23/17 08:24 (Heparin Inj) 1,000 units WITH DIALYSIS PRN XX 09/23/17 09:00 (NS Flush) 10 ml UNSCH PRN IV FLUSH 09/23/17 09:00 Family History History of Alport syndrome Social History Denies smoking or alcohol use Physical Exam Vital Signs Vital Signs Date Time Temp Pulse Resp B/P (MAP) Pulse Ox O2 Delivery O2 Flow Rate FiO2 09/23/17 08:00 98.5 82 18 142/100 (114) 98 09/23/17 08:00 93 09/23/17 08:00 Room Air 09/23/17 04:00 97.6 83 16 157/88 (111) 98 09/23/17 00:00 97.5 81 16 145/94 (111) 100 09/22/17 23:37 83 09/22/17 23:00 Room Air 09/22/17 21:38 97.8 89 16 139/85 (103) 98 Physical Exam GENERAL: Well-nourished, well-developed patient. SKIN: Warm and dry. HEAD: Normocephalic. EYES: No scleral icterus. No injection or drainage. NECK: Supple, trachea midline. No JVD or lymphadenopathy. CARDIOVASCULAR: Regular rate and rhythm without murmurs, gallops, or rubs. RESPIRATORY: Breath sounds equal bilaterally. No accessory muscle use. GASTROINTESTINAL: Abdomen soft, non-tender, nondistended. Tenckhoff catheter EXTREMITIES: No cyanosis, or edema. NEUROLOGICAL: Awake, alert, and oriented x 3. Non-focal. Laboratory Laboratory Tests Test 09/23/17 07:02 White Blood Count 6.4 Red Blood Count 2.97 Hemoglobin 8.2 Hematocrit 24.6 Mean Corpuscular Volume 82.6 Mean Corpuscular Hemoglobin 27.6 Mean Corpuscular Hemoglobin Concent 33.4 Red Cell Distribution Width 17.2 Platelet Count 168 Mean Platelet Volume 9.1 Neutrophils (%) (Auto) 61.3 Lymphocytes (%) (Auto) 27.7 Monocytes (%) (Auto) 5.7 Eosinophils (%) (Auto) 4.2 Basophils (%) (Auto) 1.1 Neutrophils # (Auto) 3.9 Lymphocytes # (Auto) 1.8 Monocytes # (Auto) 0.4 Eosinophils # (Auto) 0.3 Basophils # (Auto) 0.1 CBC Comment DIFF FINAL Differential Comment Blood Urea Nitrogen 44 Creatinine 13.00 Random Glucose 85 Total Protein 5.9 Albumin 2.5 Calcium Level 7.0 Alkaline Phosphatase 34 Aspartate Amino Transf (AST/SGOT) 12 Alanine Aminotransferase (ALT/SGPT) 14 Total Bilirubin 0.4 Sodium Level 139 Potassium Level 3.3 Chloride Level 103 Carbon Dioxide Level 25.5 Anion Gap 11 Estimat Glomerular Filtration Rate 4 Hemoglobin A1c 5.5 Protein Corrected Calcium 7.6 Triglycerides Level 60 Cholesterol Level 119 LDL Cholesterol 72 HDL Cholesterol 35.3 Cholesterol/HDL Ratio 3.37 Result Diagram: 09/23/1770109/23/17701 Assessment and Plan Problem List: (1) ESRD (end stage renal disease) ICD Codes: N18.6 - End stage renal disease Status: Acute Plan: Patient was started on peritoneal dialysis last night she did well continue supportive care and control her blood pressure Continue to monitor labs periodically, replace potassium Blood pressure is better I added Minipress (2) TIA (transient ischemic attack) ICD Codes: G45.9 - Transient cerebral ischemic attack, unspecified Plan: Continue to monitor her symptoms are resolved (3) Hypertensive urgency ICD Codes: I16.0 - Hypertensive urgency Status: Acute Plan: Need to control blood pressure more effectively, Minipress added (4) H/O parathyroidectomy ICD Codes: E89.2 - Postprocedural hypoparathyroidism Plan: Continue replace calcium Vanessa Lee MD Sep 23, 2017 11:43
[2017-09-23] MEDS ORDERED: CLOPIDOGREL 75 MG TAB PO SCH (12:30)
[2017-09-23] MEDS ORDERED: DEXTROSE 50% IN WATER 50 ML VIAL(D50) IV PUSH PRN (12:30)
[2017-09-23] MEDS ORDERED: GLUCAGON 1 MG/ML VIAL OTHER PRN (12:30)
[2017-09-23] MEDS ORDERED: SODIUM CHLORIDE 0.9% FLUSH 5 ML FLUSH IV FLUSH PRN (12:30)
[2017-09-23] MEDS ORDERED: LORazepam 2 MG/ML VIAL IV PUSH PRN (12:30)
--- NOTE | 2017-09-23 12:40 | MB ---
cc: DM YEBOAH M.D. DATE OF CONSULTATION: 09/23/2017 REASON FOR CONSULTATION: Stroke versus TIA. HISTORY OF PRESENT ILLNESS: Ms. Patel is a very nice 36-year-old female with end-stage renal disease on peritoneal dialysis. Yesterday she developed left-sided weakness involving the left arm and left leg as well as a tingling sensation in that distribution. She had no speech changes. She does have a posterior headache as well. She feels her symptoms today are normal but not back to 100% normal, although they are improving. She has no prior history of stroke or TIA. She normally takes an aspirin 81 mg daily. PAST MEDICAL HISTORY: 1. History of Alport syndrome. 2. End-stage renal disease on peritoneal dialysis. 3. Hypertension. 4. Hypocalcemia. 5. Hysterectomy. 6. Tubal ligation. 7. Cholecystectomy. 8. Parathyroidectomy. 9. Abdominal port placement for the peritoneal dialysis. MEDICATIONS AT HOME: 1. Doxycycline. 2. Renvela. 3. Vitamin D3. 4. Hydralazine. 5. Lisinopril 6. Ambien 7. Carvedilol 25 milligrams b.i.d. 8. Clonidine. 9. Aspirin 81 milligrams daily. 10. Amlodipine 10 milligrams daily. NEUROLOGICAL EXAMINATION: VITAL SIGNS: Her vital signs reveal blood pressure 142/100, pulse is 93, respirations are 18, temperature 98 degrees. Higher cortical functions are normal including speech. Cranial nerves II-XII are normal. Motor exam reveals mild weakness left arm at 4/5, left leg 4/5. She has 5/5 strength in the right arm and right leg. Reflexes symmetric. She has diminished fine motor skills left hand. There is a pronator drift left upper extremity. Sensory exam intact. CT scan of the head: No acute change present. There is mild thickening of the ethmoid sinus. LABORATORY DATA White count 6400, hemoglobin 8.2, hematocrit 24%, platelet count 168,000. Sodium is 139, potassium 3.3, chloride 103, CO2 25.5, the BUN is 44, creatinine is 13, GFR is 4, hemoglobin A1c 5.5, calcium 7, AST is 12, ALT 14, cholesterol 119. LDL 72. HDL 35. IMPRESSION Probable right hemisphere stroke. RECOMMENDATIONS MRI of the brain as well as an MRA of the brain for further evaluation, carotid ultrasound, echocardiogram, check labs for hypercoagulable state, consider transesophageal echo as well to be sure she does not have a PFO. Will add Plavix 75 mg daily. MD ELDON Bhandari/SERENE /12:26 PM /12:37 PM
[2017-09-23] MEDS: CALCIUM CARBONATE 1.25 GM (CA 500 MG) TAB PO SCH ×2 (12:52→17:55)
[2017-09-23] MEDS: PRAZOSIN HCL 1 MG CAP PO SCH ×2 (12:52→20:42)
[2017-09-23] MEDS: POTASSIUM CHLORIDE 20 MEQ CONTROLLED RELEASE TAB PO SCH (12:52)
--- NOTE | 2017-09-23 14:21 | PD.CONS ---
HPI Consult Requested By Primary Care Physician No Primary Care Physician History of Present Illness 36-year-old female with end-stage renal disease on peritoneal dialysis. Yesterday she developed left-sided weakness involving the left arm and left leg as well as a tingling sensation in that distribution. She had no speech changes. She does have a posterior headache as well. She feels her symptoms today are normal but not back to 100% normal, although they are improving. She has no prior history of stroke or TIA. She normally takes an aspirin 81 mg daily. Cardiology consulted for MARIE. Review of Systems Consitutional: DENIES: Fatigue, Fever, Chills, Weight gain, Weight loss Eyes: DENIES: Amaurosis Fugax, Change in vision HEENT: DENIES: Lightheadedness, Change in hearing Respiratory: DENIES: See HPI, Cough, Snoring, Shortness of breath, Wheezing, Sputum production Cardiovascular: DENIES: See HPI, Chest pain, Palpitations, Syncope, Tachycardia Gastrointestinal: DENIES: Nausea, Vomiting, Change in bowel habits, Reflux, Bloody stools, Melena Genitourinary: DENIES: Urinary incontinence, Difficulty voiding Integumentary: DENIES: Rash Neurologic: DENIES: Tingling or numbness, Memory problems, Poor Balance, Stroke symptoms Musculoskeletal: DENIES: Joint pain, Muscle pain, Limited range of motion, Back pain Psychiatric: DENIES: Anxiety, Depression, Sleep disturbances Hematologic: DENIES: Bruising tendencies, Bleeding tendencies Endocrine: DENIES: Weight gain, Weight loss, Thyroid disease Past Family Social History Allergies: Coded Allergies: ceftriaxone (Unverified Allergy, Severe, RASH, 09/22/17) gentamicin (Unverified Allergy, Severe, RASH, 09/22/17) levofloxacin (Unverified Allergy, Severe, ITCHING, 09/22/17) acetaminophen (Unverified Allergy, Intermediate, Nausea/Vomiting, 09/22/17 ) PT STATES ITCHINESS, NAUSEA, AND VOMITTING hydrocodone (Unverified Allergy, Intermediate, Nausea/Vomiting, 09/22/17) PT STATES ITCHINESS, NAUSEA, AND VOMITTING tramadol (Unverified Allergy, Intermediate, itching, 09/22/17) diatrizoate meglumine (Unverified Adverse Reaction, Unknown, due to renal failure, 09/22/17) gadobenic acid (Unverified Adverse Reaction, Unknown, due to renal failure , 09/22/17) gadodiamide (Unverified Adverse Reaction, Unknown, due to renal failure, 09/22/17) gadoteridol (Unverified Adverse Reaction, Unknown, due to renal failure, 09/22/17) iodixanol (Unverified Adverse Reaction, Unknown, due to renal failure, 09/28) iohexol (Unverified Adverse Reaction, Unknown, due to renal failure, 09/22) sulfamethoxazole (Unverified Adverse Reaction, Unknown, due to kidney failure, 09/22/17) trimethoprim (Unverified Adverse Reaction, Unknown, due to kidney failure , 09/22/17) Past Medical History 1. History of Alport syndrome. 2. End-stage renal disease on peritoneal dialysis. 3. Hypertension. 4. Hypocalcemia. 5. Hysterectomy. 6. Tubal ligation. 7. Cholecystectomy. 8. Parathyroidectomy. 9. Abdominal port placement for the peritoneal dialysis. Reported Medications Reported Meds & Active Scripts Active Reported Doxycycline 40 Mg Cap 100 Mg PO BID Renvela (Sevelamer Carbonate) 800 Mg Tab 800 Mg PO TID Vitamin D3 (Cholecalciferol) 5,000 Unit Cap 5,000 Units PO WEEKLY Hydralazine HCl 25 Mg Tablet 25 Mg PO BID Lisinopril 40 Mg Tab 40 Mg PO DAILY Zolpidem (Zolpidem Tartrate) 10 Mg Tab 10 Mg PO HS PRN Carvedilol 25 Mg Tab 25 Mg PO BID Clonidine (Clonidine HCl) 0.2 Mg Tab 0.2 Mg PO BID PRN Allopurinol 100 Mg Tab 100 Mg PO DAILY Aspirin 81 Mg Chew 81 Mg CHEW DAILY Amlodipine (Amlodipine Besylate) 10 Mg Tab 10 Mg PO DAILY Active Ordered Medications Current Medications Medications (Trade) Dose Ordered Sig/Catherine Route Start Time Stop Time Status Last Admin (NS Flush) 2 ml UNSCH PRN IV FLUSH 09/22/17 22:15 (NS Flush) 2 ml BID IV FLUSH 09/23/17 09:00 09/23/17 08:34 (Zofran Inj) 4 mg Q6H PRN IVP 09/22/17 22:15 (Narcan Inj) 0.4 mg UNSCH PRN IV PUSH 09/22/17 22:15 (Milk Of Magnesia Liq) 30 ml Q12H PRN PO 09/22/17 22:15 (Lactulose Liq) 30 ml DAILY PRN PO 09/22/17 22:15 (Zyloprim) 100 mg DAILY PO 09/23/17 09:00 09/23/17 08:33 (Norvasc) 10 mg DAILY PO 09/23/17 09:00 09/23/17 08:34 (Aspirin Chew) 81 mg DAILY CHEW 09/23/17 09:00 09/23/17 08:34 (Coreg) 25 mg BID PO 09/23/17 09:00 09/23/17 08:33 (Apresoline) 25 mg BID PO 09/23/17 09:00 09/23/17 08:33 (Renvela) 800 mg TID PO 09/23/17 09:00 09/23/17 12:52 (Prinivil) 40 mg DAILY PO 09/23/17 09:00 09/23/17 08:34 (Vibramycin) 100 mg BID PO 09/23/17 09:00 09/23/17 08:34 (Morphine Inj) 2 mg Q3H PRN IV PUSH 09/22/17 23:30 09/23/17 11:42 (Heparin Inj) 1,000 units WITH DIALYSIS PRN XX 09/23/17 09:00 (NS Flush) 10 ml UNSCH PRN IV FLUSH 09/23/17 09:00 (Oscal) 1,000 mg Q6HR PO 09/23/17 12:00 09/23/17 12:52 (Minipress) 1 mg Q12HR PO 09/23/17 11:45 09/23/17 12:52 (KCl) 20 meq DAILY PO 09/23/17 11:45 09/23/17 12:52 (NS Flush) 2 ml BID IV FLUSH 09/23/17 21:00 (NS Flush) 2 ml UNSCH PRN IV FLUSH 09/23/17 12:30 (Plavix) 75 mg DAILY PO 09/23/17 12:30 09/23/17 12:52 (NovoLOG SUPPLEMENTAL SCALE) 1 ACHS SQ 09/23/17 17:00 (D50w (Vial) Inj) 50 ml UNSCH PRN IV PUSH 09/23/17 12:30 (Glucagon Inj) 1 mg UNSCH PRN OTHER 09/23/17 12:30 (Ativan Inj) 1 mg ONCE PRN IV PUSH 09/23/17 12:30 09/23/17 17:00 09/23/17 14:10 Physical Exam Vital Signs Vital Signs Date Time Temp Pulse Resp B/P (MAP) Pulse Ox O2 Delivery O2 Flow Rate FiO2 09/23/17 12:00 98.2 92 18 122/72 (89) 97 09/23/17 08:00 98.5 82 18 142/100 (114) 98 09/23/17 08:00 93 09/23/17 08:00 Room Air 09/23/17 04:00 97.6 83 16 157/88 (111) 98 09/23/17 00:00 97.5 81 16 145/94 (111) 100 09/22/17 23:37 83 09/22/17 23:00 Room Air 09/22/17 21:38 97.8 89 16 139/85 (103) 98 Laboratory Laboratory Tests Test 09/23/17 07:02 White Blood Count 6.4 Red Blood Count 2.97 Hemoglobin 8.2 Hematocrit 24.6 Mean Corpuscular Volume 82.6 Mean Corpuscular Hemoglobin 27.6 Mean Corpuscular Hemoglobin Concent 33.4 Red Cell Distribution Width 17.2 Platelet Count 168 Mean Platelet Volume 9.1 Neutrophils (%) (Auto) 61.3 Lymphocytes (%) (Auto) 27.7 Monocytes (%) (Auto) 5.7 Eosinophils (%) (Auto) 4.2 Basophils (%) (Auto) 1.1 Neutrophils # (Auto) 3.9 Lymphocytes # (Auto) 1.8 Monocytes # (Auto) 0.4 Eosinophils # (Auto) 0.3 Basophils # (Auto) 0.1 CBC Comment DIFF FINAL Differential Comment Blood Urea Nitrogen 44 Creatinine 13.00 Random Glucose 85 Total Protein 5.9 Albumin 2.5 Calcium Level 7.0 Alkaline Phosphatase 34 Aspartate Amino Transf (AST/SGOT) 12 Alanine Aminotransferase (ALT/SGPT) 14 Total Bilirubin 0.4 Sodium Level 139 Potassium Level 3.3 Chloride Level 103 Carbon Dioxide Level 25.5 Anion Gap 11 Estimat Glomerular Filtration Rate 4 Hemoglobin A1c 5.5 Protein Corrected Calcium 7.6 Triglycerides Level 60 Cholesterol Level 119 LDL Cholesterol 72 HDL Cholesterol 35.3 Cholesterol/HDL Ratio 3.37 Result Diagram: 09/23/1770109/23/17701 Assessment and Plan Problem List: (1) TIA (transient ischemic attack) ICD Codes: G45.9 - Transient cerebral ischemic attack, unspecified Plan: 36 y/o F ?TIA consulted for MARIE. No previous TIA, CV, or tachyarrhythmias. No NEED FOR MARIE AT THIS TIME. Plan: 1.Transthoracic 2Dechocardiogram WITH BUBBLE STUDY AT BEDSIDE 2. Risk factors modification 3. Anticoagulation per Neurology 4. Holter monitor upon discharge Thank you for the opportunity to take part in the care of this patient. Reconsult as necessary (2) Malignant hypertension ICD Codes: I10 - Essential (primary) hypertension Status: Acute (3) End stage renal disease ICD Codes: N18.6 - End stage renal disease Status: Acute (4) ESRD (end stage renal disease) on dialysis ICD Codes: N18.6 - End stage renal disease; Z99.2 - Dependence on renal dialysis Status: Acute (5) HTN (hypertension) ICD Codes: I10 - Essential (primary) hypertension Status: Acute (6) Anemia ICD Codes: D64.9 - Anemia, unspecified Status: Acute (7) Left sided numbness ICD Codes: R20.0 - Anesthesia of skin Status: Acute (8) Alport syndrome ICD Codes: Q87.81 - Alport syndrome Status: Chronic (9) Renal insufficiency ICD Codes: N28.9 - Disorder of kidney and ureter, unspecified Status: Acute John Hendrickson MD Sep 23, 2017 14:21
--- NOTE | 2017-09-23 14:53 | HHI.PR ---
Subjective Remarks No chest pain this morning. Her left-sided weakness has improved. MRI pending. Creatinine is elevated and calcium levels are off balance. She has chronic use of hemodialysis which may be related to Objective Vital Signs Date Time Temp Pulse Resp B/P (MAP) Pulse Ox O2 Delivery O2 Flow Rate FiO2 09/23/17 12:00 98.2 92 18 122/72 (89) 97 09/23/17 08:00 98.5 82 18 142/100 (114) 98 09/23/17 08:00 93 09/23/17 08:00 Room Air 09/23/17 04:00 97.6 83 16 157/88 (111) 98 09/23/17 00:00 97.5 81 16 145/94 (111) 100 09/22/17 23:37 83 09/22/17 23:00 Room Air 09/22/17 21:38 97.8 89 16 139/85 (103) 98 Result Diagram: 09/23/17 0709/23/17 07 Objective Remarks GENERAL: NAD, A&Ox3 HEAD: Normocephalic. NECK: Supple, trachea midline. No lymphadenopathy. EYES: No scleral icterus. No injection or drainage. CARDIOVASCULAR: Regular rate and rhythm without murmurs, gallops, or rubs. RESPIRATORY: Breath sounds equal bilaterally. No accessory muscle use. GASTROINTESTINAL: Abdomen soft, non-tender, nondistended. MUSCULOSKELETAL: No cyanosis, or edema. SKIN: Warm and dry. NEURO: Left arm and hand weakness compared to right. 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 Left-sided weakness History of TIA MRI and MRA pending Neurology following Continue physical therapy and occupational therapy Morphine for pain 2-D echocardiogram pending End-stage renal disease Continue Peritoneal dialysis Nephrology following Continue renal diet Hypertension Follow blood pressures Continue baseline treatments Hypertensive urgency has resolved Sinus infection, chronic Continue doxycycline PO 100mg DVT prophylaxis SCDs Sergey March MD Sep 23, 2017 14:53
--- NOTE | 2017-09-23 15:29 | RADRPT ---
EXAM DATE/TIME: 09/23/2017 14:06 [facility] COMPARISON: US CAROTID ARTERIES, January 22, 2017, 20:11. INDICATIONS : Cerebrovascular accident. MEDICAL HISTORY : Hypertension. Multiple TIAs. Thyroid disease. Numbness. Dizziness. Chest pain. Alport's syndrome. gout. anemia. paresthesisa. anticoagulant therapy, apsirin 81mg. SURGICAL HISTORY : Hysterectomy. Tubal ligation. Cholecystectomy. Peritoneal dialysis. Parathyroidectomy. Vaginal ablati on. Blood transfusions. ENCOUNTER: Subsequent ACUITY: 2 days PAIN SCORE: 7/10 LOCATION: Bilateral neck PEAK SYSTOLIC VELOCITIES (cm/sec): ICA/CCA RATIO: Right: 0.9 Left: 0.6 ICA: Right: 119 Left: 92 CCA: Right: 130 Left: 144 ECA: Right: 103 Left: 96 VERTEBRAL: Right: 45 antegrade Left: 65 antegrade Elevated flow velocities and ICA/CCA ratios have been found to correlate with increased degrees of vessel stenosis, calculated as percentage of diameter relative to a normal segment of distal ICA/CCA FINDINGS: RIGHT CAROTID: No significant stenosis is visualized. The waveforms are within normal limits. LEFT CAROTID: No significant stenosis is visualized. The waveforms are within normal limits. VERTEBRAL ARTERIES: Antegrade flow is seen in both vertebral arteries. MISCELLANEOUS: Predominantly cystic, 1.5 x 1.0 x 1.3 cm lesion with a known nodule in the midpole of the right thyro id. 1.5 x 1.1 x 1.5 cm solid lesion in the lower pole on the left. CONCLUSION: 1. Normal sonographic appearance of the cervical vessels. No sonographic or Doppler findings of a hem odynamically significant stenosis. Antegrade flow in both vertebral arteries. 2. Multiple thyroid nodules, cystic on the right and more solid on the left. Dedicated thyroid ultras ound can be performed for further characterization if clinically warranted. Sukumar Molina MD on September 23, 2017 at 15:24 Board Certified Radiologist. This report was verified electronically.
--- NOTE | 2017-09-23 15:56 | RADRPT ---
EXAM DATE/TIME: 09/23/2017 14:58 [facility] COMPARISON: MRA BRAIN W/O CONTRAST, January 23, 2017, 9:35. INDICATIONS : Left sided weakness. Headaches and neck pain. MEDICAL HISTORY : Renal failure, chronic. SURGICAL HISTORY : Hysterectomy. ENCOUNTER: Initial ACUITY: 1 day PAIN SCORE: 3/10 LOCATION: cranial Please note a normal MRA of the brain does not entirely exclude the possibility of a small aneurysm, nor the possibility of distal intracranial vessel disease. TECHNIQUE: 3D time of flight MRA was performed. Source images, multiplanar STS MIP, and 3D volume MIP reconstru ctions were reviewed. FINDINGS: There is excellent visualization of the major intracranial arteries out to the second-order branch ve ssels. There is no evidence for aneurysm, vessel truncation or stenosis, and no evidence for vascula r malformation. CONCLUSION: Negative exam. Intracranial vessels are all patent without aneurysmal disease. Sukumar Molina MD on September 23, 2017 at 15:54 Board Certified Radiologist. This report was verified electronically.
--- NOTE | 2017-09-23 15:58 | RADRPT ---
EXAM DATE/TIME: 09/23/2017 14:58 [facility] COMPARISON: MRI BRAIN W/O CONTRAST, May 09, 2017, 22:43. INDICATIONS : Left sided weakness. Headaches and neck pain. MEDICAL HISTORY : Renal failure, chronic. SURGICAL HISTORY : Hysterectomy. ENCOUNTER: Initial ACUITY: 1 day PAIN SCORE: 3/10 LOCATION: cranial TECHNIQUE: Multiplanar, multisequence MRI of the brain was performed without contrast. FINDINGS: CEREBRUM: The ventricles are normal for age. No evidence of midline shift, mass lesion, hemorrhage or acute in farction. No extraaxial fluid collections are seen. The pituitary gland and suprasellar cistern are normal in configuration. WHITE MATTER: No significant signal abnormalities are seen in the white matter. POSTERIOR FOSSA: The cerebellum and brainstem are intact. The 4th ventricle is midline. The cerebellopontine angle is unremarkable. The cerebellar tonsils are normal in position. DIFFUSION IMAGING: No focal areas of restricted diffusion are seen. No evidence of acute infarction. EXTRACRANIAL: The visualized portions of the orbits are unremarkable. Mucoperiosteal thickening in the left ethmoid air cells and left maxillary antra. CONCLUSION: 1. Chronic sinusitis in the left ethmoid air cells and left maxillary antra. 2. Otherwise negative. No change from prior. Sukumar Molina MD on September 23, 2017 at 15:55 Board Certified Radiologist. This report was verified electronically.
[2017-09-23] MEDS: INSULIN ASPART SUPPLEMENTAL SCALE SQ SCH ×2 (17:00→20:43)
[2017-09-23] MEDS ORDERED: diphenhydrAMINE HCL 50 MG/ML VIAL IV PUSH ONE (18:30)
[2017-09-23] MEDS ORDERED: TEMAZEPAM 7.5 MG CAP PO ONE (20:30)
[2017-09-23] MEDS: SODIUM CHLORIDE 0.9% FLUSH 5 ML FLUSH IV FLUSH SCH (20:43)
[2017-09-24] VITALS (7 sets, daily range): BP systolic 117–132; BP diastolic 62–76; PULSE 85–102; RESP 16–20; TEMP 98–98.7; O2SAT 95–99
[2017-09-24] MEDS: CALCIUM CARBONATE 1.25 GM (CA 500 MG) TAB PO SCH ×4 (00:04→17:12)
[2017-09-24] MEDS: MORPHINE SULFATE 4 MG/ML INJ IV PUSH PRN ×6 (00:07→21:59)
[2017-09-24 06:44] LABS: AUTOMATED NEUTROPHIL # 3.5 TH/MM3 (1.8-7.7); BASOPHIL % 0.8 % (0.0-2.0); EOSINOPHIL # 0.2 TH/MM3 (0-0.4); EOSINOPHIL % 3.9 % (0.0-4.0); HEMATOCRIT 23.5 % (35.0-46.0); HEMO FLAGS DIFF FINAL; LYMPH % 28.3 % (9.0-44.0); LYMPHOCYTE # 1.7 TH/MM3 (1.0-4.8); MEAN CELL VOLUME 81.6 FL (80.0-100.0); MEAN CORPUSCULAR HEMOGLOBIN 26.9 PG (27.0-34.0); MONO % 7.7 % (0.0-8.0); NEUT % 59.3 % (16.0-70.0); PLATELET COUNT 154 TH/MM3 (150-450); RED BLOOD COUNT 2.88 MIL/MM3 (4.00-5.30); RED CELL DISTRIBUTION WIDTH 16.3 % (11.6-17.2); WHITE BLOOD COUNT 5.9 TH/MM3 (4.0-11.0)
[2017-09-24 06:55] LABS: BICARBONATE 27.2 MEQ/L (21.0-32.0); CALCIUM-PROTEIN CORRECTED 8.1 MG/DL (8.5-10.1); POTASSIUM 3.9 MEQ/L (3.5-5.1); TOTAL BILIRUBIN ADULT 0.4 MG/DL (0.2-1.0)
--- NOTE | 2017-09-24 07:40 | HHI.PR ---
Review/Management Diagnosis right hemispheric TIA--resolved. Plan continue plavix follow up echo and hypercoag labs. Diagnosis/Plan: Subjective Subjective Comments No acute events reported feels normal on left side except mild residual numbness left hand Active Medications Current Medications Medications (Trade) Dose Ordered Sig/Catherine Route Start Time Stop Time Status Last Admin (NS Flush) 2 ml UNSCH PRN IV FLUSH 09/22/17 22:15 (NS Flush) 2 ml BID IV FLUSH 09/23/17 09:00 09/23/17 20:41 (Zofran Inj) 4 mg Q6H PRN IVP 09/22/17 22:15 09/23/17 17:52 (Narcan Inj) 0.4 mg UNSCH PRN IV PUSH 09/22/17 22:15 (Milk Of Magnesia Liq) 30 ml Q12H PRN PO 09/22/17 22:15 (Lactulose Liq) 30 ml DAILY PRN PO 09/22/17 22:15 (Zyloprim) 100 mg DAILY PO 09/23/17 09:00 09/23/17 08:33 (Norvasc) 10 mg DAILY PO 09/23/17 09:00 09/23/17 08:34 (Aspirin Chew) 81 mg DAILY CHEW 09/23/17 09:00 09/23/17 08:34 (Coreg) 25 mg BID PO 09/23/17 09:00 09/23/17 20:42 (Apresoline) 25 mg BID PO 09/23/17 09:00 09/23/17 20:42 (Renvela) 800 mg TID PO 09/23/17 09:00 09/23/17 17:55 (Prinivil) 40 mg DAILY PO 09/23/17 09:00 09/23/17 08:34 (Vibramycin) 100 mg BID PO 09/23/17 09:00 09/23/17 20:42 (Morphine Inj) 2 mg Q3H PRN IV PUSH 09/22/17 23:30 09/24/17 05:00 (Heparin Inj) 1,000 units WITH DIALYSIS PRN XX 09/23/17 09:00 (NS Flush) 10 ml UNSCH PRN IV FLUSH 09/23/17 09:00 (Oscal) 1,000 mg Q6HR PO 09/23/17 12:00 09/24/17 05:00 (Minipress) 1 mg Q12HR PO 09/23/17 11:45 09/23/17 20:42 (KCl) 20 meq DAILY PO 09/23/17 11:45 09/23/17 12:52 (NS Flush) 2 ml BID IV FLUSH 09/23/17 21:00 (NS Flush) 2 ml UNSCH PRN IV FLUSH 09/23/17 12:30 (Plavix) 75 mg DAILY PO 09/23/17 12:30 09/23/17 12:52 (NovoLOG SUPPLEMENTAL SCALE) 1 ACHS SQ 09/23/17 17:00 (D50w (Vial) Inj) 50 ml UNSCH PRN IV PUSH 09/23/17 12:30 (Glucagon Inj) 1 mg UNSCH PRN OTHER 09/23/17 12:30 Allergies Allergies Coded Allergies ceftriaxone (Unverified Allergy, Severe, RASH, 09/22/17) gentamicin (Unverified Allergy, Severe, RASH, 09/22/17) levofloxacin (Unverified Allergy, Severe, ITCHING, 09/22/17) acetaminophen (Unverified Allergy, Intermediate, Nausea/Vomiting, 09/22/17) hydrocodone (Unverified Allergy, Intermediate, Nausea/Vomiting, 09/22/17) tramadol (Unverified Allergy, Intermediate, itching, 09/22/17) diatrizoate meglumine (Unverified Adverse Reaction, Unknown, due to renal failure, 09/22/17) gadobenic acid (Unverified Adverse Reaction, Unknown, due to renal failure, ) gadodiamide (Unverified Adverse Reaction, Unknown, due to renal failure, 09/22) gadoteridol (Unverified Adverse Reaction, Unknown, due to renal failure, 09/22) iodixanol (Unverified Adverse Reaction, Unknown, due to renal failure, ) iohexol (Unverified Adverse Reaction, Unknown, due to renal failure, 09/22/17) sulfamethoxazole (Unverified Adverse Reaction, Unknown, due to kidney failure , 09/22/17) trimethoprim (Unverified Adverse Reaction, Unknown, due to kidney failure, 09/28) Exam I&O / VS 09/24/17 09/24/1709/25/17 15:00 23:00 07:00 Intake Total 600 ml Output Total 200 ml Balance 400 ml Intake Oral 600 ml Output Urine Total 200 ml # Bowel Movements 0 Vital Signs Date Time Temp Pulse Resp B/P (MAP) Pulse Ox O2 Delivery O2 Flow Rate FiO2 09/24/17 04:00 98.7 91 20 120/62 (81) 97 09/24/17 00:00 98.3 89 20 126/66 (86) 95 09/23/17 21:00 89 09/23/17 20:00 98.7 81 20 155/96 (115) 98 09/23/17 20:00 Room Air 09/23/17 16:00 98.0 89 18 113/70 (84) 97 09/23/17 12:00 98.2 92 18 122/72 (89) 97 09/23/17 08:00 98.5 82 18 142/100 (114) 98 09/23/17 08:00 93 09/23/17 08:00 Room Air Exam Comments alert, speech normal CN intact MOTOR 5/5 BUE and BLE Objective Radiology Results MRI brain--no acute stroke carotid US--no stenosis Micro and Labs Laboratory Tests Test 09/24/17 05:55 White Blood Count 5.9 Red Blood Count 2.88 Hemoglobin 7.8 Hematocrit 23.5 Mean Corpuscular Volume 81.6 Mean Corpuscular Hemoglobin 26.9 Mean Corpuscular Hemoglobin Concent 33.0 Red Cell Distribution Width 16.3 Platelet Count 154 Mean Platelet Volume 8.5 Neutrophils (%) (Auto) 59.3 Lymphocytes (%) (Auto) 28.3 Monocytes (%) (Auto) 7.7 Eosinophils (%) (Auto) 3.9 Basophils (%) (Auto) 0.8 Neutrophils # (Auto) 3.5 Lymphocytes # (Auto) 1.7 Monocytes # (Auto) 0.5 Eosinophils # (Auto) 0.2 Basophils # (Auto) 0.0 CBC Comment DIFF FINAL Differential Comment Erik Patino PhD Sep 24, 2017 07:40
[2017-09-24] MEDS: INSULIN ASPART SUPPLEMENTAL SCALE SQ SCH ×4 (08:00→21:00)
[2017-09-24] MEDS: SEVELAMER CARBONATE 800 MG TAB PO SCH ×3 (08:45→17:12)
[2017-09-24] MEDS: PRAZOSIN HCL 1 MG CAP PO SCH ×2 (08:46→21:59)
[2017-09-24] MEDS: POTASSIUM CHLORIDE 20 MEQ CONTROLLED RELEASE TAB PO SCH (08:46)
[2017-09-24] MEDS: hydrALAZINE HCL 25 MG TAB PO SCH ×2 (08:46→21:59)
[2017-09-24] MEDS: ALLOPURINOL 100 MG TAB PO SCH (08:46)
[2017-09-24] MEDS: LISINOPRIL 20 MG TAB PO SCH (08:46)
[2017-09-24] MEDS: ASPIRIN 81 MG CHEW TAB CHEW SCH (08:47)
[2017-09-24] MEDS: CARVEDILOL 12.5 MG TAB PO SCH ×2 (08:47→21:59)
[2017-09-24] MEDS: DOXYCYCLINE HYCLATE 100 MG CAP PO SCH ×2 (08:47→21:59)
[2017-09-24] MEDS: SODIUM CHLORIDE 0.9% FLUSH 5 ML FLUSH IV FLUSH SCH ×2 (09:00→21:00)
--- NOTE | 2017-09-24 10:24 | HHI.PR ---
Subjective Remarks Her complaint today is itching. Hemoglobin has dropped to 7.8. Patient is on Plavix. She feels that Plavix may be contributing to her itching. It is either Plavix or her renal status which is contributing to itching. Objective Vital Signs Date Time Temp Pulse Resp B/P (MAP) Pulse Ox O2 Delivery O2 Flow Rate FiO2 09/24/17 08:59 98 21 09/24/17 08:00 98.7 89 20 125/76 (92) 97 09/24/17 04:00 98.7 91 20 120/62 (81) 97 09/24/17 00:00 98.3 89 20 126/66 (86) 95 09/23/17 21:00 89 09/23/17 20:00 98.7 81 20 155/96 (115) 98 09/23/17 20:00 Room Air 09/23/17 16:00 98.0 89 18 113/70 (84) 97 09/23/17 12:00 98.2 92 18 122/72 (89) 97 I/O 09/23/17 09/23/17 09/23/17 09/24/17 09/24/17 09/24/17 07:00 15:00 23:00 07:00 15:00 23:00 Intake Total 1180 ml 600 ml Output Total 200 ml 200 ml Balance 980 ml 400 ml Intake Oral 1180 ml 600 ml Output Urine Total 200 ml 200 ml # Voids 3 # Bowel Movements 1 0 Result Diagram: 09/24/17 0555 09/24/17 0555 Objective Remarks GENERAL: NAD, A&Ox3 HEAD: Normocephalic. NECK: Supple, trachea midline. No lymphadenopathy. EYES: No scleral icterus. No injection or drainage. CARDIOVASCULAR: Regular rate and rhythm without murmurs, gallops, or rubs. RESPIRATORY: Breath sounds equal bilaterally. No accessory muscle use. GASTROINTESTINAL: Abdomen soft, non-tender, nondistended. MUSCULOSKELETAL: No cyanosis, or edema. SKIN: Warm and dry. NEURO: Left arm and hand weakness compared to right. 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 Pruritus Benadryl as needed every 6 hours Plavix allergy versus renal etiology Hold Plavix for now Acute blood loss anemia Recent history of GI bleed patient Stool occult studies pending Hold Plavix for now Left-sided weakness History of TIA MRI and MRA pending Neurology following Continue physical therapy and occupational therapy Morphine for pain 2-D echocardiogram pending End-stage renal disease Continue Peritoneal dialysis Nephrology following Continue renal diet Hypertension Follow blood pressures Continue baseline treatments Hypertensive urgency has resolved Sinus infection, chronic Continue doxycycline PO 100mg DVT prophylaxis Sergey Zamora MD Sep 24, 2017 10:24
[2017-09-24] MEDS ORDERED: diphenhydrAMINE HCL 50 MG/ML VIAL IV PUSH ONE (10:30)
[2017-09-24] MEDS: diphenhydrAMINE HCL 50 MG/ML VIAL IV PUSH PRN (17:12)
--- NOTE | 2017-09-24 17:33 | ECHRPT ---
Indication: CVA/TIA CONCLUSIONS Mildly dilated left ventricle. Mild concentric left ventricular hypertrophy. The left ventricular systolic function is normal with an estimated ejection fraction in the range of 55-60%. Mild aortic dilatation at the level of the sinuses of Valsalva. BP: 157 / 88 HR: 83 Rhythm: MEASUREMENTS (Male / Female) Normal Values Technical Quality:Good 2D ECHO LV Diastolic Diameter PLAX 5.1 cm 4.2 - 5.9 / 3.9 - 5.3 cm LV Systolic Diameter PLAX 3.8 cm IVS Diastolic Thickness 1.4 cm 0.6 - 1.0 / 0.6 - 0.9 cm LVPW Diastolic Thickness 1.1 cm 0.6 - 1.0 / 0.6 - 0.9 cm LV Relative Wall Thickness 0.5 RV Internal Dim ED PLAX 2.5 cm LA Systolic Diameter LX 3.7 cm 3.0 - 4.0 / 2.7 - 3.8 cm M-MODE Aortic Root Diameter MM 3.5 cm AV Cusp Separation MM 2.3 cm DOPPLER Mitral E Point Velocity 99.7 cm/s Mitral A Point Velocity 69.6 cm/s Mitral E to A Ratio 1.4 TR Peak Velocity 155.0 cm/s TR Peak Gradient 9.6 mmHg Right Atrial Pressure 5.0 mmHg Pulmonary Artery Systolic Pressu 14.6 mmHg Right Ventricular Systolic Press 14.6 mmHg FINDINGS LEFT VENTRICLE Mildly dilated left ventricle. Mild concentric left ventricular hypertrophy. The left ventricular systolic function is normal with an estimated ejection fraction in the range of 55-60%. RIGHT VENTRICLE Normal right ventricular size and systolic function. LEFT ATRIUM The left atrial size is normal. RIGHT ATRIUM The right atrial size is normal. ATRIAL SEPTUM Normal atrial septal thickness without atrial level shunting by limited color doppler interrogation. AORTA Mild aortic dilatation at the level of the sinuses of Valsalva. MITRAL VALVE Structurally normal mitral valve. No mitral valve stenosis or regurgitation. AORTIC VALVE Trileaflet aortic valve. No aortic valve stenosis or regurgitation. TRICUSPID VALVE Structurally normal tricuspid valve. No tricuspid valve stenosis or regurgitation. PULMONARY VALVE No pulmonary valve regurgitation or stenosis. VESSELS The inferior vena cava is normal in size. PERICARDIUM No pericardial effusion. Dinora Faulkner MD, FACC (Electronically Signed) Final Date:24 September 2017 17:32
--- NOTE | 2017-09-24 17:39 | HHI.NPPN ---
Subjective History of Present Illness 36 year old female with ESRD on PD Hypertensive urgency TIA Objective Data Data 09/24/17 09/25/17 19:00 07:00 Intake Total 600 ml Output Total 200 ml Balance 400 ml Intake Oral 600 ml Output Urine Total 200 ml # Bowel Movements 0 Vital Signs Date Time Temp Pulse Resp B/P (MAP) Pulse Ox O2 Delivery O2 Flow Rate FiO2 09/24/17 08:59 98 21 09/24/17 08:00 Room Air 09/24/17 08:00 98.7 89 20 125/76 (92) 97 09/24/17 04:00 98.7 91 20 120/62 (81) 97 09/24/17 00:00 98.3 89 20 126/66 (86) 95 09/23/17 21:00 89 09/23/17 20:00 98.7 81 20 155/96 (115) 98 09/23/17 20:00 Room Air -: 09/24/17 0555 09/24/17 0555 Microbiology 09/24/17 Stool Occult Blood (TAMARA), Received Pending Physical Exam General Appearance: Well Developed, Well Nourished Neck Neck Exam: Neck Supple Pulmonary Resp Exam: Clear Bilaterally, Breath Sounds Equal Cardiology CV Exam: Regular, Normal Sinus Rhythm Gastrointestinal/Abdomen GI Exam: Soft, Non-Tender, Bowel Sounds Present Extremeties Extremities Exam: No Edema Neurologic Neuro Exam: Alert Assessment/Plan Problem List: (1) ESRD (end stage renal disease) ICD Codes: N18.6 - End stage renal disease Status: Acute Plan: Patient is on peritoneal dialysis Anemia give 20k procrit (2) TIA (transient ischemic attack) ICD Codes: G45.9 - Transient cerebral ischemic attack, unspecified Plan: Continue to monitor her symptoms are resolved (3) Hypertensive urgency ICD Codes: I16.0 - Hypertensive urgency Status: Acute Plan: RESOLVED (4) H/O parathyroidectomy ICD Codes: E89.2 - Postprocedural hypoparathyroidism Plan: Continue replace calcium Vanessa Lee MD Sep 24, 2017 17:39
[2017-09-24] MEDS ORDERED: EPOETIN ALFA 20,000 UNITS/ML VIAL SQ ONE (18:15)
[2017-09-24] MEDS: SODIUM CHLORIDE 0.9% FLUSH 10 ML FLUSH IV FLUSH SCH (21:00)
[2017-09-25] VITALS (10 sets, daily range): BP systolic 97–132; BP diastolic 63–83; PULSE 86–100; RESP 18–20; TEMP 98.3–98.7; O2SAT 95–100
[2017-09-25] MEDS: CALCIUM CARBONATE 1.25 GM (CA 500 MG) TAB PO SCH ×4 (00:13→18:37)
[2017-09-25] MEDS: diphenhydrAMINE HCL 50 MG/ML VIAL IV PUSH PRN ×4 (00:14→18:38)
[2017-09-25] MEDS: MORPHINE SULFATE 4 MG/ML INJ IV PUSH PRN ×5 (06:23→21:36)
[2017-09-25] MEDS: INSULIN ASPART SUPPLEMENTAL SCALE SQ SCH ×3 (08:00→17:00)
[2017-09-25] MEDS: SODIUM CHLORIDE 0.9% FLUSH 5 ML FLUSH IV FLUSH SCH ×2 (09:00→20:48)
[2017-09-25 09:02] LABS: AUTOMATED NEUTROPHIL # 2.9 TH/MM3 (1.8-7.7); BASOPHIL % 0.4 % (0.0-2.0); EOSINOPHIL # 0.2 TH/MM3 (0-0.4); EOSINOPHIL % 4.1 % (0.0-4.0); HEMATOCRIT 23.7 % (35.0-46.0); HEMO FLAGS DIFF FINAL; LYMPH % 24.2 % (9.0-44.0); LYMPHOCYTE # 1.1 TH/MM3 (1.0-4.8); MEAN CELL VOLUME 82.1 FL (80.0-100.0); MEAN CORPUSCULAR HEMOGLOBIN 26.9 PG (27.0-34.0); MEAN CORPUSCULAR HGB CONC 32.8 % (32.0-36.0); MONO % 7.7 % (0.0-8.0); NEUT % 63.6 % (16.0-70.0); PLATELET COUNT 166 TH/MM3 (150-450); RED BLOOD COUNT 2.89 MIL/MM3 (4.00-5.30); RED CELL DISTRIBUTION WIDTH 16.2 % (11.6-17.2); WHITE BLOOD COUNT 4.5 TH/MM3 (4.0-11.0)
[2017-09-25 09:27] LABS: ANION GAP 10 MEQ/L (5-15); AST (GOT) 10 U/L (15-37); BICARBONATE 26.9 MEQ/L (21.0-32.0); BLOOD UREA NITROGEN 47 MG/DL (7-18); CHLORIDE 99 MEQ/L (98-107); GLOMERULAR FILTRATION RATE 4 ML/MIN (>89); POTASSIUM 4.5 MEQ/L (3.5-5.1); SODIUM (NA) 136 MEQ/L (136-145)
[2017-09-25] MEDS: PRAZOSIN HCL 1 MG CAP PO SCH ×2 (09:28→20:47)
[2017-09-25] MEDS: ALLOPURINOL 100 MG TAB PO SCH (09:28)
[2017-09-25] MEDS: hydrALAZINE HCL 25 MG TAB PO SCH ×2 (09:28→20:47)
[2017-09-25] MEDS: ASPIRIN 81 MG CHEW TAB CHEW SCH (09:28)
[2017-09-25] MEDS: CARVEDILOL 12.5 MG TAB PO SCH ×2 (09:28→20:47)
[2017-09-25] MEDS: DOXYCYCLINE HYCLATE 100 MG CAP PO SCH ×2 (09:28→20:47)
[2017-09-25 09:29] LABS: ALT (GPT) 13 U/L (10-53)
[2017-09-25] MEDS: POTASSIUM CHLORIDE 20 MEQ CONTROLLED RELEASE TAB PO SCH (09:29)
[2017-09-25] MEDS: LISINOPRIL 20 MG TAB PO SCH (09:29)
[2017-09-25] MEDS: SODIUM CHLORIDE 0.9% FLUSH 10 ML FLUSH IV FLUSH SCH ×2 (09:30→20:48)
[2017-09-25 09:31] LABS: ALKALINE PHOSPHATASE 33 U/L (45-117); TOTAL BILIRUBIN ADULT 0.3 MG/DL (0.2-1.0)
[2017-09-25] MEDS: SEVELAMER CARBONATE 800 MG TAB PO SCH ×3 (09:34→18:37)
--- NOTE | 2017-09-25 10:22 | HHI.PR ---
Subjective Remarks Patient itching has improved off Plavix. Hemoglobin remains at 7.8. No signs of active bleeding. Stool study is negative for occult blood. She may have had previous GI bleeding and may be having difficulty regenerating her red blood cells and hemoglobin levels. Neupogen has been started. No further weakness. Objective Vital Signs Date Time Temp Pulse Resp B/P (MAP) Pulse Ox O2 Delivery O2 Flow Rate FiO2 09/25/17 08:00 98.3 100 20 123/66 (85) 97 09/25/17 04:00 98.7 96 18 132/83 (99) 100 09/25/17 00:00 98.5 89 18 121/67 (85) 97 09/24/17 20:00 94 09/24/17 20:00 98.6 102 16 132/68 (89) 99 09/24/17 16:00 98.2 89 20 117/68 (84) 98 09/24/17 12:00 98.0 87 20 127/68 (87) 98 I/O 09/24/17 09/24/17 09/24/17 09/25/17 09/25/17 09/25/17 07:00 15:00 23:00 07:00 15:00 23:00 Intake Total 600 ml 360 ml 240 ml Output Total 200 ml Balance 400 ml 360 ml 240 ml Intake Oral 600 ml 360 ml 240 ml Output Urine Total 200 ml # Voids 3 3 # Bowel Movements 0 3 0 Result Diagram: 09/25/1770309/25/17 0704 Objective Remarks GENERAL: NAD, A&Ox3 HEAD: Normocephalic. NECK: Supple, trachea midline. No lymphadenopathy. EYES: No scleral icterus. No injection or drainage. CARDIOVASCULAR: Regular rate and rhythm without murmurs, gallops, or rubs. RESPIRATORY: Breath sounds equal bilaterally. No accessory muscle use. GASTROINTESTINAL: Abdomen soft, non-tender, nondistended. MUSCULOSKELETAL: No cyanosis, or edema. SKIN: Warm and dry. NEURO: Left arm and hand weakness compared to right. 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 Labs reviewed. Hemoglobin remains low. Continue to monitor labs. Neupogen initiated. Pruritus Benadryl as needed every 6 hours Plavix allergy versus renal etiology Hold Plavix for now, consider resuming tomorrow based on clinical status Acute blood loss anemia Anemia of chronic disease Recent history of GI bleed patient Stool occult studies pending Hold Plavix for now Epogen started Left-sided weakness History of TIA MRI and MRA pending Neurology following Continue physical therapy and occupational therapy Morphine for pain 2-D echocardiogram pending End-stage renal disease Continue Peritoneal dialysis Nephrology following Continue renal diet Hypertension Follow blood pressures Continue baseline treatments Hypertensive urgency has resolved Sinus infection, chronic Continue doxycycline PO 100mg DVT prophylaxis SCDs Sergey March MD Sep 25, 2017 10:22
[2017-09-26] VITALS (8 sets, daily range): BP systolic 116–153; BP diastolic 64–76; PULSE 81–94; RESP 16–18; TEMP 97.8–98.6; O2SAT 96–100
[2017-09-26] MEDS: MORPHINE SULFATE 4 MG/ML INJ IV PUSH PRN ×7 (00:13→21:40)
[2017-09-26] MEDS: CALCIUM CARBONATE 1.25 GM (CA 500 MG) TAB PO SCH ×4 (00:13→16:54)
[2017-09-26] MEDS: diphenhydrAMINE HCL 50 MG/ML VIAL IV PUSH PRN ×4 (00:13→18:12)
[2017-09-26] MEDS: SODIUM CHLORIDE 0.9% FLUSH 5 ML FLUSH IV FLUSH SCH ×2 (09:00→21:00)
[2017-09-26] MEDS: SEVELAMER CARBONATE 800 MG TAB PO SCH ×3 (09:02→16:54)
[2017-09-26] MEDS: ALLOPURINOL 100 MG TAB PO SCH (09:02)
[2017-09-26] MEDS: hydrALAZINE HCL 25 MG TAB PO SCH ×2 (09:02→21:39)
[2017-09-26] MEDS: LISINOPRIL 20 MG TAB PO SCH (09:02)
[2017-09-26] MEDS: PRAZOSIN HCL 1 MG CAP PO SCH ×2 (09:02→21:39)
[2017-09-26] MEDS: POTASSIUM CHLORIDE 20 MEQ CONTROLLED RELEASE TAB PO SCH (09:02)
[2017-09-26] MEDS: SODIUM CHLORIDE 0.9% FLUSH 10 ML FLUSH IV FLUSH SCH ×2 (09:03→21:38)
[2017-09-26] MEDS: CARVEDILOL 12.5 MG TAB PO SCH ×2 (09:03→21:38)
[2017-09-26] MEDS: DOXYCYCLINE HYCLATE 100 MG CAP PO SCH ×2 (09:03→21:39)
[2017-09-26] MEDS: ASPIRIN 81 MG CHEW TAB CHEW SCH (09:03)
[2017-09-26 10:49] LABS: BASOPHIL % 0.5 % (0.0-2.0); EOSINOPHIL # 0.3 TH/MM3 (0-0.4); EOSINOPHIL % 5.1 % (0.0-4.0); HEMATOCRIT 24.8 % (35.0-46.0); HEMO FLAGS DIFF FINAL; LYMPH % 26.4 % (9.0-44.0); LYMPHOCYTE # 1.4 TH/MM3 (1.0-4.8); MEAN CORPUSCULAR HEMOGLOBIN 27.1 PG (27.0-34.0); MEAN CORPUSCULAR HGB CONC 32.7 % (32.0-36.0); MONO % 9.7 % (0.0-8.0); NEUT % 58.3 % (16.0-70.0); PLATELET COUNT 161 TH/MM3 (150-450); RED BLOOD COUNT 2.99 MIL/MM3 (4.00-5.30); RED CELL DISTRIBUTION WIDTH 16.4 % (11.6-17.2); WHITE BLOOD COUNT 5.2 TH/MM3 (4.0-11.0)
[2017-09-26 11:16] LABS: ANION GAP 10 MEQ/L (5-15); AST (GOT) 13 U/L (15-37); BICARBONATE 27.3 MEQ/L (21.0-32.0); BLOOD UREA NITROGEN 51 MG/DL (7-18); CHLORIDE 99 MEQ/L (98-107); GLOMERULAR FILTRATION RATE 3 ML/MIN (>89); POTASSIUM 4.5 MEQ/L (3.5-5.1); SODIUM (NA) 136 MEQ/L (136-145)
[2017-09-26 11:24] LABS: ALKALINE PHOSPHATASE 37 U/L (45-117); ALT (GPT) 16 U/L (10-53); TOTAL BILIRUBIN ADULT 0.3 MG/DL (0.2-1.0)
--- NOTE | 2017-09-26 14:00 | HHI.NPPN ---
Subjective History of Present Illness 36 year old female with ESRD on PD Hypertensive urgency TIA Objective Data Data 09/26/17 09/27/17 19:00 07:00 Output Total 653 ml Balance -653 ml Peritoneal Fluid 653 ml Vital Signs Date Time Temp Pulse Resp B/P (MAP) Pulse Ox O2 Delivery O2 Flow Rate FiO2 09/26/17 12:07 98.4 86 18 116/64 (81) 96 09/26/17 09:41 99 21 09/26/17 09:00 96 Room Air 09/26/17 08:04 98.0 93 17 153/76 (101) 96 09/26/17 04:00 97.8 85 16 119/70 (86) 96 09/26/17 00:00 98.3 94 16 120/65 (83) 96 09/25/17 20:19 Room Air 09/25/17 20:05 90 09/25/17 20:00 98.3 87 18 124/74 (91) 98 09/25/17 17:53 98 21 09/25/17 16:00 98.3 88 20 123/65 (84) 98 -: 09/26/17 0935 09/26/17 0935 Physical Exam General Appearance: Well Developed, Well Nourished Neck Neck Exam: Neck Supple Pulmonary Resp Exam: Clear Bilaterally, Breath Sounds Equal Cardiology CV Exam: Regular, Normal Sinus Rhythm Gastrointestinal/Abdomen GI Exam: Soft, Non-Tender, Bowel Sounds Present Extremeties Extremities Exam: No Edema Neurologic Neuro Exam: Alert Assessment/Plan Problem List: (1) ESRD (end stage renal disease) ICD Codes: N18.6 - End stage renal disease Status: Acute Plan: Patient is on peritoneal dialysis 653 ml UF Anemia FRANZ in progress Hb 8.1 after Epo (2) TIA (transient ischemic attack) ICD Codes: G45.9 - Transient cerebral ischemic attack, unspecified Plan: Continue to monitor her symptoms are resolved (3) Hypertensive urgency ICD Codes: I16.0 - Hypertensive urgency Status: Acute Plan: RESOLVED (4) H/O parathyroidectomy ICD Codes: E89.2 - Postprocedural hypoparathyroidism Plan: Continue replace calcium Vanessa Lee MD Sep 26, 2017 14:00
[2017-09-26] MEDS ORDERED: CLOPIDOGREL 75 MG TAB PO ONE (16:45)
--- NOTE | 2017-09-26 16:47 | HHI.PR ---
Subjective Remarks Neupogen provided and patient has an increase in her hemoglobin to 8.1 today. Safer trial of resumption of Plavix both to test whether this causes itching and to determine if she can continue to have stable hemoglobin levels despite a blood thinner. Possible candidate for discharge tomorrow if she demonstrate stability in hemoglobin and no side effects from Plavix. Plavix is being used to treat recurrent TIAs. Objective Vital Signs Date Time Temp Pulse Resp B/P (MAP) Pulse Ox O2 Delivery O2 Flow Rate FiO2 09/26/17 16:25 98.5 92 17 129/71 (90) 99 09/26/17 12:07 98.4 86 18 116/64 (81) 96 09/26/17 09:41 99 21 09/26/17 09:00 96 Room Air 09/26/17 08:04 98.0 93 17 153/76 (101) 96 09/26/17 04:00 97.8 85 16 119/70 (86) 96 09/26/17 00:00 98.3 94 16 120/65 (83) 96 09/25/17 20:19 Room Air 09/25/17 20:05 90 09/25/17 20:00 98.3 87 18 124/74 (91) 98 09/25/17 17:53 98 21 I/O 09/25/17 09/25/17 09/25/17 09/26/17 09/26/17 09/26/17 07:00 15:00 23:00 07:00 15:00 23:00 Intake Total 240 ml 720 ml 600 ml Output Total 653 ml Balance 240 ml 720 ml 600 ml -653 ml Intake Oral 240 ml 720 ml 600 ml Peritoneal Fluid 653 ml # Voids 3 3 2 # Bowel Movements 0 0 Result Diagram: 09/26/1735 09/26/1735 Objective Remarks GENERAL: NAD, A&Ox3 HEAD: Normocephalic. NECK: Supple, trachea midline. No lymphadenopathy. EYES: No scleral icterus. No injection or drainage. CARDIOVASCULAR: Regular rate and rhythm without murmurs, gallops, or rubs. RESPIRATORY: Breath sounds equal bilaterally. No accessory muscle use. GASTROINTESTINAL: Abdomen soft, non-tender, nondistended. MUSCULOSKELETAL: No cyanosis, or edema. SKIN: Warm and dry. NEURO: Left arm and hand weakness compared to right. 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 Labs reviewed. Hemoglobin remains low. Continue to monitor labs. Epogen initiated. Plavix resumed. Labs reviewed. Hemoglobin is improved today. Continue to monitor hemoglobin for 1 more day to assure improvement. Consider discharge tomorrow if stable. Pruritus Benadryl as needed every 6 hours Plavix allergy versus renal etiology Hold Plavix for now, consider resuming tomorrow based on clinical status Acute blood loss anemia Anemia of chronic disease Recent history of GI bleed patient Stool occult studies pending Hold Plavix for now Epogen started Left-sided weakness History of TIA MRI and MRA pending Neurology following Continue physical therapy and occupational therapy Morphine for pain 2-D echocardiogram pending End-stage renal disease Continue Peritoneal dialysis Nephrology following Continue renal diet Hypertension Follow blood pressures Continue baseline treatments Hypertensive urgency has resolved Sinus infection, chronic Continue doxycycline PO 100mg DVT prophylaxis SCDs Sergey March MD Sep 26, 2017 16:47
[2017-09-27] VITALS: BP 144/93; PULSE 87; RESP 20; TEMP 98.2; O2SAT 98
[2017-09-27] MEDS: CALCIUM CARBONATE 1.25 GM (CA 500 MG) TAB PO SCH ×3 (00:39→13:59)
[2017-09-27] MEDS: diphenhydrAMINE HCL 50 MG/ML VIAL IV PUSH PRN ×3 (00:40→14:00)
[2017-09-27] MEDS: MORPHINE SULFATE 4 MG/ML INJ IV PUSH PRN ×4 (00:41→14:00)
[2017-09-27 03:50] LABS: THROMBIN TIME FOR LA ND sec (13-19)
[2017-09-27 04:00] VITALS: BP 133/81; PULSE 86; RESP 20; TEMP 98.8; O2SAT 97
[2017-09-27 07:44] VITALS: BP 135/83; PULSE 92; RESP 18; TEMP 98.9; O2SAT 97
[2017-09-27 08:54] VITALS: PULSE 91
[2017-09-27] MEDS: hydrALAZINE HCL 25 MG TAB PO SCH (09:00)
[2017-09-27] MEDS: SODIUM CHLORIDE 0.9% FLUSH 5 ML FLUSH IV FLUSH SCH (09:00)
[2017-09-27] MEDS: SODIUM CHLORIDE 0.9% FLUSH 10 ML FLUSH IV FLUSH SCH (09:00)
[2017-09-27] MEDS ORDERED: CLOPIDOGREL 75 MG TAB PO SCH (09:00)
[2017-09-27] MEDS: POTASSIUM CHLORIDE 20 MEQ CONTROLLED RELEASE TAB PO SCH (10:21)
[2017-09-27] MEDS: CARVEDILOL 12.5 MG TAB PO SCH (10:21)
[2017-09-27] MEDS: ALLOPURINOL 100 MG TAB PO SCH (10:21)
[2017-09-27] MEDS: SEVELAMER CARBONATE 800 MG TAB PO SCH ×2 (10:22→13:59)
[2017-09-27] MEDS: ASPIRIN 81 MG CHEW TAB CHEW SCH (10:22)
[2017-09-27] MEDS: LISINOPRIL 20 MG TAB PO SCH (10:22)
[2017-09-27] MEDS: DOXYCYCLINE HYCLATE 100 MG CAP PO SCH (10:22)
[2017-09-27] MEDS: PRAZOSIN HCL 1 MG CAP PO SCH (10:22)
[2017-09-27 11:28] VITALS: BP 124/72; PULSE 90; RESP 18; TEMP 98.4; O2SAT 96
[2017-09-27 11:31] LABS: BASOPHIL % 0.6 % (0.0-2.0); EOSINOPHIL # 0.3 TH/MM3 (0-0.4); EOSINOPHIL % 5.9 % (0.0-4.0); HEMATOCRIT 24.4 % (35.0-46.0); HEMO FLAGS DIFF FINAL; LYMPH % 29.3 % (9.0-44.0); LYMPHOCYTE # 1.5 TH/MM3 (1.0-4.8); MEAN CORPUSCULAR HEMOGLOBIN 27.5 PG (27.0-34.0); MEAN CORPUSCULAR HGB CONC 32.8 % (32.0-36.0); MONO % 6.6 % (0.0-8.0); NEUT % 57.6 % (16.0-70.0); PLATELET COUNT 177 TH/MM3 (150-450); RED BLOOD COUNT 2.91 MIL/MM3 (4.00-5.30); RED CELL DISTRIBUTION WIDTH 16.5 % (11.6-17.2); WHITE BLOOD COUNT 5.2 TH/MM3 (4.0-11.0)
[2017-09-27 11:45] LABS: ANION GAP 10 MEQ/L (5-15); AST (GOT) 12 U/L (15-37); BICARBONATE 26.9 MEQ/L (21.0-32.0); BLOOD UREA NITROGEN 55 MG/DL (7-18); CHLORIDE 98 MEQ/L (98-107); GLOMERULAR FILTRATION RATE 3 ML/MIN (>89); POTASSIUM 5.1 MEQ/L (3.5-5.1); SODIUM (NA) 135 MEQ/L (136-145)
[2017-09-27 11:48] LABS: ALKALINE PHOSPHATASE 36 U/L (45-117); ALT (GPT) 14 U/L (10-53); TOTAL BILIRUBIN ADULT 0.3 MG/DL (0.2-1.0)
[2017-09-27] MEDS ORDERED: DIPH25TA2 PO (11:50)
[2017-09-27] MEDS ORDERED: PLAV75TA29 PO (11:50)
--- NOTE | 2017-09-27 14:03 | HHI.NPPN ---
Subjective History of Present Illness 36 year old female with ESRD on PD Hypertensive urgency TIA Objective Data Data 09/27/17 09/28/17 19:00 07:00 Output Total 669 ml Balance -669 ml Peritoneal Fluid 669 ml Vital Signs Date Time Temp Pulse Resp B/P (MAP) Pulse Ox O2 Delivery O2 Flow Rate FiO2 09/27/17 11:28 98.4 90 18 124/72 (89) 96 09/27/17 08:54 91 09/27/17 08:00 97 Room Air 09/27/17 07:44 98.9 92 18 135/83 (100) 97 09/27/17 04:00 98.8 86 20 133/81 (98) 97 09/27/17 00:00 98.2 87 20 144/93 (110) 98 09/26/17 20:00 98.6 86 18 126/73 (90) 100 09/26/17 20:00 Room Air 09/26/17 20:00 83 09/26/17 16:25 98.5 92 17 129/71 (90) 99 -: 09/27/17 1005 09/27/17 1005 Physical Exam General Appearance: Well Developed, Well Nourished Neck Neck Exam: Neck Supple Pulmonary Resp Exam: Clear Bilaterally, Breath Sounds Equal Cardiology CV Exam: Regular, Normal Sinus Rhythm Gastrointestinal/Abdomen GI Exam: Soft, Non-Tender, Bowel Sounds Present Extremeties Extremities Exam: No Edema Neurologic Neuro Exam: Alert Assessment/Plan Problem List: (1) ESRD (end stage renal disease) ICD Codes: N18.6 - End stage renal disease Status: Acute Plan: Patient is on peritoneal dialysis 653 ml UF Anemia FRANZ in progress Hb 8 after Epo Cr higher she will use Green bags at home fu with Dr. Dinesh BRIONES to dc home (2) TIA (transient ischemic attack) ICD Codes: G45.9 - Transient cerebral ischemic attack, unspecified Plan: Continue to monitor her symptoms are resolved (3) Hypertensive urgency ICD Codes: I16.0 - Hypertensive urgency Status: Acute Plan: RESOLVED (4) H/O parathyroidectomy ICD Codes: E89.2 - Postprocedural hypoparathyroidism Plan: Continue replace calcium Vanessa Lee MD Sep 27, 2017 14:03
--- NOTE | 2017-09-27 15:04 | HHI.DS ---
Discharge Summary Admission Date Sep 22, 2017 at 21:56 Discharge Date: Sep 27, 2017 Admitting Diagnosis (1) TIA (transient ischemic attack) ICD Code: G45.9 - Transient cerebral ischemic attack, unspecified Diagnosis: Principal (2) Peritoneal dialysis status ICD Code: Z99.2 - Dependence on renal dialysis Diagnosis: Principal Status: Acute (3) ESRD (end stage renal disease) ICD Code: N18.6 - End stage renal disease Diagnosis: Principal Status: Acute (4) Hypertensive urgency ICD Code: I16.0 - Hypertensive urgency Diagnosis: Principal Status: Acute Procedures Peritoneal dialysis Brief History - From Admission 36 y/o female with a history of CKD on peritoneal dialysis, HTN and TIAs presented to the ED with complaints of left sided weakness. Patient states 3 days ago she developed left sided weakness with associated numbness and tingling that lasted 30 mins and it resolved. Today the weakness came back again. She states her blood pressure has been high the past few days because she has not been feeling well. She has been taking her BP meds are prescribed. She has been on doxycycline BID for a sinus infection and has taken 2 out of the 7 days. She went to the dialysis clinic and Dr. Montiel said to come to the ED if she experienced increased weakness. She denies any chest pain, sob, fever or chills. She complains of 8/10 sore neck pain with no radiation and states the morphine helped her in the [place] ED. CBC/BMP: 09/27/17 1005 09/27/17 1005 Significant Findings Laboratory Tests Test 09/25/17 07:04 09/26/17 09:35 09/27/17 10:05 Red Blood Count 2.89 MIL/MM3 (4.00-5.30) 2.99 MIL/MM3 (4.00-5.30) 2.91 MIL/MM3 (4.00-5.30) Hemoglobin 7.8 GM/DL (11.6-15.3) 8.1 GM/DL (11.6-15.3) 8.0 GM/DL (11.6-15.3) Hematocrit 23.7 % (35.0-46.0) 24.8 % (35.0-46.0) 24.4 % (35.0-46.0) Mean Corpuscular Hemoglobin 26.9 PG (27.0-34.0) Eosinophils (%) (Auto) 4.1 % (0.0-4.0) 5.1 % (0.0-4.0) 5.9 % (0.0-4.0) Blood Urea Nitrogen 47 MG/DL (7-18) 51 MG/DL (7-18) 55 MG/DL (7-18) Creatinine 14.16 MG/DL (0.50-1.00) 14.77 MG/DL (0.50-1.00) 15.39 MG/DL (0.50-1.00) Total Protein 5.8 GM/DL (6.4-8.2) 6.2 GM/DL (6.4-8.2) 6.3 GM/DL (6.4-8.2) Albumin 2.4 GM/DL (3.4-5.0) 2.6 GM/DL (3.4-5.0) 2.6 GM/DL (3.4-5.0) Calcium Level 8.0 MG/DL (8.5-10.1) 8.3 MG/DL (8.5-10.1) Alkaline Phosphatase 33 U/L (45-117) 37 U/L (45-117) 36 U/L (45-117) Aspartate Amino Transf (AST/SGOT) 10 U/L (15-37) 13 U/L (15-37) 12 U/L (15-37) Estimat Glomerular Filtration Rate 4 ML/MIN (>89) 3 ML/MIN (>89) 3 ML/MIN (>89) Monocytes (%) (Auto) 9.7 % (0.0-8.0) Random Glucose 116 MG/DL (74-106) 119 MG/DL (74-106) Sodium Level 135 MEQ/L (136-145) Hospital Course Mrs. Patel is a 36-year-old female. She is admitted secondary to hypertensive urgency and TIA symptoms which included left arm numbness. Neurological workup was negative but recurrent TIAs or problem for her so she was upgraded to Plavix daily. After starting Plavix she reported some itching and she had a downward trend in hemoglobin. Plavix was held for just over 24 hours and itching continue to use more likely related to her chronic kidney disease. Hemoglobins have stabilized. Patient was provided with Epogen. She demonstrates stability in her hemoglobin even after resuming Plavix. Medically stable for discharge home today and continue outpatient follow-up with nephrology within a week and continue peritoneal dialysis. Pt Condition on Discharge: Stable Discharge Disposition: Discharge Home Discharge Time: <= 30 minutes Discharge Instructions DIET: Follow Instructions for: Renal Failure Diet Speech Therapy-Diet Recommends: Regular Activities you can perform: Regular-No Restrictions Follow up Referrals: Nephrology - 1 Week PCP Follow-up - 1 Week New Medications: Diphenhydramine (Diphenhydramine) 25 Mg Tab 25 MG PO Q6H PRN for ITCHING, #60 TAB 0 Refills Clopidogrel (Plavix) 75 Mg Tab 75 MG PO DAILY for Blood Clot Prevention, #30 TAB Continued Medications: Allopurinol (Allopurinol) 100 Mg Tab 100 MG PO DAILY for Gout, #30 TAB 0 Refills Amlodipine (Amlodipine) 10 Mg Tab 10 MG PO DAILY for Blood Pressure Management, #30 TAB 0 Refills Aspirin (Aspirin) 81 Mg Chew 81 MG CHEW DAILY, TAB 0 Refills Carvedilol (Carvedilol) 25 Mg Tab 25 MG PO BID, #60 TAB 0 Refills Cholecalciferol (Vitamin D3) 5,000 Unit Cap 5000 UNITS PO WEEKLY for Nutritional Supplement, #30 CAP 0 Refills Clonidine (Clonidine) 0.2 Mg Tab 0.2 MG PO BID PRN for DBP>100, #60 TAB 0 Refills Doxycycline (Doxycycline) 40 Mg Cap 100 MG PO BID for Infection, CAP 0 Refills Hydralazine HCl (Hydralazine HCl) 25 Mg Tablet 25 MG PO BID for Blood Pressure Management, #90 TAB 0 Refills Lisinopril (Lisinopril) 40 Mg Tab 40 MG PO DAILY for Blood Pressure Management, #30 TAB 0 Refills Sevelamer Carbonate (Renvela) 800 Mg Tab 800 MG PO TID for Control phosphorous levels, #90 TAB 0 Refills Zolpidem (Zolpidem) 10 Mg Tab 10 MG PO HS PRN for INSOMNIA, TAB 0 Refills Sergey March MD Sep 27, 2017 15:04
== END 2017-09-27 16:03 | disposition home or self-care (01) | DRG 69 ==
LOC: NEDDLT 21:53 → N04B 21:56
PROVIDERS: ADMIT Hospitalist; ATTEND Hospitalist
PROC: 3E1M39Z Irrigation of Peritoneal Cavity using Dialysate, Percutaneous Approach (ICD-10-PCS; principal; 2017-09-22)
DX: G45.9 Transient cerebral ischemic attack, unspecified (principal); N18.6 End stage renal disease; I12.0 Hypertensive chronic kidney disease with stage 5 chronic kidney disease or end stage renal disease; Q87.81 Alport syndrome; D62 Acute posthemorrhagic anemia; I16.0 Hypertensive urgency; J32.9 Chronic sinusitis, unspecified; E89.2 Postprocedural hypoparathyroidism; L29.9 Pruritus, unspecified; D63.8 Anemia in other chronic diseases classified elsewhere; Z99.2 Dependence on renal dialysis; Z79.82 Long term (current) use of aspirin; Z86.73 Personal history of transient ischemic attack (TIA), and cerebral infarction without residual deficits
CPT/HCPCS: 70450; 70544; 70551; 80053; 80061; 81240; 81241; 82272; 82948; 83036; 83735; 84484; 84702; 85025; 85303; 85306; 85597; 85610; 85613; 85730; 86147; 86592; 90935; 93005; 93306; 93880; 96374; 96375; J0360; J1200; J2060; J2270; J2405; Q4081

== ENCOUNTER 2017-12-04 09:30 | Observation (INO) | payer MEDICARE, OTHER ==
[2017-12-04] VITALS (10 sets, daily range): BP systolic 135–154; BP diastolic 80–93; PULSE 80–99; RESP 16; TEMP 97.8–98.2; O2SAT 97–100
[~2017-12-04] VITALS: Ht 172.7 cm; Wt 82.0 kg
[~2017-12-04 09:30] MED LIST changes: +DIPH25TA2 PO; -DOXY1CAP74 PO; -LOTR1CRE TOPICAL; +REGL5TAB PO; +ZOFR8TAB PO
--- NOTE | 2017-12-04 09:57 | PD.VS.PN ---
Pre-operative Note Pre-operative diagnosis: ESRD, need for HD access nonfunctioning PD catheter Planned procedure: 1. L UE AVF, likely with prosthetic 2. Removal of PD catheter Interval History: Pt has been feeling well without complaints. Ian HD via catheter. Ready for procedure. Labs: pending Blood: none needed Orders: NPO VANC 1g IV OCTOR Post-operative destination: PACU Operative site marked: Yes Consent: Informed consent has been obtained from Aminah Patel. I have explained the procedure in detail and discussed the risks, benefits, and potential complications. All questions have been answered. Patient contact information: [phone] Rudy Myers MD Dec 04, 2017 09:57
[2017-12-04] MEDS ORDERED: POVIDONE IODINE 5% (ANTISEPSIS KIT) 4 APPLICATIONS EACH NARE PRN (10:00)
[2017-12-04] MEDS ORDERED: CHLORHEXIDINE GLUCONATE 2 % 1 PACK (2 CLOTHS) TOPICAL PRN (10:00)
[2017-12-04] MEDS ORDERED: METOPROLOL TARTRATE 25 MG TAB PO PRN (10:00)
[2017-12-04] MEDS ORDERED: INSULIN HUMAN REGULAR 1,000 UNITS/10 ML VIAL SQ PRN (10:00)
[2017-12-04] MEDS ORDERED: LACTATED RINGER'S 1000 ML IV PRN (10:00)
[2017-12-04] MEDS ORDERED: VANCOMYCIN HCL 1000 MG VIAL ONE (10:04)
[2017-12-04] MEDS ORDERED: BUPIVACAINE HCL PF 0.5% 10 ML VIAL ONE (10:04)
[2017-12-04] MEDS ORDERED: HEPARIN SODIUM - IV 10,000 UNITS/10 ML VIAL ONE (10:04)
[2017-12-04] MEDS ORDERED: PROTAMINE SULFATE 50 MG/5 ML VIAL ONE (10:04)
[2017-12-04] MEDS ORDERED: THROMBIN (TOPICAL) 20,000 UNIT SPRAY KIT ONE (10:04)
[2017-12-04] MEDS ORDERED: Hemodialysis Vas Access Cath PRN NS Lock Flush IV FLUSH (10:45)
[2017-12-04] MEDS: SODIUM CHLORID 0.9% 500 ML IV PRN ×3 (10:45→16:47)
[2017-12-04] MEDS ORDERED: Hemodialysis Vas Acc Cath PRN Heparin 1000 unit/ml Flush IV FLUSH (10:45)
[2017-12-04 10:48] LABS: AUTOMATED NEUTROPHIL # 5.2 TH/MM3 (1.8-7.7); BASOPHIL # 0.1 TH/MM3 (0-0.2); BASOPHIL % 0.7 % (0.0-2.0); EOSINOPHIL # 0.1 TH/MM3 (0-0.4); EOSINOPHIL % 1.9 % (0.0-4.0); HEMATOCRIT 30.8 % (35.0-46.0); HEMOGLOBIN 10.5 GM/DL (11.6-15.3); LYMPH % 19.2 % (9.0-44.0); LYMPHOCYTE # 1.4 TH/MM3 (1.0-4.8); MEAN CELL VOLUME 81.8 FL (80.0-100.0); MEAN CORPUSCULAR HEMOGLOBIN 27.9 PG (27.0-34.0); MEAN CORPUSCULAR HGB CONC 34.1 % (32.0-36.0); MEAN PLATELET VOLUME 8.2 FL (7.0-11.0); MONO % 7.3 % (0.0-8.0); MONOCYTE # 0.5 TH/MM3 (0-0.9); NEUT % 70.9 % (16.0-70.0); PLATELET COUNT 228 TH/MM3 (150-450); RED BLOOD COUNT 3.76 MIL/MM3 (4.00-5.30); RED CELL DISTRIBUTION WIDTH 17.4 % (11.6-17.2); WHITE BLOOD COUNT 7.4 TH/MM3 (4.0-11.0)
[2017-12-04 11:08] LABS: BICARBONATE 24.8 MEQ/L (21.0-32.0); CALCIUM 8.4 MG/DL (8.5-10.1); CREATININE 7.54 MG/DL (0.50-1.00)
[2017-12-04 11:15] LABS: PROTHROMBIN TIME - PATIENT 10.3 SEC (9.8-11.6)
[2017-12-04] MEDS ORDERED: METOCLOPRAMIDE HCL 10 MG/2 ML VIAL ONE (11:38)
--- NOTE | 2017-12-04 12:34 | HHI.PR ---
cc: Rudy Myers MD Immediate Post Op Note Procedure Date: Dec 04, 2017 Pre Op Diagnosis: ESRD, need for HD access nonfunctional PD catheter Post Op Diagnosis: ESRD, need for HD access nonfunctional PD catheter Surgeon: Rudy Myers Works Manager(s): Elina Perez Procedure: 1. L UE brach-ax with PTFE 2. PD catheter removal (Maris) Findings: 3mm artery 6mm vein + thrill and good Doppler signals in wrist after AVG PD catheter removed in entirety Complications: none Specimen(s) removed: none for pathology Estimated blood loss: 20mL Anesthesia: General Drains: None Fluids: 600mL IVF Patient to: PACU Patient Condition: Good Implant/Devices: SEE IMPLANT LOG (if applicable) Date/Time of Procedure: SEE SURGICAL CARE RECORD Rudy Myers MD Dec 04, 2017 12:34
[2017-12-04] MEDS ORDERED: DO NOT ADM ANY ANTICOAGULANT DRUGS PRN (12:50)
[2017-12-04] MEDS ORDERED: *morphine SULFATE 10 MG/ML PERIprocedure ONLY ONE ×2 (12:55→13:15)
[2017-12-04] MEDS ORDERED: *diphenhydrAMINE HCL 50 MG/ML VIAL PERIprocedural Use ONLY ONE (14:08)
[2017-12-04] MEDS ORDERED: diphenhydrAMINE HCL 25 MG CAP PO PRN ×2 (14:15→15:00)
[2017-12-04] MEDS ORDERED: cloNIDine HCL 0.2 MG TAB PO PRN (14:15)
[2017-12-04] MEDS ORDERED: SODIUM CHLOR 0.9% 1000 ML INJ 1,000 ML IV PRN (14:53)
[2017-12-04] MEDS ORDERED: SODIUM CHLOR 0.9% 1000 ML INJ 1,000 ML OTHER PRN ×2 (14:53)
[2017-12-04] MEDS ORDERED: MANNITOL 12.5 GM/50 ML VIAL IV PRN (15:00)
[2017-12-04] MEDS ORDERED: HEPARIN SODIUM - IV 10,000 UNITS/10 ML VIAL IV FLUSH PRN (15:00)
[2017-12-04] MEDS ORDERED: HEPARIN SODIUM - IV 10,000 UNITS/10 ML VIAL PRN (15:00)
[2017-12-04] MEDS ORDERED: NITROGLYCERIN 0.4 MG SL 25 TABS/BTL SL PRN (15:00)
[2017-12-04] MEDS ORDERED: cloNIDine HCL 0.1 MG TAB PO PRN (15:00)
[2017-12-04] MEDS ORDERED: EPOETIN ALFA 10,000 UNITS/ML VIAL IV PUSH PRN (15:00)
[2017-12-04] MEDS ORDERED: GELATIN 12 MM/7 MM FOAM TOP PRN (15:00)
[2017-12-04] MEDS ORDERED: ACETAMINOPHEN 325 MG TAB PO PRN (15:00)
[2017-12-04] MEDS ORDERED: GENTAMICIN SULFATE 20 MG/2 ML VIAL OTHER PRN (15:00)
[2017-12-04] MEDS ORDERED: SODIUM CHLORIDE 0.9% FLUSH 10 ML FLUSH IV FLUSH PRN (15:00)
[2017-12-04] MEDS ORDERED: ALBUMIN 25% INJ 100 ML IV PRN (15:00)
[2017-12-04] MEDS ORDERED: ONDANSETRON HCL 4 MG/2 ML VIAL IV PUSH PRN (15:00)
--- NOTE | 2017-12-04 15:18 | PD.CONS ---
HPI Service Nephrology Consult Requested By Dr. Myers Reason for Consult Dr. Lee Primary Care Physician No Primary Care Physician History of Present Illness Patient is a 36-year-old female with end-stage renal disease, Alport syndrome, hypertension admitted for AV graft and removal of peritoneal dialysis candidate and this was done she is due for hemodialysis tomorrow she goes on Sunday, Sunday and Sunday Review of Systems Constitutional: COMPLAINS OF: Fatigue Musculoskeletal: COMPLAINS OF: Joint pain Past Family Social History Allergies: Coded Allergies: ceftriaxone (Unverified Allergy, Severe, RASH, 12/04/17) gentamicin (Unverified Allergy, Severe, RASH, 12/04/17) levofloxacin (Unverified Allergy, Severe, ITCHING, 12/04/17) acetaminophen (Unverified Allergy, Intermediate, Nausea/Vomiting, 12/04/17) PT STATES ITCHINESS, NAUSEA, AND VOMITTING hydrocodone (Unverified Allergy, Intermediate, Nausea/Vomiting, 12/04/17) PT STATES ITCHINESS, NAUSEA, AND VOMITTING tramadol (Verified Allergy, Intermediate, itching, 12/04/17) diatrizoate meglumine (Unverified Adverse Reaction, Unknown, due to renal failure, 11/13/17) gadobenic acid (Unverified Adverse Reaction, Unknown, due to renal failure , 11/13/17) gadodiamide (Unverified Adverse Reaction, Unknown, due to renal failure, ) gadoteridol (Unverified Adverse Reaction, Unknown, due to renal failure, ) iodixanol (Unverified Adverse Reaction, Unknown, due to renal failure, 11/13) iohexol (Unverified Adverse Reaction, Unknown, due to renal failure, ) sulfamethoxazole (Unverified Adverse Reaction, Unknown, due to kidney failure, 11/13/17) trimethoprim (Unverified Adverse Reaction, Unknown, due to kidney failure , 11/13/17) Past Medical History Hypertension ESRD Anemia Hyperparathyroidism History of peritoneal dialysis Alport syndrome Past Surgical History AV graft Removal of peritoneal dialysis Parathyroidectomy Reported Medications Reported Meds & Active Scripts Active Diphenhydramine (Diphenhydramine HCl) 25 Mg Tab 25 Mg PO Q6H PRN Reported Zofran (Ondansetron HCl) 8 Mg Tab 8 Mg PO TID Reglan (Metoclopramide HCl) 5 Mg Tab 5 Mg PO TIDAC Renvela (Sevelamer Carbonate) 800 Mg Tab 800 Mg PO TID Vitamin D3 (Cholecalciferol) 5,000 Unit Cap 5,000 Units PO WEEKLY Hydralazine HCl 25 Mg Tablet 25 Mg PO BID Lisinopril 40 Mg Tab 40 Mg PO DAILY Zolpidem (Zolpidem Tartrate) 10 Mg Tab 10 Mg PO HS PRN Carvedilol 25 Mg Tab 25 Mg PO BID Clonidine (Clonidine HCl) 0.2 Mg Tab 0.2 Mg PO BID PRN Allopurinol 100 Mg Tab 100 Mg PO DAILY Aspirin 81 Mg Chew 81 Mg CHEW DAILY Amlodipine (Amlodipine Besylate) 10 Mg Tab 10 Mg PO DAILY Active Ordered Medications Current Medications Medications (Trade) Dose Ordered Sig/Catherine Route Start Time Stop Time Status Last Admin Lactated Ringer's 1,000 ml @ 30 mls/hr Q24H PRN IV 12/04/17 10:00 12/07/17 09:59 Sodium Chloride 500 ml @ 30 mls/hr [id number] PRN IV 12/04/17 10:00 12/07/17 09:59 12/04/17 10:45 (Lopressor) 25 mg CNP PRN PO 12/04/17 10:00 12/07/17 09:59 (Betadine 5% Antisepsis Kit) 1 applic CNP PRN EACH NARE 12/04/17 10:00 12/07/17 09:59 12/04/17 10:45 (Chlorhexidine 2% Cloth) 3 pack CNP PRN TOPICAL 12/04/17 10:00 12/07/17 09:59 12/04/17 10:45 (NovoLIN R INJ) See Protocol Table ... CNP PRN SQ 12/04/17 10:00 12/07/17 09:59 (NS Flush) 5 ml UNSCH PRN IV FLUSH 12/04/17 10:45 (Heparin Inj) 2,000 units UNSCH PRN IV FLUSH 12/04/17 10:45 (Roxicodone) 5 mg Q4H PRN PO 12/04/17 14:30 (Dilaudid) 2 mg Q4H PRN PO 12/04/17 14:30 (Heparin Inj) 5,000 units Q8H SQ 12/05/17 12:00 (Zyloprim) 100 mg DAILY PO 12/05/17 09:00 (Norvasc) 10 mg DAILY PO 12/05/17 09:00 (Aspirin Chew) 81 mg DAILY CHEW 12/05/17 09:00 (Coreg) 25 mg BID PO 12/04/17 21:00 (Catapres) 0.2 mg BID PRN PO 12/04/17 14:15 (Benadryl) 25 mg Q6H PRN PO 12/04/17 14:15 (Apresoline) 25 mg BID PO 12/04/17 21:00 (Renvela) 800 mg TID PO 12/04/17 14:15 (Ambien) 10 mg HS PRN PO 12/04/17 21:00 (Prinivil) 40 mg DAILY PO 12/05/17 09:00 (Reglan) 5 mg TIDAC PO 12/04/17 17:00 (Zofran Odt) 8 mg TID PO 12/04/17 14:30 Miscellaneous Information ALL NURSING DEPARTME... UNSCH PRN .XX 12/04/17 12:50 12/05/17 12:49 (Pepcid) 10 mg BID PO 12/04/17 21:00 Sodium Chloride 1,000 ml @ 0 mls/hr Q0M PRN OTHER 12/04/17 14:53 UNV (Heparin Inj) 8,000 units UNSCH PRN IV FLUSH 12/04/17 15:00 UNV Sodium Chloride 1,000 ml @ 200 mls/hr Q5H PRN IV 12/04/17 14:53 UNV Sodium Chloride 1,000 ml @ 0 mls/hr Q0M PRN OTHER 12/04/17 14:53 UNV (Mannitol Inj) 12.5 gm UNSCH PRN IV 12/04/17 15:00 UNV Albumin Human 100 ml @ 60 mls/hr UNSCH PRN IV 12/04/17 15:00 UNV (NS Flush) 5 ml UNSCH PRN IV FLUSH 12/04/17 15:00 UNV (Heparin Inj) UNSCH PRN .XX 12/04/17 15:00 UNV (Gentamicin (Dialysis) Inj) 20 mg UNSCH PRN OTHER 12/04/17 15:00 UNV (Zofran Inj) 4 mg UNSCH PRN IV PUSH 12/04/17 15:00 UNV (Tylenol) 650 mg UNSCH PRN PO 12/04/17 15:00 UNV (Benadryl) 25 mg UNSCH PRN PO 12/04/17 15:00 UNV (Nitrostat Sl) 0.4 mg UNSCH PRN SL 12/04/17 15:00 UNV (Catapres) 0.1 mg UNSCH PRN PO 12/04/17 15:00 UNV (Epogen Inj) 4,000 units UNSCH PRN IV PUSH 12/04/17 15:00 UNV (Gelfoam 12 Mm/7 Mm Top) 1 foam UNSCH PRN TOP 12/04/17 15:00 UNV Family History Noncontributory Social History Denies smoking or alcohol use Physical Exam Vital Signs Vital Signs Date Time Temp Pulse Resp B/P (MAP) Pulse Ox O2 Delivery O2 Flow Rate FiO2 12/04/17 13:45 89 15 140/88 (105) 100 Nasal Cannula 2 12/04/17 13:30 88 15 140/84 (102) 99 Nasal Cannula 2 12/04/17 13:20 15 12/04/17 13:00 91 15 144/91 (108) 98 Nasal Cannula 2 12/04/17 13:00 15 12/04/17 12:50 98.2 92 20 142/90 (107) 100 Nasal Cannula 3 12/04/17 10:22 98.2 89 20 127/80 (96) 100 Physical Exam GENERAL: Well-nourished, well-developed patient. SKIN: Warm and dry. HEAD: Normocephalic. EYES: No scleral icterus. No injection or drainage. NECK: Supple, trachea midline. No JVD or lymphadenopathy. CARDIOVASCULAR: Regular rate and rhythm without murmurs, gallops, or rubs. RESPIRATORY: Breath sounds equal bilaterally. No accessory muscle use. GASTROINTESTINAL: Abdomen soft, non-tender, nondistended. EXTREMITIES: No cyanosis, or edema. AV graft left upper extremity NEUROLOGICAL: Awake, alert, and oriented x 3. Non-focal. Laboratory Laboratory Tests Test 12/04/17 10:05 12/04/17 10:40 White Blood Count 7.4 Red Blood Count 3.76 Hemoglobin 10.5 Hematocrit 30.8 Mean Corpuscular Volume 81.8 Mean Corpuscular Hemoglobin 27.9 Mean Corpuscular Hemoglobin Concent 34.1 Red Cell Distribution Width 17.4 Platelet Count 228 Mean Platelet Volume 8.2 Neutrophils (%) (Auto) 70.9 Lymphocytes (%) (Auto) 19.2 Monocytes (%) (Auto) 7.3 Eosinophils (%) (Auto) 1.9 Basophils (%) (Auto) 0.7 Neutrophils # (Auto) 5.2 Lymphocytes # (Auto) 1.4 Monocytes # (Auto) 0.5 Eosinophils # (Auto) 0.1 Basophils # (Auto) 0.1 CBC Comment DIFF FINAL Differential Comment Blood Urea Nitrogen 29 Creatinine 7.54 Random Glucose 84 Calcium Level 8.4 Sodium Level 136 Potassium Level 4.1 Chloride Level 103 Carbon Dioxide Level 24.8 Anion Gap 8 Estimat Glomerular Filtration Rate 7 Prothrombin Time 10.3 Prothromb Time International Ratio 1.0 Activated Partial Thromboplast Time 27.7 Result Diagram: 12/04/17 1005 12/04/17 1005 Assessment and Plan Problem List: (1) ESRD (end stage renal disease) on dialysis ICD Codes: N18.6 - End stage renal disease; Z99.2 - Dependence on renal dialysis Status: Acute Plan: Patient is due for hemodialysis tomorrow this will be carried out using [facility] continue supportive care Orders issued She will be discharged after dialysis (2) HTN (hypertension) ICD Codes: I10 - Essential (primary) hypertension Status: Acute Plan: Continue outpatient regimen Vanessa Lee MD Dec 04, 2017 15:18
[2017-12-04] MEDS: SEVELAMER CARBONATE 800 MG TAB PO SCH ×2 (15:25→19:14)
[2017-12-04] MEDS: HYDROmorphone HCL 2 MG TAB PO PRN ×2 (15:26→19:11)
[2017-12-04] MEDS: ONDANSETRON ODT 4 MG TAB PO SCH ×2 (15:26→18:00)
[2017-12-04] MEDS: METOCLOPRAMIDE HCL 10 MG TAB PO SCH (19:08)
[2017-12-04] MEDS: FAMOTIDINE 20 MG TAB PO SCH (20:35)
[2017-12-04] MEDS: hydrALAZINE HCL 25 MG TAB PO SCH (20:35)
[2017-12-04] MEDS: CARVEDILOL 12.5 MG TAB PO SCH (20:35)
[2017-12-04] MEDS ORDERED: ZOLPIDEM TARTRATE 10 MG TAB PO PRN (21:00)
[2017-12-04] MEDS ORDERED: FAMOTIDINE 20 MG TAB PO SCH (21:00)
[2017-12-04] MEDS: HYDROmorphone HCL PF 2 MG/ML VIAL IV PUSH PRN (22:24)
[2017-12-05] VITALS (11 sets, daily range): BP systolic 120–155; BP diastolic 62–91; PULSE 94–109; RESP 17–18; TEMP 98.6–99.2; O2SAT 95–98
[2017-12-05] MEDS: HYDROmorphone HCL 2 MG TAB PO PRN ×3 (04:25→12:32)
[2017-12-05] MEDS: HYDROmorphone HCL PF 2 MG/ML VIAL IV PUSH PRN (05:10)
[2017-12-05 07:03] LABS: CALCIUM 8.4 MG/DL (8.5-10.1); CREATININE 9.08 MG/DL (0.50-1.00)
--- NOTE | 2017-12-05 07:43 | PD.VS.PN ---
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 po Objective Vitals/I&O Date Time Temp Pulse Resp B/P (MAP) Pulse Ox O2 Delivery O2 Flow Rate FiO2 12/05/17 05:40 16 12/05/17 05:24 100 12/05/17 05:10 16 12/05/17 04:25 95 12/05/17 04:06 98.7 94 18 137/82 (100) 97 12/05/17 03:02 95 12/05/17 02:11 101 12/05/17 01:25 98 12/05/17 00:20 94 12/05/17 00:01 98.6 95 17 120/62 (81) 95 12/04/17 23:15 94 12/04/17 22:12 92 12/04/17 21:15 80 12/04/17 20:44 99 12/04/17 20:00 97.8 89 16 154/93 (113) 100 12/04/17 18:00 84 12/04/17 17:00 92 12/04/17 16:49 88 12/04/17 16:18 94 12/04/17 15:00 98.2 95 16 121/70 (87) 96 Room Air 12/04/17 15:00 98.2 92 16 135/80 (98) 97 12/04/17 14:30 93 16 129/75 (93) 95 Room Air 12/04/17 14:00 98.1 90 16 132/79 (96) 95 Room Air 12/04/17 13:45 89 15 140/88 (105) 100 Nasal Cannula 2 12/04/17 13:30 88 15 140/84 (102) 99 Nasal Cannula 2 12/04/17 13:20 15 12/04/17 13:15 90 15 140/89 (106) 99 Nasal Cannula 2 12/04/17 13:00 91 15 144/91 (108) 98 Nasal Cannula 2 12/04/17 13:00 15 12/04/17 12:50 98.2 92 20 142/90 (107) 100 Nasal Cannula 3 12/04/17 10:22 98.2 89 20 127/80 (96) 100 Exam: Incisions c/d/i in arm and on abdomen + thrill palpable 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 Laboratory Laboratory Tests Test 12/04/17 10:05 12/04/17 10:40 12/05/17 05:46 White Blood Count 7.4 Red Blood Count 3.76 Hemoglobin 10.5 Hematocrit 30.8 Mean Corpuscular Volume 81.8 Mean Corpuscular Hemoglobin 27.9 Mean Corpuscular Hemoglobin Concent 34.1 Red Cell Distribution Width 17.4 Platelet Count 228 Mean Platelet Volume 8.2 Neutrophils (%) (Auto) 70.9 Lymphocytes (%) (Auto) 19.2 Monocytes (%) (Auto) 7.3 Eosinophils (%) (Auto) 1.9 Basophils (%) (Auto) 0.7 Neutrophils # (Auto) 5.2 Lymphocytes # (Auto) 1.4 Monocytes # (Auto) 0.5 Eosinophils # (Auto) 0.1 Basophils # (Auto) 0.1 CBC Comment DIFF FINAL Differential Comment Blood Urea Nitrogen 29 35 Creatinine 7.54 9.08 Random Glucose 84 104 Calcium Level 8.4 8.4 Sodium Level 136 136 Potassium Level 4.1 4.2 Chloride Level 103 101 Carbon Dioxide Level 24.8 25.0 Anion Gap 8 10 Estimat Glomerular Filtration Rate 7 6 Prothrombin Time 10.3 Prothromb Time International Ratio 1.0 Activated Partial Thromboplast Time 27.7 Assessment and Plan Plan POD#1 s/p L UE access and PD catheter removal AVF patent, hand well perfused D/C today after HD Discharge Planning Today with RTC 2-3 weeks Rudy Myers MD Dec 05, 2017 07:43
[2017-12-05] MEDS: METOCLOPRAMIDE HCL 10 MG TAB PO SCH ×2 (08:00→12:36)
[2017-12-05] MEDS ORDERED: OXYC-392 PO (08:19)
--- NOTE | 2017-12-05 08:34 | PD.VS.DC ---
Discharge Summary Admission Date: Dec 04, 2017 at 12:37 Discharge Date: Dec 05, 2017 Admission Diagnosis: (1) AVF (arteriovenous fistula) (2) End stage renal disease Discharge Diagnosis: (1) ESRD (end stage renal disease) ICD Codes: N18.6 - End stage renal disease Status: Acute (2) Renal insufficiency ICD Codes: N28.9 - Disorder of kidney and ureter, unspecified Status: Acute (3) Alport syndrome ICD Codes: Q87.81 - Alport syndrome Status: Chronic (4) AVF (arteriovenous fistula) ICD Codes: I77.0 - Arteriovenous fistula, acquired Brief History from admission Mrs. Patel is a 36/F with a PMH of ESRD Recent hx of a nonfunctioning PD catheter Need for HD access Procedure(s): L UE Access creation and PD catheter removal Significant Findings GENERAL: A&OX3,GCS15, NAD SKIN: Warm and dry. CARDIOVASCULAR: Regular rate and rhythm without murmurs, gallops, or rubs. RESPIRATORY: Breath sounds equal bilaterally. No accessory muscle use. GASTROINTESTINAL: Abdomen soft, non-tender, nondistended. Surgical site to LLQ intact w/o R/D/S MUSCULOSKELETAL: No cyanosis, or edema. L UE AVF incision intact no R/D/S + Thill palpated near L UE AVF + Radial pulse palpable Denies hand pain UE warm with motor intact Laboratory Tests Test 12/04/17 10:05 12/04/17 10:40 12/05/17 05:46 Red Blood Count 3.76 MIL/MM3 (4.00-5.30) Hemoglobin 10.5 GM/DL (11.6-15.3) Hematocrit 30.8 % (35.0-46.0) Red Cell Distribution Width 17.4 % (11.6-17.2) Neutrophils (%) (Auto) 70.9 % (16.0-70.0) Blood Urea Nitrogen 29 MG/DL (7-18) 35 MG/DL (7-18) Creatinine 7.54 MG/DL (0.50-1.00) 9.08 MG/DL (0.50-1.00) Calcium Level 8.4 MG/DL (8.5-10.1) 8.4 MG/DL (8.5-10.1) Estimat Glomerular Filtration Rate 7 ML/MIN (>89) 6 ML/MIN (>89) Hospital Course: Mrs. 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 emily po Denies hand pain Pt clear for HD after HD Arranged OP F/U in 2W Allergies Coded Allergies Type Severity Reaction Last Updated Verified ceftriaxone Allergy Severe RASH 12/04/17 No gentamicin Allergy Severe RASH 12/04/17 No levofloxacin Allergy Severe ITCHING 12/04/17 No acetaminophen Allergy Intermediate Nausea/Vomiting 12/04/17 No hydrocodone Allergy Intermediate Nausea/Vomiting 12/04/17 No tramadol Allergy Intermediate itching 12/04/17 Yes diatrizoate meglumine Adverse Reaction Unknown due to renal failure 11/13/17 No gadobenic acid Adverse Reaction Unknown due to renal failure 11/13/17 No gadodiamide Adverse Reaction Unknown due to renal failure 11/13/17 No gadoteridol Adverse Reaction Unknown due to renal failure 11/13/17 No iodixanol Adverse Reaction Unknown due to renal failure 11/13/17 No iohexol Adverse Reaction Unknown due to renal failure 11/13/17 No sulfamethoxazole Adverse Reaction Unknown due to kidney failure 11/13/17 No trimethoprim Adverse Reaction Unknown due to kidney failure 11/13/17 No 12/03/17 12/03/17 12/04/17 12/04/17 12/05/17 12/05/17 06:00 18:00 06:00 18:00 06:00 18:00 Intake Total 600 ml 480 ml Output Total 20 ml Balance 580 ml 480 ml Intake Oral 480 ml Other 600 ml Output Estimated Blood Loss 20 ml # Voids 1 1 Laboratory Tests Test 12/04/17 10:05 12/04/17 10:40 12/05/17 05:46 White Blood Count 7.4 TH/MM3 Red Blood Count 3.76 MIL/MM3 Hemoglobin 10.5 GM/DL Hematocrit 30.8 % Mean Corpuscular Volume 81.8 FL Mean Corpuscular Hemoglobin 27.9 PG Mean Corpuscular Hemoglobin Concent 34.1 % Red Cell Distribution Width 17.4 % Platelet Count 228 TH/MM3 Mean Platelet Volume 8.2 FL Neutrophils (%) (Auto) 70.9 % Lymphocytes (%) (Auto) 19.2 % Monocytes (%) (Auto) 7.3 % Eosinophils (%) (Auto) 1.9 % Basophils (%) (Auto) 0.7 % Neutrophils # (Auto) 5.2 TH/MM3 Lymphocytes # (Auto) 1.4 TH/MM3 Monocytes # (Auto) 0.5 TH/MM3 Eosinophils # (Auto) 0.1 TH/MM3 Basophils # (Auto) 0.1 TH/MM3 CBC Comment DIFF FINAL Differential Comment Blood Urea Nitrogen 29 MG/DL 35 MG/DL Creatinine 7.54 MG/DL 9.08 MG/DL Random Glucose 84 MG/DL 104 MG/DL Calcium Level 8.4 MG/DL 8.4 MG/DL Sodium Level 136 MEQ/L 136 MEQ/L Potassium Level 4.1 MEQ/L 4.2 MEQ/L Chloride Level 103 MEQ/L 101 MEQ/L Carbon Dioxide Level 24.8 MEQ/L 25.0 MEQ/L Anion Gap 8 MEQ/L 10 MEQ/L Estimat Glomerular Filtration Rate 7 ML/MIN 6 ML/MIN Prothrombin Time 10.3 SEC Prothromb Time International Ratio 1.0 RATIO Activated Partial Thromboplast Time 27.7 SEC Orders Procedure Category Date Status Time Complete Blood Count LAB 12/04/17 Complete With Diff 09:40 Coag Profile LAB 12/04/17 Complete 09:40 Type And Screen BBK 12/04/17 Complete 09:40 Basic Metabolic Panel LAB 12/04/17 Complete (Bmp) 09:40 Lactated Ringer's MED 12/04/17 In Process 1000 Ml Inj (Lr 1000 M 10:00 Sodium Chlorid 0.9% MED 12/04/17 In Process 500 Ml Inj (Ns 500 M 10:00 Metoprolol Tartrate MED 12/04/17 In Process (Lopressor) 10:00 Povidone Iod 5% MED 12/04/17 In Process Antisepsis Kit 10:00 Chlorhexidine 2% MED 12/04/17 In Process Cloth (Chlorhexidine 10:00 Insulin Human Regular MED 12/04/17 In Process Inj (Novolin R Inj 10:00 Protamine Sulfate Inj MED 12/04/17 Complete (Protamine Sulfate 10:04 Heparin Inj (Heparin MED 12/04/17 Complete Inj) 10:04 Bupivacaine Pf 0.5% MED 12/04/17 Complete Inj (Marcaine Pf 0.5 10:04 Thrombin Top [place] MED 12/04/17 Complete (Thrombin Top [place]) 10:04 Vancomycin Inj MED 12/04/17 Complete (Vancomycin Inj) 10:04 Sodium Chloride 0.9% MED 12/04/17 In Process Flush (Ns Flush) 10:45 Heparin Inj (Heparin MED 12/04/17 In Process Inj) 10:45 Metoclopramide Inj MED 12/04/17 Complete (Reglan Inj) 11:38 Place In Observation ADMITTING 12/04/17 Transmitted Code Status CODE 12/04/17 Transmitted 12:34 Vital Signs (Adult) ASHANTI 12/04/17 In Process 12:34 Mixer Whipped Topping / ASHANTI 12/04/17 In Process Telemetry 12:34 Activity Oob Ad Verónica ASHANTI 12/04/17 In Process 12:34 Precautions ASHANTI 12/04/17 In Process 12:34 Diet Heart Healthy DIET 12/04/17 Transmitted Lunch Basic Metabolic Panel LAB 12/05/17 Complete (Bmp) 06:00 Oxycodone (Roxicodone) MED 12/04/17 In Process 14:30 Hydromorphone MED 12/04/17 In Process (Dilaudid) 14:30 Consult Nephrology CONS 12/04/17 Transmitted Allopurinol (Zyloprim) MED 12/05/17 In Process 09:00 Amlodipine (Norvasc) MED 12/05/17 In Process 09:00 Aspirin Chew (Aspirin MED 12/05/17 In Process Chew) 09:00 Carvedilol (Coreg) MED 12/04/17 In Process 21:00 Clonidine (Catapres) MED 12/04/17 In Process 14:15 Diphenhydramine MED 12/04/17 In Process (Benadryl) 14:15 Hydralazine MED 12/04/17 In Process (Apresoline) 21:00 Sevelamer (Renvela) MED 12/04/17 In Process 14:15 Zolpidem (Ambien) MED 12/04/17 In Process 21:00 Lisinopril (Prinivil) MED 12/05/17 In Process 09:00 Metoclopramide MED 12/04/17 In Process (Reglan) 17:00 Ondansetron Odt MED 12/04/17 In Process (Zofran Odt) 14:30 *Morphine Inj MED 12/04/17 Complete (*Morphine Inj 12:55 Fentanyl Inj MED 12/04/17 Complete (Fentanyl Inj) 13:05 *Morphine Inj MED 12/04/17 Complete (*Morphine Inj 13:15 (Hub Use Only)Inp Phy CONS 12/04/17 Transmitted Cons/Ref Misc Nursing MED 12/04/17 In Process Information 12:50 Sds Pre Op Care [facility] 12/04/17 Complete *Diphenhydramine Inj MED 12/04/17 Complete (*Benadryl Inj Cecilia 14:08 Heparin Inj (Heparin MED 12/05/17 In Process Inj) 12:00 Famotidine (Pepcid) MED 12/04/17 In Process 21:00 Blood Flow Rate ASHANTI 12/04/17 In Process 14:53 Dialysate Flow Rate ASHANTI 12/04/17 In Process 14:53 Dialyzer ASHANTI 12/04/17 In Process 14:53 Concentrate ASHANTI 12/04/17 In Process 14:53 Acid Concentrate ASHANTI 12/04/17 In Process 14:53 Length Of Dialysis ASHANTI 12/04/17 In Process 14:53 Frequency Of Dialysis ASHANTI 12/04/17 In Process 14:53 Dialysis Obtain ASHANTI 12/04/17 In Process 14:53 Needle Size ASHANTI 12/04/17 In Process 14:53 Dialysis Schedule ASHANTI 12/04/17 In Process 14:53 Resp Oxygen Jas C RSP 12/04/17 Logged Titrat 1-4 L Dialysis Weight ASHANTI 12/04/17 In Process 14:53 ^ Obtain As Needed ASHANTI 12/04/17 In Process 14:53 Sodium Chlor 0.9% MED 12/04/17 In Process 1000 Ml Inj (Ns 1000 M 14:53 Heparin Inj (Heparin MED 12/04/17 In Process Inj) 15:00 Sodium Chlor 0.9% MED 12/04/17 In Process 1000 Ml Inj (Ns 1000 M 14:53 Sodium Chlor 0.9% MED 12/04/17 In Process 1000 Ml Inj (Ns 1000 M 14:53 Mannitol Inj MED 12/04/17 In Process (Mannitol Inj) 15:00 Albumin 25% Inj MED 12/04/17 In Process (Albumin 25% Inj) 15:00 Sodium Chloride 0.9% MED 12/04/17 In Process Flush (Ns Flush) 15:00 Heparin Inj (Heparin MED 12/04/17 In Process Inj) 15:00 Ondansetron Inj MED 12/04/17 In Process (Zofran Inj) 15:00 Diphenhydramine MED 12/04/17 In Process (Benadryl) 15:00 Nitroglycerin Sl MED 12/04/17 In Process (Nitrostat Sl) 15:00 Clonidine (Catapres) MED 12/04/17 In Process 15:00 Epoetin Anmol Inj MED 12/04/17 In Process (Epogen Inj) 15:00 Gelatin 12 Mm/7 Mm MED 12/04/17 In Process Top (Gelfoam 12 Mm/7 15:00 Class Iv Pacu Ea 30 [facility] 12/04/17 Complete MIN [facility] 12/04[facility]17 Complete Post Anest[facility] 12/04/17 Complete Pacu Cpc[employer] Holding [facility] 12/04/17 Complete Hourly Hydromorphone Pf Inj MED 12/04/17 In Process (Dilaudid Pf Inj) 22:15 Attending Discharge DISCHARGE 12/05/17 Transmitted Order Diphenhydramine Inj MED 12/05/17 Logged (Benadryl Inj) 08:30 Vital Signs Date Time Temp Pulse Resp B/P (MAP) Pulse Ox O2 Delivery O2 Flow Rate FiO2 12/05/17 05:40 16 12/05/17 05:24 100 12/05/17 05:10 16 12/05/17 04:25 95 12/05/17 04:06 98.7 94 18 137/82 (100) 97 12/05/17 03:02 95 12/05/17 02:11 101 12/05/17 01:25 98 12/05/17 00:20 94 12/05/17 00:01 98.6 95 17 120/62 (81) 95 12/04/17 23:15 94 12/04/17 22:12 92 12/04/17 21:15 80 12/04/17 20:44 99 12/04/17 20:00 97.8 89 16 154/93 (113) 100 12/04/17 18:00 84 1/23/18 17:00 92 12/04/17 16:49 88 12/04/17 16:18 94 12/04/17 15:00 98.2 95 16 121/70 (87) 96 Room Air 12/04/17 15:00 98.2 92 16 135/80 (98) 97 12/04/17 14:30 93 16 129/75 (93) 95 Room Air 12/04/17 14:00 98.1 90 16 132/79 (96) 95 Room Air 12/04/17 13:45 89 15 140/88 (105) 100 Nasal Cannula 2 12/04/17 13:30 88 15 140/84 (102) 99 Nasal Cannula 2 12/04/17 13:20 15 12/04/17 13:15 90 15 140/89 (106) 99 Nasal Cannula 2 12/04/17 13:00 91 15 144/91 (108) 98 Nasal Cannula 2 12/04/17 13:00 15 12/04/17 12:50 98.2 92 20 142/90 (107) 100 Nasal Cannula 3 12/04/17 10:22 98.2 89 20 127/80 (96) 100 Discharge Condition: Good Discharge Disposition: Discharge Home Discharge Instructions: Resume a dialysis diet NO heavy lifting over a gallon of milk for 10 days May shower then pat dry incision Do not apply any creams or ointments to your incision site as it may loosen the surgical glue You were RX a narcotic pain medication which may cause constipation- Take with an OTC stool softener NO driving while taking your RX pain medication as if may cause dizziness Follow up in 2W in our out pt clinic for follow up Roxy Medeiros NP [employer] [phone] Any questions or concerns: Call [facility] at [place] [facility] [phone] Roxy Medeiros Dec 05, 2017 08:34
--- NOTE | 2017-12-05 08:41 | MP ---
cc: HUONG MACDONALD DATE OF SURGERY 12/04/2017 PREOPERATIVE DIAGNOSIS Chronic renal failure, nonfunctioning dialysis peritoneal dialysis catheter. POSTOPERATIVE DIAGNOSIS Chronic renal failure, nonfunctioning dialysis peritoneal dialysis catheter. OPERATIVE PROCEDURE Removal of the peritoneal dialysis catheter. SURGEON Dr. Macdonald MEDICAL RECORD LIBRARIAN Dr. Bloom ANESTHESIA General BLOOD LOSS Minimal PROCEDURE NOTE The patient prepped and draped in the usual fashion. The cuff of the dialysis catheter was encountered and the catheter was pulled with sharp and blunt dissection. The cup is freed from the skin, subcutaneous tissue and surrounding fiber sheath. Now the catheter is pulled a little bit and this allows for entification of the second cuff which is supra-fascial just lateral of the midline inferiorly. A small incision made transversely. This was deepened down. The second cuff was identified and carefully dissected free with cautery and Metzenbaum scissors and then the peritoneal dialysis catheter was pulled from the abdominal cavity and cut in half and pulled through. The area irrigated with saline, closed with 4-0 Monocryl. The patient tolerated the procedure well. Huong VARGAS/PAUL /6:45 PM /8:27 AM
[2017-12-05] MEDS ORDERED: LISINOPRIL 20 MG TAB PO SCH (09:00)
[2017-12-05] MEDS ORDERED: diphenhydrAMINE HCL 50 MG/ML VIAL IV PUSH ONE (09:00)
[2017-12-05] MEDS ORDERED: ALLOPURINOL 100 MG TAB PO SCH (09:00)
[2017-12-05] MEDS ORDERED: ASPIRIN 81 MG CHEW TAB CHEW SCH (09:00)
[2017-12-05] MEDS: ONDANSETRON ODT 4 MG TAB PO SCH ×2 (09:00→12:30)
--- NOTE | 2017-12-05 09:47 | MP ---
cc: QUIRINO NARANJO MD DATE OF SURGERY: 12/04/2017 PREOPERATIVE DIAGNOSIS 1. End-stage renal disease, needs dialysis access. 2. Nonfunctional peritoneal dialysis catheter. POSTOPERATIVE DIAGNOSIS 1. End-stage renal disease, needs dialysis access. 2. Nonfunctional peritoneal dialysis catheter. PROCEDURE 1. Left upper extremity brachial artery to axillary vein arteriovenous graft with 6 mm PTFE. 2. Peritoneal dialysis catheter removal (assist for Dr. Pollock). ATTENDING SURGEON Quirino Naranjo MD PRODUCT DEVELOPMENT CHEMIST SURGEON Elina Perez. ANESTHESIA General. INDICATION Ms. Patel is a 36-year-old lady who has end-stage renal disease, previously dialyzing through a peritoneal dialysis catheter that has become nonfunctional. She now has a tunneled hemodialysis catheter and she presents for new access creation as well as PD catheter removal. Preoperative imaging suggested she had no autogenous access options. DESCRIPTION OF PROCEDURE Informed consent was obtained from the patient. She was taken to the operating room and placed supine on the operating table and appropriate time-out was taken to ensure the patient's identity, operative site and planned procedure. Administration of 1 gram of vancomycin was initiated prior to skin incision and will be discontinued after single preoperative dose. Vancomycin was chosen because of the patient's end-stage renal disease. Everyone in the room agreed with time-out and we proceeded. Her left arm and abdomen were prepped and draped. An incision was made along the distal aspect of the upper arm and carried down to subcutaneous tissue with electrocautery. The brachial artery was identified and dissected free for several centimeters. A separate incision was made in the axilla, carried down to subcutaneous tissue with electrocautery and the axillary vein was easily identified and encircled with a vessel loop. A tunnel was then created between these two and a 6-mm PTFE graft was passed through this tunnel, taking caution not to twist it. The patient was systemically heparinized. Proximal and distal control of the brachial artery were obtained with profunda clamps and a longitudinal arteriotomy was made with an 11 blade and extended with Víctor scissors. The graft was spatulated and sewn end-to-side with running 5-0 Sav[place]-Teodoro suture. At the completion it was flushed and noted to be hemostatic and a clamp was placed on the graft. The distal end was cut to an appropriate length, transected and the axillary vein was controlled proximally and distally with profunda clamps. A longitudinal arteriotomy was made with an 11 blade and extended with Víctor scissors. The graft was then sewn end-to-side to the axillary vein with running 5-0 Savannah-Teodoro suture. At the completion it was flushed and noted to be hemostatic. The clamps were all released. There was nice thrill in the fistula and a Doppler signal in the wrist. The heparin which had been administered prior to arterial occlusion was reversed with protamine. The wounds were irrigated, infiltrated with Marcaine and closed with 2-0 Polysorb, 3-0 Polysorb and 4-0 Monocryl. We then turned our attention towards the PD catheter. This will be dictated by Dr. Pollock as I was an assist. The patient was then awoken from anesthesia and transferred to the recovery room in stable condition. I was present and scrubbed and performed the entire procedure. MD CASE Ashraf/SHWETAL /4:57 AM /9:23 AM
--- NOTE | 2017-12-05 11:37 | HHI.NPPN ---
Subjective History of Present Illness Hx 36 year old with AVG Interval History AVG Left Review of Systems General Constitutional: Fatigue Objective Data Data 12/05/17 12/06/17 19:00 07:00 Output Total 2000 ml Balance -2000 ml Output Hemodialysis 2000 ml Vital Signs Date Time Temp Pulse Resp B/P (MAP) Pulse Ox O2 Delivery O2 Flow Rate FiO2 12/05/17 08:20 98.9 109 18 146/91 (109) 98 12/05/17 05:40 16 12/05/17 05:24 100 12/05/17 05:10 16 12/05/17 04:25 95 12/05/17 04:06 98.7 94 18 137/82 (100) 97 12/05/17 03:02 95 12/05/17 02:11 101 12/05/17 01:25 98 12/05/17 00:20 94 12/05/17 00:01 98.6 95 17 120/62 (81) 95 12/04/17 23:15 94 12/04/17 22:12 92 12/04/17 21:15 80 12/04/17 20:44 99 12/04/17 20:00 97.8 89 16 154/93 (113) 100 12/04/17 18:00 84 12/04/17 17:00 92 12/04/17 16:49 88 12/04/17 16:18 94 12/04/17 15:00 98.2 95 16 121/70 (87) 96 Room Air 12/04/17 15:00 98.2 92 16 135/80 (98) 97 12/04/17 14:30 93 16 129/75 (93) 95 Room Air 12/04/17 14:00 98.1 90 16 132/79 (96) 95 Room Air 12/04/17 13:45 89 15 140/88 (105) 100 Nasal Cannula 2 12/04/17 13:30 88 15 140/84 (102) 99 Nasal Cannula 2 12/04/17 13:20 15 12/04/17 13:15 90 15 140/89 (106) 99 Nasal Cannula 2 12/04/17 13:00 91 15 144/91 (108) 98 Nasal Cannula 2 12/04/17 13:00 15 12/04/17 12:50 98.2 92 20 142/90 (107) 100 Nasal Cannula 3 -: 12/04/17 1005 12/05/17 0546 Physical Exam General Appearance: Well Developed, Well Nourished Neck Neck Exam: Neck Supple Pulmonary Resp Exam: Clear Bilaterally Cardiology CV Exam: Regular, Normal Sinus Rhythm Gastrointestinal/Abdomen GI Exam: Soft, Non-Tender, Bowel Sounds Present Extremeties Extremities Exam: No Edema Neurologic Neuro Exam: Alert Assessment/Plan Problem List: (1) ESRD (end stage renal disease) on dialysis ICD Codes: N18.6 - End stage renal disease; Z99.2 - Dependence on renal dialysis Status: Acute Plan: Patient is on hemodialysis seen during dialysis UF 2 L c/o numbness in surgical arm but getting better She will be discharged after dialysis (2) HTN (hypertension) ICD Codes: I10 - Essential (primary) hypertension Status: Acute Plan: Continue outpatient regimen Vanessa Lee MD Dec 05, 2017 11:36
[2017-12-05] MEDS ORDERED: HEPARIN SODIUM - SQ 10,000 UNITS/ML VIAL SQ SCH (12:00)
[2017-12-05] MEDS: CARVEDILOL 12.5 MG TAB PO SCH (12:30)
[2017-12-05] MEDS: hydrALAZINE HCL 25 MG TAB PO SCH (12:31)
[2017-12-05] MEDS: FAMOTIDINE 20 MG TAB PO SCH (12:31)
[2017-12-05] MEDS: SEVELAMER CARBONATE 800 MG TAB PO SCH ×2 (12:31→13:00)
--- NOTE | 2017-12-07 00:04 | EKG ---
Date Performed: 12/05/2017 Time Performed: 13:07:12 PTAGE: 36 years EKG: Sinus tachycardia Baseline artifact Borderline ECG PREVIOUS TRACING : 11/14/2017 10.16 Since the prior tracing, there has been no significant salmon DOCTOR: Celestino Burnette Interpretating Date/Time 12/07/2017 00:03:01
== END 2017-12-05 14:12 | disposition home or self-care (01) ==
LOC: HSDC 09:30 → EDSTATUS 11:30 → HSDI 12:37 → HCIS 15:09 → HCIN 20:38
PROVIDERS: ADMIT Surgery; ATTEND Surgery
DX: N18.6 End stage renal disease (principal); T85.611A Breakdown (mechanical) of intraperitoneal dialysis catheter, initial encounter; Q87.81 Alport syndrome; R20.0 Anesthesia of skin; R00.0 Tachycardia, unspecified; I77.0 Arteriovenous fistula, acquired; I12.0 Hypertensive chronic kidney disease with stage 5 chronic kidney disease or end stage renal disease; E21.3 Hyperparathyroidism, unspecified; Z79.899 Other long term (current) drug therapy; Z79.82 Long term (current) use of aspirin; Z99.2 Dependence on renal dialysis; Y81.2 Prosthetic and other implants, materials and accessory general- and plastic-surgery devices associated with adverse incidents
CPT/HCPCS: 00700; 01844; 36825; 49422; 80048; 85025; 85610; 85730; 86850; 86900; 86901; 93005; 96372; 96374; 96376; G0378; J1170; J1200; J1644; J2270; J2720; J2765; J3010; J3370; J7040; Q4081

== ENCOUNTER 2018-01-03 19:53 | Inpatient (IN) | payer MEDICARE, MEDICAID ==
[~2018-01-03] VITALS: Ht 175.3 cm; Wt 85.9 kg
[~2018-01-03 19:53] MED LIST changes: -DIPH25TA2 PO; +NITROGLYCERIN 2% OINT 1 GM PACKET TOP SCH
[2018-01-03 20:00] VITALS: BP 146/88; PULSE 94; RESP 18; TEMP 98.5
[2018-01-03] MEDS ORDERED: SODIUM CHLORIDE 0.9% FLUSH 10 ML FLUSH IV FLUSH PRN (20:30)
[2018-01-03 21:00] VITALS: BP 146/84; PULSE 78; RESP 34; O2SAT 97
[2018-01-03] MEDS: SODIUM CHLORIDE 0.9% FLUSH 10 ML FLUSH IV FLUSH SCH (21:00)
[2018-01-03] MEDS ORDERED: ACETAMINOPHEN 325 MG TAB PO PRN (21:00)
[2018-01-03] MEDS: MORPHINE SULFATE 4 MG/ML INJ IV PUSH PRN (21:04)
[2018-01-03] MEDS ORDERED: CHLORHEXIDINE GLUCONATE 2 % 1 PACK (2 CLOTHS)(extra cloths) TOPICAL PRN (21:15)
[2018-01-03 21:32] LABS: TROPONIN I LESS THAN 0.02 NG/ML (0.02-0.05)
[2018-01-03 22:00] VITALS: BP 130/77; PULSE 74; RESP 18; O2SAT 96
[2018-01-03] MEDS: HEPARIN SODIUM - SQ 10,000 UNITS/ML VIAL SQ SCH (22:47)
[2018-01-03 23:00] VITALS: BP 135/75; PULSE 78; RESP 27; O2SAT 95
[2018-01-03] MEDS: NITROGLYCERIN 2% OINT 1 GM PACKET TOP SCH (23:21)
[2018-01-04] VITALS (20 sets, daily range): BP systolic 129–166; BP diastolic 77–107; PULSE 72–96; RESP 14–29; TEMP 98.1–98.5; O2SAT 96–99
[2018-01-04] MEDS: MORPHINE SULFATE 4 MG/ML INJ IV PUSH PRN ×5 (00:50→21:02)
[2018-01-04] MEDS ORDERED: diphenhydrAMINE HCL 25 MG CAP PO ONE (02:00)
[2018-01-04] MEDS ORDERED: cloNIDine HCL 0.2 MG TAB PO PRN (02:15)
[2018-01-04] MEDS ORDERED: ZOLPIDEM TARTRATE 10 MG TAB PO PRN (02:15)
[2018-01-04] MEDS: CARVEDILOL 12.5 MG TAB PO SCH ×3 (02:24→21:01)
[2018-01-04] MEDS: CHLORHEXIDINE GLUCONATE 2 % 1 PACK (2 CLOTHS)(taper/protocol) TOPICAL SCH (02:24)
[2018-01-04 03:45] LABS: TROPONIN I LESS THAN 0.02 NG/ML (0.02-0.05)
[2018-01-04 04:54] LABS: AUTOMATED NEUTROPHIL # 3.5 TH/MM3 (1.8-7.7); BASOPHIL # 0.1 TH/MM3 (0-0.2); BASOPHIL % 1.2 % (0.0-2.0); EOSINOPHIL # 0.3 TH/MM3 (0-0.4); EOSINOPHIL % 5.5 % (0.0-4.0); HEMOGLOBIN 9.8 GM/DL (11.6-15.3); LYMPH % 29.5 % (9.0-44.0); LYMPHOCYTE # 1.8 TH/MM3 (1.0-4.8); MEAN CELL VOLUME 81.5 FL (80.0-100.0); MEAN CORPUSCULAR HEMOGLOBIN 24.9 PG (27.0-34.0); MEAN CORPUSCULAR HGB CONC 30.5 % (32.0-36.0); MONOCYTE # 0.5 TH/MM3 (0-0.9); NEUT % 55.8 % (16.0-70.0); PLATELET COUNT 204 TH/MM3 (150-450); RED BLOOD COUNT 3.93 MIL/MM3 (4.00-5.30); RED CELL DISTRIBUTION WIDTH 17.8 % (11.6-17.2); WHITE BLOOD COUNT 6.2 TH/MM3 (4.0-11.0)
[2018-01-04 05:09] LABS: BICARBONATE 25.1 MEQ/L (21.0-32.0); CALCIUM 7.9 MG/DL (8.5-10.1)
[2018-01-04 05:13] LABS: CREATININE 9.4 MG/DL (0.50-1.00)
[2018-01-04] MEDS: HEPARIN SODIUM - SQ 10,000 UNITS/ML VIAL SQ SCH ×3 (05:40→21:02)
[2018-01-04] MEDS: NITROGLYCERIN 2% OINT 1 GM PACKET TOP SCH ×3 (05:40→18:02)
[2018-01-04] MEDS: SEVELAMER CARBONATE 800 MG TAB PO SCH ×3 (08:00→16:20)
[2018-01-04] MEDS: hydrALAZINE HCL 25 MG TAB PO SCH ×2 (08:58→21:01)
[2018-01-04] MEDS: ASPIRIN 81 MG CHEW TAB CHEW SCH (08:58)
[2018-01-04] MEDS: LISINOPRIL 20 MG TAB PO SCH (08:59)
[2018-01-04] MEDS: ALLOPURINOL 100 MG TAB PO SCH (08:59)
[2018-01-04] MEDS: SODIUM CHLORIDE 0.9% FLUSH 10 ML FLUSH IV FLUSH SCH ×2 (09:00→21:01)
[2018-01-04] MEDS ORDERED: ASPIRIN 325 MG TAB PO SCH (09:00)
--- NOTE | 2018-01-04 10:11 | HHI.HP ---
[facility] Primary Care Physician No Primary Care Physician Admission Diagnosis Chest pain Hypertensive crisis Diagnoses: (1) Chest pain Diagnosis: Principal (2) HTN (hypertension) Diagnosis: Principal (3) TIA (transient ischemic attack) Chief Complaint: Left sided weakness. Chest pain Travel History International Travel<30 Days: No Contact w/Intl Traveler <30 Da: No Traveled to Known Affected Are: No History of Present Illness This is a pleasant 37-year-old female patient with a known medical history of end-stage renal disease on dialysis with left upper extremity AV graft, Alports syndrome, hypertension, history of multiple TIAs who presented to the ED with complaints of chest pain and left upper extremity and lower extremity weakness. Patient states that the chest pain began yesterday morning after waking up from a nap. She states that the chest pain is midsternal, is characteristically aching in nature and radiates to her left chest and neck, patient also complains of left upper extremity numbness and tingling with occasional shooting pains. Does also complain of left lower extremity weakness. Patient rates the pain a 5 out of 10 at its worse on pain scale. Does admit to nausea, shortness of breath and diaphoresis. Denies any vomiting. Patient states that this pain is intermittent in nature, will come and go randomly, last a few minutes and then subside on its own. Denies any known alleviating or aggravating factors. Patient did undergo left upper extremity AV graft by Dr. Myers on December 04 of this year. She was just recently hospitalized for similar symptoms. Last saw Dr. Myers on 12/14/17 been reportedly denied any changes to graft. Patient does follow with a code enforcement supervisor in [place], Dr. Cat, was last seen 1 month ago at that time no changes in medications. Last stress test was done in April of last year which was unremarkable, although patient did present as high risk due to EF of 34%. A repeat echocardiogram was done in November of this year showing an EF of 65%. Patient denies any recent illness including fever, chills, shortness of breath, abdominal pain, nausea, vomiting or diarrhea. Patient also is end- stage renal disease with Alport syndrome, receives dialysis Sunday and Sunday. After review of records patient also presented last year in September with similar symptoms of left-sided weakness and hypertensive crisis. At that time a full neurological workup was done, MRI of the brain was negative. Patient was lost to follow-up for neurology after that time. Review of Systems Constitutional: DENIES: Fatigue, Fever, Chills Eyes: DENIES: Blurred vision, Diplopia Respiratory: DENIES: Cough, Sputum production, Shortness of breath Cardiovascular: COMPLAINS OF: Chest pain, Palpitations Gastrointestinal: COMPLAINS OF: Nausea, DENIES: Abdominal pain, Black stools, Bloody stools, Constipation, Diarrhea, Vomiting Neurologic: COMPLAINS OF: Localized weakness (Left-sided weakness upper and lower extremities) Psychiatric: DENIES: Anxiety Except as stated in HPI: all other systems reviewed are Neg Past Family Social History Past Medical History Alport's Syndrome ESRD (peritoneal dialysis) HTN Hypocalcemia TIA Hx Past Surgical History Hysterectomy Tubal Ligation Cholecystectomy Parathyroidectomy Abdominal Port Placement (peritoneal dialysis) Reported Medications Active Reported Renvela (Sevelamer Carbonate) 800 Mg Tab 800 Mg PO TID Vitamin D3 (Cholecalciferol) 5,000 Unit Cap 5,000 Units PO WEEKLY Hydralazine HCl 25 Mg Tablet 25 Mg PO BID Lisinopril 40 Mg Tab 40 Mg PO DAILY Zolpidem (Zolpidem Tartrate) 10 Mg Tab 10 Mg PO HS PRN Carvedilol 25 Mg Tab 25 Mg PO BID Clonidine (Clonidine HCl) 0.2 Mg Tab 0.2 Mg PO BID PRN Allopurinol 100 Mg Tab 100 Mg PO DAILY Aspirin 81 Mg Chew 81 Mg CHEW DAILY Amlodipine (Amlodipine Besylate) 10 Mg Tab 10 Mg PO DAILY Allergies: Coded Allergies: ceftriaxone (Unverified Allergy, Severe, RASH, 01/03/18) gentamicin (Unverified Allergy, Severe, RASH, 01/03/18) levofloxacin (Unverified Allergy, Severe, ITCHING, 01/03/18) acetaminophen (Unverified Allergy, Intermediate, Nausea/Vomiting, 01/03/18) PT STATES ITCHINESS, NAUSEA, AND VOMITTING hydrocodone (Unverified Allergy, Intermediate, Nausea/Vomiting, 01/03/18) PT STATES ITCHINESS, NAUSEA, AND VOMITTING tramadol (Verified Allergy, Intermediate, itching, 01/03/18) diatrizoate meglumine (Unverified Adverse Reaction, Unknown, due to renal failure, 01/03/18) gadobenic acid (Unverified Adverse Reaction, Unknown, due to renal failure , 01/03/18) gadodiamide (Unverified Adverse Reaction, Unknown, due to renal failure, ) gadoteridol (Unverified Adverse Reaction, Unknown, due to renal failure, ) iodixanol (Unverified Adverse Reaction, Unknown, due to renal failure, ) iohexol (Unverified Adverse Reaction, Unknown, due to renal failure, ) sulfamethoxazole (Unverified Adverse Reaction, Unknown, due to kidney failure, 01/03/18) trimethoprim (Unverified Adverse Reaction, Unknown, due to kidney failure , 01/03/18) Active Ordered Medications Current Medications Medications (Trade) Dose Ordered Sig/Catherine Route Start Time Stop Time Status Last Admin (NS Flush) 2 ml BID IV FLUSH 01/03/18 21:00 01/04/18 09:00 (NS Flush) 2 ml UNSCH PRN IV FLUSH 01/03/18 20:30 (Aspirin) 325 mg DAILY PO 01/04/18 09:00 01/04/18 08:58 (Morphine Inj) 2 mg Q3H PRN IV PUSH 01/03/18 21:00 01/04/18 09:09 (Heparin Inj) 5,000 units Q8HR SQ 01/03/18 22:00 01/04/18 05:40 (Tylenol) 650 mg Q4H PRN PO 01/03/18 21:00 Miscellaneous Information Patient in critical care unit? Ass... [id number] .XX 01/03/18 21:15 (Chlorhexidine 2% Cloth) 3 pack DAILY@04 TOPICAL 01/04/18 04:00 01/08/18 04:01 01/04/18 02:24 (Chlorhexidine 2% Cloth) 3 pack UNSCH PRN TOPICAL 01/03/18 21:15 01/08/18 21:03 (Nitroglycerin 2% Oint) 1 inch Q6HR TOP 01/04/18 00:00 01/04/18 05:40 (Zyloprim) 100 mg DAILY PO 01/04/18 09:00 01/04/18 08:59 (Norvasc) 10 mg DAILY PO 01/04/18 09:00 01/04/18 08:59 (Aspirin Chew) 81 mg DAILY CHEW 01/04/18 09:00 01/04/18 08:58 (Coreg) 25 mg BID PO 01/04/18 02:15 01/04/18 08:58 (Catapres) 0.2 mg BID PRN PO 01/04/18 02:15 (Apresoline) 25 mg BID PO 01/04/18 09:00 01/04/18 08:58 (Renvela) 800 mg TIDAC PO 01/04/18 08:00 (Ambien) 10 mg HS PRN PO 01/04/18 02:15 (Prinivil) 40 mg DAILY PO 01/04/18 09:00 01/04/18 08:59 (Benadryl Inj) 25 mg Q6H PRN IV PUSH 01/04/18 10:00 01/04/18 10:57 Family History Paternal medical history significant for end-stage renal disease on dialysis. Patient's mother had a history of stroke and hypertension. Social History Patient denies any current or previous tobacco use, denies any alcohol use or illicit drug use. Physical Exam Vital Signs Vital Signs Date Time Temp Pulse Resp B/P (MAP) Pulse Ox O2 Delivery O2 Flow Rate FiO2 01/04/18 10:00 88 01/04/18 10:00 76 22 140/87 (104) 97 01/04/18 09:51 78 25 149/92 (111) 97 01/04/18 09:14 25 01/04/18 09:08 76 15 166/107 (126) 99 01/04/18 09:08 76 15 166/107 (126) 99 01/04/18 09:00 78 29 165/101 (122) 97 01/04/18 08:00 79 01/04/18 06:00 76 01/04/18 04:00 98.3 74 14 146/82 (103) 96 01/04/18 04:00 74 01/04/18 02:00 72 01/04/18 00:00 80 01/04/18 00:00 98.1 80 15 136/81 (99) 97 01/03/18 23:00 78 27 135/75 (95) 95 01/03/18 22:00 74 18 130/77 (94) 96 01/03/18 22:00 74 01/03/18 21:00 78 34 146/84 (104) 97 01/03/18 20:00 94 01/03/18 20:00 98.5 94 18 146/88 (107) Physical Exam GENERAL: Well-developed, well-nourished patient in NAD. SKIN: Warm and dry. No rash. Left upper extremity AV graft present, bruit and thrill present. Bilateral upper extremities warm to touch. Sensation intact. Bilateral radial pulses present. HEAD: Normocephalic. Atraumatic. EYES: Pupils equal and round. No scleral icterus. No injection or drainage. ENT: No nasal bleeding or discharge. Mucous membranes pink and moist. NECK: Supple. Trachea midline. CARDIOVASCULAR: Regular rate and rhythm. S1, S2 noted. No murmur appreciated. RESPIRATORY: No accessory muscle use. Clear to auscultation. Breath sounds equal bilaterally. GASTROINTESTINAL: Abdomen soft, non-tender, nondistended. Normoactive bowel sounds x4. MUSCULOSKELETAL: No obvious deformities. Extremities without clubbing, cyanosis , or edema. NEUROLOGICAL: Awake and alert. No obvious cranial nerve deficits. Motor grossly within normal limits. 5/5 muscle strength in right upper and lower extremities. 4/5 muscle strength in left upper and lower extremities. Normal speech. PSYCHIATRIC: Appropriate mood and affect; insight and judgment normal. Laboratory Laboratory Tests Test 01/03/18 21:00 01/03/18 21:53 01/04/18 03:21 01/04/18 04:45 Potassium Level 3.6 4.4 Total Creatine Kinase 57 51 Troponin I LESS THAN 0.02 LESS THAN 0.02 Nasal Screen MRSA (PCR) MRSA NOT DETECTED White Blood Count 6.2 Red Blood Count 3.93 Hemoglobin 9.8 Hematocrit 32.0 Mean Corpuscular Volume 81.5 Mean Corpuscular Hemoglobin 24.9 Mean Corpuscular Hemoglobin Concent 30.5 Red Cell Distribution Width 17.8 Platelet Count 204 Mean Platelet Volume 8.0 Neutrophils (%) (Auto) 55.8 Lymphocytes (%) (Auto) 29.5 Monocytes (%) (Auto) 8.0 Eosinophils (%) (Auto) 5.5 Basophils (%) (Auto) 1.2 Neutrophils # (Auto) 3.5 Lymphocytes # (Auto) 1.8 Monocytes # (Auto) 0.5 Eosinophils # (Auto) 0.3 Basophils # (Auto) 0.1 CBC Comment AUTO DIFF Differential Comment AUTO DIFF CONFIRMED Platelet Estimate NORMAL Platelet Morphology Comment NORMAL Blood Urea Nitrogen 38 Creatinine 9.40 Random Glucose 79 Calcium Level 7.9 Sodium Level 140 Chloride Level 104 Carbon Dioxide Level 25.1 Anion Gap 11 Estimat Glomerular Filtration Rate 6 Result Diagram: 01/04/1844401/04/18444 Septic Shock Reassessment Septic shock perfusion: reassessment completed Caprini VTE Risk Assessment Caprini VTE Risk Assessment: No/Low Risk (score <= 1) Caprini Risk Assessment Model Point Value = 1 Point Value = 2 Point Value = 3 Point Value = 5 Age 41-60 Minor surgery BMI > 25 kg/m2 Swollen legs Varicose veins or History of unexplained or recurrent spontaneous Oral contraceptives or hormone replacement Sepsis (< 1 month) Serious lung disease, including pneumonia (< 1 month) Abnormal pulmonary function Acute myocardial infarction Congestive heart failure (< 1 month) History of inflammatory bowel disease Medical patient at bed rest Age 61-74 Arthroscopic surgery Major open surgery (> 45 min) Laparoscopic surgery (> 45 min) Malignancy Confined to bed (> 72 hours) Immobilizing plaster cast Central venous access Age >= 75 History of VTE Family history of VTE Factor V Leiden Prothrombin [id number] Lupus anticoagulant Anticardiolipin antibodies Elevated serum homocysteine Heparin-induced thrombocytopenia Other congenital or acquired thrombophilia Stroke (< 1 month) Elective arthroplasty Hip, pelvis, or leg fracture Acute spinal cord injury (< 1 month) Prophylaxis Regimen Total Risk Factor Score Risk Level Prophylaxis Regimen 0-1 Low Early ambulation 2 Moderate Order ONE of the following: *Sequential Compression Device (SCD) *Heparin 5000 units SQ BID 3-4 Higher Order ONE of the following medications: *Heparin 5000 units SQ TID *Enoxaparin/Lovenox 40 mg SQ daily (WT < 150 kg, CrCl > 30 mL/min) *Enoxaparin/Lovenox 30 mg SQ daily (WT < 150 kg, CrCl > 10-29 mL/min) *Enoxaparin/Lovenox 30 mg SQ BID (WT < 150 kg, CrCl > 30 mL/min) AND/OR *Sequential Compression Device (SCD) 5 or more Highest Order ONE of the following medications: *Heparin 5000 units SQ TID (Preferred with Epidurals) *Enoxaparin/Lovenox 40 mg SQ daily (WT < 150 kg, CrCl > 30 mL/min) *Enoxaparin/Lovenox 30 mg SQ daily (WT < 150 kg, CrCl > 10-29 mL/min) *Enoxaparin/Lovenox 30 mg SQ BID (WT < 150 kg, CrCl > 30 mL/min) AND *Sequential Compression Device (SCD) Assessment and Plan Problem List: (1) Chest pain ICD Code: R07.9 - Chest pain, unspecified Status: Resolved (2) HTN (hypertension) ICD Code: I10 - Essential (primary) hypertension Status: Acute (3) TIA (transient ischemic attack) ICD Code: G45.9 - Transient cerebral ischemic attack, unspecified (4) ESRD (end stage renal disease) ICD Code: N18.6 - End stage renal disease Status: Acute Assessment and Plan This is a pleasant 37-year-old female patient with a known medical history of end-stage renal disease on dialysis with left upper extremity AV graft, Alports syndrome, hypertension, history of multiple TIAs who presented to the ED with complaints of chest pain and left upper extremity and lower extremity weakness. Chest pain suspect secondary to hypertensive crisis History of hypertension, uncontrolled History of CAD Patient presented with blood pressure 200's/110's. With left upper extremity and lower extremity weakness, numbness and tingling. Serial EKGs and serial troponins performed. Troponins flat. EKG reviewed showing normal sinus rhythm, heart rate controlled, no arrhythmias. No ST changes. Last stress test was performed in April of 2017, no ischemia at the time, EF 34%. Echocardiogram on 11/15/17 reviewed showing an EF of 65%. Follows with cardiology, Dr. Hughes in [place], last seen 1 month ago, no change in medications. Continue cardiac telemetry, rule out any arrhythmias. Control pain, IV morphine available per pain scale. Continue home medications for high blood pressure, monitor blood pressure trends closely. Is now more controlled. Nephrology following, appreciate recommendations for hypertensive medications. Continue home aspirin, lisinopril, Norvasc, Coreg, Apresoline. Left upper extremity and lower extremity weakness, numbness and tingling rule out TIA or CVA CT of the brain reviewed, negative examination. MRI pending. Echocardiogram reviewed from last month, EF 65%. Previous carotid ultrasound reviewed, unremarkable. Lipid panel pending, follow. Patient had full neurological workup in September of 2017, at the time workup was negative. Lost to follow-up after hospitalization. Has had intermittent presentations with similar symptoms. Consult placed to neurology, appreciate further input recommendations. End-stage renal disease with Alport syndrome Recent placement of left upper extremity AV graft with left upper extremity numbness and tingling On dialysis Sunday, Sunday and Sunday. Nephrology consulted, appreciate further recommendations and input. Will perform dialysis today. Monitor labs. Spoke to Dr. Myers, who placed AV graft, last seen patient on 12/14 with no changes to AV graft. Next appointment is scheduled for 01/11. Unlikely symptoms are related to AV graft. No need for consult at this time. DVT prophylaxis: SCDs. Physician Certification 2 Midnight Certification Type: Admission for Inpatient Services Order for Inpatient Services The services are ordered in accordance with Medicare regulations or non- Medicare payer requirements, as applicable. In the case of services not specified as inpatient-only, they are appropriately provided as inpatient services in accordance with the 2-midnight benchmark. Estimated LOS (days): 3 3 days is the estimated time the patient will need to remain in the hospital, assuming treatment plan goals are met and no additional complications. Post-Hospital Plan: Home Kika Saez Jan 04, 2018 10:11
[2018-01-04] MEDS: diphenhydrAMINE HCL 50 MG/ML VIAL IV PUSH PRN ×3 (10:57→21:44)
[2018-01-04] MEDS ORDERED: ALPRAZolam 0.25 MG TAB PO ONE (12:15)
--- NOTE | 2018-01-04 12:57 | RADRPT ---
EXAM DATE/TIME: 01/04/2018 12:33 [facility] COMPARISON: No previous studies available for comparison. INDICATIONS : Left sided weakness. MEDICAL HISTORY : Renal failure, chronic. Hypertension. Alport syndrome. SURGICAL HISTORY : Hysterectomy. Cholecystectomy. ENCOUNTER: Initial ACUITY: 1 day PAIN SCORE: 0/10 LOCATION: cranial TECHNIQUE: Multiplanar, multisequence MRI of the brain was performed without contrast. FINDINGS: CEREBRUM: The ventricles are normal for age. No evidence of midline shift, mass lesion, hemorrhage or acute in farction. No extraaxial fluid collections are seen. The pituitary gland and suprasellar cistern are normal in configuration. WHITE MATTER: No significant signal abnormalities are seen in the white matter. POSTERIOR FOSSA: The cerebellum and brainstem are intact. The 4th ventricle is midline. The cerebellopontine angle is unremarkable. The cerebellar tonsils are normal in position. DIFFUSION IMAGING: No focal areas of restricted diffusion are seen. No evidence of acute infarction. EXTRACRANIAL: The visualized portions of the orbits and paranasal sinuses are unremarkable. CONCLUSION: Normal examination for a patient of this age. Previous maxillary sinusitis has resolved. David Rivera MD on January 04, 2018 at 12:51 Board Certified Radiologist. This report was verified electronically.
[2018-01-04 13:40] LABS: CHOLESTEROL/ HDL RATIO 3.16 RATIO; HDL CHOLESTEROL 39.8 MG/DL (40.0-60.0)
--- NOTE | 2018-01-04 14:40 | EKG ---
Date Performed: 01/03/2018 Time Performed: 21:25:33 PTAGE: 37 years EKG: Sinus rhythm NORMAL ECG PREVIOUS TRACING : 12/05/2017 13.07 Since the prior tracing, there has been no significant salmon DOCTOR: Lily Schaeffer Interpretating Date/Time 01/04/2018 14:36:23
--- NOTE | 2018-01-04 14:40 | EKG ---
Date Performed: 01/04/2018 Time Performed: 04:23:21 PTAGE: 37 years EKG: Sinus rhythm NORMAL ECG PREVIOUS TRACING : 01/03/2018 21.25 Since the prior tracing, there has been no significant salmon DOCTOR: Lily Schaeffer Interpretating Date/Time 01/04/2018 14:36:45
[2018-01-04] MEDS ORDERED: SODIUM CHLOR 0.9% 1000 ML INJ 1,000 ML OTHER PRN ×2 (14:50)
[2018-01-04] MEDS ORDERED: SODIUM CHLOR 0.9% 1000 ML INJ 1,000 ML IV PRN (14:50)
[2018-01-04] MEDS ORDERED: cloNIDine HCL 0.1 MG TAB PO PRN (15:00)
[2018-01-04] MEDS ORDERED: NITROGLYCERIN 0.4 MG SL 25 TABS/BTL SL PRN (15:00)
[2018-01-04] MEDS ORDERED: GELATIN 12 MM/7 MM FOAM TOP PRN (15:00)
[2018-01-04] MEDS ORDERED: HEPARIN SODIUM - IV 10,000 UNITS/10 ML VIAL IV FLUSH PRN (15:00)
[2018-01-04] MEDS ORDERED: ACETAMINOPHEN 325 MG TAB PO PRN (15:00)
[2018-01-04] MEDS ORDERED: diphenhydrAMINE HCL 25 MG CAP PO PRN (15:00)
[2018-01-04] MEDS ORDERED: HEPARIN SODIUM - IV 10,000 UNITS/10 ML VIAL PRN (15:00)
[2018-01-04] MEDS ORDERED: SODIUM CHLORIDE 0.9% FLUSH 10 ML FLUSH IV FLUSH PRN (15:00)
[2018-01-04] MEDS ORDERED: MANNITOL 12.5 GM/50 ML VIAL IV PRN (15:00)
[2018-01-04] MEDS ORDERED: EPOETIN ALFA 10,000 UNITS/ML VIAL IV PUSH PRN (15:00)
[2018-01-04] MEDS ORDERED: ALBUMIN 25% INJ 100 ML IV PRN (15:00)
[2018-01-04] MEDS ORDERED: ONDANSETRON HCL 4 MG/2 ML VIAL IV PUSH PRN (15:00)
--- NOTE | 2018-01-04 15:06 | PD.CONS ---
HPI Service Nephrology Consult Requested By Dr. Eller Reason for Consult ESRD on hemodialysis Primary Care Physician No Primary Care Physician History of Present Illness Patient is a 37-year-old female with Alport syndrome, hypertension, who has been admitted to the hospital with a stroke alert/ TIA, patient has hypertensive urgency blood pressure was 218/125, she was admitted and stated she has multiple TIAs in the past she has tingling in the left hand and left leg as well , dialysis is on Sunday, Sunday and . Review of Systems Constitutional: COMPLAINS OF: Fatigue Neurologic: COMPLAINS OF: Paresthesias Psychiatric: COMPLAINS OF: Anxiety Past Family Social History Allergies: Coded Allergies: ceftriaxone (Unverified Allergy, Severe, RASH, 01/03/18) gentamicin (Unverified Allergy, Severe, RASH, 01/03/18) levofloxacin (Unverified Allergy, Severe, ITCHING, 01/03/18) acetaminophen (Unverified Allergy, Intermediate, Nausea/Vomiting, 01/03/18) PT STATES ITCHINESS, NAUSEA, AND VOMITTING hydrocodone (Unverified Allergy, Intermediate, Nausea/Vomiting, 01/03/18) PT STATES ITCHINESS, NAUSEA, AND VOMITTING tramadol (Verified Allergy, Intermediate, itching, 01/03/18) diatrizoate meglumine (Unverified Adverse Reaction, Unknown, due to renal failure, 01/03/18) gadobenic acid (Unverified Adverse Reaction, Unknown, due to renal failure , 01/03/18) gadodiamide (Unverified Adverse Reaction, Unknown, due to renal failure, ) gadoteridol (Unverified Adverse Reaction, Unknown, due to renal failure, ) iodixanol (Unverified Adverse Reaction, Unknown, due to renal failure, ) iohexol (Unverified Adverse Reaction, Unknown, due to renal failure, ) sulfamethoxazole (Unverified Adverse Reaction, Unknown, due to kidney failure, 01/03/18) trimethoprim (Unverified Adverse Reaction, Unknown, due to kidney failure , 01/03/18) Past Medical History TIAs Hypertensive urgency ESRD Alport syndrome Secondary hyperparathyroidism History of peritoneal dialysis Currently on hemodialysis Past Surgical History AV graft placed by Dr. Myers History of Tenckhoff catheter Parathyroidectomy Reported Medications Reported Meds & Active Scripts Active Reported Renvela (Sevelamer Carbonate) 800 Mg Tab 800 Mg PO TID Vitamin D3 (Cholecalciferol) 5,000 Unit Cap 5,000 Units PO WEEKLY Hydralazine HCl 25 Mg Tablet 25 Mg PO BID Lisinopril 40 Mg Tab 40 Mg PO DAILY Zolpidem (Zolpidem Tartrate) 10 Mg Tab 10 Mg PO HS PRN Carvedilol 25 Mg Tab 25 Mg PO BID Clonidine (Clonidine HCl) 0.2 Mg Tab 0.2 Mg PO BID PRN Allopurinol 100 Mg Tab 100 Mg PO DAILY Aspirin 81 Mg Chew 81 Mg CHEW DAILY Amlodipine (Amlodipine Besylate) 10 Mg Tab 10 Mg PO DAILY Active Ordered Medications Current Medications Medications (Trade) Dose Ordered Sig/Catherine Route Start Time Stop Time Status Last Admin (NS Flush) 2 ml BID IV FLUSH 01/03/18 21:00 01/04/18 09:00 (NS Flush) 2 ml UNSCH PRN IV FLUSH 01/03/18 20:30 (Morphine Inj) 2 mg Q3H PRN IV PUSH 01/03/18 21:00 01/04/18 13:39 (Heparin Inj) 5,000 units Q8HR SQ 01/03/18 22:00 01/04/18 05:40 (Tylenol) 650 mg Q4H PRN PO 01/03/18 21:00 Miscellaneous Information Patient in critical care unit? Ass... [id number] .XX 01/03/18 21:15 (Chlorhexidine 2% Cloth) 3 pack DAILY@04 TOPICAL 01/04/18 04:00 01/08/18 04:01 01/04/18 02:24 (Chlorhexidine 2% Cloth) 3 pack UNSCH PRN TOPICAL 01/03/18 21:15 01/08/18 21:03 (Nitroglycerin 2% Oint) 1 inch Q6HR TOP 01/04/18 00:00 01/04/18 13:34 (Zyloprim) 100 mg DAILY PO 01/04/18 09:00 01/04/18 08:59 (Norvasc) 10 mg DAILY PO 01/04/18 09:00 01/04/18 08:59 (Aspirin Chew) 81 mg DAILY CHEW 01/04/18 09:00 01/04/18 08:58 (Coreg) 25 mg BID PO 01/04/18 02:15 01/04/18 08:58 (Catapres) 0.2 mg BID PRN PO 01/04/18 02:15 (Apresoline) 25 mg BID PO 01/04/18 09:00 01/04/18 08:58 (Renvela) 800 mg TIDAC PO 01/04/18 08:00 (Ambien) 10 mg HS PRN PO 01/04/18 02:15 (Prinivil) 40 mg DAILY PO 01/04/18 09:00 01/04/18 08:59 (Benadryl Inj) 25 mg Q6H PRN IV PUSH 01/04/18 10:00 01/04/18 10:57 Sodium Chloride 1,000 ml @ 0 mls/hr Q0M PRN OTHER 01/04/18 14:50 UNV (Heparin Inj) 8,000 units UNSCH PRN IV FLUSH 01/04/18 15:00 UNV Sodium Chloride 1,000 ml @ 200 mls/hr Q5H PRN IV 01/04/18 14:50 UNV Sodium Chloride 1,000 ml @ 0 mls/hr Q0M PRN OTHER 01/04/18 14:50 UNV (Mannitol Inj) 12.5 gm UNSCH PRN IV 01/04/18 15:00 UNV Albumin Human 100 ml @ 60 mls/hr UNSCH PRN IV 01/04/18 15:00 UNV (NS Flush) 5 ml UNSCH PRN IV FLUSH 01/04/18 15:00 UNV (Heparin Inj) UNSCH PRN .XX 01/04/18 15:00 UNV (Zofran Inj) 4 mg UNSCH PRN IV PUSH 01/04/18 15:00 UNV (Tylenol) 650 mg UNSCH PRN PO 01/04/18 15:00 UNV (Benadryl) 25 mg UNSCH PRN PO 01/04/18 15:00 UNV (Nitrostat Sl) 0.4 mg UNSCH PRN SL 01/04/18 15:00 UNV (Catapres) 0.1 mg UNSCH PRN PO 01/04/18 15:00 UNV (Epogen Inj) 4,000 units UNSCH PRN IV PUSH 01/04/18 15:00 UNV (Gelfoam 12 Mm/7 Mm Top) 1 foam UNSCH PRN TOP 01/04/18 15:00 UNV Social History Denies smoking or alcohol Physical Exam Vital Signs Vital Signs Date Time Temp Pulse Resp B/P (MAP) Pulse Ox O2 Delivery O2 Flow Rate FiO2 01/04/18 13:44 26 01/04/18 13:00 98.5 74 14 150/90 (110) 01/04/18 12:00 76 15 129/77 (94) 96 01/04/18 12:00 76 01/04/18 10:00 88 01/04/18 10:00 76 22 140/87 (104) 97 01/04/18 09:51 78 25 149/92 (111) 97 01/04/18 09:08 76 15 166/107 (126) 99 01/04/18 09:08 76 15 166/107 (126) 99 01/04/18 09:00 78 29 165/101 (122) 97 01/04/18 08:00 79 01/04/18 06:00 76 01/04/18 04:00 98.3 74 14 146/82 (103) 96 01/04/18 04:00 74 01/04/18 02:00 72 01/04/18 00:00 80 01/04/18 00:00 98.1 80 15 136/81 (99) 97 01/03/18 23:00 78 27 135/75 (95) 95 01/03/18 22:00 74 18 130/77 (94) 96 01/03/18 22:00 74 01/03/18 21:00 78 34 146/84 (104) 97 01/03/18 20:00 94 01/03/18 20:00 98.5 94 18 146/88 (107) Physical Exam GENERAL: Well-nourished, well-developed patient. SKIN: Warm and dry. HEAD: Normocephalic. EYES: No scleral icterus. No injection or drainage. NECK: Supple, trachea midline. No JVD or lymphadenopathy. CARDIOVASCULAR: Regular rate and rhythm without murmurs, gallops, or rubs. RESPIRATORY: Breath sounds equal bilaterally. No accessory muscle use. GASTROINTESTINAL: Abdomen soft, non-tender, nondistended. EXTREMITIES: No cyanosis, or edema. She recently Had AV graft left arm permacath on right side NEUROLOGICAL: Awake, alert, and oriented x 3. Non-focal. Laboratory Laboratory Tests Test 01/03/18 21:00 01/03/18 21:53 01/04/18 03:21 01/04/18 04:45 Potassium Level 3.6 4.4 Total Creatine Kinase 57 51 Troponin I LESS THAN 0.02 LESS THAN 0.02 Nasal Screen MRSA (PCR) MRSA NOT DETECTED White Blood Count 6.2 Red Blood Count 3.93 Hemoglobin 9.8 Hematocrit 32.0 Mean Corpuscular Volume 81.5 Mean Corpuscular Hemoglobin 24.9 Mean Corpuscular Hemoglobin Concent 30.5 Red Cell Distribution Width 17.8 Platelet Count 204 Mean Platelet Volume 8.0 Neutrophils (%) (Auto) 55.8 Lymphocytes (%) (Auto) 29.5 Monocytes (%) (Auto) 8.0 Eosinophils (%) (Auto) 5.5 Basophils (%) (Auto) 1.2 Neutrophils # (Auto) 3.5 Lymphocytes # (Auto) 1.8 Monocytes # (Auto) 0.5 Eosinophils # (Auto) 0.3 Basophils # (Auto) 0.1 CBC Comment AUTO DIFF Differential Comment AUTO DIFF CONFIRMED Platelet Estimate NORMAL Platelet Morphology Comment NORMAL Blood Urea Nitrogen 38 Creatinine 9.40 Random Glucose 79 Calcium Level 7.9 Sodium Level 140 Chloride Level 104 Carbon Dioxide Level 25.1 Anion Gap 11 Estimat Glomerular Filtration Rate 6 Triglycerides Level 59 Cholesterol Level 126 LDL Cholesterol 74 HDL Cholesterol 39.8 Cholesterol/HDL Ratio 3.16 Result Diagram: 01/04/18 0445 01/04/18 0445 Imaging Last Impressions Brain MRI 01/04/18 0000 Signed Impressions: Service Date/Time: Thursday, January 04, 2018 12:33 - CONCLUSION: Normal examination for a patient of this age. Previous maxillary sinusitis has resolved. David Rivera MD Assessment and Plan Problem List: (1) ESRD (end stage renal disease) ICD Codes: N18.6 - End stage renal disease Status: Acute Plan: Patient will receive dialysis this afternoon continue supportive care her dialysis days are Sunday and Sunday Continue to observe her blood pressure (2) HTN (hypertension) ICD Codes: I10 - Essential (primary) hypertension Status: Acute Plan: It has improved with medication (3) TIA (transient ischemic attack) ICD Codes: G45.9 - Transient cerebral ischemic attack, unspecified Plan: Continue to observe for further improvement MRI is negative Problem Qualifiers (1) HTN (hypertension): Qualified Codes: I10 - Essential (primary) hypertension Vanessa Lee MD Jan 04, 2018 15:06
--- NOTE | 2018-01-04 20:25 | MB ---
cc: LISA BLUNT MD DATE OF CONSULTATION 01/04/18 She is a 37-year-old seen in neurological consultation with a questionable TIA. This woman came in yesterday with history of chest pain, some left arm tingling, weakness and also felt she had some left leg weakness when she got up. She has a history of end-stage renal disease and she is on dialysis. She admits some pain in the neck side and head posteriorly, mostly on the left side. She had some graft on the left arm in November of this year. She has a history of hypertension and she is on multiple medications. She takes baby aspirin at home. She has history of TIAs, although somewhat nonspecific in the past. The patient is being followed by cardiology as well. NEUROLOGIC EXAM On exam, she was alert, pleasant, oriented fully. Mentation was completely normal. Ocular movements and visual martino full. She raised the arm and seems to have good strength proximally. 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 She had a recent graft to her left arm for the dialysis. She has reflexes being 2+ throughout. She was strong in her legs on the bedside exam. Plantar responses were flexor. IMAGING STUDIES An MRI brain was normal. ASSESSMENT Transient symptomatology including chest pain, neck pain, some left arm numbness, tingling and some cervical occipital headaches. Also had some left lower extremity complaint that is essentially resolved with minimal deficits on the left upper extremity, but I do not think this is really an ongoing neurologic deficit. It may be from her recent vascular graft to the left upper extremity. I doubt she had a TIA. I will just continue the aspirin as is. I will order a carotid ultrasound on her and, if this is unremarkable, consider an MRI cervical spine as outpatient as well as MRA head and neck as outpatient. I could follow the neurological course as outpatient. Thank you for asking us to assist in her care. MD LAWANDA Lake/ /7:37 PM /8:14 PM
[2018-01-05] VITALS (16 sets, daily range): BP systolic 125–148; BP diastolic 74–89; PULSE 78–94; RESP 14–34; TEMP 97.8–98.5; O2SAT 95–96
[2018-01-05] MEDS: NITROGLYCERIN 2% OINT 1 GM PACKET TOP SCH ×4 (00:20→18:00)
[2018-01-05] MEDS: MORPHINE SULFATE 4 MG/ML INJ IV PUSH PRN ×5 (00:21→17:32)
[2018-01-05] MEDS: CHLORHEXIDINE GLUCONATE 2 % 1 PACK (2 CLOTHS)(taper/protocol) TOPICAL SCH (04:00)
[2018-01-05] MEDS: diphenhydrAMINE HCL 50 MG/ML VIAL IV PUSH PRN ×3 (04:17→17:32)
[2018-01-05] MEDS: HEPARIN SODIUM - SQ 10,000 UNITS/ML VIAL SQ SCH ×2 (04:18→13:19)
[2018-01-05] MEDS: LISINOPRIL 20 MG TAB PO SCH (08:22)
[2018-01-05] MEDS: hydrALAZINE HCL 25 MG TAB PO SCH (08:22)
[2018-01-05] MEDS: SEVELAMER CARBONATE 800 MG TAB PO SCH ×3 (08:23→11:37)
[2018-01-05] MEDS: CARVEDILOL 12.5 MG TAB PO SCH (08:23)
[2018-01-05] MEDS: ALLOPURINOL 100 MG TAB PO SCH (08:23)
[2018-01-05] MEDS: ASPIRIN 81 MG CHEW TAB CHEW SCH (08:23)
[2018-01-05] MEDS: SODIUM CHLORIDE 0.9% FLUSH 10 ML FLUSH IV FLUSH SCH (08:42)
--- NOTE | 2018-01-05 11:21 | HHI.PR ---
Subjective Remarks Patient stated she only has headache with neck pain Blurry vision is gone, and her other symptoms improved Awaiting carotid ultrasound and clearance from neurology Objective Vitals Vital Signs Date Time Temp Pulse Resp B/P (MAP) Pulse Ox O2 Delivery O2 Flow Rate FiO2 01/05/18 10:00 90 01/05/18 08:00 84 01/05/18 08:00 80 14 148/88 (108) 01/05/18 07:36 98.5 01/05/18 06:00 82 01/05/18 04:00 97.8 78 16 148/89 (108) 95 01/05/18 04:00 78 01/05/18 02:00 82 01/05/18 00:00 98.4 94 17 125/74 (91) 96 01/05/18 00:00 94 01/04/18 22:00 84 01/04/18 21:03 97 21 01/04/18 21:03 97 01/04/18 20:00 98.5 86 18 146/92 (110) 96 01/04/18 20:00 86 01/04/18 18:00 81 01/04/18 17:55 86 22 159/89 (112) 01/04/18 17:35 96 23 140/91 (107) 01/04/18 16:00 89 01/04/18 15:44 97 21 01/04/18 14:00 76 01/04/18 13:44 26 01/04/18 13:00 98.5 74 14 150/90 (110) 01/04/18 12:00 76 15 129/77 (94) 96 01/04/18 12:00 76 I/O 01/04/18 01/04/18 01/04/18 01/05/18 01/05/18 01/05/18 07:00 15:00 23:00 07:00 15:00 23:00 Intake Total 480 ml Output Total 300 ml 200 ml 2800 ml 400 ml Balance -300 ml -200 ml -2320 ml -400 ml Intake Oral 480 ml Output Urine Total 300 ml 200 ml 400 ml Hemodialysis 2800 ml Result Diagram: 01/04/185 01/04/185 Objective Remarks GENERAL: This is a well-nourished, well-developed patient, in no apparent distress. SKIN: No rashes, warm and dry HEAD: Atraumatic. Normocephalic. EYES: Pupils equal round and reactive. Extraocular motions intact. No scleral icterus. ENT: Nose without bleeding, or drainage, Airway patent. NECK: Trachea midline. Supple CARDIOVASCULAR: Regular rate and rhythm without murmurs, gallops, or rubs. RESPIRATORY: Fair air entry bilaterally. No wheezes, rales, or rhonchi. GASTROINTESTINAL: Abdomen soft, non-tender, nondistended. Positive bowel sounds MUSCULOSKELETAL: Extremities without clubbing, cyanosis, or edema. Pedal pulses appreciated Plan: NEUROLOGICAL: Awake and aler oriented, cranial nerves II through XII intact, strength 5 out of 5 in all extremities except left upper extremity 4 out of 5, sensation intact, normal speech A/P Problem List: (1) Chest pain ICD Code: R07.9 - Chest pain, unspecified Status: Resolved (2) HTN (hypertension) ICD Code: I10 - Essential (primary) hypertension Status: Acute (3) TIA (transient ischemic attack) ICD Code: G45.9 - Transient cerebral ischemic attack, unspecified (4) ESRD (end stage renal disease) ICD Code: N18.6 - End stage renal disease Status: Acute Assessment and Plan This is a pleasant 37-year-old female patient with a known medical history of end-stage renal disease on dialysis with left upper extremity AV graft, Alports syndrome, hypertension, history of multiple TIAs who presented to the ED with complaints of chest pain and left upper extremity and lower extremity weakness. Chest pain suspect secondary to hypertensive crisis History of hypertension, uncontrolled History of CAD Patient presented with blood pressure 200's/110's. With left upper extremity and lower extremity weakness, numbness and tingling. Serial EKGs and serial troponins negative. EKG reviewed showing normal sinus rhythm, heart rate controlled, no arrhythmias. No ST changes. Last stress test was performed in April of 2017, no ischemia at the time, EF 34%. Echocardiogram on 11/15/17 reviewed showing an EF of 65%. Follows with cardiology, Dr. Hughes in [place], last seen 1 month ago, no change in medications. Continue cardiac telemetry, rule out any arrhythmias. Control pain, IV morphine available per pain scale. Continue home medications for high blood pressure, monitor blood pressure trends closely. Continue home aspirin, lisinopril, Norvasc, Coreg, Apresoline. Left upper extremity and lower extremity weakness, numbness and tingling rule out TIA or CVA CT of the brain reviewed, negative examination. MRI personally reviewed by me unremarkable. Echocardiogram reviewed from last month, EF 65%. Previous carotid ultrasound reviewed, unremarkable. Lipid panel reviewed by me. Patient had full neurological workup in September of 2017, at the time workup was negative. Lost to follow-up after hospitalization. Has had intermittent presentations with similar symptoms. Appreciate neurology consultation, awaiting ultrasound of the carotid End-stage renal disease with Alport syndrome Recent placement of left upper extremity AV graft with left upper extremity numbness and tingling On dialysis Sunday, Sunday and Sunday. Nephrology consulted, appreciate further recommendations and input. Will perform dialysis today. Monitor labs. My colleague previously discussed with Dr. Myers, who placed AV graft, last seen patient on 12/14 with no changes to AV graft. Next appointment is scheduled for 01/11. Unlikely symptoms are related to AV graft. No need for consult at this time. 01/05: Awaiting ultrasound of the carotids and further recommendation per neurology, transfer to [facility] floor Discharge Planning once cleared by neurology Problem Qualifiers (1) HTN (hypertension): Qualified Codes: I10 - Essential (primary) hypertension Juana Gupta MD Jan 05, 2018 11:21
--- NOTE | 2018-01-05 15:42 | RADRPT ---
EXAM DATE/TIME: 01/05/2018 14:40 [facility] COMPARISON: US CAROTID ARTERIES, September 23, 2017, 14:06. INDICATIONS : Transient ischemic attack. MEDICAL HISTORY : Hypertension. Transient ischemic attack. Peritoneal dialysis. Alport's syndrome. SURGICAL HISTORY : Cholecystectomy. Tubal ligation. Hysterectomy. Uterine ablation.Parathyroid removed. AVF, left arm. ENCOUNTER: Subsequent ACUITY: 3 months PAIN SCORE: 0/10 LOCATION: Bilateral neck PEAK SYSTOLIC VELOCITIES (cm/sec): ICA/CCA RATIO: Right: 0.9 Left: 0.9 ICA: Right: 116 Left: 112 CCA: Right: 129 Left: 127 ECA: Right: 95 Left: 88 VERTEBRAL: Right: 54 antegrade Left: 79 antegrade Elevated flow velocities and ICA/CCA ratios have been found to correlate with increased degrees of vessel stenosis, calculated as percentage of diameter relative to a normal segment of distal ICA/CCA FINDINGS: RIGHT CAROTID: No significant stenosis is visualized. The waveforms are within normal limits. LEFT CAROTID: No significant stenosis is visualized. The waveforms are within normal limits. VERTEBRAL ARTERIES: Antegrade flow is seen in both vertebral arteries. No significant change compared to the prior examination. CONCLUSION: Stable and unremarkable bilateral carotid ultrasound. Rodney Freeman MD on January 05, 2018 at 15:39 Board Certified Radiologist. This report was verified electronically.
--- NOTE | 2018-01-05 17:57 | HHI.DS ---
Discharge Summary Admission Date Jan 03, 2018 at 19:54 Discharge Date: Jan 05, 2018 Admitting Diagnosis Chest pain Hypertensive crisis (1) Chest pain ICD Code: R07.9 - Chest pain, unspecified Status: Resolved (2) HTN (hypertension) ICD Code: I10 - Essential (primary) hypertension Status: Acute (3) TIA (transient ischemic attack) ICD Code: G45.9 - Transient cerebral ischemic attack, unspecified (4) ESRD (end stage renal disease) ICD Code: N18.6 - End stage renal disease Status: Acute Procedures see below Brief History - From Admission This is a pleasant 37-year-old female patient with a known medical history of end-stage renal disease on dialysis with left upper extremity AV graft, Alports syndrome, hypertension, history of multiple TIAs who presented to the ED with complaints of chest pain and left upper extremity and lower extremity weakness. Patient states that the chest pain began yesterday morning after waking up from a nap. She states that the chest pain is midsternal, is characteristically aching in nature and radiates to her left chest and neck, patient also complains of left upper extremity numbness and tingling with occasional shooting pains. Does also complain of left lower extremity weakness. Patient rates the pain a 5 out of 10 at its worse on pain scale. Does admit to nausea, shortness of breath and diaphoresis. Denies any vomiting. Patient states that this pain is intermittent in nature, will come and go randomly, last a few minutes and then subside on its own. Denies any known alleviating or aggravating factors. Patient did undergo left upper extremity AV graft by Dr. Myers on December 04 of this year. She was just recently hospitalized for similar symptoms. Last saw Dr. Myers on 12/14/17 been reportedly denied any changes to graft. Patient does follow with a investigator in [place], Dr. Cat, was last seen 1 month ago at that time no changes in medications. Last stress test was done in April of last year which was unremarkable, although patient did present as high risk due to EF of 34%. A repeat echocardiogram was done in November of this year showing an EF of 65%. Patient denies any recent illness including fever, chills, shortness of breath, abdominal pain, nausea, vomiting or diarrhea. Patient also is end- stage renal disease with Alport syndrome, receives dialysis Sunday and Sunday. After review of records patient also presented last year in September with similar symptoms of left-sided weakness and hypertensive crisis. At that time a full neurological workup was done, MRI of the brain was negative. Patient was lost to follow-up for neurology after that time. CBC/BMP: 01/04/18 0445 01/04/18 0445 Significant Findings Laboratory Tests Test 01/03/18 21:00 01/03/18 21:53 01/04/18 03:21 01/04/18 04:45 Troponin I LESS THAN 0.02 NG/ML LESS THAN 0.02 NG/ML Red Blood Count 3.93 MIL/MM3 (4.00-5.30) Hemoglobin 9.8 GM/DL (11.6-15.3) Hematocrit 32.0 % (35.0-46.0) Mean Corpuscular Hemoglobin 24.9 PG (27.0-34.0) Mean Corpuscular Hemoglobin Concent 30.5 % (32.0-36.0) Red Cell Distribution Width 17.8 % (11.6-17.2) Eosinophils (%) (Auto) 5.5 % (0.0-4.0) Blood Urea Nitrogen 38 MG/DL (7-18) Creatinine 9.40 MG/DL (0.50-1.00) Calcium Level 7.9 MG/DL (8.5-10.1) Estimat Glomerular Filtration Rate 6 ML/MIN (>89) HDL Cholesterol 39.8 MG/DL (40.0-60.0) Imaging Last Impressions Carotid Artery Ultrasound 01/05/18 0000 Signed Impressions: Service Date/Time: Friday, January 05, 2018 14:40 - CONCLUSION: Stable and unremarkable bilateral carotid ultrasound. Rodney Freeman MD Brain MRI 01/04/18 0000 Signed Impressions: Service Date/Time: Thursday, January 04, 2018 12:33 - CONCLUSION: Normal examination for a patient of this age. Previous maxillary sinusitis has resolved. David Rivera MD PE at Discharge GENERAL: This is a well-nourished, well-developed patient, in no apparent distress. SKIN: No rashes, warm and dry HEAD: Atraumatic. Normocephalic. EYES: Pupils equal round and reactive. Extraocular motions intact. No scleral icterus. ENT: Nose without bleeding, or drainage, Airway patent. NECK: Trachea midline. Supple CARDIOVASCULAR: Regular rate and rhythm without murmurs, gallops, or rubs. RESPIRATORY: Fair air entry bilaterally. No wheezes, rales, or rhonchi. GASTROINTESTINAL: Abdomen soft, non-tender, nondistended. Positive bowel sounds MUSCULOSKELETAL: Extremities without clubbing, cyanosis, or edema. Pedal pulses appreciated Plan: NEUROLOGICAL: Awake and aler oriented, cranial nerves II through XII intact, strength 5 out of 5 in all extremities except left upper extremity 4 out of 5, sensation intact, normal speech Pt update on day of discharge Patient stated she only has headache with neck pain Blurry vision is gone, and her other symptoms improved Awaiting carotid ultrasound and clearance from neurology Hospital Course Written by Kika Saez, acting as scribe for Dr. Gupta on 01/05/18 at 1757. 37-year-old female patient with a known medical history of end-stage renal disease on dialysis with left upper extremity AV graft, Alports syndrome, hypertension, history of multiple TIAs. Patient presented with blood pressure 200's/110's. With left upper extremity and lower extremity weakness, numbness and tingling. Serial EKGs and serial troponins negative. EKG reviewed normal sinus rhythm, heart rate controlled, no arrhythmias. Last stress test was performed in April of 2017, no ischemia at the time, EF 34%. Echocardiogram on 11/15/17 reviewed showing an EF of 65%. Follows with cardiology, Dr. Hughes in [place], last seen 1 month ago, no change in medications. Continued home aspirin, lisinopril, Norvasc, Coreg, Apresoline. Left upper extremity and lower extremity weakness, numbness and tingling rule out TIA or CVA for which neurology was consulted. CT of the brain negative examination. MRI unremarkable. Lipid panel negative. Patient had full neurological workup in September of 2017, at the time workup was negative. Carotid ultrasound negative. Patient end-stage renal disease with Alport syndrome and recent placement of left upper extremity AV graft by Dr. yMers. Patient on dialysis Sunday, Sunday and Sunday. Nephrology was consulted restarted dialysis. Please call to Dr. Lucia Myers, who placed AV graft, last seen patient on 12/14 with no changes to AV graft. Next appointment is scheduled for 01/11. Unlikely symptoms are related to AV graft. No need for consult at this time. Patient stabilized upon discharge, recommendations to follow up with PCP, neurology to obtain neck and head MRA as well as MRI cervical spine in the outpatient setting, also follow-up with Dr. Myers scheduled appointment. Continue dialysis as scheduled. Patient encouraged to return to ED if symptoms worsen or persist. [id number] encounter performed with the patient on discharge day, as well as physical exam, summary of hospitalization course and postdischarge plan has been D/W the patient. D/W nurse D/W case operator. Discharge medications reviewed and printed and signed, post discharge follow up visit with PCP and other specialist as well as Brief hospital course and discharge summary has been placed. Pt Condition on Discharge: Good Discharge Disposition: Discharge Home Discharge Time: > 30 minutes Discharge Instructions DIET: Follow Instructions for: Heart Healthy Diet, Renal Failure Diet Speech Therapy-Diet Recommends: Regular Activities you can perform: Regular-No Restrictions Follow up Referrals: Neurology - 1 Week with Fermin Benitez MD MRI cervical spine and MRA head and neck as outpatient. PCP Follow-up - 1 Week Vascular Surgery - As Per Protocol with Rudy Myers MD scheduled appt to follow AV graft Continued Medications: Allopurinol (Allopurinol) 100 Mg Tab 100 MG PO DAILY for Gout, #30 TAB 0 Refills Amlodipine (Amlodipine) 10 Mg Tab 10 MG PO DAILY for Blood Pressure Management, #30 TAB 0 Refills Aspirin (Aspirin) 81 Mg Chew 81 MG CHEW DAILY, TAB 0 Refills Carvedilol (Carvedilol) 25 Mg Tab 25 MG PO BID, #60 TAB 0 Refills Cholecalciferol (Vitamin D3) 5,000 Unit Cap 5000 UNITS PO WEEKLY for Nutritional Supplement, #30 CAP 0 Refills Clonidine (Clonidine) 0.2 Mg Tab 0.2 MG PO BID PRN for DBP>100, #60 TAB 0 Refills Hydralazine HCl (Hydralazine HCl) 25 Mg Tablet 25 MG PO BID for Blood Pressure Management, #90 TAB 0 Refills Lisinopril (Lisinopril) 40 Mg Tab 40 MG PO DAILY for Blood Pressure Management, #30 TAB 0 Refills Sevelamer Carbonate (Renvela) 800 Mg Tab 800 MG PO TID for Control phosphorous levels, #90 TAB 0 Refills Zolpidem (Zolpidem) 10 Mg Tab 10 MG PO HS PRN for INSOMNIA, TAB 0 Refills Additional Information This note was transcribed by scribe [Kika Saez]. I, Dr. Juana Gupta personally performed the history, physical exam, and medical decision making; and confirmed the accuracy of the information in the transcribed note. Authenticated by Dr. Juana Gupta on 01/05/18 at 18:41. Kika Saez Jan 05, 2018 17:57 Juana Gupta MD Jan 05, 2018 18:40
--- NOTE | 2018-01-05 18:03 | HHI.DCPOC ---
Discharge Care Plan Diagnosis: (1) TIA (transient ischemic attack) (2) ESRD (end stage renal disease) (3) Chest pain (4) HTN (hypertension) Goals to Promote Your Health * To prevent worsening of your condition and complications * To maintain your health at the optimal level Directions to Meet Your Goals Take your medications as prescribed Follow your dietary instruction Follow activity as directed Keep your appointments as scheduled Take your immunizations and boosters as scheduled If your symptoms worsen call your PCP, if no PCP go to Urgent Care Center or Emergency Room Smoking is Dangerous to Your Health. Avoid second hand smoke Call the 24-hour hour crisis hotline for domestic abuse at Kika Saez Jan 05, 2018 18:03
== END 2018-01-05 20:35 | disposition home or self-care (01) | DRG 304 ==
LOC: PHEDDLT 19:53 → PHICU 19:54
PROVIDERS: ADMIT Hospitalist; ATTEND Hospitalist
PROC: 5A1D70Z Performance of Urinary Filtration, Intermittent, Less than 6 Hours Per Day (ICD-10-PCS; principal; 2018-01-04)
DX: I16.9 Hypertensive crisis, unspecified (principal); N18.6 End stage renal disease; N25.81 Secondary hyperparathyroidism of renal origin; Q87.81 Alport syndrome; I12.0 Hypertensive chronic kidney disease with stage 5 chronic kidney disease or end stage renal disease; I25.10 Atherosclerotic heart disease of native coronary artery without angina pectoris; Z86.73 Personal history of transient ischemic attack (TIA), and cerebral infarction without residual deficits; Z99.2 Dependence on renal dialysis
CPT/HCPCS: 70551; 80048; 80061; 82550; 84132; 84484; 85025; 87641; 90935; 93005; 93880; 96374; J1200; J1644; J2270

== ENCOUNTER 2018-01-06 10:38 | Emergency (ER) | payer MEDICAID, MEDICARE ==
[~2018-01-06] VITALS: Ht 175.3 cm; Wt 85.0 kg
[~2018-01-06 10:38] MED LIST changes: -NITROGLYCERIN 2% OINT 1 GM PACKET TOP SCH; -REGL5TAB PO; -ZOFR8TAB PO
[2018-01-06 10:41] VITALS: BP 180/121; PULSE 91; RESP 14; TEMP 98.7; O2SAT 100
[2018-01-06 10:46] VITALS: BP 178/103
--- NOTE | 2018-01-06 11:01 | PD ---
HPI Chief Complaint: Laceration/Skin Injury Time Seen by Provider: 10:51 Travel History International Travel<30 days: No Contact w/Intl Traveler<30days: No Traveled to known affect area: No History of Present Illness HPI 37-year-old female presents to the emergency department with complaint of a laceration to her left breast from a blade that slipped while she was cutting carpet today. Denies numbness, tingling, loss of sensation, decreased range of motion of all fingers and of affected extremity. Up-to-date on tetanus vaccination. Does report that she had a left upper arm fistula placed on December 04 and she has not supposed to have any needle pokes into the left arm. She does have an appointment with Dr. Aparicio for follow-up of the left upper arm fistula on January 11. Has not taken any medications or tried any treatments to alleviate her symptoms. Has applied pressure to control bleeding. No known aggravating or relieving factors. Takes baby aspirin daily, otherwise denies anticoagulant therapy. Rates pain 8/10. Describes it as a burning sensation. Primary care provider is [facility]. Allergies are as listed on the chart. Patient does state that she is not allergic to Tylenol and can take Tylenol. History of dialysis secondary to kidney failure, Alport syndrome, hypertension. Has no other medical complaints. No other modifying factors or associated signs and symptoms. PFSH Past Medical History Hx Anticoagulant Therapy: Yes (ASA) Anemia: Yes Blood Disorders: No Anxiety: No Depression: No Heart Rhythm Problems: No Cancer: No Cardiovascular Problems: Yes (htn) High Cholesterol: No Chest Pain: Yes Congestive Heart Failure: No Cerebrovascular Accident: Yes (MULTIPLE TIAS) Diabetes: No Dialysis: Yes (FISTULA LEFT ARM) Diminished Hearing: No Endocrine: Yes (parathyroid removed) Gastrointestinal Disorders: No Gout: Yes Genitourinary: Yes (Alport's Syndrome) Headaches: Yes Hepatitis: No Hypertension: Yes Immune Disorder: No Implanted Vascular Access Dvce: Yes (right subclavian dialysis port) Musculoskeletal: No Neurologic: No Psychiatric: No Reproductive: No Respiratory: No Immunizations Current: Yes Migraines: No Renal Failure: Yes Seizures: No Thyroid Disease: Yes : 4 Para: 3 Miscarriage: 1 : 0 Tubal Ligation: Yes Past Surgical History Abdominal Surgery: Yes (PERITONEAL DIALYSIS) AICD: No Body Medical Devices: Peritoneal dialysis, PORT IN R UPPER CHEST Cardiac Surgery: No Cholecystectomy: Yes Ear Surgery: No Endocrine Surgery: Yes (parathyroid removal 04/27) Eye Surgery: No Genitourinary Surgery: No Gynecologic Surgery: Yes (vaginal ablation) Hysterectomy: Yes (PARTIAL) Joint Replacement: No Oral Surgery: No Pacemaker: No Thoracic Surgery: No Other Surgery: Yes (PARATHYROID) Social History Alcohol Use: No Tobacco Use: No Substance Use: No Allergies-Medications (Allergen,Severity, Reaction): Coded Allergies: ceftriaxone (Unverified Allergy, Severe, RASH, 01/06/18) gentamicin (Unverified Allergy, Severe, RASH, 01/06/18) levofloxacin (Unverified Allergy, Severe, ITCHING, 01/06/18) hydrocodone (Unverified Allergy, Intermediate, Nausea/Vomiting, 01/06/18) PT STATES ITCHINESS, NAUSEA, AND VOMITTING tramadol (Verified Allergy, Intermediate, itching, 01/06/18) diatrizoate meglumine (Unverified Adverse Reaction, Unknown, due to renal failure, 01/06/18) gadobenic acid (Unverified Adverse Reaction, Unknown, due to renal failure , 01/06/18) gadodiamide (Unverified Adverse Reaction, Unknown, due to renal failure, ) gadoteridol (Unverified Adverse Reaction, Unknown, due to renal failure, ) iodixanol (Unverified Adverse Reaction, Unknown, due to renal failure, ) iohexol (Unverified Adverse Reaction, Unknown, due to renal failure, ) sulfamethoxazole (Unverified Adverse Reaction, Unknown, due to kidney failure, 01/06/18) trimethoprim (Unverified Adverse Reaction, Unknown, due to kidney failure , 01/06/18) Reported Meds & Prescriptions Reported Meds & Active Scripts Active Reported Renvela (Sevelamer Carbonate) 800 Mg Tab 800 Mg PO TID Vitamin D3 (Cholecalciferol) 5,000 Unit Cap 5,000 Units PO WEEKLY Hydralazine HCl 25 Mg Tablet 25 Mg PO BID Lisinopril 40 Mg Tab 40 Mg PO DAILY Zolpidem (Zolpidem Tartrate) 10 Mg Tab 10 Mg PO HS PRN Carvedilol 25 Mg Tab 25 Mg PO BID Clonidine (Clonidine HCl) 0.2 Mg Tab 0.2 Mg PO BID PRN Allopurinol 100 Mg Tab 100 Mg PO DAILY Aspirin 81 Mg Chew 81 Mg CHEW DAILY Amlodipine (Amlodipine Besylate) 10 Mg Tab 10 Mg PO DAILY Review of Systems Except as stated in HPI: all other systems reviewed are Neg Physical Exam Narrative GENERAL: Well-nourished, well-developed black female patient, in no acute distress SKIN: Warm and dry. Approximately 1 cm superficial cut to the palmar aspect of the distal wrist; bleeding controlled. Left upper extremity is supple nontender 2+ radial pulse and sensory intact and without erythema or edema. All fingers with full range of motion and strength. HEAD: Atraumatic. Normocephalic. EYES: Pupils equal and round. No scleral icterus. No injection or drainage. ENT: Mucosa pink and moist. Airway patent. NECK: Trachea midline. CARDIOVASCULAR: Regular rate. RESPIRATORY: No accessory muscle use. GASTROINTESTINAL: Rounded. MUSCULOSKELETAL: No obvious deformities. No clubbing. No cyanosis. No edema. NEUROLOGICAL: Awake and alert. Oriented 3. No obvious cranial nerve deficits. Motor grossly within normal limits. Normal speech. PSYCHIATRIC: Appropriate mood and affect; insight and judgment normal. Data Data Last Documented VS Vital Signs Date Time Temp Pulse Resp B/P (MAP) Pulse Ox O2 Delivery O2 Flow Rate FiO2 01/06/18 10:46 178/103 (128) 01/06/18 10:41 98.7 91 14 100 Orders Orders Ed Discharge Order (01/06/18 11:02) Acetaminophen (Tylenol) (01/06/18 11:15) MDM Medical Decision Making Medical Screen Exam Complete: Yes Emergency Medical Condition: Yes Medical Record Reviewed: Yes Differential Diagnosis Cut, laceration, abrasion Narrative Course 37-year-old female with a cut to her left wrist from a blade. Up-to-date on tetanus vaccination. See my procedure note for repair of the cut using Dermabond. Patient reports no allergy to Tylenol and I removed it from her allergy list. Tylenol administered in the ER. Instructed patient to follow up with primary care provider. Patient verbalizes understanding and agreement with treatment plan. Patient is medically cleared and stable for discharge. Discussed reasons to return to the emergency department. Patient agrees with treatment plan. The patients vital signs are stable and the patient is stable for outpatient follow-up and treatment. Patient discharged home, stable and in no acute distress. Procedures Procedure Narrative CUT LOCATION: Palmar aspect of distal left wrist LENGTH: 1 centimeter NUMBER OF STITCHES/ALPHONSE: 0; Dermabond was used to repair the cut REPAIR: The area of the laceration was cleaned with normal saline. There is no evidence of foreign body, tendon injury or neurovascular injury. The wound was closed using Dermabond. This was a single layer repair. The patient was advised to keep the area clean and dry. Patient tolerated the procedure well. Diagnosis Primary Impression: Cut of left wrist Referrals: Primary Care Physician Patient Instructions: General Instructions, Laceration (ED) Additional Instructions: Keep area clean and dry Ibuprofen or Tylenol as directed and as needed for pain and inflammation Do not peel-away the glue as the edges come up; you can use small scissors to cut away the edges that rise Maintain glue in place for at least 7 days and allow it to come off on its own Avoid submerging the glued area in water, such as when doing dishes, taking baths, hot tubs, pools, ocean, etc. Follow-up with primary care provider Return to the emergency department immediately with worsening of symptoms Med/Other Pt SpecificInfo: No Change to Meds, No Meds Exist/No RX given Disposition: 01 DISCHARGE HOME Condition: Stable Aliza Amos Jan 06, 2018 11:01
[2018-01-06] MEDS ORDERED: ACETAMINOPHEN 325 MG TAB PO ONE (11:15)
== END 2018-01-06 11:27 | disposition home or self-care (01) ==
LOC: NEPD 10:38
DX: S61.512A Laceration without foreign body of left wrist, initial encounter (principal); W45.8XXA Other foreign body or object entering through skin, initial encounter; W26.0XXA Contact with knife, initial encounter; Q87.81 Alport syndrome; E07.9 Disorder of thyroid, unspecified; I12.0 Hypertensive chronic kidney disease with stage 5 chronic kidney disease or end stage renal disease; N18.6 End stage renal disease; Z99.2 Dependence on renal dialysis; Z86.73 Personal history of transient ischemic attack (TIA), and cerebral infarction without residual deficits
CPT/HCPCS: 12001

== ENCOUNTER 2018-02-02 13:02 | Emergency (ER) | payer MEDICARE, OTHER ==
[~2018-02-02] VITALS: Ht 175.3 cm; Wt 83.6 kg
[2018-02-02 13:05] VITALS: BP 169/107; PULSE 93; RESP 17; TEMP 98.5; O2SAT 100
--- NOTE | 2018-02-02 13:39 | RADRPT ---
EXAM DATE/TIME: 02/02/2018 13:28 [facility] COMPARISON: CHEST PA & LAT, January 03, 2018, 15:38. CHEST SINGLE AP, December 13, 2017, 14:33. INDICATIONS : Left sided chest pain. Cough. Shortness of breath. MEDICAL HISTORY : Hypertension. SURGICAL HISTORY : Dialysis catheter. ENCOUNTER: Initial ACUITY: 1 day PAIN SCORE: 8/10 LOCATION: Bilateral chest FINDINGS: A single view of the chest demonstrates the lungs to be symmetrically aerated without evidence of mas s, infiltrate or effusion. There is a double-lumen catheter in place from the right internal jugular approach with the tips overlying the right atrium. The cardiomediastinal contours are unremarkable. Osseous structures are intact. Clips are seen in the right upper quadrant of the abdomen presumably from prior cholecystectomy. CONCLUSION: No acute disease. Bogdan Echols MD on February 02, 2018 at 13:35 Board Certified Radiologist. This report was verified electronically.
[2018-02-02 13:40] LABS: AUTOMATED NEUTROPHIL # 5.7 TH/MM3 (1.8-7.7); BASOPHIL # 0.1 TH/MM3 (0-0.2); BASOPHIL % 1.2 % (0.0-2.0); EOSINOPHIL # 0.2 TH/MM3 (0-0.4); EOSINOPHIL % 2.1 % (0.0-4.0); HEMATOCRIT 34.9 % (35.0-46.0); HEMOGLOBIN 11.4 GM/DL (11.6-15.3); LYMPH % 19.9 % (9.0-44.0); LYMPHOCYTE # 1.7 TH/MM3 (1.0-4.8); MEAN CELL VOLUME 81.2 FL (80.0-100.0); MEAN CORPUSCULAR HEMOGLOBIN 26.5 PG (27.0-34.0); MEAN CORPUSCULAR HGB CONC 32.6 % (32.0-36.0); MEAN PLATELET VOLUME 8.6 FL (7.0-11.0); MONOCYTE # 0.7 TH/MM3 (0-0.9); NEUT % 68.8 % (16.0-70.0); PLATELET COUNT 211 TH/MM3 (150-450); RED CELL DISTRIBUTION WIDTH 17.9 % (11.6-17.2); WHITE BLOOD COUNT 8.3 TH/MM3 (4.0-11.0)
[2018-02-02 13:55] LABS: BICARBONATE 23.5 MEQ/L (21.0-32.0); BLOOD UREA NITROGEN 32 MG/DL (7-18); CHLORIDE 104 MEQ/L (98-107); CREATININE 9.16 MG/DL (0.50-1.00); GLOMERULAR FILTRATION RATE 6 ML/MIN (>89); GLUCOSE,RANDOM 106 MG/DL (74-106); SODIUM (NA) 139 MEQ/L (136-145)
[2018-02-02 13:59] LABS: TROPONIN I LESS THAN 0.02 NG/ML (0.02-0.05)
[2018-02-02 14:18] LABS: HELMET CELLS OCC (NORMAL); OVALOCYTES 1+ (NORMAL); TEARDROP RBCS 1+ (NORMAL)
[2018-02-02 17:47] VITALS: BP 198/121; PULSE 78; RESP 18; O2SAT 99
--- NOTE | 2018-02-02 18:11 | PD ---
HPI Chief Complaint: Chest Pain Time Seen by Provider: 17:25 Travel History International Travel<30 days: No Contact w/Intl Traveler<30days: No Traveled to known affect area: No History of Present Illness HPI This is a 37-year-old female with history of renal failure, hypertension, who presents today with complaints of chest pain with radiation down her left arm since this morning. Patient reports pain is constant and achy. She states that was present when she woke up. She states it has not gone away. Initial set of cardiac enzymes are within normal limits. Patient was noted to have a blood pressure that was elevated in triage. When she was brought back from triage, her blood pressure was still 190 systolic. She denies any headache or dizziness. She states she has several problems with her blood pressure control. She has been seen and admitted here for the same in the past. The patient is on the renal transplant list. There are no other complaints at time of examination. Patient does report that she has been taking all her medications as prescribed. She even has clonidine for breakthrough pain. PFSH Past Medical History Hx Anticoagulant Therapy: Yes (ASA) Anemia: Yes Blood Disorders: No Anxiety: No Depression: No Heart Rhythm Problems: No Cancer: No Cardiovascular Problems: Yes (htn) High Cholesterol: No Chest Pain: Yes Congestive Heart Failure: No Cerebrovascular Accident: Yes (MULTIPLE TIAS) Diabetes: No Dialysis: Yes ([facility] LEFT ARM) Diminished Hearing: No Endocrine: Yes (parathyroid removed) Gastrointestinal Disorders: No Gout: Yes Genitourinary: Yes (Alport's Syndrome) Headaches: Yes Hepatitis: No Hypertension: Yes Immune Disorder: No Implanted Vascular Access Dvce: Yes (right subclavian dialysis port) Musculoskeletal: No Neurologic: No Psychiatric: No Reproductive: No Respiratory: No Immunizations Current: Yes Migraines: No Renal Failure: Yes (HENMODIALYSIS M W F) Seizures: No Thyroid Disease: Yes Tetanus Vaccination: < 5 Years Influenza Vaccination: Yes ?: Not : 4 Para: 3 Miscarriage: 1 : 0 Tubal Ligation: Yes Past Surgical History Abdominal Surgery: Yes (PERITONEAL DIALYSIS) AICD: No Body Medical Devices: Peritoneal dialysis, PORT IN R UPPER CHEST Cardiac Surgery: No Cholecystectomy: Yes Ear Surgery: No Endocrine Surgery: Yes (parathyroid removal 04/27) Eye Surgery: No Genitourinary Surgery: No Gynecologic Surgery: Yes (vaginal ablation) Hysterectomy: Yes (PARTIAL) Joint Replacement: No Oral Surgery: No Pacemaker: No Thoracic Surgery: No Other Surgery: Yes (PARATHYROID) Social History Alcohol Use: No Tobacco Use: No Substance Use: No Allergies-Medications (Allergen,Severity, Reaction): Coded Allergies: ceftriaxone (Unverified Allergy, Severe, RASH, 02/02/18) gentamicin (Unverified Allergy, Severe, RASH, 02/02/18) levofloxacin (Unverified Allergy, Severe, ITCHING, 02/02/18) hydrocodone (Unverified Allergy, Intermediate, Nausea/Vomiting, 02/02/18) PT STATES ITCHINESS, NAUSEA, AND VOMITTING tramadol (Verified Allergy, Intermediate, itching, 02/02/18) diatrizoate meglumine (Unverified Adverse Reaction, Unknown, due to renal failure, 02/02/18) gadobenic acid (Unverified Adverse Reaction, Unknown, due to renal failure , 02/02/18) gadodiamide (Unverified Adverse Reaction, Unknown, due to renal failure, ) gadoteridol (Unverified Adverse Reaction, Unknown, due to renal failure, ) iodixanol (Unverified Adverse Reaction, Unknown, due to renal failure, ) iohexol (Unverified Adverse Reaction, Unknown, due to renal failure, ) sulfamethoxazole (Unverified Adverse Reaction, Unknown, due to kidney failure, 02/02/18) trimethoprim (Unverified Adverse Reaction, Unknown, due to kidney failure , 02/02/18) Reported Meds & Prescriptions Reported Meds & Active Scripts Active Reported Renvela (Sevelamer Carbonate) 800 Mg Tab 800 Mg PO TID Vitamin D3 (Cholecalciferol) 5,000 Unit Cap 5,000 Units PO WEEKLY Hydralazine HCl 25 Mg Tablet 25 Mg PO BID Lisinopril 40 Mg Tab 40 Mg PO DAILY Zolpidem (Zolpidem Tartrate) 10 Mg Tab 10 Mg PO HS PRN Carvedilol 25 Mg Tab 25 Mg PO BID Clonidine (Clonidine HCl) 0.2 Mg Tab 0.2 Mg PO BID PRN Allopurinol 100 Mg Tab 100 Mg PO DAILY Aspirin 81 Mg Chew 81 Mg CHEW DAILY Amlodipine (Amlodipine Besylate) 10 Mg Tab 10 Mg PO DAILY Review of Systems Except as stated in HPI: all other systems reviewed are Neg General / Constitutional: No: Fever, Chills Eyes: No: Blurred Vision, Photophobia HENT: No: Headaches, Lightheadedness, Neck Pain Cardiovascular: Positive: Chest Pain or Discomfort, No: Palpitations, Irregular Rhythm Respiratory: No: Cough, Shortness of Breath Gastrointestinal: No: Nausea, Vomiting, Abdominal Pain Genitourinary: Positive: Flank Pain (Left flank pain), No: Dysuria Musculoskeletal: Positive: Pain, No: Weakness (Left flank), Edema Skin: No Rash, No Lesions Neurologic: No: Weakness, Headache Physical Exam Narrative GENERAL: Well-developed and nourished female in no acute respiratory distress. SKIN: Focused skin assessment warm/dry. HEAD: Atraumatic. Normocephalic. EYES: Pupils equal and round. No scleral icterus. No injection or drainage. ENT: No nasal bleeding or discharge. Mucous membranes pink and moist. NECK: Trachea midline. Supple. CARDIOVASCULAR: Regular rate and rhythm. No murmur appreciated. RESPIRATORY: No accessory muscle use. Clear to auscultation. Breath sounds equal bilaterally. GASTROINTESTINAL: Abdomen soft, non-tender, nondistended. Hepatic and splenic margins not palpable. MUSCULOSKELETAL: No obvious deformities. No clubbing. No cyanosis. No edema. No CVA tenderness on exam. Patient did have subjective discomfort in her left flank area. NEUROLOGICAL: Awake and alert. No obvious cranial nerve deficits. Motor grossly within normal limits. Normal speech. Data Data Last Documented VS Vital Signs Date Time Temp Pulse Resp B/P (MAP) Pulse Ox O2 Delivery O2 Flow Rate FiO2 02/02/18 19:19 90 16 177/110 (132) 100 Room Air 02/02/18 13:05 98.5 Orders Orders Electrocardiogram (02/02/18 13:08) Complete Blood Count With Diff (02/02/18 13:08) Basic Metabolic Panel (Bmp) (02/02/18 13:08) Ckmb (Isoenzyme) Profile (02/02/18 13:08) Troponin I (02/02/18 13:08) Chest, Single Ap (02/02/18 13:08) Ckmb (Isoenzyme) Profile (02/02/18 17:25) Troponin I (02/02/18 17:25) Ua Includes Microscopic (02/02/18 17:25) Hydralazine Inj (Apresoline Inj) (02/02/18 18:15) Morphine Inj (Morphine Inj) (02/02/18 19:15) Labs Laboratory Tests Test 02/02/18 13:25 02/02/18 17:55 White Blood Count 8.3 TH/MM3 Red Blood Count 4.30 MIL/MM3 Hemoglobin 11.4 GM/DL Hematocrit 34.9 % Mean Corpuscular Volume 81.2 FL Mean Corpuscular Hemoglobin 26.5 PG Mean Corpuscular Hemoglobin Concent 32.6 % Red Cell Distribution Width 17.9 % Platelet Count 211 TH/MM3 Mean Platelet Volume 8.6 FL Neutrophils (%) (Auto) 68.8 % Lymphocytes (%) (Auto) 19.9 % Monocytes (%) (Auto) 8.0 % Eosinophils (%) (Auto) 2.1 % Basophils (%) (Auto) 1.2 % Neutrophils # (Auto) 5.7 TH/MM3 Lymphocytes # (Auto) 1.7 TH/MM3 Monocytes # (Auto) 0.7 TH/MM3 Eosinophils # (Auto) 0.2 TH/MM3 Basophils # (Auto) 0.1 TH/MM3 CBC Comment AUTO DIFF Differential Comment AUTO DIFF CONFIRMED Platelet Estimate NORMAL Platelet Morphology Comment NORMAL Tear Drop Cells 1+ Ovalocytes 1+ Helmet Cells OCC Blood Urea Nitrogen 32 MG/DL Creatinine 9.16 MG/DL Random Glucose 106 MG/DL Calcium Level 9.0 MG/DL Sodium Level 139 MEQ/L Potassium Level 4.1 MEQ/L Chloride Level 104 MEQ/L Carbon Dioxide Level 23.5 MEQ/L Anion Gap 12 MEQ/L Estimat Glomerular Filtration Rate 6 ML/MIN Total Creatine Kinase 63 U/L Troponin I LESS THAN 0.02 NG/ML MDM Medical Decision Making Medical Screen Exam Complete: Yes Emergency Medical Condition: Yes Differential Diagnosis Hypertensive urgency versus ACS versus muscular skeletal pain versus pyelonephritis Narrative Course 37-year-old female with history of renal failure, hypertension, who presents today with complaints of chest pain since this morning. Patient reports it is constant pain in her left side rating down her left arm. Patient's initial set of cardiac enzymes are within normal limits. There is a delta troponin and CK sent off. Patient was noted to be hypertensive. She has been given 10 mg of hydralazine and 2 mg of morphine. Second set of cardiac enzymes are pending at this time. She will be signed out to Dr. Larios, physician replaced me at change of shift and he will make the disposition. Anticipate if they are negative, she can go home as long as her blood pressure stable. Diagnosis Primary Impression: Chest pain Additional Impressions: ESRD (end stage renal disease) Hypertension Ruled Out: Anemia Benson Sevilla MD Feb 02, 2018 18:11
[2018-02-02] MEDS ORDERED: hydrALAZINE HCL 20 MG/ML VIAL IV PUSH ONE (18:15)
[2018-02-02] MEDS ORDERED: MORPHINE SULFATE 2 MG/ML INJ IV PUSH ONE (19:15)
[2018-02-02 19:19] VITALS: BP 177/110; PULSE 90; RESP 16; O2SAT 100
--- NOTE | 2018-02-02 19:25 | EKG ---
Date Performed: 02/02/2018 Time Performed: 13:14:43 PTAGE: 37 years EKG: Sinus rhythm NORMAL ECG Since PREVIOUS TRACING , no significant change noted PREVIOUS TRACIN01/04/2018 04.23 DOCTOR: Iftikhar Gibbs Interpretating Date/Time 02/02/2018 19:23:43
[2018-02-02 19:30] LABS: TROPONIN I LESS THAN 0.02 NG/ML (0.02-0.05)
--- NOTE | 2018-02-02 19:31 | PD ---
Physical Exam Date Seen by Provider: Feb 02, 2018 Time Seen by Provider: 19:28 Narrative The patient is a 37-year-old female was initially evaluated by the previous physician. Please refer to the initial history, physical, diagnostic evaluation , treatment modality plan. The patient was signed out at 7:15 PM with the second troponin pending for chest pain. Data Data Last Documented VS Vital Signs Date Time Temp Pulse Resp B/P (MAP) Pulse Ox O2 Delivery O2 Flow Rate FiO2 02/02/18 19:58 18 02/02/18 19:19 90 177/110 (132) 100 Room Air 02/02/18 13:05 98.5 Orders Orders Electrocardiogram (02/02/18 13:08) Complete Blood Count With Diff (02/02/18 13:08) Basic Metabolic Panel (Bmp) (02/02/18 13:08) Ckmb (Isoenzyme) Profile (02/02/18 13:08) Troponin I (02/02/18 13:08) Chest, Single Ap (02/02/18 13:08) Ckmb (Isoenzyme) Profile (02/02/18 17:25) Troponin I (02/02/18 17:25) Ua Includes Microscopic (02/02/18 17:25) Hydralazine Inj (Apresoline Inj) (02/02/18 18:15) Morphine Inj (Morphine Inj) (02/02/18 19:15) Ed Discharge Order (02/02/18 20:22) Labs Laboratory Tests Test 02/02/18 13:25 02/02/18 17:55 White Blood Count 8.3 TH/MM3 Red Blood Count 4.30 MIL/MM3 Hemoglobin 11.4 GM/DL Hematocrit 34.9 % Mean Corpuscular Volume 81.2 FL Mean Corpuscular Hemoglobin 26.5 PG Mean Corpuscular Hemoglobin Concent 32.6 % Red Cell Distribution Width 17.9 % Platelet Count 211 TH/MM3 Mean Platelet Volume 8.6 FL Neutrophils (%) (Auto) 68.8 % Lymphocytes (%) (Auto) 19.9 % Monocytes (%) (Auto) 8.0 % Eosinophils (%) (Auto) 2.1 % Basophils (%) (Auto) 1.2 % Neutrophils # (Auto) 5.7 TH/MM3 Lymphocytes # (Auto) 1.7 TH/MM3 Monocytes # (Auto) 0.7 TH/MM3 Eosinophils # (Auto) 0.2 TH/MM3 Basophils # (Auto) 0.1 TH/MM3 CBC Comment AUTO DIFF Differential Comment AUTO DIFF CONFIRMED Platelet Estimate NORMAL Platelet Morphology Comment NORMAL Tear Drop Cells 1+ Ovalocytes 1+ Helmet Cells OCC Blood Urea Nitrogen 32 MG/DL Creatinine 9.16 MG/DL Random Glucose 106 MG/DL Calcium Level 9.0 MG/DL Sodium Level 139 MEQ/L Potassium Level 4.1 MEQ/L Chloride Level 104 MEQ/L Carbon Dioxide Level 23.5 MEQ/L Anion Gap 12 MEQ/L Estimat Glomerular Filtration Rate 6 ML/MIN Total Creatine Kinase 63 U/L 65 U/L Troponin I LESS THAN 0.02 NG/ML LESS THAN 0.02 NG/ML [facility] Medical Record Reviewed: Yes Supervised Visit with JESSICA: No Interpretation(s) EKG reveals normal sinus rhythm with a rate 89. No ischemic changes noted. No ectopy noted. Laboratory Tests Test 02/02/18 13:25 02/02/18 17:55 White Blood Count 8.3 TH/MM3 Red Blood Count 4.30 MIL/MM3 Hemoglobin 11.4 GM/DL Hematocrit 34.9 % Mean Corpuscular Volume 81.2 FL Mean Corpuscular Hemoglobin 26.5 PG Mean Corpuscular Hemoglobin Concent 32.6 % Red Cell Distribution Width 17.9 % Platelet Count 211 TH/MM3 Mean Platelet Volume 8.6 FL Neutrophils (%) (Auto) 68.8 % Lymphocytes (%) (Auto) 19.9 % Monocytes (%) (Auto) 8.0 % Eosinophils (%) (Auto) 2.1 % Basophils (%) (Auto) 1.2 % Neutrophils # (Auto) 5.7 TH/MM3 Lymphocytes # (Auto) 1.7 TH/MM3 Monocytes # (Auto) 0.7 TH/MM3 Eosinophils # (Auto) 0.2 TH/MM3 Basophils # (Auto) 0.1 TH/MM3 CBC Comment AUTO DIFF Differential Comment AUTO DIFF CONFIRMED Platelet Estimate NORMAL Platelet Morphology Comment NORMAL Tear Drop Cells 1+ Ovalocytes 1+ Helmet Cells OCC Blood Urea Nitrogen 32 MG/DL Creatinine 9.16 MG/DL Random Glucose 106 MG/DL Calcium Level 9.0 MG/DL Sodium Level 139 MEQ/L Potassium Level 4.1 MEQ/L Chloride Level 104 MEQ/L Carbon Dioxide Level 23.5 MEQ/L Anion Gap 12 MEQ/L Estimat Glomerular Filtration Rate 6 ML/MIN Total Creatine Kinase 63 U/L 65 U/L Troponin I LESS THAN 0.02 NG/ML LESS THAN 0.02 NG/ML Differential Diagnosis Differential diagnosis includes hypertensive urgency, hypertensive emergency, atypical chest pain, end-stage renal disease on hemodialysis, dissection, pulmonary embolism, pleural effusion, pneumonia, GERD. Narrative Course The patient was initially evaluated by the previous physician. Please refer to the initial history, physical, diagnostic evaluation, and treatment modality plan. The patient was signed out at 7:15 PM with second troponin pending. The initial troponin was unremarkable. I did review the EMR, the patient had a nuclear medicine myocardial perfusion scan performed on May 10, 2017 which revealed no reversible abnormalities, did reveal significant left ventricular dysfunction. High risk greater than 3%. The patient's second troponin was less than 0.02. The patient's last blood pressure was 127/77. The patient is medically clear for outpatient follow-up. Diagnosis Primary Impression: Chest pain Qualified Codes: R07.9 - Chest pain, unspecified Additional Impressions: ESRD (end stage renal disease) Hypertension Qualified Codes: I10 - Essential (primary) hypertension Ruled Out: Anemia Patient Instructions: General Instructions Additional Instruction: Follow-up with your primary physician. Please provide the patient a copy of her labs at discharge. Return if symptoms worsen or progress. Med/Other Pt SpecificInfo: No Change to Meds Disposition: 01 DISCHARGE HOME Condition: Stable Stephen Larios MD Feb 02, 2018 19:31
[2018-02-02 20:00] VITALS: BP 156/80; PULSE 75; RESP 18; O2SAT 100
[2018-02-02 20:27] VITALS: BP 127/77; PULSE 80; RESP 18; O2SAT 99
== END 2018-02-02 20:42 | disposition home or self-care (01) ==
LOC: NEPE 13:02
DX: R07.9 Chest pain, unspecified (principal); I12.0 Hypertensive chronic kidney disease with stage 5 chronic kidney disease or end stage renal disease; N18.6 End stage renal disease; Z99.2 Dependence on renal dialysis; Z86.73 Personal history of transient ischemic attack (TIA), and cerebral infarction without residual deficits; Z76.82 Awaiting organ transplant status; Z88.2 Allergy status to sulfonamides; Z88.8 Allergy status to other drugs, medicaments and biological substances; Z79.899 Other long term (current) drug therapy
CPT/HCPCS: 71045; 80048; 82550; 84484; 85025; 93005; 96374; 96375; 99285; J0360; J2270

== ENCOUNTER 2018-02-26 09:11 | Observation (INO) | payer MEDICARE, OTHER ==
[~2018-02-26] VITALS: Ht 175.3 cm; Wt 85.9 kg
[~2018-02-26 09:11] MED LIST changes: +CHOL5000; -CHOL5000 PO
[2018-02-26] MEDS ORDERED: SODIUM CHLORID 0.9% 500 ML IV PRN (09:30)
[2018-02-26] MEDS ORDERED: INSULIN HUMAN REGULAR 1,000 UNITS/10 ML VIAL SQ PRN (09:30)
[2018-02-26] MEDS ORDERED: METOPROLOL TARTRATE 25 MG TAB PO PRN (09:30)
[2018-02-26] MEDS ORDERED: POVIDONE IODINE 5% (ANTISEPSIS KIT) 4 APPLICATIONS EACH NARE PRN (09:30)
[2018-02-26] MEDS ORDERED: CHLORHEXIDINE GLUCONATE 2 % 1 PACK (2 CLOTHS) TOPICAL PRN (09:30)
[2018-02-26] MEDS ORDERED: LACTATED RINGER'S 1000 ML IV PRN (09:30)
[2018-02-26 10:39] LABS: BASOPHIL # 0.1 TH/MM3 (0-0.2); BASOPHIL % 0.9 % (0.0-2.0); EOSINOPHIL # 0.1 TH/MM3 (0-0.4); EOSINOPHIL % 2.1 % (0.0-4.0); HEMATOCRIT 37.2 % (35.0-46.0); HEMOGLOBIN 11.9 GM/DL (11.6-15.3); LYMPH % 17.4 % (9.0-44.0); LYMPHOCYTE # 1.2 TH/MM3 (1.0-4.8); MEAN CELL VOLUME 80.3 FL (80.0-100.0); MEAN CORPUSCULAR HEMOGLOBIN 25.7 PG (27.0-34.0); MEAN PLATELET VOLUME 8.8 FL (7.0-11.0); MONOCYTE # 0.6 TH/MM3 (0-0.9); NEUT % 71.6 % (16.0-70.0); PLATELET COUNT 175 TH/MM3 (150-450); RED BLOOD COUNT 4.64 MIL/MM3 (4.00-5.30); RED CELL DISTRIBUTION WIDTH 19.8 % (11.6-17.2)
[2018-02-26] MEDS ORDERED: Hemodialysis Vas Access Cath PRN NS Lock Flush IV FLUSH (10:45)
[2018-02-26] MEDS ORDERED: Hemodialysis Vas Acc Cath PRN Heparin 1000 unit/ml Flush IV FLUSH (10:45)
[2018-02-26 10:52] LABS: ALBUMIN 3.5 GM/DL (3.4-5.0); ALT (GPT) 12 U/L (10-53); AST (GOT) 10 U/L (15-37); BICARBONATE 25.7 MEQ/L (21.0-32.0); BLOOD UREA NITROGEN 38 MG/DL (7-18); CALCIUM 9.5 MG/DL (8.5-10.1); CHLORIDE 104 MEQ/L (98-107); CREATININE 9.32 MG/DL (0.50-1.00); GLOMERULAR FILTRATION RATE 6 ML/MIN (>89); GLUCOSE,RANDOM 85 MG/DL (74-106); SODIUM (NA) 139 MEQ/L (136-145)
[2018-02-26 10:54] LABS: ALKALINE PHOSPHATASE 41 U/L (45-117); TOTAL BILIRUBIN ADULT 0.6 MG/DL (0.2-1.0); TOTAL PROTEIN 7.6 GM/DL (6.4-8.2)
[2018-02-26] MEDS ORDERED: PROPOFOL 200 MG/20 ML AMP IV ONE (12:00)
[2018-02-26] MEDS ORDERED: SODIUM CHLORID 0.9% 500 ML INJ 500 ML IV ONE (12:00)
[2018-02-26] MEDS ORDERED: DEXAMETHASONE SOD PHOS 4 MG/ML VIAL IV ONE (12:00)
[2018-02-26] MEDS ORDERED: LIDOCAINE HCL 1% PF 5 ML SYRINGE OTHER ONE (12:00)
[2018-02-26] MEDS ORDERED: SODIUM CHLOR 0.9% 250 ML INJ 250 ML IV ONE (12:00)
[2018-02-26] MEDS ORDERED: ONDANSETRON HCL 4 MG/2 ML VIAL IV ONE (12:00)
[2018-02-26] MEDS ORDERED: IOHEXOL 300 MG/ML 50 ML BTL (for RAD DIAG) IVCONTRAST ONE (12:00)
--- NOTE | 2018-02-26 12:35 | HHI.HP ---
History of Present Illness Chief Complaint: Thrombosed L UE AVG History of Present Illness 37 yo female with L UE AVG that has thrombosed recently. Presents for access revision. No hand complaints or other complaints that would preclude OR,. Past/Family/Social History Past Medical History Alports ESRD GERD gout seizure d/o HTN AVM of small intestine diverticulosis Past Surgical History L UE AVF dulce BTL EGD/colonoscopy [facility] catheter insertion and removal parathyroidectomy Social History nonsmoker Family History NC Home Medications Reported Medications Sevelamer Carbonate (Renvela) 800 Mg Tab, 2 TAB PO with meals for Control phosphorous levels, #90 TAB 0 Refills 08/30/17 Cholecalciferol (Vitamin D3) Unknown Strength Cap, .XX WITH DIALYSIS for Nutritional Supplement, #30 CAP 0 Refills now taken with dialysis on sun and sunday08/30/17 Hydralazine HCl (Hydralazine HCl) 25 Mg Tablet, 25 MG PO BID for Blood Pressure Management, #90 TAB 0 Refills 04/16/17 Lisinopril (Lisinopril) 40 Mg Tab, 40 MG PO DAILY for Blood Pressure Management , #30 TAB 0 Refills 01/22/17 Zolpidem (Zolpidem) 10 Mg Tab, 10 MG PO HS Y for INSOMNIA, TAB 0 Refills 01/21/17 Carvedilol (Carvedilol) 25 Mg Tab, 25 MG PO BID, #60 TAB 0 Refills 01/21/17 Clonidine (Clonidine) 0.2 Mg Tab, 0.2 MG PO BID Y for DBP>100, #60 TAB 0 Refills 01/01/17 Allopurinol (Allopurinol) 100 Mg Tab, 100 MG PO DAILY for Gout, #30 TAB 0 Refills 11/26/16 Aspirin (Aspirin) 81 Mg Chew, 81 MG CHEW DAILY, TAB 0 Refills 11/26/16 Amlodipine (Amlodipine) 10 Mg Tab, 10 MG PO DAILY for Blood Pressure Management , #30 TAB 0 Refills 11/09/16 Coded Allergies: ceftriaxone (Verified Allergy, Severe, RASH, 02/25/18) gentamicin (Verified Allergy, Severe, RASH, 02/25/18) levofloxacin (Verified Allergy, Severe, ITCHING, 02/25/18) hydrocodone (Verified Allergy, Intermediate, Nausea/Vomiting, 02/25/18) PT STATES ITCHINESS, NAUSEA, AND VOMITTING tramadol (Verified Allergy, Intermediate, itching, 02/02/18) diatrizoate meglumine (Verified Adverse Reaction, Unknown, due to renal failure, 02/25/18) gadobenic acid (Verified Adverse Reaction, Unknown, due to renal failure, 02/25/18) gadodiamide (Verified Adverse Reaction, Unknown, due to renal failure, ) gadoteridol (Verified Adverse Reaction, Unknown, due to renal failure, ) iodixanol (Verified Adverse Reaction, Unknown, due to renal failure, ) iohexol (Verified Adverse Reaction, Unknown, due to renal failure, 02/25/18 ) sulfamethoxazole (Verified Adverse Reaction, Unknown, due to kidney failure, 02/25/18) trimethoprim (Verified Adverse Reaction, Unknown, due to kidney failure, ) Review of Systems Constitutional: DENIES: Diaphoretic episodes, Fatigue, Fever, Weight gain, Weight loss, Chills, Dizziness, Change in appetite, Night Sweats Cardiovascular: DENIES: Chest pain, Palpitations, Syncope, Dyspnea on Exertion , PND, Lower Extremity Edema, Orthopnea, Claudication Physical Exam Vitals/I&O Date Time Temp Pulse Resp B/P (MAP) Pulse Ox O2 Delivery O2 Flow Rate FiO2 02/26/18 10:01 98.1 83 20 155/95 (115) 100 Neuro: alert, oriented, no distress HEENT: NC/AT Neck: no JVD Heart: reg rate Lungs: clear Vascular: L UE incisions healed; no thrill Laboratory Tests Test 02/26/18 10:05 White Blood Count 7.0 Red Blood Count 4.64 Hemoglobin 11.9 Hematocrit 37.2 Mean Corpuscular Volume 80.3 Mean Corpuscular Hemoglobin 25.7 Mean Corpuscular Hemoglobin Concent 32.0 Red Cell Distribution Width 19.8 Platelet Count 175 Mean Platelet Volume 8.8 Neutrophils (%) (Auto) 71.6 Lymphocytes (%) (Auto) 17.4 Monocytes (%) (Auto) 8.0 Eosinophils (%) (Auto) 2.1 Basophils (%) (Auto) 0.9 Neutrophils # (Auto) 5.0 Lymphocytes # (Auto) 1.2 Monocytes # (Auto) 0.6 Eosinophils # (Auto) 0.1 Basophils # (Auto) 0.1 CBC Comment DIFF FINAL Differential Comment Blood Urea Nitrogen 38 Creatinine 9.32 Random Glucose 85 Total Protein 7.6 Albumin 3.5 Calcium Level 9.5 Alkaline Phosphatase 41 Aspartate Amino Transf (AST/SGOT) 10 Alanine Aminotransferase (ALT/SGPT) 12 Total Bilirubin 0.6 Sodium Level 139 Potassium Level 4.7 Chloride Level 104 Carbon Dioxide Level 25.7 Anion Gap 9 Estimat Glomerular Filtration Rate 6 Caprini VTE Risk Assessment Caprini VTE Risk Assessment: No/Low Risk (score <= 1) Caprini Risk Assessment Model Point Value = 1 Point Value = 2 Point Value = 3 Point Value = 5 Age 41-60 Minor surgery BMI > 25 kg/m2 Swollen legs Varicose veins or History of unexplained or recurrent spontaneous Oral contraceptives or hormone replacement Sepsis (< 1 month) Serious lung disease, including pneumonia (< 1 month) Abnormal pulmonary function Acute myocardial infarction Congestive heart failure (< 1 month) History of inflammatory bowel disease Medical patient at bed rest Age 61-74 Arthroscopic surgery Major open surgery (> 45 min) Laparoscopic surgery (> 45 min) Malignancy Confined to bed (> 72 hours) Immobilizing plaster cast Central venous access Age >= 75 History of VTE Family history of VTE Factor V Leiden Prothrombin [id number] Lupus anticoagulant Anticardiolipin antibodies Elevated serum homocysteine Heparin-induced thrombocytopenia Other congenital or acquired thrombophilia Stroke (< 1 month) Elective arthroplasty Hip, pelvis, or leg fracture Acute spinal cord injury (< 1 month) Prophylaxis Regimen Total Risk Factor Score Risk Level Prophylaxis Regimen 0-1 Low Early ambulation 2 Moderate Order ONE of the following: *Sequential Compression Device (SCD) *Heparin 5000 units SQ BID 3-4 Higher Order ONE of the following medications: *Heparin 5000 units SQ TID *Enoxaparin/Lovenox 40 mg SQ daily (WT < 150 kg, CrCl > 30 mL/min) *Enoxaparin/Lovenox 30 mg SQ daily (WT < 150 kg, CrCl > 10-29 mL/min) *Enoxaparin/Lovenox 30 mg SQ BID (WT < 150 kg, CrCl > 30 mL/min) AND/OR *Sequential Compression Device (SCD) 5 or more Highest Order ONE of the following medications: *Heparin 5000 units SQ TID (Preferred with Epidurals) *Enoxaparin/Lovenox 40 mg SQ daily (WT < 150 kg, CrCl > 30 mL/min) *Enoxaparin/Lovenox 30 mg SQ daily (WT < 150 kg, CrCl > 10-29 mL/min) *Enoxaparin/Lovenox 30 mg SQ BID (WT < 150 kg, CrCl > 30 mL/min) AND *Sequential Compression Device (SCD) Assessment and Plan Plan L UE access revision including thrombectomy Likely POA for obs Discharge Planning POD#1 Rudy Myers MD Feb 26, 2018 12:35
[2018-02-26] MEDS ORDERED: PROTAMINE SULFATE 50 MG/5 ML VIAL ONE (13:02)
[2018-02-26] MEDS ORDERED: HEPARIN SODIUM - IV 10,000 UNITS/10 ML VIAL ONE (13:02)
[2018-02-26] MEDS ORDERED: BUPIVACAINE HCL PF 0.5% 30 ML VIAL ONE (13:02)
[2018-02-26] MEDS ORDERED: VANCOMYCIN HCL 1000 MG VIAL ONE (13:02)
[2018-02-26] MEDS ORDERED: THROMBIN (TOPICAL) 20,000 UNIT SPRAY KIT ONE (13:03)
[2018-02-26] MEDS ORDERED: HEPARIN-NS/PF INJ 500 ML ONE (13:03)
--- NOTE | 2018-02-26 14:44 | HHI.PR ---
cc: Rudy Myers MD Immediate Post Op Note Procedure Date: Feb 26, 2018 Pre Op Diagnosis: Occluded L LE AVG Post Op Diagnosis: Same Surgeon: Rudy Myers Judicial Assistant(s): Rudy Brower Procedure: L UE access revision (PTFE interposition) and thrombectomy Findings: occluded graft, spiritism of thrill and palpable radial pulse Complications: none Specimen(s) removed: perigraft thrombus for culture Estimated blood loss: 150mL Anesthesia: General Drains: None Fluids: 850mL IVF Patient to: PACU Patient Condition: Good Implant/Devices: SEE IMPLANT LOG (if applicable) Date/Time of Procedure: SEE SURGICAL CARE RECORD Rudy Myers MD Feb 26, 2018 14:44
[2018-02-26] MEDS ORDERED: LACTULOSE SYRUP 20 GM/30 ML CUP PO PRN (14:45)
[2018-02-26] MEDS ORDERED: BISACODYL 10 MG SUPP RECTAL PRN (14:45)
[2018-02-26] MEDS ORDERED: SENNOSIDES 8.6 MG TAB PO PRN (14:45)
[2018-02-26] MEDS ORDERED: cloNIDine HCL 0.2 MG TAB PO PRN (14:45)
[2018-02-26] MEDS ORDERED: DO NOT ADM ANY ANTICOAGULANT DRUGS PRN (15:10)
[2018-02-26] MEDS ORDERED: *LABETALOL HCL 100 MG/20 ML VIAL PERIprocedural Use ONLY ONE ×2 (15:11→15:20)
[2018-02-26] MEDS ORDERED: *morphine SULFATE 4 MG/ML PERIprocedure ONLY ONE ×2 (15:16→15:33)
[2018-02-26] MEDS ORDERED: hydrALAZINE HCL 20 MG/ML VIAL ONE (15:33)
[2018-02-26] MEDS ORDERED: hydrALAZINE HCL 20 MG/ML VIAL IV PUSH ONE (15:40)
[2018-02-26] MEDS ORDERED: *diphenhydrAMINE HCL 50 MG/ML VIAL PERIprocedural Use ONLY ONE (16:02)
--- NOTE | 2018-02-26 17:09 | MP ---
cc: Rudy Myers MD DATE OF OPERATION: 02/26/2018 PREOPERATIVE DIAGNOSIS: Occluded left upper extremity arteriovenous graft. POSTOPERATIVE DIAGNOSIS: Occluded left upper extremity arteriovenous graft. PROCEDURE PERFORMED: Left upper extremity access revision (interposition with 6 mm PTFE) and thrombectomy. ATTENDING SURGEON: Rudy Myers MD [employer] SURGEONS: Rudy Oconnell; riya Brower MD ANESTHESIA: General. INDICATION FOR PROCEDURE: Mrs. Patel is a 37-year-old lady with end-stage renal disease who had a left upper extremity access. The dialysis center noted the access was too deep, and the patient was scheduled for a superficialization, but then several days prior to surgery, the patient's thrill was noted to be absent. She was taken to the operating room for graft thrombectomy and revision. DESCRIPTION OF PROCEDURE: Informed consent was obtained from the patient. She was taken to the operating room and placed supine on the operating table. An appropriate timeout was taken to ensure the patient's identity, operative site and planned procedure. The administration of 1 gram of vancomycin was initiated prior to skin incision and will be discontinued after a single preoperative dose. Vancomycin was chosen because of the has end-stage renal disease. Everyone in the room agreed with the timeout and we proceeded. Her left arm was prepped and draped. Incision was made over the course of the fistula, carried down through subcutaneous tissue with electrocautery. The fistula dissected free proximally and distally and encircled with vessel loop. The patient was systemically heparinized with 3000 units of IV heparin. The central portion of the fistula was transected. A Carson embolectomy catheter was used to embolectomize proximally and distally. Good arterial inflow and venous backbleeding were obtained from each end respectively. The old fistula proximal and distal ends were spatulated and a 6 mm PTFE was brought up onto the field, spatulated and sewn end-to-end proximally and distally with running 5-0 Prolene suture. The fistula flushed and noted to be hemostatic. There was nice thrill in the fistula. The deeper layers were closed with 2-0 Polysorb. The superficial layers over the fistula were closed with 3-0 Polysorb and 4-0 Monocryl. Sponge and needle counts were correct at the end of the case. I was present and scrubbed for the arcos and critical portions. MD CASE Ashraf/KD , 03:27 PM , 05:08 PM
[2018-02-26] MEDS ORDERED: HYDROmorphone HCL PF 0.5 MG/0.5 ML SYRINGE ONE (17:34)
[2018-02-26 18:00] VITALS: BP_SYST 196; BP_SYST 201; BP_DIAS 104; BP_DIAS 115; PULSE 105; RESP 18; TEMP 98.7; O2SAT 96
[2018-02-26] MEDS ORDERED: SODIUM CHLOR 0.9% 1000 ML INJ 1,000 ML IV PRN (19:42)
[2018-02-26] MEDS ORDERED: SODIUM CHLOR 0.9% 1000 ML INJ 1,000 ML OTHER PRN ×2 (19:42)
[2018-02-26] MEDS ORDERED: HEPARIN SODIUM - IV 10,000 UNITS/10 ML VIAL PRN (19:45)
[2018-02-26] MEDS ORDERED: ALBUMIN 25% INJ 100 ML IV PRN (19:45)
[2018-02-26] MEDS ORDERED: ACETAMINOPHEN 325 MG TAB PO PRN (19:45)
[2018-02-26] MEDS ORDERED: MANNITOL 12.5 GM/50 ML VIAL IV PRN (19:45)
[2018-02-26] MEDS ORDERED: EPOETIN ALFA 10,000 UNITS/ML VIAL IV PUSH PRN (19:45)
[2018-02-26] MEDS ORDERED: ONDANSETRON HCL 4 MG/2 ML VIAL IV PUSH PRN (19:45)
[2018-02-26] MEDS ORDERED: NITROGLYCERIN 0.4 MG SL 25 TABS/BTL SL PRN (19:45)
[2018-02-26] MEDS ORDERED: GELATIN 12 MM/7 MM FOAM TOP PRN (19:45)
[2018-02-26] MEDS ORDERED: SODIUM CHLORIDE 0.9% FLUSH 10 ML FLUSH IV FLUSH PRN (19:45)
[2018-02-26] MEDS ORDERED: HEPARIN SODIUM - IV 10,000 UNITS/10 ML VIAL IV FLUSH PRN (19:45)
[2018-02-26] MEDS ORDERED: diphenhydrAMINE HCL 25 MG CAP PO PRN (19:45)
[2018-02-26] MEDS ORDERED: cloNIDine HCL 0.1 MG TAB PO PRN (19:45)
[2018-02-26] MEDS: DOCUSATE SODIUM 50 MG/SENNA 8.6 MG TAB PO SCH (19:54)
[2018-02-26] MEDS: HYDROmorphone HCL 2 MG TAB PO PRN (19:55)
[2018-02-26] MEDS: CARVEDILOL 12.5 MG TAB PO SCH (19:55)
[2018-02-26] MEDS: SEVELAMER CARBONATE 800 MG TAB PO SCH (19:55)
[2018-02-26] MEDS: hydrALAZINE HCL 25 MG TAB PO SCH (19:55)
[2018-02-26 20:00] VITALS: BP 166/91; PULSE 100; RESP 18; TEMP 97.9; O2SAT 96
[2018-02-26 20:45] VITALS: PULSE 104
[2018-02-26 20:52] VITALS: O2SAT 96
[2018-02-26] MEDS ORDERED: ZOLPIDEM TARTRATE 10 MG TAB PO PRN (21:00)
[2018-02-26 23:50] VITALS: PULSE 93
[2018-02-27] VITALS (7 sets, daily range): BP systolic 148–197; BP diastolic 76–102; PULSE 93–99; RESP 17–18; TEMP 98–98.7; O2SAT 95–100
[2018-02-27] MEDS: HYDROmorphone HCL 2 MG TAB PO PRN ×3 (00:18→14:54)
[2018-02-27] MEDS: SEVELAMER CARBONATE 800 MG TAB PO SCH (08:06)
[2018-02-27] MEDS: DOCUSATE SODIUM 50 MG/SENNA 8.6 MG TAB PO SCH (08:06)
[2018-02-27] MEDS ORDERED: LISINOPRIL 20 MG TAB PO SCH (09:00)
[2018-02-27] MEDS ORDERED: ASPIRIN 81 MG CHEW TAB CHEW SCH (09:00)
[2018-02-27] MEDS ORDERED: ALLOPURINOL 100 MG TAB PO SCH (09:00)
--- NOTE | 2018-02-27 10:11 | PD.VS.PN ---
Subjective POD #: 1 Procedure(s): L UE access revision (PTFE interposition) and thrombectomy Subjective/Hospital Course Pt s/p L UE access revision Pain controlled Pt denied hand pain Pt c/o L UE numbness + thrill palpated near L UE AVF Objective Vitals/I&O Date Time Temp Pulse Resp B/P (MAP) Pulse Ox O2 Delivery O2 Flow Rate FiO2 02/27/18 09:20 18 02/27/18 07:42 98.3 95 18 171/90 (117) 95 02/27/18 04:00 98.0 99 18 167/87 (113) 97 02/27/18 04:00 98 02/27/18 00:00 98.7 98 18 148/76 (100) 96 02/26/18 23:50 93 02/26/18 21:09 Room Air 02/26/18 20:52 96 Nasal Cannula 2.00 02/26/18 20:45 104 02/26/18 20:00 97.9 100 18 166/91 (116) 96 02/26/18 18:00 98.7 105 18 201/115 (143) 96 196/104 (134) 02/26/18 17:45 97.7 90 15 173/96 (121) 94 Room Air 02/26/18 16:30 90 15 163/92 (115) 92 Room Air 02/26/18 16:00 88 15 173/93 (119) 92 Room Air 02/26/18 15:45 87 17 186/108 (134) 94 Room Air 02/26/18 15:30 87 17 204/121 (148) 100 Nasal Cannula 2 02/26/18 15:15 96 15 179/105 (129) 100 Nasal Cannula 2 02/26/18 15:08 98.4 96 15 182/106 (131) 99 Nasal Cannula 2 02/26/18 10:01 98.1 83 20 155/95 (115) 100 02/27/18 02/27/18 02/27/18 07:00 15:00 23:00 Intake Total 360 ml Balance 360 ml Exam: GENERAL: Afebrile 37/F, A&OX3,NAD,GCS15 SKIN: UE Warm and Dry w/ motor intact R/L Radial pulses palpable + thrill palpated near AVF Incisions: L UE incision intact with surgical glue closure No R/D/S noted Laboratory Laboratory Tests Test 02/26/18 10:05 02/27/18 08:58 White Blood Count 7.0 Red Blood Count 4.64 Hemoglobin 11.9 Hematocrit 37.2 Mean Corpuscular Volume 80.3 Mean Corpuscular Hemoglobin 25.7 Mean Corpuscular Hemoglobin Concent 32.0 Red Cell Distribution Width 19.8 Platelet Count 175 Mean Platelet Volume 8.8 Neutrophils (%) (Auto) 71.6 Lymphocytes (%) (Auto) 17.4 Monocytes (%) (Auto) 8.0 Eosinophils (%) (Auto) 2.1 Basophils (%) (Auto) 0.9 Neutrophils # (Auto) 5.0 Lymphocytes # (Auto) 1.2 Monocytes # (Auto) 0.6 Eosinophils # (Auto) 0.1 Basophils # (Auto) 0.1 CBC Comment DIFF FINAL Differential Comment Blood Urea Nitrogen 38 Creatinine 9.32 Random Glucose 85 Total Protein 7.6 Albumin 3.5 Calcium Level 9.5 Alkaline Phosphatase 41 Aspartate Amino Transf (AST/SGOT) 10 Alanine Aminotransferase (ALT/SGPT) 12 Total Bilirubin 0.6 Sodium Level 139 Potassium Level 4.7 Chloride Level 104 Carbon Dioxide Level 25.7 Anion Gap 9 Estimat Glomerular Filtration Rate 6 Date/Time Source Procedure Growth Status 02/26/18 14:00 Wound Arm Gram Stain - Final Resulted 02/26/18 14:00 Wound Arm Wound Culture Pending Resulted Assessment and Plan Assessment: (1) ESRD (end stage renal disease) Status: Acute (2) AVF (arteriovenous fistula) Plan PT s/p L UE Access Revision including thrombectomy POD 1 pt doing well w/o complaints of hand pain Pt c/o L UE numbness UE warm w/ motor intact Plan Discussed and reviewed post operative care and management w/ pt Pt clear for D/C post HD Arranged out pt f/u Roxy Medeiros [facility] [phone] Discharge Planning Today post HD Arranged out pt f/u Roxy Medeiros Feb 27, 2018 10:11
[2018-02-27] MEDS ORDERED: OXYC1CAP PO (10:18)
--- NOTE | 2018-02-27 10:26 | PD.VS.DC ---
Discharge Summary Admission Date: Feb 26, 2018 at 14:50 Discharge Date: Feb 27, 2018 Admission Diagnosis: (1) End stage renal disease (2) AVF (arteriovenous fistula) Discharge Diagnosis: (1) ESRD (end stage renal disease) ICD Codes: N18.6 - End stage renal disease Status: Acute (2) AVF (arteriovenous fistula) ICD Codes: I77.0 - Arteriovenous fistula, acquired Brief History from admission 37 yo female with L UE AVG that has thrombosed recently. Presents for access revision. No hand complaints or other complaints that would preclude OR,. Procedure(s): L UE access revision (PTFE interposition) and thrombectomy Significant Findings GENERAL: Afebrile 37/F, A&OX3,NAD,GCS15 SKIN: UE Warm and Dry w/ motor intact R/L Radial pulses palpable + thrill palpated near AVF Incision intact w/o R/D/S Laboratory Tests Test 02/26/18 10:05 02/27/18 08:58 Mean Corpuscular Hemoglobin 25.7 PG (27.0-34.0) Red Cell Distribution Width 19.8 % (11.6-17.2) Neutrophils (%) (Auto) 71.6 % (16.0-70.0) Blood Urea Nitrogen 38 MG/DL (7-18) Creatinine 9.32 MG/DL (0.50-1.00) Alkaline Phosphatase 41 U/L (45-117) Aspartate Amino Transf (AST/SGOT) 10 U/L (15-37) Estimat Glomerular Filtration Rate 6 ML/MIN (>89) Hospital Course: 37 yo female with L UE AVG that has thrombosed recently. Presents for access revision. No hand complaints or other complaints Pt S/P L UE Access Revision POD 1 Pt s/p L UE access revision Pain controlled Pt denied hand pain Pt c/o L UE numbness + thrill palpated near L UE AVF Pt ready for D/C post HD Arrange out pt f/u in 2W Allergies Coded Allergies Type Severity Reaction Last Updated Verified ceftriaxone Allergy Severe RASH 02/25/18 Yes gentamicin Allergy Severe RASH 02/25/18 Yes levofloxacin Allergy Severe ITCHING 02/25/18 Yes hydrocodone Allergy Intermediate Nausea/Vomiting 02/25/18 Yes tramadol Allergy Intermediate itching 02/02/18 Yes diatrizoate meglumine Adverse Reaction Unknown due to renal failure 02/25/18 Yes gadobenic acid Adverse Reaction Unknown due to renal failure 02/25/18 Yes gadodiamide Adverse Reaction Unknown due to renal failure 02/25/18 Yes gadoteridol Adverse Reaction Unknown due to renal failure 02/25/18 Yes iodixanol Adverse Reaction Unknown due to renal failure 02/25/18 Yes iohexol Adverse Reaction Unknown due to renal failure 02/25/18 Yes sulfamethoxazole Adverse Reaction Unknown due to kidney failure 02/25/18 Yes trimethoprim Adverse Reaction Unknown due to kidney failure 02/25/18 Yes 02/25/18 02/25/18 02/26/18 02/26/18 02/27/18 02/27/18 06:00 18:00 06:00 18:00 06:00 18:00 Intake Total 850 ml 360 ml Output Total 150 ml Balance 700 ml 360 ml Intake Oral 360 ml IV Total 0 ml Other 850 ml Output Urine Total 0 ml Estimated Blood Loss 150 ml # Voids 1 3 # Bowel Movements 0 Laboratory Tests Test 02/26/18 10:05 02/27/18 08:58 White Blood Count 7.0 TH/MM3 Red Blood Count 4.64 MIL/MM3 Hemoglobin 11.9 GM/DL Hematocrit 37.2 % Mean Corpuscular Volume 80.3 FL Mean Corpuscular Hemoglobin 25.7 PG Mean Corpuscular Hemoglobin Concent 32.0 % Red Cell Distribution Width 19.8 % Platelet Count 175 TH/MM3 Mean Platelet Volume 8.8 FL Neutrophils (%) (Auto) 71.6 % Lymphocytes (%) (Auto) 17.4 % Monocytes (%) (Auto) 8.0 % Eosinophils (%) (Auto) 2.1 % Basophils (%) (Auto) 0.9 % Neutrophils # (Auto) 5.0 TH/MM3 Lymphocytes # (Auto) 1.2 TH/MM3 Monocytes # (Auto) 0.6 TH/MM3 Eosinophils # (Auto) 0.1 TH/MM3 Basophils # (Auto) 0.1 TH/MM3 CBC Comment DIFF FINAL Differential Comment Blood Urea Nitrogen 38 MG/DL Creatinine 9.32 MG/DL Random Glucose 85 MG/DL Total Protein 7.6 GM/DL Albumin 3.5 GM/DL Calcium Level 9.5 MG/DL Alkaline Phosphatase 41 U/L Aspartate Amino Transf (AST/SGOT) 10 U/L Alanine Aminotransferase (ALT/SGPT) 12 U/L Total Bilirubin 0.6 MG/DL Sodium Level 139 MEQ/L Potassium Level 4.7 MEQ/L Chloride Level 104 MEQ/L Carbon Dioxide Level 25.7 MEQ/L Anion Gap 9 MEQ/L Estimat Glomerular Filtration Rate 6 ML/MIN Orders Procedure Category Date Status Time Complete Blood Count LAB 02/26/18 Complete With Diff 09:24 Comprehensive LAB 02/26/18 Complete Metabolic Panel 09:24 Lactated Ringer's MED 02/26/18 In Process 1000 Ml Inj (Lr 1000 M 09:30 Sodium Chlorid 0.9% MED 02/26/18 In Process 500 Ml Inj (Ns 500 M 09:30 Metoprolol Tartrate MED 02/26/18 In Process (Lopressor) 09:30 Povidone Iod 5% MED 02/26/18 In Process Antisepsis Kit 09:30 Chlorhexidine 2% MED 02/26/18 In Process Cloth (Chlorhexidine 09:30 Insulin Human Regular MED 02/26/18 In Process Inj (Novolin R Inj 09:30 Sodium Chloride 0.9% MED 02/26/18 In Process Flush (Ns Flush) 10:45 Heparin Inj (Heparin MED 02/26/18 In Process Inj) 10:45 Protamine Sulfate Inj MED 02/26/18 Complete (Protamine Sulfate 13:02 Heparin Inj (Heparin MED 02/26/18 Complete Inj) 13:02 Bupivacaine Pf 0.5% MED 02/26/18 Complete Inj (Marcaine Pf 0.5 13:02 Vancomycin Inj MED 02/26/18 Complete (Vancomycin Inj) 13:02 Heparin-Ns/Pf Inj MED 02/26/18 Complete (Heparin-Ns/Pf Inj) 13:03 Thrombin Top [place] MED 02/26/18 Complete (Thrombin Top [place]) 13:03 Place In Observation ADMITTING 02/26/18 Transmitted Code Status CODE 02/26/18 Transmitted 14:45 Vital Signs (Adult) ASHANTI 02/26/18 In Process 14:45 Ict Quality Assurance Engineer / ASHANTI 02/26/18 In Process Telemetry 14:45 Activity Oob Ad Verónica ASHANTI 02/26/18 In Process 14:45 Precautions ASHANTI 02/26/18 In Process 14:45 Diet Heart Healthy DIET 02/26/18 Transmitted Dinner Basic Metabolic Panel LAB 02/27/18 In Process (Bmp) 06:00 Consult Nephrology CONS 02/26/18 Transmitted Oxycodone (Roxicodone) MED 02/26/18 In Process 14:45 Hydromorphone MED 02/26/18 In Process (Dilaudid) 14:45 Scd Bilateral/Knee ASHANTI 02/26/18 In Process High 14:45 Docusate Sodium-Senna MED 02/26/18 In Process (Cecilia-Colace) 21:00 Sennosides (Senokot) MED 02/26/18 In Process 14:45 Bisacodyl Supp MED 02/26/18 In Process (Dulcolax Supp) 14:45 Lactulose Liq MED 02/26/18 In Process (Lactulose Liq) 14:45 Allopurinol (Zyloprim) MED 02/27/18 In Process 09:00 Amlodipine (Norvasc) MED 02/27/18 In Process 09:00 Aspirin Chew (Aspirin MED 02/27/18 In Process Chew) 09:00 Carvedilol (Coreg) MED 02/26/18 In Process 21:00 Clonidine (Catapres) MED 02/26/18 In Process 14:45 Hydralazine MED 02/26/18 In Process (Apresoline) 21:00 Sevelamer (Renvela) MED 02/26/18 In Process 21:00 Zolpidem (Ambien) MED 02/26/18 In Process 21:00 Lisinopril (Prinivil) MED 02/27/18 In Process 09:00 [facility] 02/26/18 Complete Fentanyl Inj MED 02/26/18 Complete (Fentanyl Inj) 15:05 *Labetalol Inj MED 02/26/18 Complete (*Trandate Inj 15:11 *Morphine Inj MED 02/26/18 Complete (*Morphine Inj 15:16 *Labetalol Inj MED 02/26/18 Complete (*Trandate Inj 15:20 Wound Culture And TAMARA 02/26/18 In Process Gram Stain 15:25 Hydralazine Inj MED 02/26/18 Complete (Apresoline Inj) 15:33 *Morphine Inj MED 02/26/18 Complete (*Morphine Inj 15:33 Heparin Inj (Heparin MED 02/27/18 In Process Inj) 14:00 Misc Nursing MED 02/26/18 In Process Information 15:10 Hydralazine Inj MED 02/26/18 Complete (Apresoline Inj) 15:40 *Diphenhydramine Inj MED 02/26/18 Complete (*Benadryl Inj Cecilia 16:02 Patient Transfer ADMITTING 02/26/18 Transmitted Hydromorphone Pf Inj MED 02/26/18 Complete (Dilaudid Pf Inj) 17:34 (Hub Use Only)Inp Phy CONS 02/26/18 Transmitted Cons/Ref Document ASHANTI 02/26/18 In Process Anticoagulant Alert ASHANTI 02/26/18 In Process ^ Sling ASHANTI 02/26/18 In Process Resp Oxygen Jas C RSP 02/26/18 Logged Titrat 1-4 L Vascular Access Team ASHANTI 02/26/18 In Process Consult/P 18:09 Vascular Poc IMGUS 02/26/18 Taken Ultrasound Class [facility] 02[facility]18 Complete MIN General/[facility]u [facility] 02/26/18 Complete Post Anesthesia Oxygen [facility] 02/26/18 Complete Pacu Med Holding [facility] 02/26/18 Complete Hourly Blood Flow Rate ASHANTI 02/26/18 In Process 19:42 Dialysate Flow Rate ASHANTI 02/26/18 In Process 19:42 Dialyzer ASHANTI 02/26/18 In Process 19:42 Concentrate ASHANTI 02/26/18 In Process 19:42 Acid Concentrate ASHANTI 02/26/18 In Process 19:42 Length Of Dialysis ASHANTI 02/26/18 In Process 19:42 Frequency Of Dialysis ASHANTI 02/26/18 In Process 19:42 Dialysis Obtain ASHANTI 02/26/18 In Process 19:42 Needle Size ASHANTI 02/26/18 In Process 19:42 Dialysis Schedule ASHANTI 02/26/18 In Process 19:42 Resp Oxygen Jas C RSP 02/26/18 Logged Titrat 1-4 L Dialysis Weight ASHANTI 02/26/18 In Process 19:42 ^ Obtain As Needed ASHANTI 02/26/18 In Process 19:42 Sodium Chlor 0.9% MED 02/26/18 In Process 1000 Ml Inj (Ns 1000 M 19:42 Heparin Inj (Heparin MED 02/26/18 In Process Inj) 19:45 Sodium Chlor 0.9% MED 02/26/18 In Process 1000 Ml Inj (Ns 1000 M 19:42 Sodium Chlor 0.9% MED 18 In Process 1000 Ml Inj (Ns 1000 M 19:42 Mannitol Inj MED 18 In Process (Mannitol Inj) 19:45 Albumin 25% Inj MED 02/26/18 In Process (Albumin 25% Inj) 19:45 Sodium Chloride 0.9% MED 02/26/18 In Process Flush (Ns Flush) 19:45 Heparin Inj (Heparin MED 02/26/18 In Process Inj) 19:45 Ondansetron Inj MED 02/26/18 In Process (Zofran Inj) 19:45 Acetaminophen MED 02/26/18 In Process (Tylenol) 19:45 Diphenhydramine MED 02/26/18 Complete (Benadryl) 19:45 Nitroglycerin Sl MED 02/26/18 In Process (Nitrostat Sl) 19:45 Clonidine (Catapres) MED 02/26/18 In Process 19:45 Epoetin Anmol Inj MED 02/26/18 In Process (Epogen Inj) 19:45 Gelatin 12 Mm/7 Mm MED 02/26/18 In Process Top (Gelfoam 12 Mm/7 19:45 Attending Discharge DISCHARGE 02/27/18 Transmitted Order Diphenhydramine Inj MED 02/27/18 Logged (Benadryl Inj) 10:30 Vital Signs Date Time Temp Pulse Resp B/P (MAP) Pulse Ox O2 Delivery O2 Flow Rate FiO2 02/27/18 09:20 18 02/27/18 07:42 98.3 95 18 171/90 (117) 95 02/27/18 04:00 98.0 99 18 167/87 (113) 97 02/27/18 04:00 98 02/27/18 00:00 98.7 98 18 148/76 (100) 96 02/26/18 23:50 93 02/26/18 21:09 Room Air 02/26/18 20:52 96 Nasal Cannula 2.00 02/26/18 20:45 104 02/26/18 20:00 97.9 100 18 166/91 (116) 96 02/26/18 18:00 98.7 105 18 201/115 (143) 96 196/104 (134) 02/26/18 17:45 97.7 90 15 173/96 (121) 94 Room Air 02/26/18 16:30 90 15 163/92 (115) 92 Room Air 02/26/18 16:00 88 15 173/93 (119) 92 Room Air 02/26/18 15:45 87 17 186/108 (134) 94 Room Air 02/26/18 15:30 87 17 204/121 (148) 100 Nasal Cannula 2 02/26/18 15:15 96 15 179/105 (129) 100 Nasal Cannula 2 02/26/18 15:08 98.4 96 15 182/106 (131) 99 Nasal Cannula 2 02/26/18 10:01 98.1 83 20 155/95 (115) 100 Discharge Condition: Good Discharge Disposition: Discharge Home Discharge Instructions: DIET You may resume your dialysis diet ACTIVITY Activity as tolerated (LEFT Upper Extremity) NO heavy lifting over a gallon of milk for 1W - LEFT upper extremity NO blood pressure readings or lab draws to your LEFT upper extremity WOUND CARE Leave your incision open to air Do not apply any creams or ointments to your incision as it may loosen the surgical glue Call the office to report any increased redness, drainage or painful swelling You may shower then pat dry the incision site MEDICATIONS You may resume your home medications Your were prescribed a narcotic pain medication- This may cause constipation- Take with an over the counter stool softener Your were prescribed a narcotic pain medication- This may cause drowsiness- No driving while taking this medication Any questions or concerns: Call [facility] at [facility] [phone] Roxy Medeiros Feb 27, 2018 10:26
[2018-02-27 10:30] LABS: BICARBONATE 19.7 MEQ/L (21.0-32.0); CALCIUM 9.9 MG/DL (8.5-10.1)
[2018-02-27] MEDS ORDERED: diphenhydrAMINE HCL 50 MG/ML VIAL IV PUSH ONE (10:30)
[2018-02-27 10:36] LABS: CREATININE 11.5 MG/DL (0.50-1.00)
--- NOTE | 2018-02-27 11:09 | PD.CONS ---
HPI Service Nephrology Consult Requested By Dr. Myers Reason for Consult ESRD management Primary Care Physician Caitlin Olsen M.D. History of Present Illness Patient is a 37-year-old -[place] female with history of end-stage renal disease, hypertension, Alport syndrome, who had AV fistula with was surgically revised, and the left arm is swollen. She goes for dialysis on Sunday, and Sunday and follow with Dr. Montiel Review of Systems Constitutional: COMPLAINS OF: Fatigue Musculoskeletal: COMPLAINS OF: Joint pain, Muscle aches, Back pain Past Family Social History Allergies: Coded Allergies: ceftriaxone (Verified Allergy, Severe, RASH, 02/25/18) gentamicin (Verified Allergy, Severe, RASH, 02/25/18) levofloxacin (Verified Allergy, Severe, ITCHING, 02/25/18) hydrocodone (Verified Allergy, Intermediate, Nausea/Vomiting, 02/25/18) PT STATES ITCHINESS, NAUSEA, AND VOMITTING tramadol (Verified Allergy, Intermediate, itching, 02/02/18) diatrizoate meglumine (Verified Adverse Reaction, Unknown, due to renal failure, 02/25/18) gadobenic acid (Verified Adverse Reaction, Unknown, due to renal failure, 02/25/18) gadodiamide (Verified Adverse Reaction, Unknown, due to renal failure, ) gadoteridol (Verified Adverse Reaction, Unknown, due to renal failure, ) iodixanol (Verified Adverse Reaction, Unknown, due to renal failure, ) iohexol (Verified Adverse Reaction, Unknown, due to renal failure, 02/25/18 ) sulfamethoxazole (Verified Adverse Reaction, Unknown, due to kidney failure, 02/25/18) trimethoprim (Verified Adverse Reaction, Unknown, due to kidney failure, ) Past Medical History End-stage renal disease Hypertension Atypical chest pain Alport syndrome Anemia Hyperparathyroidism Past Surgical History AV fistula revision Permacath PD catheter insertion and removal Parathyroidectomy Reported Medications Reported Meds & Active Scripts Active Reported Renvela (Sevelamer Carbonate) 800 Mg Tab 2 Tab PO WITH MEALS Vitamin D3 (Cholecalciferol) Unknown Strength Cap Unknown Dose .XX WITH DIALYSIS now taken with dialysis on sun and sunday Hydralazine HCl 25 Mg Tablet 25 Mg PO BID Lisinopril 40 Mg Tab 40 Mg PO DAILY Zolpidem (Zolpidem Tartrate) 10 Mg Tab 10 Mg PO HS PRN Carvedilol 25 Mg Tab 25 Mg PO BID Clonidine (Clonidine HCl) 0.2 Mg Tab 0.2 Mg PO BID PRN Allopurinol 100 Mg Tab 100 Mg PO DAILY Aspirin 81 Mg Chew 81 Mg CHEW DAILY Amlodipine (Amlodipine Besylate) 10 Mg Tab 10 Mg PO DAILY Active Ordered Medications Current Medications Medications (Trade) Dose Ordered Sig/Catherine Route Start Time Stop Time Status Last Admin Lactated Ringer's 1,000 ml @ 30 mls/hr Q24H PRN IV 02/26/18 09:30 03/01/18 09:29 Sodium Chloride 500 ml @ 30 mls/hr [id number] PRN IV 02/26/18 09:30 03/01/18 09:29 02/26/18 10:10 (Lopressor) 25 mg JIG BORING MACHINE OPERATOR FOR METAL PRN PO 02/26/18 09:30 03/01/18 09:29 (Betadine 5% Antisepsis Kit) 1 applic JIG BORING MACHINE OPERATOR FOR METAL PRN EACH NARE 02/26/18 09:30 03/01/18 09:29 (Chlorhexidine 2% Cloth) 3 pack JIG BORING MACHINE OPERATOR FOR METAL PRN TOPICAL 02/26/18 09:30 03/01/18 09:29 02/26/18 09:45 (NovoLIN R INJ) See Protocol Table ... JIG BORING MACHINE OPERATOR FOR METAL PRN SQ 02/26/18 09:30 03/01/18 09:29 (NS Flush) 5 ml UNSCH PRN IV FLUSH 02/26/18 10:45 (Heparin Inj) 2,000 units UNSCH PRN IV FLUSH 02/26/18 10:45 (Roxicodone) 5 mg Q4H PRN PO 02/26/18 14:45 (Dilaudid) 2 mg Q4H PRN PO 02/26/18 14:45 02/27/18 08:06 (Heparin Inj) 5,000 units Q8H SQ 02/27/18 14:00 (Cecilia-Colace) 1 tab BID PO 02/26/18 21:00 02/27/18 08:06 (Senokot) 17.2 mg Q12H PRN PO 02/26/18 14:45 (Dulcolax Supp) 10 mg DAILY PRN RECTAL 02/26/18 14:45 (Lactulose Liq) 30 ml DAILY PRN PO 02/26/18 14:45 (Zyloprim) 100 mg DAILY PO 02/27/18 09:00 02/27/18 08:05 (Norvasc) 10 mg DAILY PO 02/27/18 09:00 (Aspirin Chew) 81 mg DAILY CHEW 02/27/18 09:00 02/27/18 08:07 (Coreg) 25 mg BID PO 02/26/18 21:00 02/26/18 19:55 (Catapres) 0.2 mg BID PRN PO 02/26/18 14:45 02/26/18 18:32 (Apresoline) 25 mg BID PO 02/26/18 21:00 02/26/18 19:55 (Renvela) 1,600 mg BID PO 02/26/18 21:00 02/27/18 08:06 (Ambien) 10 mg HS PRN PO 02/26/18 21:00 (Prinivil) 40 mg DAILY PO 02/27/18 09:00 Miscellaneous Information ALL NURSING DEPARTME... UNSCH PRN .XX 02/26/18 15:10 02/27/18 15:09 Sodium Chloride 1,000 ml @ 0 mls/hr Q0M PRN OTHER 02/26/18 19:42 (Heparin Inj) 8,000 units UNSCH PRN IV FLUSH 02/26/18 19:45 Sodium Chloride 1,000 ml @ 200 mls/hr Q5H PRN IV 02/26/18 19:42 Sodium Chloride 1,000 ml @ 0 mls/hr Q0M PRN OTHER 02/26/18 19:42 (Mannitol Inj) 12.5 gm UNSCH PRN IV 02/26/18 19:45 Albumin Human 100 ml @ 60 mls/hr UNSCH PRN IV 02/26/18 19:45 (NS Flush) 5 ml UNSCH PRN IV FLUSH 02/26/18 19:45 (Heparin Inj) UNSCH PRN .XX 02/26/18 19:45 (Zofran Inj) 4 mg UNSCH PRN IV PUSH 02/26/18 19:45 (Tylenol) 650 mg UNSCH PRN PO 02/26/18 19:45 (Nitrostat Sl) 0.4 mg UNSCH PRN SL 02/26/18 19:45 (Catapres) 0.1 mg UNSCH PRN PO 02/26/18 19:45 (Epogen Inj) 4,000 units UNSCH PRN IV PUSH 02/26/18 19:45 (Gelfoam 12 Mm/7 Mm Top) 1 foam UNSCH PRN TOP 02/26/18 19:45 Family History Noncontributory Social History Denies smoking or alcohol use Physical Exam Vital Signs Vital Signs Date Time Temp Pulse Resp B/P (MAP) Pulse Ox O2 Delivery O2 Flow Rate FiO2 02/27/18 09:20 18 02/27/18 07:42 98.3 95 18 171/90 (117) 95 02/27/18 04:00 98.0 99 18 167/87 (113) 97 02/27/18 04:00 98 02/27/18 00:00 98.7 98 18 148/76 (100) 96 02/26/18 23:50 93 02/26/18 21:09 Room Air 02/26/18 20:52 96 Nasal Cannula 2.00 02/26/18 20:45 104 02/26/18 20:00 97.9 100 18 166/91 (116) 96 02/26/18 18:00 98.7 105 18 201/115 (143) 96 196/104 (134) 02/26/18 17:45 97.7 90 15 173/96 (121) 94 Room Air 02/26/18 16:30 90 15 163/92 (115) 92 Room Air 02/26/18 16:00 88 15 173/93 (119) 92 Room Air 02/26/18 15:45 87 17 186/108 (134) 94 Room Air 02/26/18 15:30 87 17 204/121 (148) 100 Nasal Cannula 2 02/26/18 15:15 96 15 179/105 (129) 100 Nasal Cannula 2 02/26/18 15:08 98.4 96 15 182/106 (131) 99 Nasal Cannula 2 Physical Exam GENERAL: Well-nourished, well-developed patient. SKIN: Warm and dry. HEAD: Normocephalic. EYES: No scleral icterus. No injection or drainage. NECK: Supple, trachea midline. No JVD or lymphadenopathy. CARDIOVASCULAR: Regular rate and rhythm without murmurs, gallops, or rubs. RESPIRATORY: Breath sounds equal bilaterally. No accessory muscle use. GASTROINTESTINAL: Abdomen soft, non-tender, nondistended. EXTREMITIES: No cyanosis, 1+ edema. Left arm AVF positive thrill NEUROLOGICAL: Awake, alert, and oriented x 3. Non-focal. Laboratory Laboratory Tests Test 02/27/18 08:58 Blood Urea Nitrogen 47 Creatinine 11.50 Random Glucose 105 Calcium Level 9.9 Sodium Level 133 Potassium Level 4.8 Chloride Level 101 Carbon Dioxide Level 19.7 Anion Gap 12 Estimat Glomerular Filtration Rate 5 Date/Time Source Procedure Growth Status 02/26/18 14:00 Wound Arm Gram Stain - Final Resulted 02/26/18 14:00 Wound Arm Wound Culture Pending Resulted Result Diagram: 02/26/18 1005 02/27/18 0858 Assessment and Plan Problem List: (1) End stage renal disease ICD Codes: N18.6 - End stage renal disease Status: Acute Plan: Patient is seen during hemodialysis she is tolerating it well Ultrafiltration of 3 L Continue supportive care AV fistula with positive thrill status post thrombectomy Discharge plans as advised by surgical team (2) AVF (arteriovenous fistula) ICD Codes: I77.0 - Arteriovenous fistula, acquired Plan: Positive thrill (3) Hypertension ICD Codes: I10 - Essential (primary) hypertension Status: Acute Plan: Continue to monitor Vanessa Lee MD Feb 27, 2018 11:09
[2018-02-27] MEDS ORDERED: HEPARIN SODIUM - SQ 10,000 UNITS/ML VIAL SQ SCH (14:00)
[2018-02-27] MEDS: CARVEDILOL 12.5 MG TAB PO SCH (14:55)
[2018-02-27] MEDS: hydrALAZINE HCL 25 MG TAB PO SCH (14:56)
== END 2018-02-27 19:10 | disposition home or self-care (01) ==
LOC: HSDC 09:11 → HSDI 14:50 → N06B 17:58
PROVIDERS: ADMIT Surgery; ATTEND Surgery
DX: I12.0 Hypertensive chronic kidney disease with stage 5 chronic kidney disease or end stage renal disease (principal); N18.6 End stage renal disease; T82.898A Other specified complication of vascular prosthetic devices, implants and grafts, initial encounter; I77.0 Arteriovenous fistula, acquired; R20.0 Anesthesia of skin; Q87.81 Alport syndrome; E21.3 Hyperparathyroidism, unspecified; Z99.2 Dependence on renal dialysis; Z79.899 Other long term (current) drug therapy; Z79.82 Long term (current) use of aspirin; Y83.2 Surgical operation with anastomosis, bypass or graft as the cause of abnormal reaction of the patient, or of later complication, without mention of misadventure at the time of the procedure
CPT/HCPCS: 01844; 36833; 80048; 80053; 85025; 87070; 87205; 90935; 96374; C1768; G0378; J0360; J1100; J1170; J1200; J1644; J2270; J2405; J2720; J3010; J3370; J7040; J7050; Q9967